=== PATIENT | female | born 1970 | race Caucasian/White ===

== ENCOUNTER 2020-02-05 08:07 | Outpatient (CLI) | payer OTHER, SELFPAY ==
--- NOTE | ~2020-02-05 | XR_ITS ---
EXAMINATION: XR abdomen/kub 1V INDICATION: History of kidney stones TECHNIQUE: Supine views of the abdomen were obtained on 2 radiographs. COMPARISON: 01/12/2019 FINDINGS: There are surgical changes in the left upper quadrant. Cholecystectomy clips are noted in t he right upper quadrant. No definite urinary tract calculi are identified. The previously described E ssure devices have been removed. A tiny retained portion of the device is seen in the right pelvis. T he bowel gas pattern is normal. IMPRESSION: 1. No urinary tract calculi identified. Reviewed, dictated and finalized at location A.
== END 2020-02-05 08:08 | disposition home or self-care (01) ==
PROVIDERS: PCP Internal Medicine; Visit Provider Urology
DX: Z87.442 Personal history of urinary calculi (principal)
CPT/HCPCS: 74018

== ENCOUNTER 2022-01-26 18:35 | Emergency (ER) | payer OTHER, SELFPAY ==
--- NOTE | ~2022-01-26 | NM_ITS ---
NM pulmonary perfusion DATE: 01/27/2022 09:33 INDICATION: Left pleuritic chest pain. Elevated d-dimer. History of deep venous thrombosis TECHNIQUE: 8 standard projections of the lungs were performed after intravenous injection of 5.1 mCi 99m technetium MAA COMPARISON: 01/26/2022 PA and lateral chest FINDINGS: There is normal distribution of radiotracer throughout both lungs without segmental or loba r perfusion defects. IMPRESSION: Negative perfusion scan; no evidence of pulmonary embolism Reviewed, dictated and finalized at Location A. Reviewed, dictated and finalized at location A.
--- NOTE | ~2022-01-26 | XR_ITS ---
EXAMINATION: XR chest 2V DATE: 01/26/2022 18:49 INDICATION: Chest pain. TECHNIQUE: Frontal and lateral views of the chest were obtained. COMPARISON: CT abdomen and pelvis 07/25/2018 FINDINGS: The chest demonstrates clear lungs without pneumonia, pleural effusion, or pneumothorax. Th e heart size is normal. There are surgical clips in the abdomen. IMPRESSION: 1. No acute cardiopulmonary disease. Reviewed, dictated and finalized at location A.
--- NOTE | 2022-01-26 18:35 | ECG_ITS ---
Measurements Intervals [place] Rate: 65 P: 50 NV: 151 QRS: -6 QRSD: 105 T: 39 QT: 385 QTc: 403 Interpretive Statements SINUS RHYTHM POSSIBLE LEFT ATRIAL ENLARGEMENT INCOMPLETE RIGHT BUNDLE BRANCH BLOCK CONSIDER INFERIOR INFARCT, AGE INDETERMINATE ABNORMAL ECG Electronically Signed On 01-26-2022 21:31:23 CDT by Tejinder Farfan D.O.
[2022-01-26 18:49] VITALS: BP 121/65; PULSE 74; RESP 16; TEMP 36.6; O2SAT 100
[2022-01-26 19:04] LABS: Basophils Percent Auto 0.3 % (0.2-1.2); Eosinophils Absolute Auto 0.1 K/mm3 (0-0.3); Hematocrit 30.8 % (37.0-47.0); Hemoglobin 9.9 g/dL (12.0-15.0); Immature Granulocyte Absolute 0.01 K/mm3 (0.00-0.031); Immature Granulocyte Percent A 0.2 % (0-0.5); Lymphocytes Absolute Auto 1.05 K/mm3 (0.9-3.2); Lymphocytes Percent Auto 16.8 % (18.3-44.2); Mean Corpuscular HGB Conc 32.1 g/dl (32-36); Mean Corpuscular Hemoglobin 26.8 pg (26-34); Mean Corpuscular Volume 83.5 fl (80-100); Mean Platelet Volume 8.2 fl (7.4-10.4); Monocytes Absolute Auto 0.4 K/mm3 (0.1-0.6); Monocytes Percent Auto 6.1 % (2.6-8.5); Neutrophils Absolute Auto 4.7 K/mm3 (1.3-6.7); Neutrophils Percent Auto 75.6 % (45.5-73.1); Platelet Count Result 272 k/mm3 (150-375); Red Blood Count 3.69 M/mm3 (4.2-5.4); Red Cell Distribution Width 11.9 % (11.5-14.5); White Blood Count 6.3 K/mm3 (4.5-10.0)
[2022-01-26 19:13] LABS: Alanine Aminotransferase 15 U/L (6-35); Albumin Level 4.4 g/dL (3.5-5.1); Alkaline Phosphatase 117 U/L (38-126); Anion Gap 7 mmol/L (8-16); Aspartate Amino Transferase 34 U/L (14-36); Bilirubin,Total 0.6 mg/dL (0.2-1.3); Blood Urea Nitrogen 45 mg/dL (7-17); Calcium 9.2 mg/dL (8.4-10.2); Carbon Dioxide 34 mmol/L (22-30); Chloride 86 mmol/L (98-107); Estimated CRCL calculation 18 ml/min; Estimated Glomerular Filt Rate 17; Glucose 99 mg/dL (65-110); Lipase 302 U/L (23-300); Sodium 127 mmol/L (137-145)
[2022-01-26 19:16] LABS: Prothrombin Time 12.6 Seconds (11.1-14.7)
[2022-01-26 19:17] LABS: Partial Thromboplastin Time 26.6 SECONDS (22.3-36.8)
[2022-01-26 19:24] LABS: Troponin I < 0.012 ng/mL (0.000-0.034)
[2022-01-26] MEDS: ASPIRIN 81 MG CHEWABLE TABLET 324 MG PO (23:07)
[2022-01-26 23:08] VITALS: BP 119/64; PULSE 74; RESP 17; O2SAT 100
[2022-01-26 23:35] LABS: D Dimer 0.95 ug/mL (<0.48)
[2022-01-26 23:42] LABS: Troponin I < 0.012 ng/mL (0.000-0.034)
[2022-01-27] VITALS (46 sets, daily range): BP systolic 94–114; BP diastolic 50–68; PULSE 59–74; RESP 10–23; O2SAT 94–100
[2022-01-27 01:54] LABS: Troponin I < 0.012 ng/mL (0.000-0.034)
--- NOTE | 2022-01-27 05:16 | ED.CHESTPAIN ---
HPI - Chest Pain General Chief Complaint: Chest Pain Stated Complaint: chest pain Time Seen by Provider: 01/26/22 22:27 History of Present Illness HPI narrative: 51-year-old female presents here stating that she is having left-sided chest pain that is also in her back, states this is never happened in the past, denies any recent cough, pain does not radiate, it is worse when she takes deep breaths. History of DVTs, she is not on any blood thinners. Related Data Allergies Allergy/AdvReac Type Severity Reaction Status Date / Time bacitracin Allergy Severe Hives / Verified 01/31/21 10:49 Red Face ibuprofen Allergy Severe Hives / Verified 01/31/21 10:49 Red Face neomycin Allergy Severe Hives / Verified 01/31/21 10:49 Red Face polymyxin B Allergy Severe Hives / Verified 01/31/21 10:49 Red Face gramicidin D Allergy Verified 01/31/21 10:49 BACITRACIN ZINC Allergy Uncoded 01/31/21 10:49 NEOMYCIN SULFATE Allergy Uncoded 01/31/21 10:49 POLYMYXIN B SULFATE Allergy Uncoded 01/31/21 10:49 Review of Systems Review of Systems: CONST: No fever. HEENT: No sore throat C/V: chest pain RESP: No cough GI: No nausea, vomiting : No dysuria. M/S: No joint pain. SKIN: No rash. NEURO: No headache or focal numbness or weakness PSYCH: No depression PMFSH Past Medical History Medical History (Updated 01/27/22 @ 05:20 by Wendy Vasquez MD) CKD (chronic kidney disease) DVT (deep venous thrombosis) Surgical History Surgical History (Updated 01/27/22 @ 05:20 by Wendy Vasquez MD) History of cholecystectomy Exam Narrative: EXAMINATION OF ORGAN SYSTEMS/BODY AREAS: Constitutional: Vital signs per nursing GENERAL:[No acute distress, non-toxic appearing.] HEAD: Normal with no signs of head trauma. EYES: EOMI, conjunctiva normal ENT: Hearing grossly intact LUNGS: Nonlabored breathing. HEART: [Regular rate and rhythm] ABD: [Soft] nondistended EXT: Normal range of motion, no swelling SKIN: [No rashes or lesions.] NEURO: [Alert and oriented x 3. No gross focal sensory or strength deficits.] PSYCH: Normal affect Course Course Emergency Course: 51-year-old female with history of CKD and prior DVT not on anticoagulation currently presents here with sharp pleuritic chest pain, vital signs stable, exam shows well-appearing patient with clear lungs, differential includes with likely ACS/TN without pain on exertion, possible bronchitis however no recent cough, and PE. EKG nonischemic, labs include normal troponin, but elevated D-dimer. Given her creatinine I am unable to order a CT PE, NM scan was ordered, multiple calls to tech made overnight without response and patient will likely have it in the AM. Signed out to oncoming ER physician. Vital Signs Vital signs: Vital Signs Temperature 97.8 F 01/26/22 18:49 Pulse Rate 74 01/26/22 18:49 Respiratory Rate 16 01/26/22 18:49 Blood Pressure 121/65 01/26/22 18:49 Pulse Oximetry 100 01/26/22 18:49 Temperature 97.8 F 01/26/22 18:49 Pulse Rate 62 01/27/22 02:45 Respiratory Rate 16 01/27/22 02:45 Blood Pressure 99/66 L 01/27/22 02:45 Pulse Oximetry 99 01/27/22 02:45 MDM - Chest Pain Lab Data Result diagrams: 01/26/22 18:54 01/26/22 18:54 Labs: Lab Results 01/26/22 01/26/22 01/26/22 Range/Units 18:54 18:54 18:54 WBC 6.3 (4.5-10.0) K/mm3 RBC 3.69 L (4.2-5.4) M/mm3 Hgb 9.9 L (12.0-15.0) g/dL Hct 30.8 L (37.0-47.0) % MCV 83.5 (80-100) fl MCH 26.8 (26-34) pg MCHC 32.1 (32-36) g/dl RDW 11.9 (11.5-14.5) % Plt Count 272 (150-375) k/mm3 MPV 8.2 (7.4-10.4) fl Immature Gran % (Auto) 0.2 (0-0.5) % Neut % (Auto) 75.6 H (45.5-73.1) % Lymph % (Auto) 16.8 L (18.3-44.2) % Placer % (Auto) 6.1 (2.6-8.5) % Eos % (Auto) 1.0 (0-4.4) % Baso % (Auto) 0.3 (0.2-1.2) % Lymph # (Auto) 1.05 (0.9-3.2) K/mm3 Placer # (Auto) 0.4 (0.1-0.6)
== END 2022-01-27 11:18 | disposition home or self-care (01) ==
PROVIDERS: Emergency Medicine; Emergency Provider Emergency Medicine; PCP Internal Medicine
DX: R07.89 Other chest pain (principal); N18.9 Chronic kidney disease, unspecified; Z86.718 Personal history of other venous thrombosis and embolism; I45.10 Unspecified right bundle-branch block; R94.31 Abnormal electrocardiogram [ECG] [EKG]
CPT/HCPCS: 36415; 71046; 78580; 80053; 83690; 84484; 85025; 85380; 85610; 85730; 93005; 99284; A9270; A9540

== ENCOUNTER 2023-04-25 14:38 | Outpatient (CLI) | payer OTHER, SELFPAY ==
--- NOTE | ~2023-04-25 | US_ITS ---
EXAMINATION: US venous doppler [facility] DATE: 04/25/2023 15:43 INDICATION: Lower limb swelling TECHNIQUE: Grayscale ultrasound images without and with compression and Doppler ultrasound images of the left lower extremity veins were obtained. COMPARISON: 04/29/2014 FINDINGS: The visualized portions of left common femoral vein, profunda (deep) femoral vein, femoral vein and p opliteal vein are partially compressible with peripheral nonocclusive thrombus with linear echogenic margins consistent with chronic thrombosis. The left peroneal veins, posterior tibial veins and great er saphenous vein outflow are patent. IMPRESSION: 1. Persistent chronic nonocclusive deep venous thrombosis in the left common femoral, superficial fe moral, profunda (deep) femoral and popliteal veins. Reviewed, dictated and finalized at location L. IMPRESSION: 1. Persistent chronic nonocclusive deep venous thrombosis in the left common f emoral, superficial femoral, profunda (deep) femoral and popliteal veins.
== END 2023-04-25 14:39 | disposition home or self-care (01) ==
LOC: ANHIMG 14:42
PROVIDERS: PCP Internal Medicine; Visit Provider Nurse Practitioner Family
DX: M79.89 Other specified soft tissue disorders (principal); I82.512 Chronic embolism and thrombosis of left femoral vein; I82.532 Chronic embolism and thrombosis of left popliteal vein
CPT/HCPCS: 93971

== ENCOUNTER 2023-04-25 16:09 | Emergency (ER) | payer OTHER, SELFPAY ==
[2023-04-25 16:20] VITALS: BP 152/79; PULSE 71; RESP 16; TEMP 36.6; O2SAT 100
[2023-04-25 17:05] VITALS: BP 127/108; PULSE 70; RESP 15; O2SAT 100
[2023-04-25 17:16] VITALS: BP 147/74; O2SAT 100
[2023-04-25 17:31] VITALS: BP 133/79; O2SAT 100
[2023-04-25 17:32] VITALS: O2SAT 100
--- NOTE | 2023-04-25 17:34 | ED.GENADULT ---
HPI - General Adult General Chief complaint: Extremity Problem,Nontraumatic Stated complaint: dvt Time Seen by Provider: 04/25/23 16:59 Source: patient Mode of arrival: ambulatory Limitations: no limitations History of Present Illness HPI narrative: This is a 52-year-old female who presents to the ED with chief complaint of left calf swelling and a positive DVT ultrasound done today. She was referred over from the radiology department. She states the left calf has been swollen for the last week or so. There is some pain in the upper calf. Denies redness. States she is able to ambulate. Denies any shortness of breath or chest pain. States she has a history of 2 DVTs in the left calf in the past. She has been on Xarelto in the past but is not currently taking blood thinners. States she has had a workup for this and has not been informed of any known coagulopathies. Denies any further complaint. Related Data Home Medications Medication Instructions Recorded Confirmed hydrochlorothiazide 12.5 mg capsule 12.5 mg PO DAILY 04/30/22 04/30/22 montelukast 10 mg tablet 10 mg PO DAILY 04/30/22 04/30/22 tolvaptan (polycys kidney dis) 90 See Rx Instructions PO PER PKG DIR 04/30/22 04/30/22 mg (AM)/30 mg (PM) tablets (Jynarque) Allergies Allergy/AdvReac Type Severity Reaction Status Date / Time bacitracin Allergy Severe Hives / Verified 04/25/23 16:24 Red Face ibuprofen Allergy Severe Hives / Verified 04/25/23 16:24 Red Face neomycin Allergy Severe Hives / Verified 04/25/23 16:24 Red Face polymyxin B Allergy Severe Hives / Verified 04/25/23 16:24 Red Face gramicidin D Allergy Unknown Verified 04/25/23 16:24 BACITRACIN ZINC Allergy Unknown Uncoded 04/25/23 16:24 NEOMYCIN SULFATE Allergy Unknown Uncoded 04/25/23 16:24 POLYMYXIN B SULFATE Allergy Unknown Uncoded 04/25/23 16:24 Review of Systems Review of Systems: All systems as dictated in HPI PMFSH Past Medical History Medical History (Updated 04/26/23 @ 00:05 by Jammie English) Acid reflux CKD (chronic kidney disease) DVT (deep venous thrombosis) Surgical History Surgical History (Updated 04/30/22 @ 08:08 by Kalie Dodge MA) Gastric bypass status for obesity H/O endoscopy History of cholecystectomy History of tubal ligation Social History Social History (Updated 04/30/22 @ 08:08 by Kalie Dodge MA) Smoking status: Never smoker Alcohol intake: never Substance use: never Substance use type: does not use Living arrangements: with family Occupation/Education: retired Gender identity (if verbalized by the patient): Female Exam Narrative: GENERAL: Well-appearing, well-nourished, and in no acute distress. HEAD: Normocephalic, atraumatic. EYES: PERRLA and EOMI. ENT: Nares clear, no rhinorrhea or epistaxis. Mucous membranes moist. Oropharynx without tonsillar hypertrophy exudate or other lesions. NECK: Supple. No adenopathy or masses. CHEST: No respiratory distress. Clear to auscultation. No wheezes rales or rhonchi HEART: Regular rate and rhythm. No murmur heard. Normal peripheral pulses. ABDOMEN: Soft, nontender, nondistended, normal active bowel sounds. MSK: LLE: Left calf unilateral swelling when compared to right. Minimal redness. Minimal tenderness as well. Cap refill intact. 2+ pulses distally. No skin changes. RLE: Benign. SKIN: Warm, dry, no rash. NEURO: Alert and oriented x3. No focal deficits. PSYCH: Normal mood and affect. Course Vital Signs Vital signs: Vital Signs Temperature 97.9 F 04/25/23 16:20 Pulse Rate 71 04/25/23 16:20 Respiratory Rate 16 04/25/23 16:20 Blood Pressure 152/79 H 04/25/23 16:20 Pulse Oximetry 100 04/25/23 16:20 Oxygen Delivery Room Air 04/25/23 16:20 Temperature 97.9 F 04/25/23 16:20 Pulse Rate 70 04/25/23 17:05 Respiratory Rate 15 04/25/23 17:05 Blood Pressure 133/79 04/25/23 17:31 Pulse Oximetry 100 04/25/23
[2023-04-25 17:56] LABS: Basophils Percent Auto 0.7 % (0.2-1.2); Eosinophils Absolute Auto 0.1 K/mm3 (0-0.3); Eosinophils Percent Auto 1.2 % (0-4.4); Hematocrit 35.4 % (37.0-47.0); Hemoglobin 11.3 g/dL (12.0-15.0); Immature Granulocyte Absolute 0.01 K/mm3 (0.00-0.031); Immature Granulocyte Percent A 0.2 % (0-0.5); Lymphocytes Absolute Auto 1.51 K/mm3 (0.9-3.2); Lymphocytes Percent Auto 25.7 % (18.3-44.2); Mean Corpuscular HGB Conc 31.9 g/dl (32-36); Mean Corpuscular Hemoglobin 26.9 pg (26-34); Mean Corpuscular Volume 84.3 fl (80-100); Mean Platelet Volume 8.2 fl (7.4-10.4); Monocytes Absolute Auto 0.4 K/mm3 (0.1-0.6); Monocytes Percent Auto 6.8 % (2.6-8.5); Neutrophils Absolute Auto 3.8 K/mm3 (1.3-6.7); Neutrophils Percent Auto 65.4 % (45.5-73.1); Platelet Count Result 212 k/mm3 (150-375); Red Cell Distribution Width 19.2 % (11.5-14.5); White Blood Count 5.9 K/mm3 (4.5-10.0)
[2023-04-25 18:05] LABS: Alanine Aminotransferase 19 U/L (6-35); Albumin Level 4.3 g/dL (3.5-5.1); Alkaline Phosphatase 72 U/L (38-126); Anion Gap 9 mmol/L (8-16); Aspartate Amino Transferase 29 U/L (14-36); Bilirubin,Total 0.5 mg/dL (0.2-1.3); Blood Urea Nitrogen 49 mg/dL (7-17); Calcium 9.6 mg/dL (8.4-10.2); Carbon Dioxide 29 mmol/L (22-30); Chloride 102 mmol/L (98-107); Estimated CRCL calculation 21 ml/min; Estimated Glomerular Filt Rate 18; Glucose 100 mg/dL (65-110); Potassium 4.6 mmol/L (3.4-5.0); Sodium 140 mmol/L (137-145)
[2023-04-25 18:07] LABS: INR 0.9
== END 2023-04-25 18:52 | disposition home or self-care (01) ==
PROVIDERS: Emergency Provider Physician Assistant; PCP Internal Medicine
DX: I82.512 Chronic embolism and thrombosis of left femoral vein (principal); I82.532 Chronic embolism and thrombosis of left popliteal vein; N18.9 Chronic kidney disease, unspecified; K21.9 Gastro-esophageal reflux disease without esophagitis; Z98.84 Bariatric surgery status; Z90.49 Acquired absence of other specified parts of digestive tract
CPT/HCPCS: 36415; 80053; 85025; 85610; 99283

== ENCOUNTER 2024-04-30 07:14 | Outpatient (CLI) | payer OTHER, SELFPAY ==
--- NOTE | ~2024-04-30 | DEXA_ITS ---
Bone Density Report Name: ARELIS MORALES Age: 53 Sex: Female Ethnicity: White Date of : 1970 Indication: postmenopausal; screening for osteoporosis; end stage renal disease; Referring Provider: OSMEL, CARA Hall Study: Bone densitometry was performed. Exam Date: April 30, 2024 Accession number: [id number] Bone Density: Region BMD T-score Z-score Classification AP Spine(L2, L3, L4) 0.848 -2.1 -1.0 Osteopenia Femoral Neck (Left) 0.611 -2.1 -1.0 Osteopenia Total Hip (Left) 0.767 -1.4 -0.7 Osteopenia Femoral Neck (Right) 0.543 -2.8 -1.7 Osteoporosis Total Hip (Right) 0.698 -2.0 -1.3 Osteopenia Femoral Neck Mean 0.577 -2.4 -1.4 Osteopenia Total Hip Mean 0.733 -1.7 -1.0 Osteopenia World Health Organization criteria for BMD impression classify patients as: Normal (T-score at or above -1.0), Osteopenia (T-score between -1.0 and -2.5), or Osteoporosis (T-score at or below -2.5). 10-year Fracture Risk: FRAX not reported because: Some T-score for Spine Total or Hip Total or Femoral Neck at or below -2.5 Clinical Information Provided by Patient: Has used the following medications: Vitamin D, Calcium, multi Has the following medical conditions: End stage renal disease Patient maximum height was 64 Menopause Age: 38 Onset of menses at age 9 Number of children 2 Impression: The patient has osteoporosis, based on the Right Femoral Neck T-score. Discussion: INCREASED RISK OF FRACTURE. BONE DENSITY IS UNDESIRABLY LOW AT ONE OR MORE SKELETAL SITES, CONSISTENT WITH POSTMENOPAUSAL OSTEOPOROSIS. This patient's lowest T-score meets the World Health Organization's (WHO) criteria for osteoporosis at one or more sites (T-score -2.5 or below). In untreated patients, the risk of osteoporotic fracture increases approximately two-fold for each 1.0 SD decrease in T-score. Low bone density is not the only risk factor for fracture; also consider factors such as patient's age, frailty or poor health, risk of falling, risk of injury, previous osteoporotic fracture, family history of osteoporosis, cigarette smoking, low body weight, etc. Not everyone with low bone mineral density has osteoporosis; osteomalacia and other metabolic bone disorders should also be considered. Patients who have osteoporosis should be evaluated for specific diseases and conditions (secondary causes) that may cause or contribute to bone loss. The [place] [employer]ocrinologists (AACE) and National Osteoporosis Foundation (NOF) recommend pharmacologic intervention for all postmenopausal women whose T-score is in this range. The patient should follow a healthful lifestyle (good nutrition with adequate calcium and vitamin D, and appropriate weight-bearing exercise). Follow-Up: Consider a repeat BMD and Vertebral Frac
== END 2024-04-30 07:15 | disposition home or self-care (01) ==
LOC: CHSIMG 07:18
PROVIDERS: PCP Internal Medicine; Visit Provider Internal Medicine
DX: Z78.0 Asymptomatic menopausal state (principal); M81.0 Age-related osteoporosis without current pathological fracture; M85.89 Other specified disorders of bone density and structure, multiple sites
CPT/HCPCS: 77080

== ENCOUNTER 2024-10-24 15:39 | Emergency (ER) | payer OTHER, SELFPAY ==
[2024-10-24] VITALS (12 sets, daily range): BP systolic 138–153; BP diastolic 61–83; PULSE 72–77; RESP 12–19; TEMP 36.4–36.7; O2SAT 99–100
--- NOTE | ~2024-10-24 | XR_ITS ---
EXAMINATION: XR chest 2V Exam Date/Time: 10/24/2024 17:08 RN HYPERBARIC HISTORY: sob, pain with inspiration Comparison: 01/26/2022. RESULT: Lines, tubes, and devices: Surgical clips over the GE junction. Lungs and pleura: Clear. Cardiomediastinal silhouette: Stable. Other: No acute osseous or upper abdominal finding. IMPRESSION: No acute cardiopulmonary process. Reviewed, dictated and finalized at location K. HYPERBARIC
--- OUTSIDE RECORDS SUMMARY | 2024-10-24 15:41 | XMS_ITS | Continuity of Care Document ---
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 Post-surgical malabsorption (disorder) Active Condition Blood in Stool Active Diagnosis Morbid Obesity Active Diagnosis Allergies, Adverse Reactions, Alerts Substance Category Reaction Severity Reaction type Status Date Reported Comments Source ibuprofen Assertion Hives Propensity to adverse reactions to substance Active [facility] Neosporin Assertion increase rash Drug allergy Active [facility] Encounters Location Location Details Encounter Type Encounter Number Reason For Visit Attending Provider ADM Date DC Date Status Source [facility] [id number] CLASS: YEARLY RYGB 05/25/13 Odin Sutmargaretoeller Cancel [facility] [id number] CLASS: YEARLY RYGB 05/25/13 Odin Sutmargaretoeller Cancel [facility] [id number] CLASS: YEARLY RYGB 05/25/13 Reji Carrero Cancel [facility] [id number] CLASS: YEARLY RYGB 05/25/13 Odin Suttmoeller Cancel [facility] Procedures Procedure Code Date Perfomer Comments Source Cholecystectomy [id number] [facility] navel mass removed as a child [facility] uterine abalation [facility] Laparoscopic Mynor-en-Y divid ed gastric bypass [facility]
--- OUTSIDE RECORDS SUMMARY | 2024-10-24 15:41 | XMS_ITS | Clinical Summary ---
Author Organization [facility] Address [address] [place] [phone] Phone Care Team Providers Care Operating Room Surgical Technician Name Role Phone Joselito Laws MD Primary Care Provider [phone] Allergies Active Allergy Reactions Criticality Noted Date Comments Ibuprofen 05/21/2019 [id number]-[id number]-[id number] 2018 Medications Medication Sig Dispensed Refills Start Date End Date Status montelukast (SINGULAIR) 10 MG tablet 1 tab daily 0 07/18/2016 Active Multiple Vitamins-Mineral s (DEKAS BARIATRIC PO) DEKAs Bariatric Active calcium carbonate (TUMS) 500 MG chewable tablet Chew 500 mg in the morning and 500 mg in the evening and 500 mg before bedtime. Active sertraline (ZOLOFT) 50 MG tablet Take 50 mg by mouth 1 (one) time each day Active Biotin 100 MG/GM powder Take 10,000 mg by mouth in the morning and 10,000 mg in the evening. Active nortriptyline (PAMELOR) 25 MG capsule Take 25 mg by mouth every night Active sertraline (ZOLOFT) 25 MG tablet Take 25 mg by mouth 1 (one) time each day Active rivaroxaban (Xarelto) 20 MG tablet Take 20 mg by mouth 1 (one) time each day with dinner Take with food. Active potassium citrate (UROCIT-K) 10 MEQ (1080 MG) CR tablet Take 1 tablet (10 mEq total) by mouth 1 (one) time each day Do not crush, chew, or split. 90 tablet 11 08/21/2023 Active atorvastatin (LIPITOR) 10 MG tablet Take 10 mg by mouth 1 (one) time each day Active alendronate (FOSAMAX) 70 MG tablet Take 70 mg by mouth every 7 (seven) days Take in the morning with a full glass of water, on an empty stomach, and do not take anything else by mouth or lie down for the next 30 min. Active cetirizine (ZyrTEC) 10 MG tablet Take 10 mg by mouth 1 (one) time each day Active folic acid (FOLVITE) 800 MCG tablet Take 800 mcg by mouth 1 (one) time each day Active cyanocobalamin (VITAMIN B-12) 1000 MCG tablet Take 5,000 mcg by mouth 1 (one) time each day Active hydroCHLOROthiaz audrey 12.5 MG tablet Take 1 tablet (12.5 mg total) by mouth 1 (one) time each day 90 tablet 1 06/09/2024 Active ferrous sulfate 325 (65 Fe) MG tablet TAKE 1 TABLET (325 MG) BY MOUTH IN THE MORNING AND TAKE 1 TABLET IN THE EVENING 180 tablet 07/30/2024 Active Tolvaptan (Jynarque) 90 & 30 MG tablet therapy packIndications: Autosomal dominant polycystic kidney Take 90 mg by mouth daily AND 30 mg 1 (one) time each day in the evening. Take one 90 mg tablet daily in the morning and one 30 mg tablet 8 hours later. 56 each 2 09/29/2024 Active Tolvaptan (Jynarque) 90 & 30 MG tablet therapy packIndications: Autosomal dominant polycystic kidney Take 90 mg by mouth daily AND 30 mg daily. Take one 90 mg tablet daily in the morning and one 30 mg tablet 8 hours later. 56 each 2 06/25/2024 09/29/2024 Discontinued (Reorder) Hospital, Clinic, or Other Facility Administered Medication Ordered Dose Route Frequency Start Date End Date Status iron sucrose (VENOFER) injection 500 mgIndications:Iron deficiency anemia, not otherwise specified 500 mg IV See admin instructions 08/26/2024 Active Active Problems Problem Noted Date Diagnosed Date Encounter for therapeutic drug monitoring 2023 Iron deficiency anemia 02/20/2023 Essential hypertension 05/21/2019 Adult polycystic kidney 01/11/2017 Chronic kidney disease, stage 4 (severe) 016 Resolved Problems Problem Noted Date Diagnosed Date Resolved Date Secondary hyperparathyroidism 08/18/2020 02/19/2023 Headache, unspecified 08/18/20202020 Back pain 05/20/2020 08/18/2020 Acute kidney failure 11/19/2018 019 Urinary tract infection 11/19/201801/2019 Anemia 07/18/2016 05/13/2024 Encounters Date Type Department Care Team Description 09/29/2024 Refill [facility] [address] [place] [id number] Nany Erickson RN Autosomal dominant polycystic kidney 08/26/2024 3:40 PM KEY ACCOUNT MANAGER Office Visit [facility] [address] [place] [id number] Brayan Aquino MD Chronic kidney disease, stage 4 (severe) ([facility]) (Primary Dx); Adult polycystic kidney; Encounter for therapeutic drug monitoring; Essential hypertension; Iron deficiency anemia, not otherwise specified 08/10/2024 10:00 AM KEY ACCOUNT MANAGER Clinical Support [facility] [address] [place] [id number] Shadia De Oliveira NP Chronic kidney disease, stage 4 (severe) ([facility]) (Primary Dx) 07/30/2024 Refill [facility] [address] [place] [id number] Shadia De Oliveira NP from Last 3 Months Immunizations Name Administration Dates Next Due Influenza TIV (IM) 06/18/2016 Family History Medical History Relation Comments Kidney disease Father Diabetes mellitus Neg Hx Relation Status Comments Father Social History Tobacco Use Types Packs/Day Years Used Date Smoking Tobacco: Never Smokeless Tobacco: Never Tobacco Cessation:Counseling Given: Not Answered Alcohol Use Standard Drinks/Week Comments Never 0 (1 standard drink = 0.6 oz pur e alcohol) AUDIT-C Answer Date Recorded Frequency of Alcohol Consumption Never 11/19/2019 Average Number of Drinks Not on file 020 Frequency of Binge Drinking Not on file 01/2020 Sex and Gender Information Value Date Recorded Sex Assigned at Not on file Gender Identity Not on file Sexual Orientation Not on file Last Filed Vital Signs Vital Sign Reading Time Taken Comments Blood Pressure 155/90 08/26/2024 3:24 PM KEY ACCOUNT MANAGER Pulse 85 08/26/2024 3:24 PM KEY ACCOUNT MANAGER Temperature 37.1 C (98.7 F) 05/03/2021 4:13 PM CDT Respiratory Rate - - Oxygen Saturation 99% 10/24/2022 2:05 PM KEY ACCOUNT MANAGER Inhaled Oxygen Concentration - - Weight 80.3 kg (177 lb) 08/26/2024 3:24 PM KEY ACCOUNT MANAGER Height 160 cm (5' 3 ) 08/26/2024 3:24 PM KEY ACCOUNT MANAGER Body Mass Index 31.35 08/26/2024 3:24 PM KEY ACCOUNT MANAGER Plan of Treatment Upcoming Encounters Date Type Department Care Team (Late st Contact Info) Description 12/16/2024 3:20 PM CDT Office Visit [facility] [address] [facility] [place] [address] Brayan Aquino MD [address] [facility] [address] [place], [place] [id number] Health Maintenance Due Date Last Done Comments Diabetic Foot Exam 1978 Ophthalmology Exam 1978 Pneumococcal PPSV23 Highest Risk Adult (1 of 3 - PCV13) 1987 Influenza Vaccine (#1) 2024 3, 06/15/2022, 06/27/2018, Additional history exists Care Teams Operating Room Surgical Technician Relationship Specialty Start Date End Date Joselito Laws MD [address] [facility] [address] [place] [address] PCP - General 11/25/19
--- OUTSIDE RECORDS SUMMARY | 2024-10-24 15:41 | XMS_ITS | Encounter Summary ---
Author Organization [facility] Suzan utimarcus Address [address] [place] [address] Phone Care Team Providers Care Warehouse Operations Associate Name Role Phone Joselito Laws MD Primary Care Provider Reason for Visit * Reason Comments Med Refill Encounter Details Date Type Department Care Team (Late st Contact Info) Description 07/27/2019 Refill [facility] 2100 [facility] 206 [place] [address] Brayan Aquino MD 5003 [facility] 1 [place], [place] [phone] Social History Tobacco Use Types Packs/Day Years Used Date Smoking Tobacco: Never Assessed Sex and Gender Information Value Date Recorded Sex Assigned at Not on file Gender Identity Not on file Sexual Orientation Not on file documented as of this encounter Plan of Treatment Upcoming Encounters Date Type Department Care Team (Late st Contact Info) Description 12/16/2024 3:20 PM CDT Office Visit [facility] 5003 [facility] 1 [place] [address] Brayan Aquino MD [address] [address] documented as of this encounter Visit Diagnoses Not on filedocumented in this encounter Care Teams Warehouse Operations Associate Relationship Specialty Start Date End Date Joselito Laws MD [address] [facility] 15 [place] [address] PCP - General 11/25/19 documented as of this encounter
--- OUTSIDE RECORDS SUMMARY | 2024-10-24 15:41 | XMS_ITS | Encounter Summary ---
Author Organization Dor[facility] Physician Suzan utimarcus Address [address] [place] [address] Phone Care Team Providers Care Physician Assistant Name Role Phone Joselito Laws MD Primary Care Provider [phone] Reason for Visit * Reason Comments Med Refill Encounter Details Date Type Department Care Team (Late Contact Info) Description 12/28/2020 Refill [facility] [address] [id number] Brayan Aquino MD [address] [address] Social History Tobacco Use Types Packs/Day Years Used Date Smoking Tobacco: Never Smokeless Tobacco: Never Alcohol Use Standard Drinks/Week Comments Never 0 [...] Description 12/16/2024 3:20 PM CDT Office Visit [facility] 5003 [facility] 1 [place] [address] Brayan Aquino MD [address] [phone] documented as of this encounter Visit Diagnoses Not on filedocumented in this encounter Care Teams Physician Assistant Relationship Specialty Start Date End Date Joselito Laws MD [address] [address] PCP - General 11/25/19 documented as of this encounter
--- OUTSIDE RECORDS SUMMARY | 2024-10-24 15:41 | XMS_ITS | Encounter Summary ---
Author Organization Dor[facility] Physician Suzan utimarcus Address [address] [place] [address] Phone Care Team Providers Care Division Manager Name Role Phone Joselito Laws MD Primary Care Provider [phone] Reason for Visit * Reason Comments Med Refill Encounter Details Date Type Department Care Team (Late st Contact Info) Description 2019 Refill [facility] [address] [facility] 206 [place] [address] Brayan Aquino MD 5003 [facility] 1 [place], [place] [phone] Social History Tobacco Use Types Packs/Day Years Used Date Smoking Tobacco: Never Assessed Sex and Gender Information Value Date Recorded Sex Assigned at Not on file Gender Identity Not on file Sexual Orientation Not on file documented as of this encounter Plan of Treatment Upcoming Encounters Date Type Department Care Team (Late st Contact Info) Description 12/16/2024 3:20 PM CDT Office Visit [facility] 5003 [facility] 1 [place] [address] Brayan Aquino MD [address] [address] documented as of this encounter Visit Diagnoses Not on filedocumented in this encounter Care Teams Division Manager Relationship Specialty Start Date End Date Joselito Laws MD [address] [facility] 15 [place] [address] PCP - General 11/25/19 documented as of this encounter
--- OUTSIDE RECORDS SUMMARY | 2024-10-24 15:41 | XMS_ITS | Encounter Summary ---
Author Organization Dor[facility] Physician Suzan utimarcus Address [address] [place] [address] Phone Care Team Providers Care Ui Software Developer Name Role Phone Joselito Laws MD Primary Care Provider [phone] Reason for Visit * Reason Comments Med Refill Encounter Details Date Type Department Care Team (Late Contact Info) Description 11/01/2020 Refill [facility] [address] [phone] Brayan Aquino MD [address] [address] Social History Tobacco Use Types [...] Description 12/16/2024 3:20 PM CDT Office Visit [facility] 5003 [facility] 1 [place] [address] Brayan Aquino MD [address] [phone] documented as of this encounter Visit Diagnoses Not on filedocumented in this encounter Care Teams Ui Software Developer Relationship Specialty Start Date End Date Joselito Laws MD [address] [phone] PCP - General 11/25/19 documented as of this encounter
--- OUTSIDE RECORDS SUMMARY | 2024-10-24 15:41 | XMS_ITS | Encounter Summary ---
Author Organization [facility] Address [address] [place] [address] Phone Care Team Providers Care Supervisor Shuttle Fitting Name Role Phone Joselito Laws MD Primary Care Provider [phone] Reason for Visit * Reason Comments Med Refill Encounter Details Date Type Department Care Team (Late Contact Info) Description 09/14/2020 Refill [facility] [address] [phone] Brayan Aquino MD [address] [address] Social History Tobacco Use Types [...] Description 12/16/2024 3:20 PM CDT Office Visit [facility] 1 [place] [address] Brayan Aquino MD [address] [phone] documented as of this encounter Visit Diagnoses Not on filedocumented in this encounter Care Teams Supervisor Shuttle Fitting Relationship Specialty Start Date End Date Joselito Laws MD [address] [phone] PCP - General 11/25/19 documented as of this encounter
--- OUTSIDE RECORDS SUMMARY | 2024-10-24 15:41 | XMS_ITS | Encounter Summary ---
Author Organization [facility] Address [address] [place] [address] Phone Care Team Providers Care Personal Property Appraiser Name Role Phone Joselito Laws MD Primary Care Provider [phone] Reason for Visit * Reason Comments Med Refill Encounter Details Date Type Department Care Team (Late Contact Info) Description 12/07/2019 Refill [facility] [address] [phone] Brayan Aquino MD [address] [address] Social History Tobacco Use Types [...] Description 12/16/2024 3:20 PM CDT Office Visit [facility]3 [facility] 1 [place] [address] Brayan Aquino MD [address] [phone] documented as of this encounter Visit Diagnoses Not on filedocumented in this encounter Care Teams Personal Property Appraiser Relationship Specialty Start Date End Date Joselito Laws MD [address] [address] PCP - General 11/25/19 documented as of this encounter
--- OUTSIDE RECORDS SUMMARY | 2024-10-24 15:41 | XMS_ITS | Encounter Summary ---
Author Organization Dorinda Physician Suzan utimarcus Address [address] [place] [address] Phone Care Team Providers Care Hops Farmworker Name Role Phone Joselito Laws MD Primary Care Provider [phone] Reason for Visit * Reason Comments Med Refill Encounter Details Date Type Department Care Team (Late Contact Info) Description 07/04/2021 Refill [facility] [address] [place] [phone] Brayan Aquino MD [address] [address] Social History Tobacco Use Types [...] Encounters Date Type Department Care Team (Late Contact Info) Description 12/16/2024 3:20 PM CDT Office Visit [facility] [address] [place] [phone] Brayan Aquino MD [address] [phone] documented as of this encounter Visit Diagnoses Not on filedocumented in this encounter Care Teams Hops Farmworker Relationship Specialty Start Date End Date Joselito Laws MD [address] [address] PCP - General 11/25/19 documented as of this encounter
--- OUTSIDE RECORDS SUMMARY | 2024-10-24 15:41 | XMS_ITS | Encounter Summary ---
Author Organization Dorinda Physician Suzan utimarcus Address [address] [place] [address] Phone Care Team Providers Care Geographic Information System Analyst Name Role Phone Joselito Laws MD Primary Care Provider [phone] Reason for Visit * Reason Comments Med Refill Encounter Details Date Type Department Care Team (Late st Contact Info) Description 10/26/2019 Refill [facility] 2100 [facility] 206 [place] [address] Brayan Aquino MD 5003 [facility] 1 [place], [place] [phone] Social History Tobacco Use Types Packs/Day Years Used Date Smoking Tobacco: Never Assessed Sex and Gender Information Value Date Recorded Sex Assigned at Not on file Gender Identity Not on file Sexual Orientation Not on file documented as of this encounter Plan of Treatment Upcoming Encounters Date Type Department Care Team (Late st Contact Info) Description 12/16/2024 3:20 PM CDT Office Visit [facility] 5003 [facility] 1 [place] [address] Brayan Aquino MD [address] [address] documented as of this encounter Visit Diagnoses Not on filedocumented in this encounter Care Teams Geographic Information System Analyst Relationship Specialty Start Date End Date Joselito Laws MD 2043 [facility] 15 [place] [address] PCP - General 11/25/19 documented as of this encounter
--- OUTSIDE RECORDS SUMMARY | 2024-10-24 15:41 | XMS_ITS | Encounter Summary ---
Author Organization Dorinda Physician Suzan utimarcus Address [address] [place] [address] Phone Care Team Providers Care Front End Technician Name Role Phone Joselito Laws MD Primary Care Provider [phone] Reason for Visit * Reason Comments Med Refill Encounter Details Date Type Department Care Team (Late st Contact Info) Description 06/11/2019 Refill [facility] 2100 [facility] 206 [place] [address] Brayan Aquino MD 5003 [facility] 1 [place], [place] [phone] Social History Tobacco Use Types Packs/Day Years Used Date Smoking Tobacco: Never Assessed Sex and Gender Information Value Date Recorded Sex Assigned at Not on file Gender Identity Not on file Sexual Orientation Not on file documented as of this encounter Plan of Treatment Upcoming Encounters Date Type Department Care Team (Late st Contact Info) Description 12/16/2024 3:20 PM CDT Office Visit [facility] 5003 [facility] 1 [place] [address] Brayan Aquino MD [address] [address] documented as of this encounter Visit Diagnoses Not on filedocumented in this encounter Care Teams Front End Technician Relationship Specialty Start Date End Date Joselito Laws MD 2043 [facility] 15 [place] [address] PCP - General 11/25/19 documented as of this encounter
--- OUTSIDE RECORDS SUMMARY | 2024-10-24 15:41 | XMS_ITS | Encounter Summary ---
Author Organization Dorinda Physician Suzan utimarcus Address [address] [place] [address] Phone Care Team Providers Care Delivery Supervisor Name Role Phone Joselito Laws MD Primary Care Provider [phone] Reason for Visit * Reason Comments Med Refill Encounter Details Date Type Department Care Team (Late st Contact Info) Description 11/05/2019 Refill [facility] 2100 [facility] 206 [place] [address] Brayan Aquino MD [address] [facility] 1 [place], [place] [phone] Social History Tobacco Use Types Packs/Day Years Used Date Smoking Tobacco: Never Assessed Sex and Gender Information Value Date Recorded Sex Assigned at Not on file Gender Identity Not on file Sexual Orientation Not on file documented as of this encounter Plan of Treatment Upcoming Encounters Date Type Department Care Team (Late st Contact Info) Description 12/16/2024 3:20 PM CDT Office Visit [facility] 5003 [facility] 1 [place] [address] Brayan Aquino MD [address] [address] documented as of this encounter Visit Diagnoses Not on filedocumented in this encounter Care Teams Delivery Supervisor Relationship Specialty Start Date End Date Joselito Laws MD 2043 [facility] 15 [place] [address] PCP - General 11/25/19 documented as of this encounter
--- OUTSIDE RECORDS SUMMARY | 2024-10-24 15:41 | XMS_ITS | Clinical Summary ---
Author Organization [facility] Address [facility]6 [place] [address] Care Team Providers Care Forestry Pilot Name Role Phone Joselito Laws MD Primary Care Provider [phone] Social History Tobacco Use Types Packs/Day Years Used Date Smoking Tobacco: Never Assessed Comments Unknown Sex and Gender Information Value Date Recorded Sex Assigned at Not on file Legal Sex Female 3:21 PM CDT Gender Identity Not on file Sexual Orientation Not on file Plan of Treatment Health Maintenance Due Date Last Done Comments Cervical Cancer Screening Pap Smear (Age 30 to 64) Every 3 Years 1968 Colorectal Cancer Screening Colonoscopy (10 Years) 1968 Annual Physical 1971 Hepatitis C 1986 Hepatitis B Vaccines (1 of 3 - 19+ 3-dose series) 1987 Cervical Cancer Screening Pap with HPV Testing (Age 30 to 64) Every 5 Years 1998 Cervical Cancer Screening with HPV 1998 Mammogram Screening 2008 COVID-19 Vaccine ( season) 2024 07/30/2021, 12/03/2020, 11/12/2020 Influenza Adult (#1) 2024 06/06/2021, 05/30/2021, 05/18/2020, Additional history exists DTaP, Tdap and Td Vaccines (2 - Td or Tdap) 04/16/2032 04/16/2022 Zoster Vaccines Completed 10/10/2019, 06/11/2019 Meningococcal B Vaccine Aged Out No l onger eligible based on patient's age to complete this topic Meningococcal Vaccine Aged Out No kaylie oscar eligible based on patient's age to complete this topic Pneumococcal Vaccine: Pediatrics (0 to 5 Years) and At-Risk Patients (6 to 64 Years) Aged Out No longer eligible based on patient's age to complete this topic RSV Immunizations Under 20 Months Aged Out No longer eligible based on patient's age to complete this topic Insurance [place] [facility] [employer] Care Teams Forestry Pilot Relationship Specialty Start Date End Date Joselito Laws MD 2043 [facility] 15 [place] [address] PCP - General INTERNAL MEDICINE 05/10/22
--- OUTSIDE RECORDS SUMMARY | 2024-10-24 15:41 | XMS_ITS | Encounter Summary ---
Author Organization Dorinda Physician Suzan utimarcus Address [address] [place] [address] Phone Care Team Providers Care Eeler Name Role Phone Joselito Laws MD Primary Care Provider [phone] Reason for Visit * Reason Comments Med Refill Encounter Details Date Type Department Care Team (Late Contact Info) Description 08/01/2021 Refill [facility] [address] [place] [phone] Brayan Aquino MD [address] [address] Social History Tobacco Use Types [...] Description 12/16/2024 3:20 PM CDT Office Visit [facility] [address] [place] [phone] Brayan Aquino MD [address] [address] documented as of this encounter Visit Diagnoses Not on filedocumented in this encounter Care Teams Eeler Relationship Specialty Start Date End Date Joselito Laws MD [address] [address] PCP - General 11/25/19 documented as of this encounter
--- OUTSIDE RECORDS SUMMARY | 2024-10-24 15:41 | XMS_ITS | Encounter Summary ---
Author Organization [facility] Address [address] [place] [address] Phone Care Team Providers Care Copy Cutter Name Role Phone Joselito Laws MD Primary Care Provider [phone] Reason for Visit * Reason Comments Med Refill Encounter Details Date Type Department Care Team (Late Contact Info) Description 03/04/2020 Refill [facility] [address] [phone] Brayan Aquino MD [address] [address] Social History Tobacco Use Types [...] Description 12/16/2024 3:20 PM CDT Office Visit [facility]3 [facility] 1 [place] [address] Brayan Aquino MD [address] [phone] documented as of this encounter Visit Diagnoses Not on filedocumented in this encounter Care Teams Copy Cutter Relationship Specialty Start Date End Date Joselito Laws MD [address] [address] PCP - General 11/25/19 documented as of this encounter
--- OUTSIDE RECORDS SUMMARY | 2024-10-24 15:41 | XMS_ITS | Encounter Summary ---
Author Organization Dorinda Physician Suzan utimarcus Address [address] [place] [address] Phone Care Team Providers Care Senior Games Technician Name Role Phone Joselito Laws MD Primary Care Provider [phone] Reason for Visit * Reason Comments Med Refill Encounter Details Date Type Department Care Team (Late st Contact Info) Description 10/05/2019 Refill [facility] 2100 [facility] 206 [place] [address] Brayan Aquino MD 5003 [facility] 1 [place], [place] [phone] Social History Tobacco Use Types Packs/Day Years Used Date Smoking Tobacco: Never Assessed Sex and Gender Information Value Date Recorded Sex Assigned at Not on file Gender Identity Not on file Sexual Orientation Not on file documented as of this encounter Plan of Treatment Upcoming Encounters Date Type Department Care Team (Late st Contact Info) Description 12/16/2024 3:20 PM CDT Office Visit [facility] 5003 [facility] 1 [place] [address] Brayan Aquino MD [address] [address] documented as of this encounter Visit Diagnoses Not on filedocumented in this encounter Care Teams Senior Games Technician Relationship Specialty Start Date End Date Joselito Laws MD 2043 [facility] 15 [place] [address] PCP - General 11/25/19 documented as of this encounter
--- OUTSIDE RECORDS SUMMARY | 2024-10-24 15:42 | XMS_ITS | Encounter Summary ---
Author Organization Dorinda Physician Suzan utimarcus Address [address] [place] [address] Phone Care Team Providers Care Re Dye Hand Name Role Phone Joselito Laws MD Primary Care Provider [phone] Reason for Visit * Reason Comments Med Refill Encounter Details Date Type Department Care Team (Late st Contact Info) Description 05/13/2019 Refill [facility] [address] [place] [address] Brayan Aquino MD [address] [place] [address] Social History Tobacco Use Types Packs/Day Years Used Date Smoking Tobacco: Never Assessed Sex and Gender Information Value Date Recorded Sex Assigned at Not on file Gender Identity Not on file Sexual Orientation Not on file documented as of this encounter Plan of Treatment Upcoming Encounters Date Type Department Care Team (Late st Contact Info) Description 12/16/2024 3:20 PM CDT Office Visit [facility] [address] [place] [address] Brayan Aquino MD [address] [address] documented as of this encounter Visit Diagnoses Not on filedocumented in this encounter Care Teams Re Dye Hand Relationship Specialty Start Date End Date Joselito Laws MD 2043 [facility] 15 [place] [address] PCP - General 11/25/19 documented as of this encounter
--- OUTSIDE RECORDS SUMMARY | 2024-10-24 15:42 | XMS_ITS | Patient Health Summary ---
Author Organization [facility] Address [address] [facility] [place] [address] Care Team Providers Care Tombstone Erector Name Role Phone Unavailable Primary Care Provider Unavailabl e Note from [facility],non-owned Affiliates and Associated Physician Practices is amultiple site organization consisting of ambulatory clinics and hospital sitesin [place], [place], [place] and [place]. This disclosure is being madepursuant to the Care Everywhere program and may not contain all information available regarding this patient. Last updated 18.[facility] Social History Tobacco Use Types Packs/Day Years Used Date Smoking Tobacco: Never Assessed Sex and Gender Information Value Date Recorded Sex Assigned at Not on file Gender Identity Not on file Sexual Orientation Not on file
--- OUTSIDE RECORDS SUMMARY | 2024-10-24 15:42 | XMS_ITS | Data Portability ---
Author Organization [place] - [facility] [employer], Main Office Address [address] [place] [address] Care Team Providers Care Fuse Spooler Name Role Phone SARIKA LAWS Primary Care Provider SARIKA LAWS Referring Provider Assessment Encounter Date Assessment Date Assessment LastModified by Organization Details LastModified Time 11/28/2023 11/28/2023 needling technique utilized w/ phenol akachigian Not available 11/28/2023 10:09:53 Plan of Treatment Reminders Order Date Submit Date Provider Last Modified By Organization Details Last Modified Time Details Appointments Any 15 2024 08:30A M Enmanuel Prince MD Not available Not available Not available Lab lipid panel, serum 2023 024 [facility] (Lab), [address] [place], [address], 11/26/2023 20:03:57 CBC w/ auto diff 2023 024 [facility] (Lab), [address] [place], [address], 11/26/2023 19:31:28 iron + total iron-bind ing capacity (TIBC), serum 2023 024 [facility] (Lab), [address] [place], [address], 11/26/2023 20:03:02 ferritin, serum or plasma 2023 024 [facility] (Lab), [address] [place], [address], 11/26/2023 20:28:17 vitamin B12 + folate, serum or blood 2023 [facility] (Lab), [address] [place], [address], 11/26/2023 21:04:34 glycohemo globin, total, blood 2023 [facility] (Lab), [address] [place], [address], 03/31/2024 21:24:37 CMP, serum or plasma 2023 024 [facility] (Lab), [address] [place], [address], 03/31/2024 20:14:11 microalbu min, urine 2023 [facility] (Lab), [address] [place], [address], 03/31/2024 20:40:50 vitamin D, 25-hydrox y, total, serum 2023 [facility] (Lab), [address] [place], [address], 04/01/2024 15:16:23 urinalysi s, complete [email or web address] [place] [address] (Lab), [address] [place], [address], 04/07/2024 08:13:25 iron + total iron-bind ing capacity (TIBC), serum 2023 [facility] (Lab), [address] [place], [address], 03/31/2024 20:14:26 ferritin, serum or plasma 2023 024 [facility] (Lab), [address] [place], [address], 03/31/2024 20:46:35 CBC w/ auto diff 2023 024 [facility] (Lab), [address] [place], [address], 03/31/2024 20:02:00 Referral podiatris t referral 2023 024 [place] [id number] [place] Urbina DPM, [address] [facility], [facility] [address], [place], [address], 12/24/2023 07:57:08 Procedures None recorded. Surgeries None recorded. Imaging XR, chest, 2 view 2023 024 [facility] (Outpatient Orders), [address] [place], [address], 11/28/2023 10:29:53 bone density [address] (Outpatient Orders), [address] [place], [address], 04/28/2024 08:36:15 Medication Orders fluticaso ne propionat e 50 mcg/actua tion nasal spray,tracy pension 2023 024 A[facility] [id number] [facility], [address] [place], [address], 11/26/2023 10:06:09 nortripty line 10 mg capsule 2023 024 [email or web address] [id number] In [facility], [address] [place], [address], 05/13/2024 12:43:10 atorvasta tin 10 mg tablet 2023 024 [id number], [address] [place], [address], 03/31/2024 10:13:03 Patient TargetsNo targets recorded. Patient Instructions Encounter Date Encounter Id Patient Instructions Last Modified By Organization Details Last Modified Time 11/28/2023 [id number] to soak qd warm soapy water and RTC one wk akachigian Not available 11/28/2023 10:10:09 08/03/2024 [id number] risk assessment* Not availabl e 08/03/2024 15:57:30 INFLUENZA VACCINE TD/TDAP PNEUMONIA VACCINE SHINGLES MAMMOGRAM: Last Mammogram 10/2023 No screening necessary patient is up to date DEXA SCAN No screening necessary patient is up to date CERVICAL SCREENING/PELVIC EXAMINATION Recommended today, but patient declined Ordered No screening necessary patient is up to date COLORECTAL SCREENING: Last Colonoscopy _12/2018 No screening necessary patient is up to date DEPRESSION SCREENING Negative BMI Overweight continue your current weight loss efforts try to lose 5% of your body weight try to lose 10% of your body weight try to lose 15% of your body weight NUTRITION Continue healthy eating & exercise PHYSICAL ACTIVITY Need more exercise/physica l activity minimum of 10-20 minutes of activity that causes mild breathlessness/d ay VISION ALCOHOL USE No alcohol use TOBACCO USE former smoker LUNG CANCER SCREENING Non Smoker-not indicated SEXUALLY ACTIVE Yes, Patient is in monogamous relationship HEPATITIS C SCREENING Not indicated GLUCOSE SCREENING Ordered Not needed LIPID SCREENING Ordered Not needed [email or web address] Not available 08/03/2024 11:49:27 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 Referral for Plan tar wart of left foot Referring Physician: Enmanuel Prince, Internal Medicine, Encounter Date: 11/26/2023 Results Created Date Observation Date Name Description Value Unit Range Abnormal Flag Note LastModifiedBy Organization Detail LastModifiedTime 11/26/19 24 11/26/2023 CBC/C OMPLE TE BLD COUNT W/DIF F white blood cells 5.3 x10'3 /uL 4.2-10 .8 Not Available [facility] (Lab) [address] [place], [address], 11/26/2023 19:31:28 11/26/19 24 11/26/2023 CBC/C OMPLE TE BLD COUNT W/DIF F red blood cells 4.19 x10'6 /uL 3.80-5 .20 Not Available [facility] (Lab) [address] [place], [address], 11/26/2023 19:31:28 11/26/19 24 11/26/2023 CBC/C OMPLE TE BLD COUNT W/DIF F hemoglobin 12.3 g/dL 12.0-1 5.6 Not Available [facility] (Lab) [address] [place], [address], 11/26/2023 19:31:28 11/26/19 24 11/26/2023 CBC/C OMPLE TE BLD COUNT W/DIF F hematocrit 38.8 % 35.7-4 5.7 Not Available [facility] (Lab) [address] [place], [address], 11/26/2023 19:31:28 11/26/19 24 11/26/2023 CBC/C OMPLE TE BLD COUNT W/DIF F mean red cell volume 92.6 fL 82.0-9 9.0 Not Available [facility] (Lab) [address] [place], [address], 11/26/2023 19:31:28 11/26/19 24 11/26/2023 CBC/C OMPLE TE BLD COUNT W/DIF F mean red cell hemoglobin 29.4 pg 27.0-3 3.0 Not Available [facility] (Lab) [address] [place], [address], 11/26/2023 19:31:28 11/26/19 24 11/26/2023 CBC/C OMPLE TE BLD COUNT W/DIF F mean RBC HGB concentratio n 31.7 g/dL 31.0-3 6.0 Not Available [facility] (Lab) [address] [place], [address], 11/26/2023 19:31:28 11/26/19 24 11/26/2023 CBC/C OMPLE TE BLD COUNT W/DIF F red cell distribution width 13.2 % 11.8-1 5.5 Not Available [facility] (Lab) [address] [place], [address], 11/26/2023 19:31:28 11/26/19 24 11/26/2023 CBC/C OMPLE TE BLD COUNT W/DIF F platelets 304 x10'3 /uL 150-40 0 Not Available [facility] (Lab) [address] [place], [address], 11/26/2023 19:31:28 11/26/19 24 11/26/2023 CBC/C OMPLE TE BLD COUNT W/DIF F mean platelet volume 9.4 fL 9.0-12 .4 Not Available [facility] (Lab) [address] [place], [address], 11/26/2023 19:31:28 11/26/19 24 11/26/2023 CBC/C OMPLE TE BLD COUNT W/DIF F neutrophils 65.2 % 39.0-7 2.0 Not Available [facility] (Lab) [address] [place], [address], 11/26/2023 19:31:28 11/26/19 24 11/26/2023 CBC/C OMPLE TE BLD COUNT W/DIF F lymphocytes 23.4 % 16.0-4 7.0 Not Available [facility] (Lab) [address] [place], [address], 11/26/2023 19:31:28 11/26/19 24 11/26/2023 CBC/C OMPLE TE BLD COUNT W/DIF F monocytes 7.9 % 5.0-12 .0 Not Available [facility] (Lab) [address] [place], [address], 11/26/2023 19:31:28 11/26/19 24 11/26/2023 CBC/C OMPLE TE BLD COUNT W/DIF F eosinophils 2.4 % 1.0-7. 0 Not Available [facility] (Lab) [address] [place], [address], 11/26/2023 19:31:28 11/26/19 24 11/26/2023 CBC/C OMPLE TE BLD COUNT W/DIF F basophils 0.9 % 0.0-2. 0 Not Available [facility] (Lab) [address] [place], [address], 11/26/2023 19:31:28 11/26/19 24 11/26/2023 CBC/C OMPLE TE BLD COUNT W/DIF F immature granulocytes 0.2 % 0.00-0 .50 Not Available [facility] (Lab) [address] [place], [address], 11/26/2023 19:31:28 11/26/19 24 11/26/2023 CBC/C OMPLE TE BLD COUNT W/DIF F neutrophils, absolute count 3.48 x10'3 /uL 1.5-8. 0 Not Available [facility] (Lab) [address] [place], [address], 11/26/2023 19:31:28 11/26/19 24 11/26/2023 CBC/C OMPLE TE BLD COUNT W/DIF F lymphocytes, absolute count 1.25 x10'3 /uL 1.07-3 .43 Not Available [facility] (Lab) [address] [place], [address], 11/26/2023 19:31:28 11/26/19 24 11/26/2023 CBC/C OMPLE TE BLD COUNT W/DIF F monocytes, absolute count 0.42 x10'3 /uL 0.29-0 .99 Not Available [facility] (Lab) [address] [place], [address], 11/26/2023 19:31:28 11/26/19 24 11/26/2023 CBC/C OMPLE TE BLD COUNT W/DIF F eosinophils, absolute count 0.13 x10'3 /uL 0.02-0 .53 Not Available [facility] (Lab) [address] [place], [address], 11/26/2023 19:31:28 11/26/19 24 11/26/2023 CBC/C OMPLE TE BLD COUNT W/DIF F basophils, absolute count 0.05 x10'3 /uL 0.01-0 .08 Not Available [facility] (Lab) [address] [place], [address], 11/26/2023 19:31:28 11/26/19 24 11/26/2023 CBC/C OMPLE TE BLD COUNT W/DIF F immature granulocytes ,absolute 0.01 x10'3 /uL 0.00-0 .05 Not Available [facility] (Lab) [address] [place], [address], 11/26/2023 19:31:28 11/26/19 24 11/26/2023 CBC/C OMPLE TE BLD COUNT W/DIF F nucleated red blood cells 0.0 % -0 Not Available [facility] (Lab) [address] [place], [address], 11/26/2023 19:31:28 11/26/19 24 11/26/2023 CBC/C OMPLE TE BLD COUNT W/DIF F NRBC# 0.00 x10'3 /uL Not Available [facility] (Lab) [address] [place], [address], 11/26/2023 19:31:28 11/26/19 24 11/26/2023 IRON/ TIBC PANEL total iron binding capacity 399 mcg/d L 265-47 5 Not Available [facility] (Lab) [address] [place], [address], 11/26/2023 20:05:25 11/26/19 24 11/26/2023 IRON/ TIBC PANEL % transferrin saturation 20 % 20-55 Not Available [facility] (Lab) [address] [place], [address], 11/26/2023 20:05:25 11/26/19 24 11/26/2023 IRON/ TIBC PANEL unsaturated iron bind capacity 318 mcg/d L 126-38 2 Not Available [facility] (Lab) [address] [place], [address], 11/26/2023 20:05:25 11/26/19 24 11/26/2023 IRON/ TIBC PANEL iron 81 mcg/d L 42-175 Not Available [facility] (Lab) [address] [place], [address], 11/26/2023 20:05:25 11/26/19 24 11/26/2023 LIPID PANEL cholesterol 214 mg/dL 140-19 9 high NIH BLOSSOM NSUS RECOM MENDA TION FOR LAVINIA STERO L: ADULT CHILD LOW RISK: <200 <170 BORDE RLINE : <200- 239 ----- HIGH RISK: >240 >200 Not Available [facility] (Lab) [address] [place], [address], 11/26/2023 20:03:57 11/26/19 24 11/26/2023 LIPID PANEL triglyceride s 219 mg/dL 0-150 high NIH [facility] NSUS REPOR T RECOM MENDA TION FOR TRIGL YCERI IVELISSE: ADULT CHILD LOW RISK: <150 ----- BODER LINE: 150-1 99 ----- HIGH RISK: >200 ----- Not Available [facility] (Lab) [address] [place], [address], 11/26/2023 20:03:57 11/26/19 24 11/26/2023 LIPID PANEL HDL cholesterol 71 mg/dL 40- Not Available [facility] (Lab) [address] [place], [address], 11/26/2023 20:03:57 11/26/19 24 11/26/2023 LIPID PANEL LDL cholesterol, calculated 99 mg/dL 0-130 NIH [facility] NSUS REPOR T RECOM MENDA TIONS FOR LDL: ADULT CHILD LOW RISK <130 <110 (OPTI MAL LDL) <100 ----- BORDE RLINE : 130-1 59 ----- HIGH RISK: >160 >130 A TRIGL YCERI DE RESUL T >400 INVAL IDATE S THE CALCU LATIO N FOR LDL FRACT IONAT ION - THE LDL RESUL T WILL NOT BE REPOR ALIX. Not Available [facility] (Lab) [address] [place], [address], 11/26/2023 20:03:57 11/26/19 24 11/26/2023 CHADD TIN ferritin 4 NG/mL 11.1-2 64 low Not Available [facility] (Lab) [address] [place], [address], 11/26/2023 20:28:17 11/26/19 24 11/26/2023 VITAM IN B12 (LILY CLIFFORD ) vb12 >1000 pg/mL 239-93 1 high Not Available [facility] (Lab) [address] [place], [address], 11/26/2023 21:00:40 11/26/19 24 11/26/2023 FOLAT E, SERUM /PLAS MA folate >20.0 NG/mL 2.76-2 0.0 Not Available [facility] (Lab) [address] [place], [address], 11/26/2023 21:00:42 03/31/20 24 03/31/2024 CBC/C OMPLE TE BLD COUNT W/DIF F white blood cells 5.4 x10'3 /uL 4.2-[address] [facility] (Lab) [address] [place], [address], 03/31/2024 20:02:00 03/31/20 24 03/31/2024 CBC/C OMPLE TE BLD COUNT W/DIF F red blood cells 4.10 x10'6 /uL 3.80-[address] [facility] (Lab) [address] [place], [address], 03/31/2024 20:02:00 03/31/20 24 03/31/2024 CBC/C OMPLE TE BLD COUNT W/DIF F hemoglobin 12.0 g/dL 12.0-1 5.6 Not Available [facility] (Lab) [address] [place], [address], 03/31/2024 20:02:00 03/31/20 24 03/31/2024 CBC/C OMPLE TE BLD COUNT W/DIF F hematocrit 36.2 % 35.7-4 5.7 Not Available [facility] (Lab) [address] [place], [address], 03/31/2024 20:02:00 03/31/20 24 03/31/2024 CBC/C OMPLE TE BLD COUNT W/DIF F mean red cell volume 88.3 fL 82.0-9 9.0 Not Available [facility] (Lab) [address] [place], [address], 03/31/2024 20:02:00 03/31/20 24 03/31/2024 CBC/C OMPLE TE BLD COUNT W/DIF F mean red cell hemoglobin 29.3 pg 27.0-3 3.0 Not Available [facility] (Lab) [address] [place], [address], 03/31/2024 20:02:00 03/31/20 24 03/31/2024 CBC/C OMPLE TE BLD COUNT W/DIF F mean RBC HGB concentratio n 33.1 g/dL 31.0-[address] [facility] (Lab) [address] [place], [address], 03/31/2024 20:02:00 03/31/20 24 03/31/2024 CBC/C OMPLE TE BLD COUNT W/DIF F red cell distribution width 13.2 % 11.8-[address] [facility] (Lab) [address] [place], [address], 03/31/2024 20:02:00 03/31/20 24 03/31/2024 CBC/C OMPLE TE BLD COUNT W/DIF F platelets 306 x10'3 /uL 150-40 0 Not Available [facility] (Lab) [address] [place], [address], 03/31/2024 20:02:00 03/31/20 24 03/31/2024 CBC/C OMPLE TE BLD COUNT W/DIF F mean platelet volume 9.0 fL 9.0-12 .4 Not Available [facility] (Lab) [address] [place], [address], 03/31/2024 20:02:00 03/31/20 24 03/31/2024 CBC/C OMPLE TE BLD COUNT W/DIF F neutrophils 69.4 % 39.0-[address] [facility] (Lab) [address] [place], [address], 03/31/2024 20:02:00 03/31/20 24 03/31/2024 CBC/C OMPLE TE BLD COUNT W/DIF F lymphocytes 21.1 % 16.0-4 7.0 Not Available [facility] (Lab) [address] [place], [address], 03/31/2024 20:02:00 03/31/20 24 03/31/2024 CBC/C OMPLE TE BLD COUNT W/DIF F monocytes 7.6 % 5.0-[address] [facility] (Lab) [address] [place], [address], 03/31/2024 20:02:00 03/31/20 24 03/31/2024 CBC/C OMPLE TE BLD COUNT W/DIF F eosinophils 1.1 % 1.0-7. [address] [facility] (Lab) [address] [place], [address], 03/31/2024 20:02:00 03/31/20 24 03/31/2024 CBC/C OMPLE TE BLD COUNT W/DIF F basophils 0.4 % 0.0-2. 0 Not Available [facility] (Lab) [address] [place], [address], 03/31/2024 20:02:00 03/31/20 24 03/31/2024 CBC/C OMPLE TE BLD COUNT W/DIF F immature granulocytes 0.4 % 0.00-0 .50 Not Available [facility] (Lab) [address] [place], [address], 03/31/2024 20:02:00 03/31/20 24 03/31/2024 CBC/C OMPLE TE BLD COUNT W/DIF F neutrophils, absolute count 3.75 x10'3 /uL 1.5-8. 0 Not Available [facility] (Lab) [address] [place], [address], 03/31/2024 20:02:00 03/31/20 24 03/31/2024 CBC/C OMPLE TE BLD COUNT W/DIF F lymphocytes, absolute count 1.14 x10'3 /uL 1.07-3 .43 Not Available [facility] (Lab) [address] [place], [address], 03/31/2024 20:02:00 03/31/20 24 03/31/2024 CBC/C OMPLE TE BLD COUNT W/DIF F monocytes, absolute count 0.41 x10'3 /uL 0.29-0 .99 Not Available [facility] (Lab) [address] [place], [address], 03/31/2024 20:02:00 03/31/20 24 03/31/2024 CBC/C OMPLE TE BLD COUNT W/DIF F eosinophils, absolute count 0.06 x10'3 /uL 0.02-0 .53 Not Available [facility] (Lab) [address] [place], [address], 03/31/2024 20:02:00 03/31/20 24 03/31/2024 CBC/C OMPLE TE BLD COUNT W/DIF F basophils, absolute count 0.02 x10'3 /uL 0.01-0 .08 Not Available [facility] (Lab) [address] [place], [address], 03/31/2024 20:02:00 03/31/20 24 03/31/2024 CBC/C OMPLE TE BLD COUNT W/DIF F immature granulocytes ,absolute 0.02 x10'3 /uL 0.00-0 .05 Not Available [facility] (Lab) [address] [place], [address], 03/31/2024 20:02:00 03/31/20 24 03/31/2024 CBC/C OMPLE TE BLD COUNT W/DIF F nucleated red blood cells 0.0 % -0 Not Available [facility] (Lab) [address] [place], [address], 03/31/2024 20:02:00 03/31/20 24 03/31/2024 CBC/C OMPLE TE BLD COUNT W/DIF F NRBC# 0.00 x10'3 /uL Not Available [facility] (Lab) [address] [place], [address], 03/31/2024 20:02:00 03/31/20 24 03/31/2024 COMPR EHENS ANU METAB OLIC PANEL sodium 130 mmol/ L 137-[address] [facility] (Lab) [address] [place], [address], 03/31/2024 20:14:11 03/31/20 24 03/31/2024 COMPR EHENS ANU METAB OLIC PANEL potassium 4.5 mmol/ L 3.5-5. [address] [facility] (Lab) [address] [place], [address], 03/31/2024 20:14:11 03/31/20 24 03/31/2024 COMPR EHENS ANU METAB OLIC PANEL chloride 97 mmol/ L 98-[address] [facility] (Lab) [address] [place], [address], 03/31/2024 20:14:11 03/31/20 24 03/31/2024 COMPR EHENS ANU METAB OLIC PANEL carbon dioxide 29 mmol/ L 22-[address] [facility] (Lab) [address] [place], [address], 03/31/2024 20:14:11 03/31/20 24 03/31/2024 COMPR EHENS ANU METAB OLIC PANEL anion gap 8.5 mmol/ L 14-[address] [facility] (Lab) [address] [place], [address], 03/31/2024 20:14:11 03/31/20 24 03/31/2024 COMPR EHENS ANU METAB OLIC PANEL glucose 92 mg/dL 70-[address] [facility] (Lab) [address] [place], [address], 03/31/2024 20:14:11 03/31/20 24 03/31/2024 COMPR EHENS ANU METAB OLIC PANEL BUN 39 mg/dL 8-19 high Not Available [facility] (Lab) [address] [place], [address], 03/31/2024 20:14:11 03/31/20 24 03/31/2024 COMPR EHENS ANU METAB OLIC PANEL creatinine 2.48 mg/dL 0.66-1 .25 high Not Available [facility] (Lab) [address] [place], [address], 03/31/2024 20:14:11 03/31/20 24 03/31/2024 COMPR EHENS ANU METAB OLIC PANEL GFR 20 Refer ence Range : [place] ge GFR Healt hy Adult : >60 mL/mi n/1.7 3 m2 Chron ic Kidne y Disea se: 15-60 mL/mi n/1.7 3 m2 Kidne y Failu re: <15/m L/min /1.73 m2 www.n iddk. nih.g ov The MDRD study equat ion has not been valid ated in child erlinda <18 years of age; pregn ant women ; the elder ly >85 years of age; or in some racia l or ethni c subgr oups, such as wi nics. Outsi de the valid ated trinidad eters , estim ated GFR is less accur ate, requi ring clini melissa judgm ent on a case- by-ca se basis . Clini melissa inter preta tion for other races and ages must be made by the clini thalia. The MDRD study equat ion has not been valid ated for the evalu ation of serum creat inine relat ed to nutri angelita l statu s or medic ation usage . For perso ns <18 years of age, a pedia tric GFR calcu lator is avail able on the F websi te: https ://denny schwarz.o preston/pr ofess ional s/kdo qi/gf r_cal culat or Not Available [facility] (Lab) [address] [place], [address], 03/31/2024 20:14:11 03/31/20 24 03/31/2024 COMPR EHENS ANU METAB OLIC PANEL alkaline phosphatase 89 U/L 38-[address] [facility] (Lab) [address] [facility] [place], [address], 03/31/2024 20:14:11 03/31/20 24 03/31/2024 COMPR EHENS ANU METAB OLIC PANEL alanine aminotransfe rase 22 U/L 0-35 Not Available [facility] (Lab) [address] [place], [address], 03/31/2024 20:14:11 03/31/20 24 03/31/2024 COMPR EHENS ANU METAB OLIC PANEL aspartate aminotransfe rase 28 U/L 15-37 Not Available [facility] (Lab) [address] [place], [address], 03/31/2024 20:14:11 03/31/20 24 03/31/2024 COMPR EHENS ANU METAB OLIC PANEL bilirubin, total 0.70 mg/dL 0.20-1 .30 Not Available [facility] (Lab) [address] [place], [address], 03/31/2024 20:14:11 03/31/20 24 03/31/2024 COMPR EHENS ANU METAB OLIC PANEL calcium 9.8 mg/dL 8.4-10 .2 Not Available [facility] (Lab) [address] [place], [address], 03/31/2024 20:14:11 03/31/20 24 03/31/2024 COMPR EHENS ANU METAB OLIC PANEL total protein 7.2 g/dL 6.3-8. 2 Not Available [facility] (Lab) [address] [place], [address], 03/31/2024 20:14:11 03/31/20 24 03/31/2024 COMPR EHENS ANU METAB OLIC PANEL albumin 4.4 g/dL 3.4-5. 0 Not Available [facility] (Lab) [address] [place], [address], 03/31/2024 20:14:11 03/31/20 24 03/31/2024 COMPR EHENS ANU METAB OLIC PANEL globulin 2.8 g/dL 2.6-4. 2 Not Available [facility] (Lab) [address] [place], [address], 03/31/2024 20:14:11 03/31/20 24 03/31/2024 COMPR EHENS ANU METAB OLIC PANEL A/G ratio 1.6 ratio 1.0-2. 0 Not Available [facility] (Lab) [address] [place], [address], 03/31/2024 20:14:11 03/31/20 24 03/31/2024 IRON/ TIBC PANEL total iron binding capacity 386 mcg/d L 265-47 5 Not Available [facility] (Lab) [address] [place], [address], 03/31/2024 20:24:33 03/31/20 24 03/31/2024 IRON/ TIBC PANEL % transferrin saturation 25 % 20-55 Not Available [facility] (Lab) [address] [place], [address], 03/31/2024 20:24:33 03/31/20 24 03/31/2024 IRON/ TIBC PANEL unsaturated iron bind capacity 291 mcg/d L 126-38 2 Not Available [facility] (Lab) [address] [place], [address], 03/31/2024 20:24:33 03/31/20 24 03/31/2024 IRON/ TIBC PANEL iron 95 mcg/d L 42-175 Not Available [facility] (Lab) [address] [place], [address], 03/31/2024 20:24:33 03/31/20 24 03/31/2024 VITAM IN D 25-HY DROXY vd25oh 107.0 NG/mL 30-100 high Vitam in D Statu s: Defic ient: <20 ng/mL Insuf ficie nt: 20-29 ng/mL Suffi cient : 30-10 0 ng/mL Not Available [facility] (Lab) [address] [place], [address], 03/31/2024 20:30:54 03/31/20 24 03/31/2024 MICRO ALBUM IN RANDO M URINE microalbumin , urine 18.5 mg/L 0.0-16 .6 high Not Available [facility] (Lab) [address] [place], [address], 03/31/2024 20:40:49 03/31/20 24 03/31/2024 CHADD TIN ferritin 7 NG/mL 11.1-2 64 low Not Available [facility] (Lab) [address] [place], [address], 03/31/2024 20:46:35 03/31/20 24 03/31/2024 HEMOG LOBIN A1C HA1C 5.5 % 4.0-6. 0 Diabe yoshi Radha morales Crite monet: <5.7% Consi stent with absen ce of diabe yoshi 5.7-6 .4% Consi stent with incre ased risk for diabe yoshi (pred iabet es) >OR=6 .5% Consi stent with diabe yoshi REFER ENCE: Diabe yoshi Care 2016, 39(Krishnamurthy ppl.1 ):s13 -s22 Not Available [facility] (Lab) [address] [place], [address], 03/31/2024 21:24:37 11/06/19 24 11/06/2023 radha russell t mark, bilat [facility] [address] [facility] [place] [address] [phone] [facility] Name: JOHANNA MORALES Access ion #: [id number] Sex: F : 1969 1 Locati on: RAD Attend ing Physic keely: HANY RAY Orderi ng Physic keely: HANY RAY Exam Date: 6:33 AM Exam Name: MG GRANT BREAST AMRK BILAT Admitt ing Diagno sis(es ): MAMMOG AGUILAR REPORT - FINAL EXAM: SCRN BREAST MARK BILAT HISTOR Y: routin e mammog coral 53-yea r-old female with no curren t breast compla ints. COMPAR YESI: 2022, 2021 TECHNI QUE: Bilate ral CC and MLO views of the breast s were perfor med. Digita l Mammog aguilar images were obtain ed. CAD (compu ter assist ed detect ion) was utiliz ed. 3D Digita l breast tomosy nthesi s was perfor med and used in the interp retati on of images . FINDIN GS: The breast s are almost entire ly fatty. No new masses , develo ping asymme tries, suspic ious calcif icatio ns, or Page 1 of 2 [facility] Name: JOHANNA MORALES Access ion #: [id number] Sex: F : 1969 1 Exam Date: 6:33 AM Exam Name: MG GRANT BREAST MARK BILAT Admitt ing Diagno sis(es ): keith ectura l distor tion are seen. IMPRES KATYA: BIRADS 1: Assess ment comple te. Negati ve. Recomm end annual screen ing mammog aguilar. Accord ing to the [employer], yearly mammog eyad are recomm ended starti ng at age 40 and contin uing as long as the woman is in good health . Clinic al Breast Exam should be part of the period health exam-a bout every 3 years for women in their 20s and 30s and every year for women 40 and over. Breast self-e xam is an option for women in their 20s. Any breast change noted on the breast self-e xam she would be report ed prompt ly to the [facility]do an[facility] er. A negati ve mammog aguilar report should not discou rage follow -up or biopsy of a clinic ally signif icant findin g and/or abnorm ality. Dense breast tissue may obscur e small neopla sms. This reginaldo an has been entere d into a mammog aguilar remind er system with a target date for her next mammog coral. Create d and electr onical ly signed by: Rubens bahena MD Signed Date: 9:51 AM (CT) Dictat ed by: Rubens bahena MD DD: 9:51 AM (CT) DT: 9:51 AM (CT) Page 2 of [address] (Imaging) [address] [place], [address], 11/07/2023 11:57:22 11/06/19 24 11/06/2023 MAMMO , scree andrew, digit al, bilat eral No observ ation record ed. [address] [place], [address], 11/07/2023 11:57:22 11/28/19 24 11/28/2023 XR, chest , 2 view [facility] [address] [place] [address] [phone] Reginaldo an Name: JOHANNA MORALES Access ion #: [id number] Sex: F : 1969 9 Dictat ed By: Jean Dumont Attend ing Physic keely: SARAH PRINCE ER Orderi ng Physic keely: SARAH PRINCE ER Exam Date: 2023 07:12 AM Exam Name: XR CHEST 2V Admitt ing Diagno sis(es ): XR CHEST 2V CLINIC AL HISTOR Y: Expos ure to TB COMPAR YESI: None TECHNI QUE: Fronta l and latera l view of the chest was obtain ed FINDIN GS: Lines and Tubes: None Lungs: No focal consol idatio n. Pleura : No effusi on. No pneumo thorax . Cardio medias tinal contou rs: Unrema rkable Bones: No acute osseou s abnorm ality. IMPRES KATYA: no TB No acute cardio pulmon marge diseas e. Electr onical ly Signed by: Jean Dumont at 2023 09:28: 39 AM Page 1 [facility] (Imaging) [address] [place], [address], 03/31/2024 09:55:07 04/01/20 24 01/08/2019 colon oscop y scree andrew (PROC ) No observ ation record ed. Not Available 2023 10:09:13 05/07/20 24 04/30/2024 bone densi ty No observ ation record ed. [facility] (Outpatient Orders) [address] [place], [address], 08/03/2024 10:09:13 Result Notes None recorded. Problems Name Problem SNOMED Code Status Onset Date Resolution Date Notes Provider Name and Address Organization Details Recorded Time Gastroeso phageal reflux disease without esophagit is 517973155 Active 2022 Not Available [facility] 3 22:21:21 Chronic deep venous thrombosi s of lower extremity 42062259230 9106 Active 2022 Not Available [facility] 3 22:21:21 Hiatal hernia 21038217 Active 2022 Not Available [facility] 3 22:21:22 Lower esophagea l ring 222884303 Active 2022 Not Available [facility] 3 22:21:21 Gastroeso phageal reflux disease 669219572 Active 2022 Not Available [facility] 3 22:21:21 Iron deficienc y anemia 92311402 Active 2022 Not Available [facility] 3 22:21:22 Plantar wart of left foot 04858150907 234193 Active 2023 Enmanuel Prince MD [address], [address], [place], [address] , [facility] 4 10:05:30 Diabetes mellitus 92706422 Active 2023 Enmanuel Prince MD [address], [address], [place], [address] , [facility] 4 10:02:35 Pain in left thumb 51716822976 68209 Active 2023 Enmanuel Prince MD [address], [address], [place], [address] , [facility] 4 10:12:32 Osteoporo sis 33492381 Active 2023 VALARIE Hopkins null, [facility] 4 13:56:40 Insomnia 751967253 Active 2023 Lisa Conteh MA null, [facility] 4 11:30:16 Recurrent deep vein thrombosi s 447263597 Active 2023 Enmanuel Prince MD [address], [address], [place], [address] , [facility] 4 10:14:37 Hallux valgus AND bunion 345049137 Active 2019 Not Available [facility] 3 22:21:21 CT of abdomen abnormal 18770589663 728854 Active 2021 Not Available [facility] 3 22:21:21 Mammograp hy abnormal 061575052 Active Not Available [facility] 3 22:21:21 Echocardi ogram abnormal 758354782 Active Not Available [facility] 3 22:21:21 Nausea and vomiting 43557964 Active 2021 Not Available [facility] 3 22:21:21 Abdominal pain 52623683 Active 2021 Not Available [facility] 3 22:21:21 Bursitis of foot region 248795863 Active 2020 Not Available [facility] 3 22:21:21 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 905258186 Completed 06/25/2023 VALARIE Hopkins, [place] - [email or web address] [facility] 3 10:24:45 Mantoux: positive 292572377 Active Not Available [facility] 3 22:21:21 Screening for malignant neoplasm of breast Active 2021 Not Available [facility] 3 22:21:21 Eruption 879811913 Completed Not Available [facility] 3 04:52:02 Low back pain 891861457 Completed Not Available [facility] 3 04:52:03 Mechanica l low back pain 114817426 Active Not Available [facility] 3 22:21:21 Pain in left foot 24992328499 9107 Active 2020 Not Available [facility] 3 22:21:21 Depressiv e disorder 81449150 Active Not Available [facility] 3 22:21:21 Chronic sinusitis 24205797 Completed 201612/05/2017 Not Available [facility] 3 04:52:03 Deep venous thrombosi s of lower extremity 401611884 Active Not Available [facility] 3 22:21:21 Dysphagia 20683058 Active 2021 Not Available [facility] 3 22:21:21 Bunion 246569297 Completed 201906/25/2023 VALARIE Hopkins null, [employer] - [email or web address] [facility] 3 10:22:48 Nausea 971897956 Active 2021 Not Available [facility] 3 22:21:21 Chronic headache disorder 434224313 Active Not Available [facility] 3 22:21:21 Anxiety 45771734 Active 2021 Not Available [facility] 3 22:21:21 Hip pain 91577908 Completed Not Available [facility] 3 04:52:04 Upper respirato ry infection 03005649 Completed Not Available [facility] 3 04:52:04 Hyperlipi demia 40507401 Active 2021 Not Available [facility] 3 22:21:21 Allergic rhinitis 80828249 Active 2017 Not Available [facility] 3 22:21:21 Chronic kidney disease 251047472 Active 2021 Not Available [facility] 3 22:21:22 Acquired polycysti c kidney disease 58851506 Active 2016 Not Available [facility] 3 22:21:22 Fatigue 15163719 Completed 06/25/2023 VALARIE Hopkins, [employer] 3 10:27:32 Problem Notes None recorded. Procedures Surgical History Date Name Laterality Status Provider Name and Address Organization Details Recorded Time 11/28/19 24 Wart Excision Procedure completed Wellington Urbina, DPM [address] [facility] [address], [address], [employer] 11/28/2023 10:09:34 02/24/20 22 Endoscopy completed Not Available [facility] 11/14/2022 04:42:59 10/27/19 21 Most Recent Mammogram completed Not Available [facility] 11/14/2022 04:42:56 02/18/20 19 fallopian tube excision completed Not Available [facility] 11/14/2022 04:42:59 02/18/20 19 diagnostic hysteroscopy completed Not Available [facility] 11/14/2022 04:42:59 01/07/20 19 Date of Last Colonoscopy completed Not Available [facility] 11/14/2022 04:42:56 12/31/19 19 Date of Last Pap Smear completed Not Available [facility] 11/14/2022 04:42:56 12/17/19 19 Most Recent Bone Density completed Not Available [facility] 11/14/2022 04:42:56 07/18/20 18 lithotripsy completed Not Available [facility] 11/14/2022 04:42:59 05/20/20 13 Gastric Bypass completed Not Available [facility] 11/14/2022 04:42:59 cone biopsy completed Not Available [facility] 11/14/2022 04:42:59 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 Not Available [facility] 11/14/2022 04:42:59 Cholecystectomy completed Not Available [facility] 11/14/2022 04:42:59 Imaging Results Imaging Date Name Status LastModified by Organiz ation Details LastModified Time 11/06/2023 screening breast mark, bilat completed [email or web address] [facility] (Imaging) [address] [place], [address], 11/07/2023 11:57:22 11/06/2023 MAMMO, screening, digital, bilateral completed [email or web address] [facility] [address] [place], [address], 11/07/2023 11:57:22 11/28/2023 XR, chest, 2 view completed [facility] (Imaging) [address] [place], [address], 03/31/2024 09:55:07 01/08/2019 colonoscopy screening (PROC) completed [email or web address] Information not available 08/03/2024 10:09:13 04/30/2024 bone density completed [email or web address] [facility] (Outpatient Orders) [address] [place], [address], 08/03/2024 10:09:13 Procedure Notes None recorded. Medical Equipment None Reported. Allergies Allergen ID Allergen Name Allergen Category Reaction Reaction Severity Criticality Documentation Date Start Date Code Code System Note Provider Name and Address Organization Details Recorded Time 7614 bacitraci n / neomycin / polymyxin B medicatio n Not available Not available Not available 11/14/2022 64085 9 RxNorm Not Available [facility] 05:01:50 7615 ibuprofen medicatio n Not available Not available Not available 11/14/2022 5640 RxNorm Not Available [facility] 3 05:01:50 Medications Name Sig Start Date Stop Date Status Note LastModified by Organization Details LastModified Time cyclobenz aprine 10 mg tablet active Not Available Not Available No t Available amoxicill in 500 mg capsule 05/21 completed Not Available Not Available Not Available prednison e 10 mg tablet Take by oral route. active Not Available Not Available No t Available atorvasta tin 10 mg tablet TAKE 1 TABLET BY MOUTH EVERY DAY 2023 active Not Available Not Available Not Avai lable fluconazo le 150 mg tablet TAKE 1 TABLET BY MOUTH EVERY 72 HOURS active Not Available Not Available No t Available fluconazo le 200 mg tablet 03/31 completed Not Available Not Available Not Available alendrona te 70 mg tablet TAKE 1 TABLET BY MOUTH ONE TIME PER WEEK active Not Available Not Available No t Available sertralin e 100 mg tablet TAKE ONE TABLET BY MOUTH ONCE DAILY active Not Available Not Available No t Available clobetaso l 0.05 % topical cream APPLY TOPICALL Y TWICE A DAY 03/31 completed Not Available Not Available Not Available sulfameth oxazole 800 mg-trimet hoprim 160 mg tablet 11/25 completed Not Available Not Available Not Available amoxicill in 500 mg tablet Take 1 tablet 3 times a day by oral route. 03/20 completed Not Available Not Available Not Available Kenalog 40 mg/mL suspensio n for injection active Not Available Not Available No t Available Vitamin B-12 50 mcg tablet Take by oral route. 12/11 completed Not Available Not Available Not Available nortripty line 25 mg capsule TAKE 1 CAPSULE BY MOUTH EVERY EVENING active Not Available Not Available No t Available erythromy lauren 250 mg tablet TAKE ONE TABLET BY MOUTH THREE TIMES DAILY WITH FOOD 04/03 completed Not Available Not Available Not Available metoclopr amide 5 mg tablet TAKE ONE TABLET BY MOUTH BEFORE MEALS TWICE DAILY 10/02 completed Not Available Not Available Not Available diazepam 2 mg tablet Take 1 tablet every day by oral route as needed for 1 day. 04/03 completed Not Available Not Available Not Available potassium citrate ER 10 mEq (1,080 mg) tablet,ex tended release TAKE 1 TABLET BY MOUTH TWICE A DAY active Not Available Not Available No t Available nortripty line 10 mg capsule TAKE 1 CAPSULE BY MOUTH EVERY DAY active Not Available Not Available No t Available ferrous sulfate 325 mg (65 mg iron) tablet TAKE 1 TABLET (325 MG) BY MOUTH IN THE MORNING AND TAKE 1 TABLET IN THE EVENING active Not Available Not Available No t Available lisinopri l 10 mg tablet TAKE ONE TABLET BY MOUTH ONCE DAILY active Not Available Not Available No t Available hydrochlo rothiazid e 12.5 mg capsule Take 1 capsule every day by oral route. 10/13 completed Not Available Not Available Not Available sertralin e 25 mg tablet TAKE 1 TABLET BY MOUTH EVERY DAY active Not Available Not Available No t Available omeprazol e 20 mg capsule,d elayed release OPEN CAPSULE & SPRINKLE GRANULES ON APPLESAU CE/PUDDI NG & TAKE IMMEDIAT CHRIS BEFORE A MEAL ONCE DAILY 03/31 completed Not Available Not Available Not Available monteluka st 10 mg tablet TAKE 1 TABLET BY MOUTH EVERY DAY active Not Available Not Available No t Available Tylenol-C odeine #3 300 mg-30 mg tablet Take 1 tablet 3 times a day by oral route as needed. 12/11 completed Not Available Not Available Not Available estradiol 0.01% (0.1 mg/gram) vaginal cream INSERT 1 APPLICAT ORFUL VAGINALL Y EVERY DAY AT BEDTIME FOR 14 DAYS, THEN TWICE A WEEK THEREAFT ER 02/08 completed Not Available Not Available Not Available methylpre dnisolone 4 mg tablets in a dose pack Take 1 package by oral route as directed . 07/17 completed Not Available Not Available Not Available fluticaso ne propionat e 50 mcg/actua tion nasal spray,tracy pension INSTILL 2 SPRAYS INTO EACH NOSTRIL EVERY DAY active Not Available Not Available No t Available sertralin e 50 mg tablet TAKE 1 TABLET BY MOUTH DAILY active Not Available Not Available No t Available loratadin e 10 mg tablet TAKE ONE TABLET BY MOUTH ONCE DAILY FOR 30 DAYS 05/16 completed Not Available Not Available Not Available Vitamin D3 25 mcg (1,000 unit) capsule Take by oral route. 10/13 completed Not Available Not Available Not Available nitrofura ntoin monohydra te/macroc rystals 100 mg capsule 07/06 completed Not Available Not Available Not Available Vandazole 0.75 % (37.5 mg/5 gram) vaginal gel Insert 1 applicat orful every day by vaginal route at bedtime for 5 days. 05/16 completed Not Available Not Available Not Available magnesium 03/31 completed Not Available Not Available Not Available calcium 2020 active Not Available Not Available Not Avai lable folic acid 2020 active Not Available Not Available Not Avai lable biotin 12/11 completed Not Available Not Available Not Available Super B-50 Complex 11/22 completed Not Available Not Available Not Available Calcium 600 + D(3) 12/30 completed Not Available Not Available Not Available hydrochlo rothiazid e 12.5 mg tablet TAKE 1 TABLET BY MOUTH 1 TIME EACH DAY. active Not Available Not Available No t Available risedrona te 150 mg tablet Take 1 tablet every month by oral route. 08/18 completed Not Available Not Available Not Available Zyrtec 10 mg capsule Take 1 capsule every day by oral route. active Not Available Not Available No t Available Vitamin D3 125 mcg (5,000 unit) tablet Take 1 tablet every day by oral route. 2020 active Not Available Not Available Not Avai lable Xarelto 15 mg tablet TAKE 1 TABLET BY MOUTH TWICE A DAY DIRECTED FOR 21 DAYS 06/14 completed Not Available Not Available Not Available Xarelto 20 mg tablet TAKE 1 TABLET BY MOUTH EVERY DAY active Not Available Not Available No t Available mecobalam in (vitamin B12) 5,000 mcg disintegr ating tablet Take 1 tablet every day by oral route. 02/08 completed Not Available Not Available Not Available biotin 10,000 mcg-kerat in 100 mg tablet Take 1 tablet twice a day by oral route. 2020 active Not Available Not Available Not Avai lable Fluvirin 2553-3561 45 mcg (15 mcg x 3)/0.5 mL intramusc ular suspensio n active Not Available Not Available Not Available Vitamin B12 2020 active Not Available Not Available Not Avai lable Fluvirin 45 mcg (15 mcg x 3)/0.5 mL intramusc ular suspensio n 01/15 completed Not Available Not Available Not Available Fluarix Quad 9678-6025 (PF) 60 mcg (15 mcg x 4)/0.5 mL IM syringe 12/05 completed Not Available Not Available Not Available Jynarque 90 mg (AM)/30 mg (PM) tablets Take 90 mg every day by oral route in the morning. 2020 active Take 30mg tablet in the evening Not Available Not Available Not Available Jynarque 45 mg (AM)/15 mg (PM) tablets Take by oral route. 10/13 completed Not Available Not Available Not Available Bariatric Multivita mins 1Tab daily 2020 active [facility] Not Available Not Available Not Available Fluzone Quad (PF) 60 mcg (15 mcg x 4)/0.5 mL IM syringe [facility]ARMACY ADMINIST TELMA 02/09 completed Not Available Not Available Not Available Vitals Date Recorded Body height Body mass index (BMI) Body weight Body temperature Heart rate Oxygen saturation Oxygen saturation in Arterial blood by Pulse oximetry Systolic blood pressure Diastolic blood pressure Provider Name and Address Organization Details Last Updated DateTime 4 162.56 cm 30.2 kg/m2 67607.2 6 g 97.1 [degF] 99 /min 100 % 100 % 120 mm[Hg] 80 mm[Hg] Alberta fay Tyler [facility] [employer] [facility] 4 09:53:21 Date Recorded Body height Body mass index (BMI) Body weight Oxygen saturation Oxygen saturation in Arterial blood by Pulse oximetry Body temperature Heart rate Systolic blood pressure Diastolic blood pressure Provider Name and Address Organization Details Last Updated DateTime 4 162.56 cm 30.2 kg/m2 17843.2 6 g 96 % 96 % 97.3 [degF] 78 /min 138 mm[Hg] 88 mm[Hg] Jose Landin Tyler [facility] [employer] [facility] 4 09:38:35 Date Recorded Body height Body mass index (BMI) Body weight Oxygen saturation Oxygen saturation in Arterial blood by Pulse oximetry Body temperature Heart rate Provider Name and Address Organization Details Last Updated DateTime 4 162.56 cm 30 kg/m2 97713.6 6 g 97 % 97 % 98.2 [degF] 70 /min Jose Landin [facility] [employer] [facility] 4 09:15:39 Date Recorded Body height Body mass index (BMI) Body weight Body temperature Heart rate Oxygen saturation Oxygen saturation in Arterial blood by Pulse oximetry Systolic blood pressure Diastolic blood pressure Provider Name and Address Organization Details Last Updated DateTime 4 162.56 cm 30.4 kg/m2 90077.8 5 g 97.4 [degF] 71 /min 98 % 98 % 120 mm[Hg] 80 mm[Hg] Alberta fay [facility] [employer] [facility] 4 09:36:18 Date Recorded Body height Body mass index (BMI) Body weight Body temperature Heart rate Oxygen saturation Oxygen saturation in Arterial blood by Pulse oximetry Systolic blood pressure Diastolic blood pressure Provider Name and Address Organization Details Last Updated DateTime 4 162.56 cm 30.2 kg/m2 38127.2 6 g 96.9 [degF] 87 /min 97 % 97 % 142 mm[Hg] 70 mm[Hg] Alberta fay [facility] [employer] [facility] 4 09:46:49 Social History Question Answer Notes LastModified by Organization Details LastModified Time Tobacco Smoking Status Former Smoker quit 22+yrs ago Not Available [facility] 11/14/2022 04:41:14 Do You Have An Advance Directive? No [email or web address] [id number] Information not available 11/14/2022 What Is Your Level Of Alcohol Consumption? None MIGRATION.030 [id number] Information not available 11/14/2022 Are You Blind Or Do You Have Difficulty Seeing? No [email or web address].030 [id number] Information not available 11/14/2022 Is Blood Transfusion Acceptable In An Emergency? Yes [email or web address] Information not available 08/03/2024 What Is Your Level Of Caffeine Consumption? None [email or web address].[id number] [id number] Information not available 11/14/2022 How Much Tobacco Do You Chew? None [email or web address].030 [id number] Information not available 11/14/2022 In The 14 Days Before Symptom Onset, Have You Had Close Contact With A Laboratory-confi rmed COVID-19 While That Case Was Ill? No [id number] [id number] Information not available 11/14/2022 In The 14 Days Before Symptom Onset, Have You Had Close Contact With A Person Who Is Under Investigation For COVID-19 While That Person Was Ill? No [email or web address].030 [id number] Information not available 11/14/2022 Are You Currently Employed? Yes [email or web address] Information not available 08/03/2024 Are You Deaf Or Do You Have Serious Difficulty Hearing? No [email or web address] [id number] Information not available 11/14/2022 What Type Of Diet Are You Following? SPECIFIC Gastric Bypass Diet [email or web address].030 [id number] Information not available 11/14/2022 Which Illicit Or Recreational Drugs Have You Used? None [email or web address].030 [id number] Information not available 11/14/2022 Do You Or Have You Ever Used E-cigarettes Or Vape? Never Used Electronic Cigarettes [email or web address].030 [id number] Information not available 11/14/2022 What Is The Highest Grade Or Level Of School You Have Completed Or The Highest Degree You Have Received? [id number] MIGRATION.030 [id number] Information not available 11/14/2022 What Is Your Occupation? [employer] Home MIGRATION.030 [id number] Information not available 11/14/2022 How Many Days Of Moderate To Strenuous Exercise, Like A Brisk Walk, Did You Do In The Last 7 Days? 0 [email or web address] Information not available 08/03/2024 Have There Been Any Changes To Your Family Or Social Situation? No MIGRATION.0301 [id number] Information not available 11/14/2022 What Is The Fluoride Status Of Your Home? Unknown MIGRATION.030 [id number] Information not available 11/14/2022 When Did You Quit Smoking? 16+yearssincelastc igarette Quit In 1998 [email or web address] Information not available 08/03/2024 Are There Any Guns Present In Your Home? No MIGRATION.0301 [id number] Information not available 11/14/2022 Do You Use Insect Repellent Routinely? No MIGRATION.0301 [id number] Information not available 11/14/2022 Where Do You Live? SingleLevelHouse MIGRATION.0301 [id number] Information not available 11/14/2022 Do You Have A Medical Power Of Regrinder Operator? No MIGRATION.0301 [id number] Information not available 11/14/2022 What Was The Date Of Your Most Recent Tobacco Screening? 08/03/2024 [email or web address] Information not available 08/03/2024 How Many Children Do You Have? 2 [email or web address] Information not available 08/03/2024 Do You Have Any Pets? No MIGRATION.0301 [id number] Information not available 11/14/2022 Do You Use Protection During Sex? No [email or web address] Information not available 08/03/2024 What Is Your Relationship Status? MIGRATION.0301 [id number] Information not available 11/14/2022 Do You Use Your Seat Belt Or Car Seat Routinely? Yes MIGRATION.0301 [id number] Information not available 11/14/2022 Are You Sexually Active? Yes [email or web address] Information not available 08/03/2024 Do You Have Smoke And Carbon Monoxide Detectors In Your Home? Yes MIGRATION.0301 [id number] Information not available 11/14/2022 At What Age Did You Start Smoking Tobacco? 11 MIGRATION.0301 [id number] Information not available 11/14/2022 Are You Passively Exposed To Smoke? No MIGRATION.0301 [id number] Information not available 11/14/2022 Do You Or Have You Ever Used Smokeless Tobacco? Never Used Smokeless Tobacco MIGRATION.0301 [id number] Information not available 11/14/2022 Are There Any Smokers In Your House? No MIGRATION.0301 268156 Information not available 11/14/2022 How Much Tobacco Do You Smoke? No Was 09/19 Ppd MIGRATION.0301 [id number] Information not available 11/14/2022 What Types Of Sporting Activities Do You Participate In? None MIGRATION.0301 [id number] Information not available 11/14/2022 Do You Feel Stressed (tense, Restless, Nervous, Or Anxious, Or Unable To Sleep At Night)? [id number] MIGRATION.0301 119782 Information not available 11/14/2022 Do You Use Any Illicit Or Recreational Drugs? No MIGRATION.0301 [id number] Information not available 11/14/2022 Do You Use Sunscreen Routinely? Yes MIGRATION.0301 [id number] Information not available 11/14/2022 Has Tobacco Cessation Counseling Been Provided? No MIGRATION.0301 986993 Information not available 11/14/2022 Have You Recently Traveled Abroad? No MIGRATION.0301 806884 Information not available 11/14/2022 Do You Have Any Dietary Restrictions? No MIGRATION.0301 358292 Information not available 11/14/2022 Do You Or Have You Ever Used Any Other Forms Of Tobacco Or Nicotine? No [email or web address] Information not available 08/03/2024 Sex: Female Functional Status Question Answer Note LastModified by [employer] [facility] [employer] Details LastModified Time Do you have difficulty walking or climbing stairs? No MIGRATION.[id number] Information not available 11/14/2022 Do you have difficulty doing errands alone? No MIGRATION.[id number] 6 Information not available 11/14/2022 Do you have difficulty dressing or bathing? No MIGRATION.[id number] 6 Information not available 11/14/2022 What is your exercise level? None [email or web address] Information not available 08/03/2024 Mental Status Question Answer Note LastModified by [employer] [facility] [employer] Details LastModified Time Do you have difficulty concentrating, remembering or making decisions? Yes concentrating MIGRATION.882677 [id number] Information not available 11/14/2022 Family History Relationship Description Onset Age of this Age Resolved Age Notes LastModified by Organization Details LastModified Time Father Family history of Polycystic kidney MIGRATION.950 [id number] Not available 11/14/2022 04:43:06 Father Pulmonary emphysema MIGRATION.663 [id number] Not available 11/14/2022 04:43:06 Father Chronic obstructive pulmonary disease MIGRATION.363 [id number] Not available 11/14/2022 04:43:06 Mother Malignant neoplasm of uterus MIGRATION.360 [id number] Not available 11/14/2022 04:43:06 Mother Malignant tumor of cervix MIGRATION.208 [id number] Not available 11/14/2022 04:43:06 Medical History Condition Response NERVE DISEASE N BLINDNESS N RHEUMATIC FEVER N KIDNEY STONES N BLADDER PROBLEMS N MRSA N OTHER # 1 N POLIO N LUNG DISEASE/DISORDER N RADIATION / CHEMOTHERAPY N COPD N Other # 2 N BLOOD DISEASES N EAR OR HEARING PROBLEMS N MUMPS N DEPRESSION (INCLUDING POST ) Y BOWEL PROBLEMS N STROKE/TIA N ULCERS N BENIGN PROSTATIC HYPERPLASIA N MEASLES N MYOCARDIAL INFARCTION N OBESITY N GERD/NAUSEA N ANEURYSM N URINARY/BLADDER/KIDNEY PROBLEMS N CORONARY ARTERY DISEASE (CAD) N ADDICTION CONCERNS N Impotence N ENDOMETRIOSIS N USE OF BLOOD THINNERS N SKIN PROBLEMS N GASTROINTESTINAL DISORDER N PERIPHERAL VASCULAR DISEASE N MUSCLE,JOINT OR BONE PROBLEMS N GASTROINTESTINAL BLEEDING N BLOOD CLOTS Y ASTHMA N CATARACTS N ERECTILE DYSFUNCTION N VARICOSITIES N GI PROBLEMS N Low Testosterone N INFERTILITY N AIDS/HIV N CHEMOTHERAPY / RADIATION N LIVER DISEASE N MALE HYPOGONADISM N HYPERTENSION N Deficiency N TOURETTE'S N ANXIETY DISORDER N BLOOD TRANSFUSION N ANEMIA/BLOOD DISORDER N CHRONIC EAR INFECTIONS N BRONCHITIS N TUBERCULOSIS N GLAUCOMA N FOOT PROBLEM N DIVERTICULITIS N SLEEP APNEA N CHICKENPOX N INFECTIOUS DISEASE N PROSTATE N HEART ARRHYTHMIA N INSOMNIA N HIGH CHOLESTEROL / HYPERLIPIDEMIA N HYPERTHYROIDISM N EYE PROBLEMS N EDEMA N CHRONIC PAIN SYNDROME N HYPOTHYROIDISM N CONSTIPATION N CAROTID BLOCKAGE N BACK / NECK PROBLEMS N ATHEROSCLEROSIS N BREAST PROBLEMS N DIALYSIS N ECZEMA N OSTEOPOROSIS N ARTHRITIS N APPENDICITIS N DIABETES, TYPE N BAD TEETH N ENT N HEARTBURN / REFLUX N AUTISM SPECTRUM DISORDER (ASD) N HEPATITIS / LIVER DISEASE N GOUT N SLEEP DISORDER N ALZHEIMER'S DISEASE N Brain Problems N HERPES N DEMENTIA N SEIZURES/EPILEPSY N HEADACHES/MIGRAINES Y VASCULAR DISEASE N PACEMAKER N Blood Disorder N DIZZINESS N KIDNEY DISEASE Y HEART DISEASE/HEART PROBLEMS N MULTIPLE SCLEROSIS N CARDIAC ARRHYTHMIA N CANCER: SPECIFY N Gall Stones N ATRIAL FIBRILLATION N PULMONARY EMBOLISM N AUTOIMMUNE DISEASE N Gynecological History Statement/Question Response Abnormal Pap Y Date of Last Colonoscopy 01/06/2019 Most Recent Bone Density 12/16/2018 Date of LMP Date of Last Pap Smear 12/30/2018 Current Control Method Menopause Most Recent Mammogram 10/27/2020 Breast Problems no Obstetrics History GPAL:G 5 P 2 0 3 2 Type Value Full Term 2 Spontaneous 3 Living 2 Total 5 Immunizations Vaccine Type Date Status Note Provider Nam e and Address Organization Details Recorded Time influenza, unspecified formulation 3 completed Not Available [facility] 08/06/2023 22:21:23 COVID-19, mRNA, LNP-S, PF, 30 mcg/0.3 mL dose 1 completed Not Available [facility] 08/06/2023 22:21:23 Influenza, split virus, quadrivalent, preservative 1 completed Not Available [facility] 08/06/2023 22:21:23 COVID-19, mRNA, LNP-S, PF, 30 mcg/0.3 mL dose 1 completed Not Available [facility] 08/06/2023 22:21:23 COVID-19, mRNA, LNP-S, PF, 30 mcg/0.3 mL dose 1 completed Not Available [facility] 08/06/2023 22:21:23 Influenza, split virus, quadrivalent, preservative 0 completed Not Available [facility] 08/06/2023 22:21:23 zoster, unspecified formulation 0 completed Not Available [facility] 08/06/2023 22:21:23 zoster recombinant 9 completed Not Available [facility] 08/06/2023 22:21:23 Influenza, split virus, quadrivalent, preservative 9 completed Not Available [facility] 08/06/2023 22:21:23 influenza, unspecified formulation 8 completed Not Available [facility] 08/06/2023 22:21:23 Influenza, split virus, quadrivalent, preservative 7 completed Not Available [facility] 08/06/2023 22:21:23 Influenza, split virus, trivalent, preservative 2 completed Not Available [facility] 08/06/2023 22:21:23 Influenza, high-dose, trivalent, PF 6 completed Not Available [facility] 08/06/2023 22:21:23 Influenza, high-dose, trivalent, PF 5 completed Not Available [facility] 08/06/2023 22:21:23 Influenza, split virus, trivalent, preservative 4 completed Not Available [facility] 08/06/2023 22:21:23 Past Encounters Encounter ID Performer Location Encounter Start Date Encounter Closed Date Diagnosis/Indication Diagnosis SNOMED-CT Code Diagnosis ICD10 Code Diagnosis Note [id number] [facility] Internal Med [facility] [address] [facility], [facility] 15 [place] [address] 02/09/2021 00:00:00 02/13/2021 22:03:34 [id number] [facility] Podiatry [place] [address] [facility] [address] [place] [address] 02/27/2021 00:00:00 02/28/2021 08:50:34 [id number] _ATHENA_M IGRATION_ DEFAULT_1 _1 , 04/10/2021 00:00:00 04/10/2021 11:05:18 [id number] _ATHENA_M IGRATION_ DEFAULT_1 _1 , 07/06/2021 00:00:00 07/06/2021 16:57:56 [id number] _ATHENA_M IGRATION_ DEFAULT_1 _1 , 07/24/2021 00:00:00 07/24/2021 10:14:37 [id number] [facility] Internal Med [facility] [address] [address] 08/14/2021 00:00:00 08/17/2021 22:30:12 [id number] [facility] Internal Med [facility] [address] [address] 02/08/2022 00:00:00 02/08/2022 21:20:41 [id number] [facility] Internal Med [place] [address] [facility] y , [place] [address] 03/15/2022 00:00:00 03/25/2022 12:37:36 [id number] [facility] Internal Med [place] [address] [place] [address] y , [place] [address] 06/05/2022 00:00:00 06/10/2022 15:33:41 [id number] [facility] Internal Med [place] [address] [place] [address] y , [place] [address] 10/02/2022 00:00:00 10/02/2022 22:26:14 [id number] Sarika Laws MD [facility] Internal Med [facility] [address], [address] [address] 04/03/2023 14:26:24 04/03/2023 15:12:21 Hyperlipidemia 77656777 E78.5 Gastroesop hageal reflux disease without esophagitis 791100188 K21.9 [facility] 61984604 F41.9 [id number] Sarika Laws MD [facility] Internal Med [facility] [address] [place] [address] [address] [address] 05/01/2023 11:43:43 05/01/2023 12:40:23 Chronic deep venous thrombosis of lower extremity 4511334553 52236 I82.268 [id number] Enmanuel Prince MD [facility] Internal Med [facility] [address] [facility] [place] [address] 06/25/2023 10:11:54 06/25/2023 11:29:42 Adult health examination 794455430 Z00.00 Colonoscop y- 2016- NL per ptMammogra 2022- NLDEXA- 02/2022FLU 05/2023 ([facility])Pneum ovax-Shing les- Has had bothCOVID- Has had 3 Anxiety 93094801 F41.9 under control Hyperlipidemia 73930344 E78.5 mild, watch diet Acquired p olycystic kidney disease 91127023 N28.[address] Aquino Depressive disorder 3544 9007 F32.A under control Allergic rhinitis 022236 04 J30.9 meds help Deep venou s thrombosis of lower extremity 603057523 I82.409 recurrent, on life long meds Gastroesop hageal reflux disease 544272311 K21.9 meds help Hiatal hernia 82195271 K 44.9 meds help Lower esophageal ring 23 0753611 K22.2 s/p dilatation Iron defic iency anemia 56710789 D50.9 on oral meds [id number] Enmanuel Prince MD [facility] Internal Med [facility] [address] [facility] [place] [address] 11/26/2023 09:40:54 11/26/2023 10:16:24 Adult health examination 312855421 Z00.00 Colonoscop y- 2016- NL per ptMammogra m- 11/09- NLDEXA- 02/2022FLU - 05/2023 ([facility])Pneum ovax-Shing les- Has had bothCOVID- Has had 3 Anxiety 84665267 F41.9 under control Hyperlipidemia 53562502 E78.5 mild, watch diet Acquired p olycystic kidney disease 64362350 N28.[address] Aquino Depressive disorder 3548 9007 F32.A under control Allergic rhinitis 316211 04 J30.9 ADD Flonase Deep venou s thrombosis of lower extremity 496113894 I82.409 recurrent, on life long meds Gastroesop hageal reflux disease 386443834 K21.9 meds help Hiatal hernia 73338467 K 44.9 meds help Lower esophageal ring 23 1793282 K22.2 s/p dilatation Iron defic iency anemia 43152168 D50.9 on oral meds Plantar wa rt of left foot 1639274368 6726418 B07.0 Exposure t o tuberculosis 3511803060 101 Z20.1 [id number] Wellington Urbina DPM [facility] Podiatry [place] [address] [address] 11/28/2023 09:14:30 11/28/2023 10:57:25 Plantar wart of left foot 7188359779 4710741 B07.0 [id number] Wellington Urbina DPM [facility] Podiatry [place] [address] [address] 12/06/2023 09:09:06 12/06/2023 10:53:33 Plantar wart of left foot 0774794984 3692834 B07.0 [id number] Enmanuel Prince MD [facility] Internal Med [address] [facility] [place] [address] 03/31/2024 09:25:50 03/31/2024 10:22:13 Anxiety 16604013 F41.9 under control Hyperlipidemia 87049384 E78.5 start meds Acquired p olycystic kidney disease 14173728 N28.1 TO F/U WITH NEPHROLOGY Depressive disorder 3548 9007 F32.A under control Allergic rhinitis 935060 04 J30.9 ADD Flonase Deep venou s thrombosis of lower extremity 431101469 I82.409 recurrent, on life long meds Gastroesop hageal reflux disease 055393122 K21.9 meds help Hiatal hernia 86205711 K 44.9 meds help Lower esophageal ring 23 0184114 K22.2 s/p dilatation Iron defic iency anemia 15955743 D50.9 on oral meds Adult heal th examination 893283013 Z00.00 Colonoscop y- 2017- NL per ptMammogra 11/09- NLDEXA- 02/2022FLU - 05/2023 ([facility])Pneum ovax-Shing les- Has had bothCOVID- Has had 3 Diabetes mellitus 084760 09 E11.9 UNDER CONTROL Long-term drug therapy 502457736 Z79.899 Postmenopausal state 764 62495 Z78.0 Pain in left thumb 41627 36882 611595 M79.645 tendonitis , to use brace [id number] Enmanuel Prince MD S_[facility] Internal Med [address] [place] [address] 08/03/2024 09:42:39 08/03/2024 10:51:13 Diabetes mellitus 89028997 E11.9 under control Anxiety 78079300 F41.9 under control with mmeds Hyperlipidemia 74179723 E78.5 on ,meds Acquired p olycystic kidney disease 63452198 N28.1 seeing nephrology Depressive disorder 3548 9007 F32.A under control Allergic rhinitis 543776 04 J30.9 better with meds Gastroesop hageal reflux disease 057685990 K21.9 meds help Hiatal hernia 17324541 K 44.9 meds help Lower esophageal ring 23 2446356 K22.2 s/p dilatation Iron defic iency anemia 07034757 D50.9 on oral meds Adult heal th examination 087358719 Z00.00 Colonoscop y- 2016- NL per [facility]11/09- NLDEXA- 04/30/24FL U- 05/2024 ([facility])Pneum ovax- 05/2023 ([facility])Nahid love- Has had bothCOVID- Has had 3, 05/2024 Pain in left thumb 72706 51641 909744 M79.645 tendonitis , to use brace Recurrent deep vein thrombosis 328583185 I82.509 on life long meds Depression screening 171 110296 Z13.31 Normal bod y mass index 71127312 Z68.30 Health Concerns Section Related Observation LastModified by Organization Detai ls LastModified Time None Recorded Concern Status LastModified by Organization Details LastModified Time None Recorded Advance Directives Directive N: Payers Encounter Date Sequence Insurance Name Policy Number Policy Oliveira Covered Member ID Oliveira Member ID Guarantor Name 11/26/2023 1 [facility] [employer] - OPEN ACCESS III (PPO) [id number] Johanna Morales [id number] Johanna Neff Andrea 11/26/2023 2 [employer] [id number] Johanna Morales [id number] Johanna Neff Andrea 11/28/2023 1 [facility] [employer] - OPEN ACCESS III (PPO) [id number] Johanna Neff Morales [id number] Johanna Neff Morales 11/28/2023 2 [employer] [id number] Johanna Morales [id number] Johanna Neff Morales 12/06/2023 1 [facility] [employer] - OPEN ACCESS III (PPO) [id number] Johanna Neff Andrea [id number] Johanna M Andrea 12/06/2023 2 [employer] [id number] Johanna Neff Morales [id number] Johanna Neff Andrea 03/31/2024 1 [facility] [employer] - OPEN ACCESS III (PPO) [id number] Johanna Neff Andrea [id number] Johanna Neff Andrea 03/31/2024 2 [employer] [id number] Johanna Neff Andrea [id number] Johanna Tawanda Andrea 08/03/2024 1 [facility] [employer] - OPEN ACCESS III (PPO) [id number] Johanna Neff Andrea [id number] Johanna Neff Andrea 08/03/2024 2 [employer] [id number] Johanna Neff Andrea [id number] Johanna Neff Andrea Notes Date Note Type Note Provider Name and Address Organization Details Recorded Time 11/26/2023 text/html Pt is here today for follow up 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 Has seen Dr. Ferrari in the past but he no longer is in town Polycystic Kidney disease- Sees Dr. Aquino, GFR 19, had low GFR for yrs and not getting worseMeds- HCTZ 12.5 mg daily and Jynarque 90mg in AM 30mg PM Anxiety/Depression- mood and anxiety under controlMeds- Sertraline 50 mg daily, GERD- Meds helpMeds- Omeprazole 20mg daily prn Hyperlipidemia- mild, watching diet Esophageal ring/ hiatal hernia-- gets EGD and dilatation, mild symptoms, gets regurgitation and nausea, nortriptyline helps, had nl gastric emptying study, Allergic rhinitis- on medsMeds- Montelukast 10mg daily, Zyrtec 10mg daily Headaches- Uses Tylenol as needed DVT- RECURRENT , always in the left leg, never had PE, 2003, 2020 and 2022 on Xarelto 20mg daily. h/o gastric bypass and had lost over 100 lbs, maintaining it, Anemia- iron def, on iron, had infusion in the past Enmanuel Prince MD [address], [place], [address], [facility] [employer] [facility] 11/26/2023 10:07:35 11/28/2023 text/html recurrent planta r wart, [facility] DPM [address], [place], [address], [employer] 11/28/2023 10:10:13 12/06/2023 text/html recurrent planta r wart, [facility] Baileymehrdad, DPM [address], [place], [address], [employer] 12/06/2023 10:51:14 03/31/2024 text/html Pt is here today for follow up Polycystic Kidney disease- Sees Dr. Aquino, GFR 19, had low GFR for yrs and not getting worse, NEEDS NEPHROLOGY F/UMeds- HCTZ 12.5 mg daily and Jynarque 90mg in AM 30mg PM Anxiety/Depression- mood and anxiety under controlMeds- Sertraline 50 mg daily, GERD- Meds helpMeds- Omeprazole 20mg daily prn Hyperlipidemia- mild, watching diet Esophageal ring/ hiatal hernia-- gets EGD and dilatation, mild symptoms, gets regurgitation and nausea, nortriptyline helps, had nl gastric emptying study, has stopped taking nortriptyline and willing to start Allergic rhinitis- on medsMeds- Montelukast 10mg daily, Zyrtec 10mg daily Headaches- Uses Tylenol as needed DVT- RECURRENT , always in the left leg, never had PE, 2003, 2020 and 2022 on Xarelto 20mg daily. 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 ) Polycystic Kidney disease- Sees Dr. Aquino, GFR 18 , was 20,has low GFR for yrs and not getting worse,Meds- HCTZ 12.5 mg daily and Jynarque 90mg in AM 30mg PM Anxiety/Depression- mood and anxiety under control, sleeps fineMeds- Sertraline 50 mg daily, GERD- Meds helpMeds- Omeprazole 20mg daily prn Hyperlipidemia- mild, watching diet, labs good 04/08 Esophageal ring/ hiatal hernia-- gets EGD and dilatation, mild symptoms, gets regurgitation and nausea, nortriptyline helps, had nl gastric emptying study, Allergic rhinitis- on medsMeds- Montelukast 10mg daily, Zyrtec 10mg daily Headaches- Uses Tylenol as needed DVT- RECURRENT , always in the left leg, never had PE, 2003, 2020 and 2022 on Xarelto 20mg daily. h/o gastric bypass and had lost over 100 lbs, maintaining it, DM- she was diabetic before getting gastric bypass and was on metformin, A1c 5.5 Anemia- iron def, on iron, had infusion in the past, cbc was nl 04/08, on iron Enmanuel Prince MD [address], [address], [place], [address], [employer] 08/04/2024 11:09:59 OBGyn Episode No OBEpisode recorded.
--- OUTSIDE RECORDS SUMMARY | 2024-10-24 15:42 | XMS_ITS | Encounter Summary ---
Author Organization [facility] Address [address] [place] [address] Phone Care Team Providers Care Sky Cap Name Role Phone Joselito Laws MD Primary Care Provider [phone] Reason for Visit * Reason Comments Med Refill Encounter Details Date Type Department Care Team (Late Contact Info) Description 10/10/2021 Refill [facility] [address] [place] [address] [phone] Brayan Aquino MD [address] [address] Social History Tobacco Use Types [...] Description 12/16/2024 3:20 PM CDT Office Visit [facility] [address] [place] [address] [phone] Brayan Aquino MD [address] [address] documented as of this encounter Visit Diagnoses Not on filedocumented in this encounter Care Teams Sky Cap Relationship Specialty Start Date End Date Joselito Laws MD [address] [address] PCP - General 11/25/19 documented as of this encounter
--- OUTSIDE RECORDS SUMMARY | 2024-10-24 15:42 | XMS_ITS | Clinical Summary ---
Author Organization [facility] Address [address] [facility] [place] [address] Care Team Providers Care Service Restorer Emergency Name Role Phone Unavailable Primary Care Provider Unavailabl e Source Comments [facility],non-owned Affiliates and Associated Physician Practices is amultiple site organization consisting of ambulatory clinics and hospital sitesin [place], [place], [place] and [place]. This disclosure is being madepursuant to the Care Everywhere program and may not contain all information available regarding this patient. Last updated 18.[facility] [employer] Social History Tobacco Use Types Packs/Day Years Used Date Smoking Tobacco: Never Assessed Sex and Gender Information Value Date Recorded Sex Assigned at Not on file Gender Identity Not on file Sexual Orientation Not on file Plan of Treatment Health Maintenance Due Date Last Done Comments COLOGUARD (AGES 45-75) - COLON CA SCREENING 1968 COLON MONITORING 1968 COLONOSCOPY - COLON CA SCREENING 1968 CT COLONOGRAPHY - COLON CA SCREENING 1968 Colorectal Cancer Screening 1968 FIT - COLON CA SCREENING 1968 FLEX SIG - COLON CA SCREENING 1968 LIPID TESTING 1968 MAMMOGRAM 1968 PAP SMEAR 1968 HIV SCREENING 1983 HEPATITIS C SCREENING 06/19/1986 DTAP/TDAP/TD VACCINES (1 - Tdap) 1987 HEPATITIS B VACCINE (1 of 3 - 19+ 3-dose series) 1987 PNEUMOCOCCAL VACCINE 50+ (1 of 1 - PCV) 2018 ZOSTER VACCINE (1 of 2) 2018 COVID-19 VACCINE ( season) 2024 07/30/2021, 12/03/2020, 11/12/2020 INFLUENZA VACCINE (#1) 2024 3, 06/15/2022, 06/06/2021, Additional history exists DEPRESSION SCREENING 09/16/2024 HIB VACCINE Aged Out No longer eligi ble based on patient's age to complete this topic HPV VACCINE Aged Out No longer eligi ble based on patient's age to complete this topic MENINGOCOCCAL (Group B) VACCINE Aged Out No longer eligible based on patient's age to complete this topic MENINGOCOCCAL VACCINE Aged Out No kaylie oscar eligible based on patient's age to complete this topic PNEUMOCOCCAL VACCINE Aged Out No long er eligible based on patient's age to complete this topic Johanna Mendez Personal/Famil y Self 1970
--- OUTSIDE RECORDS SUMMARY | 2024-10-24 15:42 | XMS_ITS | Encounter Summary ---
Author Organization [facility] Address [address] [place] [phone] Phone Care Team Providers Care Care Professional Name Role Phone Joselito Laws MD Primary Care Provider [phone] Reason for Visit * Reason Comments Med Refill Encounter Details Date Type Department Care Team (Late st Contact Info) Description 03/04/2019 Refill [facility] [address] [place] [address] Brayan Aquino MD [address] [place] [address] Social History Tobacco Use Types Packs/Day Years Used Date Smoking Tobacco: Never Assessed Sex and Gender Information Value Date Recorded Sex Assigned at Not on file Gender Identity Not on file Sexual Orientation Not on file documented as of this encounter Plan of Treatment Upcoming Encounters Date Type Department Care Team (Late st Contact Info) Description 12/16/2024 3:20 PM CDT Office Visit [facility] [address] [place] [phone] Brayan Aquino MD [address] [address] documented as of this encounter Visit Diagnoses Not on filedocumented in this encounter Care Teams Care Professional Relationship Specialty Start Date End Date Joselito Laws MD [address] [facility] 15 [place] [phone] PCP - General 11/25/19 documented as of this encounter
--- OUTSIDE RECORDS SUMMARY | 2024-10-24 15:42 | XMS_ITS | Encounter Summary ---
Author Organization [facility] Address [address] [place] [phone] Phone Care Team Providers Care Stitchdown Toe Former Name Role Phone Joselito Laws MD Primary Care Provider [phone] Reason for Visit * Reason Comments Med Refill Encounter Details Date Type Department Care Team (Late st Contact Info) Description 04/27/2022 Refill [facility] [address] [phone] Shadia De Oliveira NP [address] [address] Autosomal dominant polycystic kidney Social History Tobacco Use Types Packs/Day Years [...] Description 12/16/2024 3:20 PM CDT Office Visit [facility] 5[address] [facility] 1 [place] [address] Brayan Aquino MD [address] [phone] documented as of this encounter Visit Diagnoses Diagnosis Autosomal dominant polycystic kidney documented in this encounter Care Teams Stitchdown Toe Former Relationship Specialty Start Date End Date Joselito Laws MD [address] [place] [phone] PCP - General 11/25/19 documented as of this encounter
--- OUTSIDE RECORDS SUMMARY | 2024-10-24 15:42 | XMS_ITS | Encounter Summary ---
Author Organization [facility] Address [address] [place] [phone] Phone Care Team Providers Care Facilities Planner Name Role Phone Joselito Laws MD Primary Care Provider [phone] Reason for Visit * Reason Comments Med Refill Encounter Details Date Type Department Care Team (Late st Contact Info) Description 01/19/2019 Refill [facility] [address] [place] [address] Brayan Aquino MD [address] [place] [address] Social History Tobacco Use Types Packs/Day Years Used Date Smoking Tobacco: Never Assessed Sex and Gender Information Value Date Recorded Sex Assigned at Not on file Gender Identity Not on file Sexual Orientation Not on file documented as of this encounter Plan of Treatment Upcoming Encounters Date Type Department Care Team (Late st Contact Info) Description 12/16/2024 3:20 PM CDT Office Visit [facility] [address] [place] [address] Brayan Aquino MD [address] [phone] documented as of this encounter Visit Diagnoses Not on filedocumented in this encounter Care Teams Facilities Planner Relationship Specialty Start Date End Date Joselito Laws MD [address] [facility] 15 [place] [phone] PCP - General 11/25/19 documented as of this encounter
--- OUTSIDE RECORDS SUMMARY | 2024-10-24 15:42 | XMS_ITS | Encounter Summary ---
Author Organization [facility] Address [address] [place] [address] Phone Care Team Providers Care Flat Sorter Processor Name Role Phone Joselito Laws MD Primary Care Provider [phone] Reason for Visit * Reason Comments Med Refill Encounter Details Date Type Department Care Team (Late Contact Info) Description 03/15/2022 Refill [facility] [address] [phone] Shadia De Oliveira NP [address] [address] Social History Tobacco Use Types [...] Description 12/16/2024 3:20 PM CDT Office Visit [facility] 5003 [facility] 1 [place] [address] Brayan Aquino MD [address] [phone] documented as of this encounter Visit Diagnoses Not on filedocumented in this encounter Care Teams Flat Sorter Processor Relationship Specialty Start Date End Date Joselito Laws MD [address] [phone] PCP - General 11/25/19 documented as of this encounter
--- OUTSIDE RECORDS SUMMARY | 2024-10-24 15:42 | XMS_ITS | Referral Summary ---
Author Organization [facility] Address [address] [facility] [place] [address] Care Team Providers Care Ink Grinder Name Role Phone Unavailable Primary Care Provider Unavailabl e Source Comments [facility],non-[facility] Affiliates and Associated Physician Practices is amultiple site organization consisting of ambulatory clinics and hospital sitesin [place] and [place]. This disclosure is being madepursuant to the Care Everywhere program and may not contain all information available regarding this patient. Last updated 18.[facility] [place] Social History Tobacco Use Types Packs/Day Years Used Date Smoking Tobacco: Never Assessed Sex and Gender Information Value Date Recorded Sex Assigned at Not on file Gender Identity Not on file Sexual Orientation Not on file Plan of Treatment Not on file Johanna Mendez Personal/Famil y Self 1970
--- OUTSIDE RECORDS SUMMARY | 2024-10-24 15:42 | XMS_ITS | Encounter Summary ---
Author Organization [facility] Address [address] [place] [address] Phone Care Team Providers Care Hand Booked Folder And Stitcher Name Role Phone Joselito Laws MD Primary Care Provider [phone] Reason for Visit * Reason Comments Med Refill Encounter Details Date Type Department Care Team (Late st Contact Info) Description 04/21/2019 Refill [facility] [address] [place] [address] Brayan Aquino MD [address] [place] [address] Social History Tobacco Use Types Packs/Day Years Used Date Smoking Tobacco: Never Assessed Sex and Gender Information Value Date Recorded Sex Assigned at Not on file Gender Identity Not on file Sexual Orientation Not on file documented as of this encounter Plan of Treatment Upcoming Encounters Date Type Department Care Team (Late st Contact Info) Description 12/16/2024 3:20 PM CDT Office Visit [facility] [address] [place] [address] Brayan Aquino MD [address] [phone] documented as of this encounter Visit Diagnoses Not on filedocumented in this encounter Care Teams Hand Booked Folder And Stitcher Relationship Specialty Start Date End Date Joselito Laws MD 2043 [facility] 15 [place] [phone] PCP - General 11/25/19 documented as of this encounter
--- NOTE | 2024-10-24 15:52 | ECG_ITS ---
Test Date: 2024-10-24 15:57:33 Measurements Intervals [place] Rate: 70 P: 38 KS: 166 QRS: -19 QRSD: 88 T: 19 QT: 372 QTc: 402 Interpretive Statements SINUS RHYTHM POSSIBLE ANTERIOR MYOCARDIAL INFARCTION , OF INDETERMINATE AGE CONSIDER INFERIOR INFARCT, AGE INDETERMINATE BASELINE ARTIFACT- I, III, AVL ABNORMAL ECG No previous ECG available for comparison Electronically Signed On 10-24-2024 19:18:48 [employer]REIGHT TRAFFIC CONSULTANT by Tejinder Farfan D.O.
--- NOTE | 2024-10-24 16:01 | ED.SOB ---
HPI - SOB/Dyspnea General Chief Complaint: Shortness of Breath/Dyspnea Stated Complaint: breathing trouble Time Seen by Provider: 10/24/24 15:51 Source: patient Mode of arrival: ambulatory Limitations: no limitations History of Present Illness HPI Narrative: Patient is a 54-year-old female, with PMH of polycystic kidney disease, gastric bypass, GERD, DVT on Xarelto, who presents to the ED with report of shortness of breath. Patient reports having increased shortness of breath since Saturday. Worse with exertion. She reports having pain in her lower chest/ upper abdomen with inspiration. Also reports mild cough, chills, intermittent swelling in lower extremities. Denies significant congestion, known fevers, sick contacts. Denies chest pain at rest. Has taken Tylenol for her symptoms without improvement. Related Data Home Medications ?Medication ?Instructions ?Recorded ?Confirmed ?Last Taken ?Type hydrochlorothiazide 12.5 mg capsule 12.5 mg PO DAILY 04/30/22 05/21/24 Unknown History montelukast 10 mg tablet 10 mg PO DAILY 04/30/22 05/21/24 Unknown History tolvaptan (polycys kidney dis) 90 See Rx Instructions PO PER PKG DIR 04/30/22 05/21/24 Unknown History mg (AM)/30 mg (PM) tablets (Jynarque) rivaroxaban 20 mg tablet (Xarelto) 20 mg PO DAILY 05/16/23 05/21/24 Unknown History alendronate 70 mg tablet mg PO 05/21/24 05/21/24 Unknown History atorvastatin 10 mg tablet mg PO 05/21/24 05/21/24 Unknown History calcium BYMOUTH 05/21/24 05/21/24 Unknown History ferrous sulfate 325 mg (65 mg mg PO 05/21/24 05/21/24 Unknown History iron) tablet nortriptyline 10 mg capsule mg PO 05/21/24 05/21/24 Unknown History potassium citrate 10 mEq (1,080 meq PO 05/21/24 05/21/24 Unknown History mg) tablet,extended release Allergies Allergy/AdvReac Type Severity Reaction Status Date / Time bacitracin Allergy Severe Hives / Verified 10/24/24 15:51 Red Face ibuprofen Allergy Severe Hives / Verified 10/24/24 15:51 Red Face neomycin Allergy Severe Hives / Verified 10/24/24 15:51 Red Face polymyxin B Allergy Severe Hives / Verified 10/24/24 15:51 Red Face gramicidin D Allergy Unknown Verified 10/24/24 15:51 BACITRACIN ZINC Allergy Unknown Uncoded 10/24/24 15:51 NEOMYCIN SULFATE Allergy Unknown Uncoded 10/24/24 15:51 POLYMYXIN B SULFATE Allergy Unknown Uncoded 10/24/24 15:51 Review of Systems Review of Systems: All systems reviewed & are unremarkable except as noted in HPI. All systems reviewed & are unremarkable except as noted in HPI and below PMFSH Past Medical History Medical History Acid reflux CKD (chronic kidney disease) DVT (deep venous thrombosis) Surgical History Surgical History H/O endoscopy Gastric bypass status for obesity History of tubal ligation History of cholecystectomy Social History Social History Smoking status: Never smoker Alcohol intake: never Substance use: never Substance use type: does not use Current Housing: Decline to Answer Concerned About Future Housing: Decline to Answer Difficulty Paying Gas/Electric Bills: Decline to Answer Difficulty Paying for Meds: Decline to Answer Currently Unemployed: Decline to Answer Education: Decline to Answer Difficulty w/ Childcare or Family Care: Decline to Answer Living arrangements: with family Occupation/Education: occupation 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 HEAD: Normocephalic, atraumatic. RESPIRATORY: Airway patent, respirations nonlabored. Clear to auscultation bilaterally, no rales, rhonchi, wheezing. No significant focal lung sounds. CARDIOVASCULAR: Regular rate and rhythm without murmurs, rubs, or gallops. ABDOMINAL: Soft, minimal ttp in epigastric region, nondistended. Normoactive BS. MUSCULOSKELETAL: Moves all extremities. No gross deformities. TTP across anterior chest wall/midsternal region diffusely, reproducing pain. No peripheral edema. No calf tenderness. SKIN: Warm, dry, normal color. NEURO: A&O X3. Speech clear. Cranial nerves II-XII grossly intact. Steady gait. No ataxic movements. PSYCHIATRIC: Appropriate mood and affect. Normal interaction. Course Vital Signs Vital signs: Vital Signs Temperature 97.6 F 10/24/24 15:48 Pulse Rate 76 10/24/24 15:48 Respiratory Rate 18 10/24/24 15:48 Blood Pressure 153/70 H 10/24/24 15:48 Pulse Oximetry 100 10/24/24 15:48 Oxygen Delivery Room Air 10/24/24 15:48 Temperature 98.0 F 10/24/24 19:45 Pulse Rate 76 10/24/24 19:45 Respiratory Rate 17 10/24/24 19:45 Blood Pressure 138/83 10/24/24 19:45 Pulse Oximetry 100 10/24/24 19:45 Oxygen Delivery Room Air 10/24/24 16:30 MDM - SOB/Dyspnea MDM Narrative Medical decision making narrative: Patient presented to ED with several day history of shortness of breath, pleuritic pain. Vital signs are stable upon arrival. Patient is in no acute distress. Oxygen 100% on room air. She has not required supplemental oxygen. EKG is a sinus rhythm, no significant ST changes. Troponin is undetectable. Pain has been ongoing for several days. Patient also with reproducible chest wall tenderness to palpation. Very low suspicion for ACS at this time. BNP is within normal range, minimally elevated to 391. Patient does not appear acutely fluid overloaded. patient is on Xarelto and is compliant with this. Low suspicion for PE. No evidence of DVT on exam. Chest x-ray is clear. Viral swabs are negative. Patient was ambulated throughout the ED and no hypoxia was noted. Oxygen saturation never dropped below 95%. Patient did feel mildly short of breath at the end of the walk, but oxygen remained stable. Remainder of laboratory studies are fairly unremarkable. No leukocytosis. H&H is stable. Kidney function is stable and consistent with previous records. Patient does have history of stage IV polycystic kidney disease. Urine with 6-10 white blood cell count, rare urine bacteria seen. Sent for culture. Discussed this with patient. patient denies recent UTI symptoms, but would prefer to start antibiotics now versus waiting for culture results. States she will follow closely with her primary care doctor for urine culture results. I feel comfortable with this. Patient started on Keflex. Given 1st dose in the ED. discussed overall reassuring workup, discussed possibility of viral URI with subsequent pleurisy/ costochondritis. Feel patient is safe for discharge home at this time. Again recommended close follow-up with PCP for further evaluation. Discussed very strict return precautions should symptoms worsen or continue. She voiced understanding and feels comfortable going home. Discharged in stable condition. Vital signs stable at time of D/C. Medical Records Attestation: I reviewed the patient's medical records. Lab Data Attestation: I reviewed the patient's lab results. 10/24/24 16:26 10/24/24 16: Labs: Lab Results 10/24/24 10/24/24 10/24/24 Range/Units 16:26 16: 16:26 WBC 6.9 (4.5-10.0) K/mm3 RBC 3.93 L (4.2-5.4) M/mm3 Hgb 11.3 L (12.0-15.0) g/dL Hct 34.5 L (37.0-47.0) % MCV 87.8 (80-100) fl MCH 28.8 (26-34) pg MCHC 32.8 (32-36) g/dl RDW 13.3 (11.5-14.5) % Plt Count 243 (150-375) k/mm3 MPV 8.5 (7.4-10.4) fl Immature Gran % (Auto) 0.3 (0-0.5) % Neut % (Auto) 76.8 H (45.5-73.1) % Lymph % (Auto) 16.7 L (18.3-44.2) % [place] % (Auto) 5.1 (2.6-8.5) % Eos % (Auto) 0.7 (0-4.4) % Baso % (Auto) 0.4 (0.2-1.2) % Lymph # (Auto) 1.15 (0.9-3.2) K/mm3 [place] # (Auto) 0.4 (0.1-0.6) K/mm3 Eos # (Auto) 0.1 (0-0.3) K/mm3 Baso # (Auto) 0.0 (0.0-0.1) K/mm3 Abs Immat Gran (auto) 0.02 (0.00-0.031) K/mm3 Absolute Neuts (auto) 5.3 (1.3-6.7) K/mm3 Absolute Nucleated RBC 0.000 (0.0-0.012) K/mm3 Nucleated RBC % 0.0 (0.0-0.2) % Sodium 139 (137-145) mmol/L Potassium 4.2 (3.4-5.0) mmol/L Chloride 103 (98-107) mmol/L Carbon Dioxide 24 (22-30) mmol/L Anion Gap 12 (4-12) mmol/L BUN 44 H (7-17) mg/dL Creatinine 2.66 H (0.7-1.0) mg/dL Estim Creat Clear Calc 22 ml/min Estimated GFR 19 L (59 - ) Glucose 107 (65-110) mg/dL Calcium 9.8 (8.4-10.2) mg/dL Total Bilirubin 0.7 (0.2-1.3) mg/dL AST 22 (14-36) U/L ALT 19 (6-35) U/L Alkaline Phosphatase 87 (38-126) U/L Troponin I < 0.012 Cancelled (0.000-0.034) ng/mL NT-Pro-B Natriuret Pep 391 H Cancelled (19.9-100) pg/mL Total Protein 7.0 (6.3-8.2) g/dL Albumin 4.0 (3.5-5.1) g/dL Urine Color (Yellow) Urine Appearance (Clear) Urine pH (5.0-9.0) Ur Specific [place] (1.001-1.035) Urine Protein (Negative) mg/dL Urine Glucose (UA) (Negative) mg/dL Urine Ketones (Negative) mg/dL Ur Blood (Man) (Negative) Urine Nitrate (Negative) Urine Bilirubin (Negative) Urine Urobilinogen (<2.0) mg/dL Leukocyte Esterase Rfl (Negative) AD/UL Urine RBC (0-2) /hpf Urine WBC (0-3) /hpf Ur Squamous Epith Cells (Few) /hpf Urine Bacteria /hpf Urine Casts Influenza A (RT-PCR) Negative (Negative) Influenza B (RT-PCR) Negative (Negative) RSV (RT-PCR) Negative (Negative) SARS-CoV-2 RNA (RT-PCR) Negative (Negative) 10/24/24 Range/Units 17:34 WBC (4.5-10.0) K/mm3 RBC (4.2-5.4) M/mm3 Hgb (12.0-15.0) g/dL Hct (37.0-47.0) % MCV (80-100) fl MCH (26-34) pg MCHC (32-36) g/dl RDW (11.5-14.5) % Plt Count (150-375) k/mm3 MPV (7.4-10.4) fl Immature Gran % (Auto) (0-0.5) % Neut % (Auto) (45.5-73.1) % Lymph % (Auto) (18.3-44.2) % [place] % (Auto) (2.6-8.5) % Eos % (Auto) (0-4.4) % Baso % (Auto) (0.2-1.2) % Lymph # (Auto) (0.9-3.2) K/mm3 [place] # (Auto) (0.1-0.6) K/mm3 Eos # (Auto) (0-0.3) K/mm3 Baso # (Auto) (0.0-0.1) K/mm3 Abs Immat Gran (auto) (0.00-0.031) K/mm3 Absolute Neuts (auto) (1.3-6.7) K/mm3 Absolute Nucleated RBC (0.0-0.012) K/mm3 Nucleated RBC % (0.0-0.2) % Sodium (137-145) mmol/L Potassium (3.4-5.0) mmol/L Chloride (98-107) mmol/L Carbon Dioxide (22-30) mmol/L Anion Gap (4-12) mmol/L BUN (7-17) mg/dL Creatinine (0.7-1.0) mg/dL Estim Creat Clear Calc ml/min Estimated GFR (59 - ) Glucose (65-110) mg/dL Calcium (8.4-10.2) mg/dL Total Bilirubin (0.2-1.3) mg/dL AST (14-36) U/L ALT (6-35) U/L Alkaline Phosphatase (38-126) U/L Troponin I (0.000-0.034) ng/mL NT-Pro-B Natriuret Pep (19.9-100) pg/mL Total Protein (6.3-8.2) g/dL Albumin (3.5-5.1) g/dL Urine Color Yellow (Yellow) Urine Appearance Clear (Clear) Urine pH 5.5 (5.0-9.0) Ur Specific [place] 1.005 (1.001-1.035) Urine Protein Negative (Negative) mg/dL Urine Glucose (UA) Negative (Negative) mg/dL Urine Ketones Negative (Negative) mg/dL Ur Blood (Man) Negative (Negative) Urine Nitrate Negative (Negative) Urine Bilirubin Negative (Negative) Urine Urobilinogen 0.2 (<2.0) mg/dL Leukocyte Esterase Rfl 1+ H (Negative) AD/UL Urine RBC 0-2 (0-2) /hpf Urine WBC 6-10 H (0-3) /hpf Ur Squamous Epith Cells None seen (Few) /hpf Urine Bacteria Rare /hpf Urine Casts 0-2 Influenza A (RT-PCR) (Negative) Influenza B (RT-PCR) (Negative) RSV (RT-PCR) (Negative) SARS-CoV-2 RNA (RT-PCR) (Negative) Imaging Data Attestation: I personally reviewed and interpreted this imaging study as follows: Radiologist's impression: ITS Impressions Chest X-Ray 10/24/24 17:52 IMPRESSION: No acute cardiopulmonary process. ECG Data EKG #1: Attestation: I personally reviewed and interpreted this ECG as follows: ECG completion date: 10/24/24 ECG completion time: 15:57 EKG Interpretation: normal rate (70), sinus rhythm and no ST changes Discharge Plan Discharge Clinical Impression: Shortness of breath, Chest wall pain, Abnormal finding on urinalysis, Polycystic kidney disease Upper respiratory infection Qualifiers: URI type: unspecified URI Qualified Code(s): J06.9 - Acute upper respiratory infection, unspecified Patient Disposition: Home, Self-Care Condition: Stable Instructions: Antibiotic Form, Pleurisy (ED), Urinary Tract Infection in Women (ED), Costochondritis (ED), Upper Respiratory Infection (ED), Shortness of Breath (ED) Additional Instructions: Your workup here was reassuring. You likely have an upper respiratory infection. Continue Tylenol as needed for chest wall pain. You may use lidocaine patches to areas of pain. Recommend tzcl-[id number] cough and cold medicines as needed for symptom relief. Follow-up with your primary care doctor for further evaluation. Return to the ED if you experience worsening or severe shortness of breath, worsening or severe pain, unable to keep down food or drink, persistent fevers, pain or swelling in legs, or any other symptoms of concern. As we discussed, your urine showed signs of possible infection. It is being sent for culture. Take antibiotics as prescribed. Follow-up with your primary care doctor for urine culture results. Patient Language: Finnish Prescriptions: New lidocaine 5 % adhesive patch,medicated 1 patch topical DAILY Qty: 15 0RF Rx Instructions: leave on most painful area for up to 12 hrs cephalexin 500 mg capsule 500 mg PO Q6H 7 Days Qty: 28 0RF No Action montelukast 10 mg tablet 10 mg PO DAILY hydrochlorothiazide 12.5 mg capsule 12.5 mg PO DAILY Jynarque 90 mg (AM)/ 30 mg (PM) tablets, sequential See Rx Instructions PO PER PKG DIR Rx Instructions: PO PER PKG DIR Xarelto 20 mg tablet 20 mg PO DAILY Rx Instructions: must administer with evening meal calcium 500 mg BYMOUTH atorvastatin 10 mg tablet PO alendronate 70 mg tablet PO ferrous sulfate 325 mg (65 mg iron) tablet PO nortriptyline 10 mg capsule PO potassium citrate 10 mEq (1,080 mg) tablet extended release PO sertraline 50 mg tablet 50 mg PO DAILY Qty: 90 3RF sertraline 25 mg tablet 25 mg PO DAILY Qty: 90 3RF fluconazole 150 mg tablet 150 mg PO Q72H Qty: 2 0RF Follow-up/Referrals: Niki,Enmanuel Hall MD [Primary Care Provider] - Time of Disposition: 19:32
--- OUTSIDE RECORDS SUMMARY | 2024-10-24 16:22 | XMS_ITS | Continuity of Care Document ---
Author Name [facility] Address [address] [place] [address] Organization [facility] Care Team Providers Care Experience Specialist Name Role Phone [facility] Unavailable Unavailable Problems Problem Status Onset Date [...] Provider ADM Date DC Date Status Source [facility] [id number] CLASS: YEARLY RYGB 05/25/13 Odin Sutmargaretoeller Cancel [facility] [id number] CLASS: YEARLY RYGB 05/25/13 Odin Sutmargaretoeller Cancel [facility] [id number] CLASS: YEARLY RYGB 05/25/13 Reji Carrero Cancel [facility] [id number] CLASS: YEARLY RYGB 05/25/13 Odin Suttmoeller Cancel [facility] Procedures Procedure Code Date Perfomer Comments Source Cholecystectomy [id number] [facility] navel mass removed as [facility] child [facility] uterine abalation [facility] Laparoscopic Mynor-en-Y divid ed gastric bypass [facility]
--- OUTSIDE RECORDS SUMMARY | 2024-10-24 16:22 | XMS_ITS | Encounter Summary ---
Author Organization [facility] Address [address] [place] [address] Phone Care Team Providers Care Patent Examiner Name Role Phone Joselito Laws MD Primary Care Provider [phone] Reason for Visit * Reason Comments Med Refill Encounter Details Date Type Department Care Team (Late st Contact Info) Description 10/05/2019 Refill [facility] 2100 [facility] 206 [place] [address] Brayan Aquino MD 5003 [facility] 1 [place], [place] [phone] Social History Tobacco Use Types Packs/Day Years Used Date Smoking Tobacco: Never Assessed Sex and Gender Information Value Date Recorded Sex Assigned at Not on file Gender Identity Not on file Sexual Orientation Not on file documented as of this encounter Plan of Treatment Upcoming Encounters Date Type Department Care Team (Late st Contact Info) Description 12/16/2024 3:20 PM CDT Office Visit [facility] 5003 [facility] 1 [place] [address] Brayan Aquino MD [address] [address] documented as of this encounter Visit Diagnoses Not on filedocumented in this encounter Care Teams Patent Examiner Relationship Specialty Start Date End Date Joselito Laws MD 2043 [facility] 15 [place] [address] PCP - General 11/25/19 documented as of this encounter
--- OUTSIDE RECORDS SUMMARY | 2024-10-24 16:22 | XMS_ITS | Encounter Summary ---
Author Organization [facility] Address [address] [place] [address] Phone Care Team Providers Care Co Founder And Chairman Name Role Phone Joselito Laws MD Primary Care Provider [phone] Reason for Visit * Reason Comments Med Refill Encounter Details Date Type Department Care Team (Late Contact Info) Description 12/07/2019 Refill [facility] [address] [phone] Brayan Aquino MD [address] [address] Social History Tobacco Use Types [...] Description 12/16/2024 3:20 PM CDT Office Visit [facility]3 [facility] 1 [place] [address] Brayan Aquino MD [address] [phone] documented as of this encounter Visit Diagnoses Not on filedocumented in this encounter Care Teams Co Founder And Chairman Relationship Specialty Start Date End Date Joselito Laws MD [address] [address] PCP - General 11/25/19 documented as of this encounter
--- OUTSIDE RECORDS SUMMARY | 2024-10-24 16:22 | XMS_ITS | Encounter Summary ---
Author Organization Dorinda Physician Suzan utimarcus Address [address] [place] [address] Phone Care Team Providers Care Deoiling Machine Operator Name Role Phone Joselito Laws MD Primary Care Provider Reason for Visit * Reason Comments Med Refill Encounter Details Date Type Department Care Team (Late st Contact Info) Description 01/19/2019 Refill [facility] [address] [place] [address] Baryan Aquino MD [address] [place] [address] Social History Tobacco Use Types Packs/Day Years Used Date Smoking Tobacco: Never Assessed Sex and Gender Information Value Date Recorded Sex Assigned at Not on file Gender Identity Not on file Sexual Orientation Not on file documented as of this encounter Plan of Treatment Upcoming Encounters Date Type Department Care Team (Late st Contact Info) Description 12/16/2024 3:20 PM CDT Office Visit [facility] [address] [place] [address] Brayan Aquino MD [address] [address] documented as of this encounter Visit Diagnoses Not on filedocumented in this encounter Care Teams Deoiling Machine Operator Relationship Specialty Start Date End Date Joselito Laws MD 2043 [facility] 15 [place] [address] PCP - General 11/25/19 documented as of this encounter
--- OUTSIDE RECORDS SUMMARY | 2024-10-24 16:22 | XMS_ITS | Encounter Summary ---
Author Organization [facility] Physician Suzan utimarcus Address [address] [place] [address] Phone Care Team Providers Care Cardiovascular Physician Assistant Name Role Phone Joselito Laws MD Primary Care Provider [phone] Reason for Visit * Reason Comments Med Refill Encounter Details Date Type Department Care Team (Late st Contact Info) Description 06/11/2019 Refill [facility] 2100 [facility] 206 [place] [address] Brayan Aquino MD 5003 [facility] 1 [place], [place] [phone] Social History Tobacco Use Types Packs/Day Years Used Date Smoking Tobacco: Never Assessed Sex and Gender Information Value Date Recorded Sex Assigned at Not on file Gender Identity Not on file Sexual Orientation Not on file documented as of this encounter Plan of Treatment Upcoming Encounters Date Type Department Care Team (Late st Contact Info) Description 12/16/2024 3:20 PM CDT Office Visit [facility] 5003 [facility] 1 [place] [address] Brayan Aquino MD [address] [address] documented as of this encounter Visit Diagnoses Not on filedocumented in this encounter Care Teams Cardiovascular Physician Assistant Relationship Specialty Start Date End Date Joselito Laws MD [address] [facility] 15 [place] [address] PCP - General 11/25/19 documented as of this encounter
--- OUTSIDE RECORDS SUMMARY | 2024-10-24 16:22 | XMS_ITS | Encounter Summary ---
Author Organization [facility] Physician Suzan utimarcus Address [address] [place] [address] Phone Care Team Providers Care Home Theater Expert Name Role Phone Joselito Laws MD Primary Care Provider [phone] Reason for Visit * Reason Comments Med Refill Encounter Details Date Type Department Care Team (Late st Contact Info) Description 2019 Refill [facility] 2100 [facility] 206 [place] [address] Brayan Aquino MD 5003 [facility] 1 [place], [place] [phone] Social History Tobacco Use Types Packs/Day Years Used Date Smoking Tobacco: Never Assessed Sex and Gender Information Value Date Recorded Sex Assigned at Not on file Gender Identity Not on file Sexual Orientation Not on file documented as of this encounter Plan of Treatment Upcoming Encounters Date Type Department Care Team (Late st Contact Info) Description 12/16/2024 3:20 PM CDT Office Visit [facility] 5003 [facility] 1 [place] [address] Brayan Aquino MD [address] [address] documented as of this encounter Visit Diagnoses Not on filedocumented in this encounter Care Teams Home Theater Expert Relationship Specialty Start Date End Date Joselito Laws MD 2043 [facility] 15 [place] [address] PCP - General 11/25/19 documented as of this encounter
--- OUTSIDE RECORDS SUMMARY | 2024-10-24 16:22 | XMS_ITS | Encounter Summary ---
Author Organization Dorinda Physician Suzan utimarcus Address [address] [place] [address] Phone Care Team Providers Care Telegraph And Teletype Operator Name Role Phone Joselito Laws MD Primary Care Provider [phone] Reason for Visit * Reason Comments Med Refill Encounter Details Date Type Department Care Team (Late st Contact Info) Description 11/05/2019 Refill [facility] 2100 [facility] 206 [place] [address] Brayan Aquino MD [address] [facility] 1 [place], [place] [phone] Social History Tobacco Use Types Packs/Day Years Used Date Smoking Tobacco: Never Assessed Sex and Gender Information Value Date Recorded Sex Assigned at Not on file Gender Identity Not on file Sexual Orientation Not on file documented as of this encounter Plan of Treatment Upcoming Encounters Date Type Department Care Team (Late st Contact Info) Description 12/16/2024 3:20 PM CDT Office Visit [facility] 5003 [facility] 1 [place] [address] Brayan Aquino MD [address] [address] documented as of this encounter Visit Diagnoses Not on filedocumented in this encounter Care Teams Telegraph And Teletype Operator Relationship Specialty Start Date End Date Joselito Laws MD 2043 [facility] 15 [place] [address] PCP - General 11/25/19 documented as of this encounter
--- OUTSIDE RECORDS SUMMARY | 2024-10-24 16:22 | XMS_ITS | Clinical Summary ---
Author Organization [facility] Address [facility]6 [place] [address] Care Team Providers Care Event Operations Manager Name Role Phone Joselito Laws MD Primary Care Provider [phone] Social History Tobacco Use Types Packs/Day Years [...] patient's age to complete this topic Insurance [employer] [facility] [employer] Care Teams Event Operations Manager Relationship Specialty Start Date End Date Joselito aLws MD 2043 [facility] 15 [place] [address] PCP - General INTERNAL MEDICINE 05/10/22
--- OUTSIDE RECORDS SUMMARY | 2024-10-24 16:22 | XMS_ITS | Encounter Summary ---
Author Organization Dorinda Physician Suzan utimarcus Address [address] [place] [address] Phone Care Team Providers Care Molecular Biology Scientist Name Role Phone Joselito Laws MD Primary Care Provider [phone] Reason for Visit * Reason Comments Med Refill Encounter Details Date Type Department Care Team (Late st Contact Info) Description 04/21/2019 Refill [facility] [address] [place] [address] Brayan Aquino MD [address] [place] [address] Social History Tobacco Use Types Packs/Day Years Used Date Smoking Tobacco: Never Assessed Sex and Gender Information Value Date Recorded Sex Assigned at Not on file Gender Identity Not on file Sexual Orientation Not on file documented as of this encounter Plan of Treatment Upcoming Encounters Date Type Department Care Team (Late st Contact Info) Description 12/16/2024 3:20 PM CDT Office Visit [facility] [address] [place] [address] Brayan Aquino MD [address] [address] documented as of this encounter Visit Diagnoses Not on filedocumented in this encounter Care Teams Molecular Biology Scientist Relationship Specialty Start Date End Date Joselito Laws MD 2043 [facility] 15 [place] [address] PCP - General 11/25/19 documented as of this encounter
--- OUTSIDE RECORDS SUMMARY | 2024-10-24 16:22 | XMS_ITS | Encounter Summary ---
Author Organization Dorinda Physician Suzan utimarcus Address [address] [place] [address] Phone Care Team Providers Care Marine Geologist Name Role Phone Joselito Laws MD Primary Care Provider Reason for Visit * Reason Comments Med Refill Encounter Details Date Type Department Care Team (Late Contact Info) Description 11/01/2020 Refill [facility] [address] [phone] Brayan Aquino MD [address] [address] Social History Tobacco Use Types [...] Description 12/16/2024 3:20 PM CDT Office Visit [facility] 5003 [facility] 1 [place] [address] Brayan Aquino MD [address] [phone] documented as of this encounter Visit Diagnoses Not on filedocumented in this encounter Care Teams Marine Geologist Relationship Specialty Start Date End Date Joselito Laws MD [address] [address] PCP - General 11/25/19 documented as of this encounter
--- OUTSIDE RECORDS SUMMARY | 2024-10-24 16:22 | XMS_ITS | Encounter Summary ---
Author Organization Dorinda Physician Suzan utimarcus Address [address] [place] [address] Phone Care Team Providers Care Manager Internet Name Role Phone Joselito Laws MD Primary Care Provider [phone] Reason for Visit * Reason Comments Med Refill Encounter Details Date Type Department Care Team (Late st Contact Info) Description 10/26/2019 Refill [facility] [address] [facility] 206 [place] [address] Brayan Aquino MD 5003 [facility] 1 [place], [place] [phone] Social History Tobacco Use Types Packs/Day Years Used Date Smoking Tobacco: Never Assessed Sex and Gender Information Value Date Recorded Sex Assigned at Not on file Gender Identity Not on file Sexual Orientation Not on file documented as of this encounter Plan of Treatment Upcoming Encounters Date Type Department Care Team (Late st Contact Info) Description 12/16/2024 3:20 PM CDT Office Visit [facility] 5003 [facility] 1 [place] [address] Brayan Aquino MD [address] [address] documented as of this encounter Visit Diagnoses Not on filedocumented in this encounter Care Teams Manager Internet Relationship Specialty Start Date End Date Joselito Laws MD 2043 [facility] 15 [place] [address] PCP - General 11/25/19 documented as of this encounter
--- OUTSIDE RECORDS SUMMARY | 2024-10-24 16:22 | XMS_ITS | Encounter Summary ---
Author Organization Dorinda Physician Suzan utimarcus Address [address] [place] [address] Phone Care Team Providers Care Sports Nutritionist Name Role Phone Joselito Laws MD Primary Care Provider [phone] Reason for Visit * Reason Comments Med Refill Encounter Details Date Type Department Care Team (Late st Contact Info) Description 05/13/2019 Refill [facility] [address] [place] [address] Brayan Aquino MD [address] [place] [address] Social History Tobacco Use Types Packs/Day Years Used Date Smoking Tobacco: Never Assessed Sex and Gender Information Value Date Recorded Sex Assigned at Not on file Gender Identity Not on file Sexual Orientation Not on file documented as of this encounter Plan of Treatment Upcoming Encounters Date Type Department Care Team (Late st Contact Info) Description 12/16/2024 3:20 PM CDT Office Visit [facility] [address] [place] [address] Brayan Aquino MD [address] [address] documented as of this encounter Visit Diagnoses Not on filedocumented in this encounter Care Teams Sports Nutritionist Relationship Specialty Start Date End Date Joselito Laws MD 2043 [facility] 15 [place] [address] PCP - General 11/25/19 documented as of this encounter
--- OUTSIDE RECORDS SUMMARY | 2024-10-24 16:22 | XMS_ITS | Encounter Summary ---
Author Organization Dorinda Physician Suzan utimarcus Address [address] [place] [address] Phone Care Team Providers Care Shot Peen Operator Name Role Phone Joselito Laws MD Primary Care Provider [phone] Reason for Visit * Reason Comments Med Refill Encounter Details Date Type Department Care Team (Late Contact Info) Description 07/04/2021 Refill [facility] [address] [place] [phone] Brayan Aquino MD [address] [address] Social History Tobacco Use Types [...] Description 12/16/2024 3:20 PM CDT Office Visit [facility] [address] [place] [phone] Brayan Aquino MD [address] [phone] documented as of this encounter Visit Diagnoses Not on filedocumented in this encounter Care Teams Shot Peen Operator Relationship Specialty Start Date End Date Joselito Laws MD [address] [address] PCP - General 11/25/19 documented as of this encounter
--- OUTSIDE RECORDS SUMMARY | 2024-10-24 16:22 | XMS_ITS | Encounter Summary ---
Author Organization Dorinda Physician Suzan utimarcus Address [address] [place] [address] Phone Care Team Providers Care Digital Solutions Architect Name Role Phone Joselito Laws MD Primary Care Provider [phone] Reason for Visit * Reason Comments Med Refill Encounter Details Date Type Department Care Team (Late st Contact Info) Description 07/27/2019 Refill [facility] 2100 [facility] 206 [place] [address] Brayan Aquino MD 5003 [facility] 1 [place], [place] [phone] Social History Tobacco Use Types Packs/Day Years Used Date Smoking Tobacco: Never Assessed Sex and Gender Information Value Date Recorded Sex Assigned at Not on file Gender Identity Not on file Sexual Orientation Not on file documented as of this encounter Plan of Treatment Upcoming Encounters Date Type Department Care Team (Late st Contact Info) Description 12/16/2024 3:20 PM CDT Office Visit [facility] 5003 [facility] 1 [place] [address] Brayan Aquino MD [address] [address] documented as of this encounter Visit Diagnoses Not on filedocumented in this encounter Care Teams Digital Solutions Architect Relationship Specialty Start Date End Date Joselito Laws MD 2043 [facility] 15 [place] [address] PCP - General 11/25/19 documented as of this encounter
--- OUTSIDE RECORDS SUMMARY | 2024-10-24 16:22 | XMS_ITS | Encounter Summary ---
Author Organization Dorinda Physician Suzan utimarcus Address [address] [place] [address] Phone Care Team Providers Care Steward/Stewardess Second Name Role Phone Joselito Laws MD Primary Care Provider [phone] Reason for Visit * Reason Comments Med Refill Encounter Details Date Type Department Care Team (Late Contact Info) Description 08/01/2021 Refill [facility] [address] [place] [phone] Brayan Aquino MD [address] [address] Social History Tobacco Use Types [...] Description 12/16/2024 3:20 PM CDT Office Visit [facility] [address] [place] [phone] Brayan Aquino MD [address] [address] documented as of this encounter Visit Diagnoses Not on filedocumented in this encounter Care Teams Steward/Stewardess Second Relationship Specialty Start Date End Date Joselito Laws MD [address] [address] PCP - General 11/25/19 documented as of this encounter
--- OUTSIDE RECORDS SUMMARY | 2024-10-24 16:22 | XMS_ITS | Encounter Summary ---
Author Organization [facility] Address [address] [place] [address] Phone Care Team Providers Care Medical Charge Entry Specialist Name Role Phone Joseltio Laws MD Primary Care Provider [phone] Reason for Visit * Reason Comments Med Refill Encounter Details Date Type Department Care Team (Late Contact Info) Description 03/04/2020 Refill [facility] [address] [phone] Brayan Aquino MD [address] [address] Social History Tobacco Use Types [...] Description 12/16/2024 3:20 PM CDT Office Visit [facility]3 [facility] 1 [place] [address] Brayan Aquino MD [address] [phone] documented as of this encounter Visit Diagnoses Not on filedocumented in this encounter Care Teams Medical Charge Entry Specialist Relationship Specialty Start Date End Date Joselito Laws MD [address] [address] PCP - General 11/25/19 documented as of this encounter
--- OUTSIDE RECORDS SUMMARY | 2024-10-24 16:22 | XMS_ITS | Encounter Summary ---
Author Organization Dorinda Physician Suzan utimarcus Address [address] [place] [address] Phone Care Team Providers Care Personal Care Home Administrator Name Role Phone Joselito Laws MD Primary Care Provider Reason for Visit * Reason Comments Med Refill Encounter Details Date Type Department Care Team (Late st Contact Info) Description 04/27/2022 Refill [facility] [address] [phone] Shadia De Oliveira NP [address] [address] Autosomal dominant polycystic kidney Social [...] Description 12/16/2024 3:20 PM CDT Office Visit [facility] 5003 [facility] 1 [place] [address] Brayan Aquino MD [address] [phone] documented as of this encounter Visit Diagnoses Diagnosis Autosomal dominant polycystic kidney documented in this encounter Care Teams Personal Care Home Administrator Relationship Specialty Start Date End Date Joselito Laws MD 2044 [place] [phone] PCP - General 11/25/19 documented as of this encounter
--- OUTSIDE RECORDS SUMMARY | 2024-10-24 16:22 | XMS_ITS | Clinical Summary ---
Author Organization Dorinda Physician [facility]an [facility] Address [address] [place] [address] Phone Care Team Providers Care Avionics Mechanic Name Role Phone Joselito Laws MD Primary Care Provider [phone] Allergies Active Allergy Reactions Criticality Noted Date Comments Ibuprofen 05/21/2019 Orscxbew-[id number]-[id number] 2018 Medications Medication Sig Dispensed Refills Start [...] Type Department Care Team Description 09/29/2024 Refill [facility] [address] [place] [address] Nany Erickson RN Autosomal dominant polycystic kidney 08/26/2024 3:40 PM DITCH REPAIRER Office Visit [facility] [address] [place] [address] Brayan Aquino MD Chronic kidney disease, stage 4 (severe) ([facility] [place] [place] (Primary Dx); Adult polycystic kidney; Encounter for therapeutic drug monitoring; Essential hypertension; Iron deficiency anemia, not otherwise specified 08/10/2024 10:00 AM DITCH REPAIRER Clinical Support [facility] [address] [place] [address] Shadia De Oliveira NP Chronic kidney disease, stage 4 (severe) ([facility] [place] (Primary Dx) 07/30/2024 Refill [facility] [address] [place] [address] Shadia De Oliveira NP from Last 3 [...] Comments Blood Pressure 155/90 08/26/2024 3:24 PM DITCH REPAIRER Pulse 85 08/26/2024 3:24 PM DITCH REPAIRER Temperature 37.1 C (98.7 F) 05/03/2021 4:13 PM CDT Respiratory Rate - - Oxygen Saturation 99% 10/24/2022 2:05 PM DITCH REPAIRER Inhaled Oxygen Concentration - - Weight 80.3 kg (177 lb) 08/26/2024 3:24 PM DITCH REPAIRER Height 160 cm (5' 3 ) 08/26/2024 3:24 PM DITCH REPAIRER Body Mass Index 31.35 08/26/2024 3:24 PM DITCH REPAIRER Plan of Treatment Upcoming Encounters Date Type Department Care Team (Late st Contact Info) Description 12/16/2024 3:20 PM CDT Office Visit [facility] 5003 [facility] [address] [place] [address] Brayan Aquino MD 5[address] [facility] 1 [place], [place] [phone] Health Maintenance Due Date Last Done Comments Diabetic Foot Exam 1978 Ophthalmology Exam 1978 Pneumococcal PPSV23 Highest Risk Adult (1 of 3 - PCV13) 1987 Influenza Vaccine (#1) 2024 3, 06/15/2022, 06/27/2018, Additional history exists Care Teams Avionics Mechanic Relationship Specialty Start Date End Date Joselito Laws MD 2043 [facility] 15 [place] [address] PCP - General 11/25/19
--- OUTSIDE RECORDS SUMMARY | 2024-10-24 16:22 | XMS_ITS | Encounter Summary ---
Author Organization [facility] Address [address] [place] [address] Phone Care Team Providers Care Lot Porter Name Role Phone Joselito Laws MD Primary Care Provider [phone] Reason for Visit * Reason Comments Med Refill Encounter Details Date Type Department Care Team (Late Contact Info) Description 12/28/2020 Refill [facility] [address] [phone] Brayan Aquino MD [address] [address] Social History Tobacco Use Types [...] Description 12/16/2024 3:20 PM CDT Office Visit [facility] 5003 [facility] 1 [place] [address] Brayan Aquino MD [address] [phone] documented as of this encounter Visit Diagnoses Not on filedocumented in this encounter Care Teams Lot Porter Relationship Specialty Start Date End Date Joselito Laws MD [address] [phone] PCP - General 11/25/19 documented as of this encounter
--- OUTSIDE RECORDS SUMMARY | 2024-10-24 16:22 | XMS_ITS | Encounter Summary ---
Author Organization [facility] Address [address] [place] [address] Phone Care Team Providers Care District Plant Engineer Name Role Phone Joselito Laws MD Primary Care Provider [phone] Reason for Visit * Reason Comments Med Refill Encounter Details Date Type Department Care Team (Late Contact Info) Description 09/14/2020 Refill [facility] [address] [phone] Brayan Aquino MD [address] [address] Social History Tobacco Use Types [...] Description 12/16/2024 3:20 PM CDT Office Visit [facility] 1 [place] [address] Brayan Aquino MD [address] [phone] documented as of this encounter Visit Diagnoses Not on filedocumented in this encounter Care Teams District Plant Engineer Relationship Specialty Start Date End Date Joselito Laws MD [address] [phone] PCP - General 11/25/19 documented as of this encounter
--- OUTSIDE RECORDS SUMMARY | 2024-10-24 16:22 | XMS_ITS | Encounter Summary ---
Author Organization [facility] Address [address] [place] [address] Phone Care Team Providers Care Edge Bonder Name Role Phone Joselito Laws MD Primary Care Provider [phone] Reason for Visit * Reason Comments Med Refill Encounter Details Date Type Department Care Team (Late st Contact Info) Description 03/04/2019 Refill [facility] [address] [place] [address] Brayan Aquino MD [address] [place] [address] Social History Tobacco Use Types Packs/Day Years Used Date Smoking Tobacco: Never Assessed Sex and Gender Information Value Date Recorded Sex Assigned at Not on file Gender Identity Not on file Sexual Orientation Not on file documented as of this encounter Plan of Treatment Upcoming Encounters Date Type Department Care Team (Late st Contact Info) Description 12/16/2024 3:20 PM CDT Office Visit [facility] [address] [place] [address] Brayan Aquino MD [address] [address] documented as of this encounter Visit Diagnoses Not on filedocumented in this encounter Care Teams Edge Bonder Relationship Specialty Start Date End Date Joselito Laws MD 2043 [facility] 15 [place] [phone] PCP - General 11/25/19 documented as of this encounter
--- OUTSIDE RECORDS SUMMARY | 2024-10-24 16:23 | XMS_ITS | Referral Summary ---
Author Organization [facility] Address [address] [place] [address] Care Team Providers Care Bus Aide Name Role Phone Unavailable Primary Care Provider Unavailabl e Source Comments [facility] Affiliates and Associated Physician Practices is amultiple site organization consisting of ambulatory clinics and hospital sitesin [place], [place], [place] and [place]. This disclosure is being madepursuant to the Care Everywhere program and may not contain all information available regarding this patient. Last updated 18.[facility] [employer] Social History Tobacco Use Types Packs/Day Years Used Date Smoking Tobacco: Never Assessed Sex and Gender Information Value Date Recorded Sex Assigned at Not on file Gender Identity Not on file Sexual Orientation Not on file Plan of Treatment Not on file Johanna Mendez Personal/Famil y Self 1970
--- OUTSIDE RECORDS SUMMARY | 2024-10-24 16:23 | XMS_ITS | Encounter Summary ---
Author Organization [facility] Address [address] [place] [address] Phone Care Team Providers Care Road Driver Name Role Phone Joselito Laws MD Primary Care Provider [phone] Reason for Visit * Reason Comments Med Refill Encounter Details Date Type Department Care Team (Late Contact Info) Description 10/10/2021 Refill [facility] [address] [place] [address] [phone] Brayan Aquino MD [address] [address] Social History Tobacco Use Types [...] Description 12/16/2024 3:20 PM CDT Office Visit [facility] [address] [place] [address] [phone] Brayan Aquino MD [address] [address] documented as of this encounter Visit Diagnoses Not on filedocumented in this encounter Care Teams Road Driver Relationship Specialty Start Date End Date Joselito Laws MD [address] [phone] PCP - General 11/25/19 documented as of this encounter
--- OUTSIDE RECORDS SUMMARY | 2024-10-24 16:23 | XMS_ITS | Clinical Summary ---
Author Organization [facility] Address [address] [place] [address] Care Team Providers Care Safety Person Name Role Phone Unavailable Primary Care Provider Unavailabl e Source Comments [facility],non-owned Affiliates and Associated Physician Practices is amultiple site organization consisting of ambulatory clinics and hospital sitesin [place], [place], [place] and [place]. This disclosure is being madepursuant to the Care Everywhere program and may not contain all information available regarding this patient. Last updated 18.[facility] [employer] Social History Tobacco Use Types Packs/Day Years [...]
--- OUTSIDE RECORDS SUMMARY | 2024-10-24 16:23 | XMS_ITS | Patient Health Summary ---
Author Organization [facility] Address [address] [facility] [place] [address] Care Team Providers Care Ice Platform Supervisor Name Role Phone Unavailable Primary Care Provider Unavailabl e Note from [facility],non-owned Affiliates and Associated Physician Practices is amultiple site organization consisting of ambulatory clinics and hospital sitesin [place], [place], [place] and [place]. This disclosure is being madepursuant to the Care Everywhere program and may not contain all information available regarding this patient. Last updated 18.[facility] Social History Tobacco Use Types Packs/Day Years Used Date Smoking Tobacco: Never Assessed Sex and Gender Information Value Date Recorded Sex Assigned at Not on file Gender Identity Not on file Sexual Orientation Not on file
--- OUTSIDE RECORDS SUMMARY | 2024-10-24 16:23 | XMS_ITS | Encounter Summary ---
Author Organization [facility] Address [address] [place] [address] Phone Care Team Providers Care Ict Educator Name Role Phone Joselito Laws MD Primary Care Provider [phone] Reason for Visit * Reason Comments Med Refill Encounter Details Date Type Department Care Team (Late Contact Info) Description 03/15/2022 Refill [facility] [address] [phone] Shadia De Oliveira NP [address] [address] Social History Tobacco Use Types [...] Description 12/16/2024 3:20 PM CDT Office Visit [facility] 5003 [facility] 1 [place] [address] Brayan Aquino MD [address] [phone] documented as of this encounter Visit Diagnoses Not on filedocumented in this encounter Care Teams Ict Educator Relationship Specialty Start Date End Date Joselito Laws MD [address] [phone] PCP - General 11/25/19 documented as of this encounter
[2024-10-24 16:32] LABS: Basophils Percent Auto 0.4 % (0.2-1.2); Eosinophils Absolute Auto 0.1 K/mm3 (0-0.3); Eosinophils Percent Auto 0.7 % (0-4.4); Hematocrit 34.5 % (37.0-47.0); Hemoglobin 11.3 g/dL (12.0-15.0); Immature Granulocyte Absolute 0.02 K/mm3 (0.00-0.031); Immature Granulocyte Percent A 0.3 % (0-0.5); Lymphocytes Absolute Auto 1.15 K/mm3 (0.9-3.2); Lymphocytes Percent Auto 16.7 % (18.3-44.2); Mean Corpuscular HGB Conc 32.8 g/dl (32-36); Mean Corpuscular Hemoglobin 28.8 pg (26-34); Mean Corpuscular Volume 87.8 fl (80-100); Mean Platelet Volume 8.5 fl (7.4-10.4); Monocytes Absolute Auto 0.4 K/mm3 (0.1-0.6); Monocytes Percent Auto 5.1 % (2.6-8.5); Neutrophils Absolute Auto 5.3 K/mm3 (1.3-6.7); Neutrophils Percent Auto 76.8 % (45.5-73.1); Platelet Count Result 243 k/mm3 (150-375); Red Blood Count 3.93 M/mm3 (4.2-5.4); Red Cell Distribution Width 13.3 % (11.5-14.5); White Blood Count 6.9 K/mm3 (4.5-10.0)
[2024-10-24] MEDS: FAMOTIDINE 20 MG/2 ML VIAL IV PUSH (16:42)
[2024-10-24 16:45] LABS: Alanine Aminotransferase 19 U/L (6-35); Alkaline Phosphatase 87 U/L (38-126); Anion Gap 12 mmol/L (4-12); Aspartate Amino Transferase 22 U/L (14-36); Bilirubin,Total 0.7 mg/dL (0.2-1.3); Blood Urea Nitrogen 44 mg/dL (7-17); Calcium 9.8 mg/dL (8.4-10.2); Carbon Dioxide 24 mmol/L (22-30); Chloride 103 mmol/L (98-107); Estimated CRCL calculation 22 ml/min; Estimated Glomerular Filt Rate 19; Glucose 107 mg/dL (65-110); Potassium 4.2 mmol/L (3.4-5.0); Sodium 139 mmol/L (137-145)
[2024-10-24 17:09] LABS: Influenza A QL RT-PCR Negative (Negative); Influenza B QL RT-PCR Negative (Negative); RSV RNA, RT-PCR Negative (Negative); SARS-CoV-2 RNA PCR Negative (Negative)
[2024-10-24 17:25] LABS: NT Pro B Type Natriuretic Pept 391 pg/mL (19.9-100); Troponin I < 0.012 ng/mL (0.000-0.034)
[2024-10-24 17:46] LABS: Add Urine Microscopic? YES; Appearance Urine Clear (Clear); Bacteria Urine Rare /hpf; Bilirubin Urine Negative (Negative); Blood Urine Negative (Negative); Color Urine Yellow (Yellow); Glucose Urine UA Negative (Negative); Ketones Urine Negative (Negative); Leukocyte Esterase Ur 1+ LEU/UL (Negative); Nitrate Urine Negative (Negative); Non Pathogenic Casts 0-2; Protein Urine Negative (Negative); RBC Urine 0-2 /hpf (0-2); Specific Grav Ur 1.005 (1.001-1.035); Squamous Epithelial Cell Urine None Seen /hpf (Few); Urobilinogen Urine 0.2 mg/dL (<2.0); pH Urine 5.5 (5.0-9.0)
--- NOTE | 2024-10-24 18:26 | PC.NURSE ---
Patient walked without issue around the nurses' station; oxygen saturation fluctuated between 100% and 95%. Ivor slightly short of breath upon returning to her room.
[2024-10-24] MEDS: CEPHALEXIN 500 MG CAPSULE PO (19:48)
== END 2024-10-24 19:45 | disposition home or self-care (01) ==
PROVIDERS: Student in an Organized Health Care Education/Training Program; Emergency Provider Physician Assistant; PCP Internal Medicine
DX: J06.9 Acute upper respiratory infection, unspecified (principal); R06.02 Shortness of breath; R07.89 Other chest pain; R82.998 Other abnormal findings in urine; Q61.3 Polycystic kidney, unspecified; Z20.822 Contact with and (suspected) exposure to COVID-19; N18.9 Chronic kidney disease, unspecified; K21.9 Gastro-esophageal reflux disease without esophagitis; Z98.84 Bariatric surgery status; Z86.718 Personal history of other venous thrombosis and embolism; Z90.49 Acquired absence of other specified parts of digestive tract; Z79.01 Long term (current) use of anticoagulants; Z79.899 Other long term (current) drug therapy; R94.31 Abnormal electrocardiogram [ECG] [EKG]
CPT/HCPCS: 36415; 71046; 80053; 81001; 83880; 84484; 85025; 87086; 87637; 93005; 96374; 99284; A9270

== ENCOUNTER 2025-01-31 08:24 | Outpatient (CLI) | payer OTHER, SELFPAY ==
--- NOTE | ~2025-01-31 | MR_ITS ---
MRI of the right knee Clinical history: Pain Technique: Coronal proton density and proton density-weighted images, sagittal proton-density and T2 fat-sat images, and axial proton-density fat-saturated images were acquired. Findings: Anterior and posterior cruciate ligaments are intact. Medial collateral ligament and the la teral collateral ligament complex are intact. Popliteus tendon is intact. There is extensive complex tearing of the posterior horn and body of the medial meniscus, which are d iminutive. No lateral meniscal tear identified. 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 There is high-grade chondromalacia at the inferior aspect of the femoral trochl ea. Articular cartilage of the patellofemoral and lateral compartment is relatively well-preserved. T here is mild amorphous reactive marrow edema on both sides of the medial compartment. There is focal subchondral cystic change in the medial tibial plateau. Extensor mechanism is intact. Large joint effusion present. No Ernst's cyst. Impression: Complex tearing of the posterior horn and body medial meniscus, which are diminutive. Correlate for a ny possibility of prior partial meniscectomy. Severe degenerative change of the medial compartment, as detailed above. Mild degenerative change of the lateral and patellofemoral compartment. Large joint effusion. Reviewed, dictated and finalized at location M. Impression: Complex tearing of the posterior horn and body medial meniscus, which are dimin utive. Correlate for any possibility of prior partial meniscectomy. Severe degenerative change of the medial compartment, as detailed above. Mild d egenerative change of the lateral and patellofemoral compartment. Large joint effusion.
--- OUTSIDE RECORDS SUMMARY | 2025-01-31 08:28 | XMS_ITS ---
Author Organization [facility] Address [address] [facility] [place] [address] Care Team Providers Care Body Finisher Name Role Phone Unavailable Primary Care Provider Unavailabl e Transplant Episode Kidney Candidate [facility] ([place], [place]) - [facility] Evaluation began on 12/24/2024 Marked as Active on 12/24/2024 Kidney CoordinatorLitzy Moore RN Phone: N/A Fax: N/A Email: N/A Scores Score Value Updated Exceptions/Reas ons CPRA Not available EPTS (Calc) 23 01/31/2025 [place] Organ Diagnosis Organ Primary Contributory Kidney Polycystic Kidneys Care Team Name Role Phone Fax Email Litzy Moore RN Kidney Coordinator N/A N/A N/A Jailene Farooq Fender Finisher N/A N/A N/A Brayan Aquino MD Referring Physician [phone] N/A Events Pre-Transplant Referred: 12/10/2024 Evaluation began: 12/24/2024
--- OUTSIDE RECORDS SUMMARY | 2025-01-31 08:28 | XMS_ITS | Encounter Summary ---
Author Organization [facility] Address [address] [place] [address] Phone Care Team Providers Care Railroad Car Painter Name Role Phone Joselito Laws MD Primary Care Provider [phone] Reason for Visit * Reason Comments Med Refill Encounter Details Date Type Department Care Team ([facility] Contact Info) Description 07/04/2021 Refill [facility] [address] [place] [address] [phone] Brayan Aquino MD [address] [place] [address] Social History Tobacco Use Types Packs/Day Years Used Date Smoking Tobacco: Never Smokeless Tobacco: Never Alcohol Use Standard Drinks/Week Comments Never 0 (1 standard drink = 0.6 oz pur e alcohol) AUDIT-C Answer Date Recorded Frequency of Alcohol Consumption Never 11/19/2019 Average Number of Drinks Not on file 020 Frequency of Binge Drinking Not on file 01/2020 Comments Unknown Sex and Gender Information Value Date Recorded Sex Assigned at Not on file Legal Sex Female 9:36 AM [facility] Gender Identity Not on file Sexual Orientation Not on file documented as of this encounter Plan of Treatment Upcoming Encounters Date Type Department Care Team ([facility] Contact Info) Description 03/17/2025 12:40 PM CDT Office Visit [facility] [address] [place] [address] [phone] Brayan Aquino MD [address] [place] [address] [phone] documented as of this encounter Visit Diagnoses Not on filedocumented in this encounter Care Teams Railroad Car Painter Relationship Specialty Start Date End Date Joselito Laws MD [address] [phone] PCP - General 11/25/19 documented as of this encounter
--- OUTSIDE RECORDS SUMMARY | 2025-01-31 08:28 | XMS_ITS | Encounter Summary ---
Author Organization [facility] Address [address] [place] [address] Phone Care Team Providers Care Gas Utility Worker Name Role Phone Joselito Laws MD Primary Care Provider [phone] Reason for Visit * Reason Comments Med Refill Encounter Details Date Type Department Care Team ([facility] Contact Info) Description 08/01/2021 Refill [facility] [address] [place] [address] [phone] Brayan Aquino MD [address] [place] [address] Social History Tobacco Use Types Packs/Day [...] on file Legal Sex Female 9:36 AM [facility] Gender Identity Not on file Sexual Orientation Not on file documented as of this encounter Plan of Treatment Upcoming Encounters Date Type Department Care Team ([facility] Contact Info) Description 03/17/2025 12:40 PM CDT Office Visit [facility] [address] [place] [address] [phone] Brayan Aquino MD [facility] [address] [phone] documented as of this encounter Visit Diagnoses Not on filedocumented in this encounter Care Teams Gas Utility Worker Relationship Specialty Start Date End Date Joselito Laws MD [address] [phone] PCP - General 11/25/19 documented as of this encounter
--- OUTSIDE RECORDS SUMMARY | 2025-01-31 08:29 | XMS_ITS | Encounter Summary ---
Author Organization [facility] Address [address] [place] [address] Phone Care Team Providers Care Telephoner Name Role Phone Joselito Laws MD Primary Care Provider [phone] Reason for Visit * Reason Comments Med Refill Encounter Details Date Type Department Care Team (Late Contact Info) Description 05/13/2019 Refill [facility] [address] [place] [address] Brayan Aquino MD [address] [place] [address] [phone] Social History Tobacco Use Types Packs/Day Years Used Date Smoking Tobacco: Never Assessed Comments Unknown Sex and Gender Information Value Date Recorded Sex Assigned at Not on file Legal Sex Female 9:36 AM [facility] Gender Identity Not on file Sexual Orientation Not on file documented as of this encounter Plan of Treatment Upcoming Encounters Date Type Department Care Team ([facility] Contact Info) Description 03/17/2025 12:40 PM CDT Office Visit [facility] [address] [place] [address] 1 [place] [address] Brayan Aquino MD [address] [phone] documented as of this encounter Visit Diagnoses Not on filedocumented in this encounter Care Teams Telephoner Relationship Specialty Start Date End Date Joselito Laws MD 2043 [facility] 15 [place] [address] PCP - General 11/25/19 documented as of this encounter
--- OUTSIDE RECORDS SUMMARY | 2025-01-31 08:29 | XMS_ITS | Clinical Summary ---
Author Organization Dorinda Physician Suzan mcbride Address [address] [place] [address] Phone Care Team Providers Care Welding Machine Operator Gas Metal Arc Name Role Phone Joselito Laws MD Primary Care Provider [phone] Allergies Active Allergy Reactions Criticality Noted Date Comments Ibuprofen 05/21/2019 Iwxkbaap-Byhxlnblv-Qlikvnunzh 2018 Medications montelukast (SINGULAIR) 10 MG tablet 1 tab daily 0 016 Active Multiple Vitamins-Minerals (DEKAS BARIATRIC PO) DEKAs Bariatric Active sertraline (ZOLOFT) 50 MG tablet Take [...] day with dinner Take with food. Active atorvastatin (LIPITOR) 10 MG tablet Take [...] mouth 1 (one) time each day Active hydroCHLOROthiazide 12.5 MG tablet Take 1 tablet (12.5 mg total) by mouth 1 (one) time each day 90 tablet 1 024 Active Cholecalciferol 50 MCG (1999 UT) capsuleIndications:Se condary hyperparathyroidism of renal origin ([facility]-HCC) Take 1 capsule by mouth 1 (one) time each day 30 capsule 11 025 Active Tolvaptan (Jynarque) 90 & 30 MG tablet therapy packIndications:Autos omal dominant polycystic kidney Take 90 mg by mouth daily AND 30 mg 1 (one) time each day in the evening. Take one 90 mg tablet daily in the morning and one 30 mg tablet 8 hours later. 56 each 2 025 Active potassium citrate (UROCIT-K) 10 MEQ (1080 MG) CR tablet TAKE 1 TABLET (10 MEQ TOTAL) BY MOUTH 1 (ONE) TIME EACH DAY DO NOT CRUSH, CHEW, OR SPLIT. 90 tablet 3 025 Active potassium citrate (UROCIT-K) 10 MEQ (1080 MG) CR tablet Take 1 tablet (10 mEq total) by mouth 1 (one) time each day Do not crush, chew, or split. 90 tablet 11 023 2024 Discontinued(R eorder) potassium citrate (UROCIT-K) 10 MEQ (1080 MG) CR tablet Take 1 tablet (10 mEq total) by mouth 1 (one) time each day Do not crush, chew, or split. 90 tablet 11 025 2024 Discontinued Hospital, Clinic, or Other Facility Administered Medication Ordered Dose Route Frequency Start Date End Date Status iron sucrose (VENOFER) injection 500 mgIndications:Iron deficiency anemia, not otherwise specified 500 mg IV See admin instructions 08/26/2024 Active Active Problems Problem Noted Date Diagnosed Date Encounter for therapeutic drug monitoring 2023 Iron deficiency anemia 02/20/2023 Secondary hyperparathyroidism of renal origin Essential hypertension 05/21/2019 Adult polycystic kidney 01/11/2017 Chronic kidney disease, stage 4 (severe) 016 Resolved Problems Problem Noted Date Diagnosed Date Resolved Date Headache, unspecified 08/18/20202020 Back pain 05/20/2020 08/18/2020 Acute kidney failure 11/19/2018 019 Urinary tract infection 11/19/201801/2019 Anemia 07/18/2016 05/13/2024 Encounters Date Type Department Care Team Description 01/21/2025 Refill [facility] [address] [place] [address], [address] [place] [address] Shadia De Oliveira NP 01/18/2025 Refill [facility] [address] [place] [address] 1 [place] [address] Roslyn Larson MA 12/29/2024 Refill [facility] [address] [place] [address] Nany Erickson RN Autosomal dominant polycystic kidney 12/16/2024 3:00 PM CDT Office Visit [facility] [address] [place] [address] Brayan Aquino MD Chronic kidney disease, stage 4 (severe) (CMS-HCC) (Primary Dx); Adult polycystic kidney; Secondary hyperparathyroidism of renal origin ([facility]); Essential hypertension 12/07/2024 Orders Only [facility] [address] [place] [address] Brayan Aquino MD from Last 3 Months Immunizations Immunization Administration Dates Next Due Influenza TIV (IM) [...] on file Legal Sex Female 9:36 AM [facility] Gender Identity Not on file Sexual Orientation Not on file Last Filed Vital Signs Vital Sign Reading Time Taken Comments Blood Pressure 133/73 12/16/2024 2:50 PM CDT Pulse 90 12/16/2024 2:50 PM CDT Temperature 37.1 C (98.7 F) 05/03/2021 4:13 PM CDT Respiratory Rate - - Oxygen Saturation 99% 10/24/2022 2:05 PM FUR GLOSSER Inhaled Oxygen Concentration - - Weight 81.6 kg (180 lb) 12/16/2024 2:50 PM CDT Height 160 cm (5' 3 ) 12/16/2024 2:50 PM CDT Body Mass Index 31.89 12/16/2024 2:50 PM CDT Plan of Treatment Upcoming Encounters Date Type Department Care Team (Late st Contact Info) Description 03/17/2025 12:40 PM CDT Office Visit [facility] 5[address] [facility] 1 [place] [address] Brayan Aquino MD 5003 [facility] 1 [place] [address] Health Maintenance Due Date Last Done Comments Diabetic Foot Exam 1978 Ophthalmology Exam 1978 Pneumococcal PPSV23 Highest Risk Adult (1 of 3 - PCV13) 1987 Influenza Vaccine (Season Ended) 2025 05/16/2023, 06/15/2022, 06/27/2018, Additional history exists Procedures Procedure Name Priority Date/Time Associated Diagnosis Comments SPECIMEN STATUS REPORT Routine 12/07/2024 12:40 PM CDT PTH, INTACT Routine 12/07/2024 12:40 PM CDT FERRITIN, SERUM Routine 12/07/2024 12:40 PM CDT ALKALINE PHOSPHATASE, SERUM Routine 12/07/2024 12:40 PM CDT BILIRUBIN TOTAL Routine 12/07/2024 12:40 PM CDT ALT+AST Routine 12/07/2024 12:40 PM CDT [facility] CKD PROGRAM Routine 12/07/2024 12:40 PM CDT IRON AND TIBC, SERUM Routine 12/07/2024 12:40 PM CDT CBC (INCLUDES PLATELETS / NO DIFFERENTIAL) Routine 12/07/2024 12:40 PM CDT RENAL FUNCTION PANEL (RFP) Routine 12/07/2024 12:40 PM CDT from Last 3 Months Results * ALT+AST (12/07/2024 12:40 PM CDT) Aspartate Aminotransferase (AST), Serum/Plasma 26 0 - 40 IU/L [facility] Alanine Aminotransferase (ALT), Serum/Plasma 17 0 - 32 IU/L [facility] 1 12/07/2024 12:4 0 PM CDT 12/06/2024 11:00 PM CDT Narrative [facility] - 12/08/2024 10:10 AM CDT Performed at: [address] [id number] Cnc Router Operator: Landon Benoit PhD, Phone: [phone] Brayan Aquino MD LAB BLOOD ORDERABLES Final Resul t [facility] * (ABNORMAL) PTH, Intact (12/07/2024 12:40 PM CDT) Pathologist [facility] PTH, Intact, Serum/Plasma 272(H) 15 - 65 pg/mL [facility] 1 12/07/2024 12:4 0 PM CDT 12/06/2024 11:00 PM CDT Narrative [facility] - 12/08/2024 10:10 AM CDT Performed at: [address] [place] [id number] Cnc Router Operator: Landon Benoit PhD, Phone: [phone] us Brayan Aquino MD LAB BLOOD ORDERABLES Final Resul t Performing Organization Address [facility]/ZIP Co de Phone Number [facility] 1 * Specimen Status Report (12/07/2024 12:40 PM CDT) Specimen Status Report Comment [facility] 1 Comment: Ambmahnaz Abbrev RP10 Default Ambig Abbrev RP10 Default A hand-written panel/profile was received from your office. In accordance with the [facility] Ambiguous Test Code Policy dated March 2003, we have completed your order by using the closest currently or formerly recognized AMA panel. We have assigned Renal Panel (10), Test Code #019235 to this request. If this is not the testing you wished to receive on this specimen, please contact the [facility] Client [facility]quiry/Technical Services Department to clarify the test order. We appreciate your business. 12/07/2024 12:4 0 PM CDT 12/06/2024 11:00 PM CDT Narrative [facility] - 12/08/2024 10:10 AM CDT Performed at: [address] [id number] Cnc Router Operator: Landon Benoit PhD, Phone: [phone] Result [facility] Brayan Aquino MD LAB BLOOD ORDERABLES Final Resul t Performing Organization Address [facility] de Phone Number [facility] * Alkaline Phosphatasee, Serum (12/07/2024 12:40 PM CDT) Alkaline phosphatase, Serum/Plasma 85 44 - 121 IU/L [facility] 1 12/07/2024 12:4 0 PM CDT 12/06/2024 11:00 PM CDT Narrative [facility] - 12/08/2024 10:10 AM CDT Performed at: [address] [place] [id number] Cnc Router Operator: Landon Benoit PhD, Phone: [phone] Result [facility] Brayan Aquino MD LAB BLOOD ORDERABLES Final Resul t Performing Organization Address [facility]/ZIP Co de Phone Number [facility] * CBC (includes Platelets / NO Differential) (12/07/2024 12:40 PM CDT) Leukocytes, Blood 5.9 3.4 - 10.8 x10E3/uL [facility] 1 Erythrocytes (RBC) 4.01 3.77 - 5.28 x10E6/uL [facility] 1 Hemoglobin (HGB) 11.7 11.1 - 15.9 g/dL [facility] 1 Hematocrit (HCT) 35.2 34.0 - 46.6 % [facility] 1 MCV 88 79 - 97 fL [facility] 1 MCH 29.2 26.6 - 33.0 pg [facility] 1 MCHC 33.2 31.5 - 35.7 g/dL [facility] 1 Erythrocyte Distribution Width (RDW) 13.8 11.7 - 15.4 % [facility] 1 Platelets, Blood 242 150 - 450 x10E3/uL [facility] 1 12/07/2024 12:4 0 PM CDT 12/06/2024 11:00 PM CDT Narrative [facility] - 12/08/2024 10:10 AM CDT Performed at: [address] [place] [id number] Cnc Router Operator: Landon Benoit PhD, Phone: [phone] us Brayan Aquino MD LAB BLOOD ORDERABLES Final Resul t Performing Organization Address City/[facility]/ZIP Co de Phone Number [facility] * LithoLink CKD Program (12/07/2024 12:40 PM CDT) Interpretation Note [facility] Comment: Php Consultant's Note: Michelle Lord RP10 Default: A hand-written panel/profile was received from your office. In accordance with the [facility] Ambiguous Test Code Policy dated March 2003, we have completed your order by using the closest currently or formerly recognized AMA panel. We have assigned Renal Panel (10), Test Code #[id number] to this request. If this is not the testing you wished to receive on this specimen, please contact the [facility] Client Inquiry/Technical Services Department to clarify the test order. We appreciate your business. Supplemental report is available. PDF Image . [facility] 2 12/07/2024 12:4 0 PM CDT 12/06/2024 11:00 PM CDT Narrative [facility] - 12/08/2024 10:10 AM CDT Performed at: [address] [place] [address] Clinical / Digital 10 [place], [place] [id number] Cnc Router Operator: Tammy Dobson MD, Phone: [phone] us Brayan Aquino MD LAB BLOOD ORDERABLES Final Resul t [facility] * (ABNORMAL) Renal Function Panel (RFP) (12/07/2024 12:40 PM CDT) Glucose, Serum/Plasma 96 70 - 99 mg/dL [facility] 1 Urea nitrogen, Serum/Plasma (BUN) 37(H) 6 - 24 mg/dL [facility] 1 Creatinine, Serum/Plasma 3.08(H) 0.57 - 1.00 mg/dL [facility] 1 Estimated Glomerular Filtration Rate (eGFR) 17(L) >59 mL/min/1.7 3 [facility] 1 Urea nitrogen/Creati nine, Serum/Plasma 12 9 - 23 [facility] 1 Sodium, Serum/Plasma 140 134 - 144 mmol/L [facility] 1 Potassium, Serum/Plasma 4.6 3.5 - 5.2 mmol/L [facility] 1 Chloride, Serum/Plasma 100 96 - 106 mmol/L [facility] 1 Carbon dioxide CO2), total, Serum/Plasma 25 20 - 29 mmol/L [facility] 1 Calcium, Serum/Plasma 8.8 8.7 - 10.2 mg/dL [facility] 1 Phosphate, Serum/Plasma 3.7 3.0 - 4.3 mg/dL [facility] 1 Albumin, Serum/Plasma 4.1 3.8 - 4.9 g/dL [facility] 1 12/07/2024 12:4 0 PM CDT 12/06/2024 11:00 PM CDT Narrative [facility] - 12/08/2024 10:10 AM CDT Performed at: [address] [place] [id number] Cnc Router Operator: Landon Benoit PhD, Phone: [phone] Specimen Comment: A courtesy copy of this report has been sent to [phone] Brayan Aquino MD LAB BLOOD ORDERABLES Final Resul t Performing Organization Address [facility] de Phone Number [facility] * (ABNORMAL) Ferritin, Serum (12/07/2024 12:40 PM CDT) Ferritin, Serum/Plasma 863(H) 15 - 150 ng/mL [facility] 1 12/07/2024 12:4 0 PM CDT 12/06/2024 11:00 PM CDT Narrative [facility] - 12/08/2024 10:10 AM CDT Performed at: [address] [id number] Cnc Router Operator: Landon Benoit PhD, Phone: [phone] Brayan Aquino MD LAB BLOOD ORDERABLES Final Resul t Performing Organization Address [facility] de Phone Number [facility] * Bilirubin Total (12/07/2024 12:40 PM CDT) Bilirubin, total, Serum/Plasma 0.4 0.0 - 1.2 mg/dL [facility] 1 12/07/2024 12:4 0 PM CDT 12/06/2024 11:00 PM CDT Narrative [facility] - 12/08/2024 10:10 AM CDT Performed at: [address] [place] [id number] Cnc Router Operator: Landon Benoit PhD, Phone: [phone] Brayan Aquino MD LAB BLOOD ORDERABLES Final Resul t Performing Organization Address [facility] de Phone Number [facility] * Iron and TIBC, Serum (12/07/2024 12:40 PM CDT) Iron binding capacity, Serum/Plasma 296 250 - 450 ug/dL [facility] Iron binding capacity, unsaturated, Serum/Plasma 202 131 - 425 ug/dL [facility] 1 Iron, Serum/Plasma 94 27 - 159 ug/dL [facility] 1 Iron saturation, Serum/Plasma 32 15 - 55 % [facility] 1 12/07/2024 12:4 0 PM CDT 12/06/2024 11:00 PM CDT Narrative [facility] - 12/08/2024 10:10 AM CDT Performed at: 01 - [facility] [id number] Cnc Router Operator: Landon Benoit PhD, Phone: [phone] us Brayan Aquino MD LAB BLOOD ORDERABLES Final Resul t [facility] 1 from Last 3 Months Insurance PM [employer] [address] [place] [address] Care Teams Welding Machine Operator Gas Metal Arc Relationship Specialty Start Date End Date Joselito Laws MD 2043 [facility] 15 [place] [address] PCP - General 11/25/19
--- OUTSIDE RECORDS SUMMARY | 2025-01-31 08:29 | XMS_ITS | Encounter Summary ---
Author Organization Dorinda Physician [facility]an [facility] Address [address] [place] [address] Phone Care Team Providers Care Soft Sugar Supervisor Name Role Phone Joselito Laws MD Primary Care Provider [phone] Reason for Visit * Reason Comments Med Refill Encounter Details Date Type Department Care Team (Late Contact Info) Description 06/11/2019 Refill [facility] [address] [address] Brayan Aquino MD [address] [phone] Social History Tobacco Use Types Packs/Day Years Used Date Smoking Tobacco: Never Assessed Comments Unknown Sex and Gender Information Value Date Recorded Sex Assigned at Not on file Legal Sex Female 9:36 AM [facility] Gender Identity Not on file Sexual Orientation Not on file documented as of this encounter Plan of Treatment Upcoming Encounters Date Type Department Care Team ([facility] Contact Info) Description 03/17/2025 12:40 PM CDT Office Visit [facility] 5003 [facility] 1 [place] [address] Brayan Aquino MD [address] [phone] documented as of this encounter Visit Diagnoses Not on filedocumented in this encounter Care Teams Soft Sugar Supervisor Relationship Specialty Start Date End Date Joselito Laws MD 2043 [facility] 15 [place] [address] PCP - General 11/25/19 documented as of this encounter
--- OUTSIDE RECORDS SUMMARY | 2025-01-31 08:29 | XMS_ITS | Encounter Summary ---
Author Organization Dor[facility] Physician [facility] Address [address] [place] [address] Phone Care Team Providers Care Mechanical Project Manager Name Role Phone Joselito Laws MD Primary Care Provider [phone] Reason for Visit * Reason Comments Med Refill Encounter Details Date Type Department Care Team (Late Contact Info) Description 03/04/2019 Refill [facility] [address] [place] [phone] Brayan Aquino MD [address] [place] [phone] Social History Tobacco Use Types Packs/Day Years Used Date Smoking Tobacco: Never Assessed Comments Unknown Sex and Gender Information Value Date Recorded Sex Assigned at Not on file Legal Sex Female 9:36 AM [facility] Gender Identity Not on file Sexual Orientation Not on file documented as of this encounter Plan of Treatment Upcoming Encounters Date Type Department Care Team ([facility] Contact Info) Description 03/17/2025 12:40 PM CDT Office Visit [facility] [address] [place] [address] 1 [place] [address] Brayan Aquino MD [address] [phone] documented as of this encounter Visit Diagnoses Not on filedocumented in this encounter Care Teams Mechanical Project Manager Relationship Specialty Start Date End Date Joselito Laws MD 2043 [facility] 15 [place] [address] PCP - General 11/25/19 documented as of this encounter
--- OUTSIDE RECORDS SUMMARY | 2025-01-31 08:29 | XMS_ITS | Encounter Summary ---
Author Organization Dorinda Physician [facility]an [facility] Address [address] [place] [address] Phone Care Team Providers Care Toe Pounder Name Role Phone Joselito Laws MD Primary Care Provider [phone] Reason for Visit * Reason Comments Med Refill Encounter Details Date Type Department Care Team ([facility] Contact Info) Description 12/28/2020 Refill [facility] [address] [place] [address] [phone] Brayan Aquino MD [address] [place] [address] Social History Tobacco Use Types Packs/Day [...] on file Legal Sex Female 9:36 AM [facility] Gender Identity Not on file Sexual Orientation Not on file documented as of this encounter Plan of Treatment Upcoming Encounters Date Type Department Care Team (Late Contact Info) Description 03/17/2025 12:40 PM CDT Office Visit [facility]3 [facility] 1 [place], [place] [phone] Brayan Aquino MD [address] [phone] documented as of this encounter Visit Diagnoses Not on filedocumented in this encounter Care Teams Toe Pounder Relationship Specialty Start Date End Date Joselito Laws MD [address] [address] PCP - General 11/25/19 documented as of this encounter
--- OUTSIDE RECORDS SUMMARY | 2025-01-31 08:29 | XMS_ITS | Encounter Summary ---
Author Organization Dorinda Physician Suzan [facility] Address [address] [place] [address] Phone Care Team Providers Care Cross Country Truck Driver Name Role Phone Joselito Laws MD Primary Care Provider [phone] Reason for Visit * Reason Comments Med Refill Encounter Details Date Type Department Care Team ([facility] Contact Info) Description 03/15/2022 Refill [facility] [address] [phone] Shadia De Oliveira NP [address] [address] Social History Tobacco Use Types [...] on file Legal Sex Female 9:36 AM [facility] Gender Identity Not on file Sexual Orientation Not on file documented as of this encounter Plan of Treatment Upcoming Encounters Date Type Department Care Team ([facility] Contact Info) Description 03/17/2025 12:40 PM CDT Office Visit [facility] 5003 [facility] 1 [place], [place] [phone] Brayan Aquino MD [address] [phone] documented as of this encounter Visit Diagnoses Not on filedocumented in this encounter Care Teams Cross Country Truck Driver Relationship Specialty Start Date End Date Joselito Laws MD [address] [address] PCP - General 11/25/19 documented as of this encounter
--- OUTSIDE RECORDS SUMMARY | 2025-01-31 08:29 | XMS_ITS | Encounter Summary ---
Author Organization Dorinda Physician Suzan utimarc[facility] Address [address] [place] [address] Phone Care Team Providers Care Rfid Strategist Name Role Phone Joselito Laws MD Primary Care Provider [phone] Reason for Visit * Reason Comments Med Refill Encounter Details Date Type Department Care Team (Late st Contact Info) Description 04/27/2022 Refill [facility] [address] [place] [address] [phone] Shadia De Oliveira NP [address] [address] Autosomal dominant polycystic kidney Social [...] on file Legal Sex Female 9:36 AM [facility] Gender Identity Not on file Sexual Orientation Not on file documented as of this encounter Plan of Treatment Upcoming Encounters Date Type Department Care Team (Late st Contact Info) Description 03/17/2025 12:40 PM CDT Office Visit [facility] 5003 [facility] 1 [place], [place] [phone] Brayan Aquino MD [address] [phone] documented as of this encounter Visit Diagnoses Diagnosis Autosomal dominant polycystic kidney documented in this encounter Care Teams Rfid Strategist Relationship Specialty Start Date End Date Joselito Laws MD [address] [address] PCP - General 11/25/19 documented as of this encounter
--- OUTSIDE RECORDS SUMMARY | 2025-01-31 08:29 | XMS_ITS | Encounter Summary ---
Author Organization [facility] Physician [facility] Address [address] [place] [phone] Phone Care Team Providers Care Journal Box Inspector Name Role Phone Joselito Laws MD Primary Care Provider [phone] Reason for Visit * Reason Comments Med Refill Encounter Details Date Type Department Care Team (Late Contact Info) Description 01/19/2019 Refill [facility] [address] [place] [address] Brayan Aquino MD [address] [place] [address] [phone] Social History Tobacco Use Types Packs/Day Years Used Date Smoking Tobacco: Never Assessed Comments Unknown Sex and Gender Information Value Date Recorded Sex Assigned at Not on file Legal Sex Female 9:36 AM [facility] Gender Identity Not on file Sexual Orientation Not on file documented as of this encounter Plan of Treatment Upcoming Encounters Date Type Department Care Team ([facility] Contact Info) Description 03/17/2025 12:40 PM CDT Office Visit [facility] [address] [place] [address] 1 [place] [address] Brayan Aquino MD [address] [phone] documented as of this encounter Visit Diagnoses Not on filedocumented in this encounter Care Teams Journal Box Inspector Relationship Specialty Start Date End Date Joselito Laws MD 2043 [facility] 15 [place] [address] PCP - General 11/25/19 documented as of this encounter
--- OUTSIDE RECORDS SUMMARY | 2025-01-31 08:29 | XMS_ITS | Encounter Summary ---
Author Organization [facility] Physician [facility] Address [address] [place] [address] Phone Care Team Providers Care Bellows Charger Assembler Name Role Phone Joselito Laws MD Primary Care Provider [phone] Reason for Visit * Reason Comments Med Refill Encounter Details Date Type Department Care Team (Late Contact Info) Description 10/05/2019 Refill [facility] [address] [address] Brayna Aquino MD [address] [phone] Social History Tobacco Use Types Packs/Day Years Used Date Smoking Tobacco: Never Assessed Comments Unknown Sex and Gender Information Value Date Recorded Sex Assigned at Not on file Legal Sex Female 9:36 AM [facility] Gender Identity Not on file Sexual Orientation Not on file documented as of this encounter Plan of Treatment Upcoming Encounters Date Type Department Care Team ([facility] Contact Info) Description 03/17/2025 12:40 PM CDT Office Visit [facility] 5003 [facility] 1 [place] [address] Brayan Aquino MD [address] [phone] documented as of this encounter Visit Diagnoses Not on filedocumented in this encounter Care Teams Bellows Charger Assembler Relationship Specialty Start Date End Date Joselito Laws MD 2043 [facility] 15 [place] [address] PCP - General 11/25/19 documented as of this encounter
--- OUTSIDE RECORDS SUMMARY | 2025-01-31 08:29 | XMS_ITS | Encounter Summary ---
Author Organization Dorinda Physician [facility] Address [address] [place] [phone] Phone Care Team Providers Care Mid Level Provider Name Role Phone Joselito Laws MD Primary Care Provider [phone] Reason for Visit * Reason Comments Med Refill Encounter Details Date Type Department Care Team (Late Contact Info) Description 10/26/2019 Refill [facility] [address] [address] Brayan Aquino MD [address] [phone] Social History Tobacco Use Types Packs/Day Years Used Date Smoking Tobacco: Never Assessed Comments Unknown Sex and Gender Information Value Date Recorded Sex Assigned at Not on file Legal Sex Female 9:36 AM [facility] Gender Identity Not on file Sexual Orientation Not on file documented as of this encounter Plan of Treatment Upcoming Encounters Date Type Department Care Team ([facility] Contact Info) Description 03/17/2025 12:40 PM CDT Office Visit [facility] 5003 [facility] 1 [place] [address] Brayan Aquino MD [address] [phone] documented as of this encounter Visit Diagnoses Not on filedocumented in this encounter Care Teams Mid Level Provider Relationship Specialty Start Date End Date Joselito Laws MD 2043 [facility] 15 [place] [phone] PCP - General 11/25/19 documented as of this encounter
--- OUTSIDE RECORDS SUMMARY | 2025-01-31 08:29 | XMS_ITS | Encounter Summary ---
Author Organization Dorinda Physician [facility] Address [address] [place] [address] Phone Care Team Providers Care Air Export Logistics Manager Name Role Phone Joselito Laws MD Primary Care Provider [phone] Reason for Visit * Reason Comments Med Refill Encounter Details Date Type Department Care Team ([facility] Contact Info) Description 03/04/2020 Refill [facility] [address] [phone] Brayan Aquino MD [address] [phone] Social History Tobacco Use Types [...] on file Legal Sex Female 9:36 AM [facility] Gender Identity Not on file Sexual Orientation Not on file documented as of this encounter Plan of Treatment Upcoming Encounters Date Type Department Care Team (Late Contact Info) Description 03/17/2025 12:40 PM CDT Office Visit [facility] 1 [place], [place] [phone] Brayan Aquino MD [address] [phone] documented as of this encounter Visit Diagnoses Not on filedocumented in this encounter Care Teams Air Export Logistics Manager Relationship Specialty Start Date End Date Joselito Laws MD [address] [phone] PCP - General 11/25/19 documented as of this encounter
--- OUTSIDE RECORDS SUMMARY | 2025-01-31 08:29 | XMS_ITS | Encounter Summary ---
Author Organization Dorinda Physician [facility] Address [address] [place] [address] Phone Care Team Providers Care Marble Chip Terrazzo Worker Name Role Phone Joselito Laws MD Primary Care Provider Reason for Visit * Reason Comments Med Refill Encounter Details Date Type Department Care Team ([facility] Contact Info) Description 11/01/2020 Refill [facility] [address] [place] [address] [phone] Brayan Aquino MD [address] [place] [address] Social History Tobacco Use Types Packs/Day [...] on file Legal Sex Female 9:36 AM [facility] Gender Identity Not on file Sexual Orientation Not on file documented as of this encounter Plan of Treatment Upcoming Encounters Date Type Department Care Team (Late Contact Info) Description 03/17/2025 12:40 PM CDT Office Visit [facility] 1 [place], [place] [phone] Brayan Aquino MD [address] [phone] documented as of this encounter Visit Diagnoses Not on filedocumented in this encounter Care Teams Marble Chip Terrazzo Worker Relationship Specialty Start Date End Date Joselito Laws MD [address] [phone] PCP - General 11/25/19 documented as of this encounter
--- OUTSIDE RECORDS SUMMARY | 2025-01-31 08:29 | XMS_ITS | Encounter Summary ---
Author Organization Dorinda Physician [facility] Address [address] [place] [address] Phone Care Team Providers Care Water Fitness Instructor Name Role Phone Joselito Laws MD Primary Care Provider [phone] Reason for Visit * Reason Comments Med Refill Encounter Details Date Type Department Care Team ([facility] Contact Info) Description 2019 Refill [facility] [address] [address] Brayan Aquino MD [address] [phone] Social History Tobacco Use Types Packs/Day Years Used Date Smoking Tobacco: Never Assessed Comments Unknown Sex and Gender Information Value Date Recorded Sex Assigned at Not on file Legal Sex Female 9:36 AM [facility] Gender Identity Not on file Sexual Orientation Not on file documented as of this encounter Plan of Treatment Upcoming Encounters Date Type Department Care Team ([facility] Contact Info) Description 03/17/2025 12:40 PM CDT Office Visit [facility] 5003 [facility] 1 [place] [address] Brayan Aquino MD [address] [phone] documented as of this encounter Visit Diagnoses Not on filedocumented in this encounter Care Teams Water Fitness Instructor Relationship Specialty Start Date End Date Joselito Laws MD 2043 [facility] 15 [place] [phone] PCP - General 11/25/19 documented as of this encounter
--- OUTSIDE RECORDS SUMMARY | 2025-01-31 08:29 | XMS_ITS | Encounter Summary ---
Author Organization Dorinda Physician [facility] Address [address] [place] [phone] Phone Care Team Providers Care Solid Waste Truck Driver Name Role Phone Joselito Laws MD Primary Care Provider [phone] Reason for Visit * Reason Comments Med Refill Encounter Details Date Type Department Care Team ([facility] Contact Info) Description 09/14/2020 Refill [facility] [address] [place] [phone] Brayan Aquino MD [address] [phone] Social History Tobacco Use Types [...] on file Legal Sex Female 9:36 AM [facility] Gender Identity Not on file Sexual Orientation Not on file documented as of this encounter Plan of Treatment Upcoming Encounters Date Type Department Care Team (Late Contact Info) Description 03/17/2025 12:40 PM CDT Office Visit [facility] 1 [place], [place] [phone] Brayan Aquino MD [address] [phone] documented as of this encounter Visit Diagnoses Not on filedocumented in this encounter Care Teams Solid Waste Truck Driver Relationship Specialty Start Date End Date Joselito Laws MD [address] [phone] PCP - General 11/25/19 documented as of this encounter
--- OUTSIDE RECORDS SUMMARY | 2025-01-31 08:29 | XMS_ITS | Data Portability ---
Author Organization [employer], Main Office Address [address] [place] [address] Assessment No assessment recorded. Plan of Treatment Reminders Order Date Submit Date Provider Last Modified By Organization Details Last Modified Time Details Appointments Any 15 2024 08:45A Tawanda Prince MD Not available Not available Not available Lab glycohemo globin, total, blood 2023 024 [facility] (Lab), [address] [place], [address], 03/31/2024 21:24:37 CMP, serum or plasma 2023 024 [facility] (Lab), [address] [place], [address], 03/31/2024 20:14:11 microalbu min, urine 2023 024 [facility] (Lab), [address] [place], [address], 03/31/2024 20:40:50 vitamin D, 25-hydrox y, total, serum 2023 024 [facility] (Lab), [address] [place], [address], 04/01/2024 15:16:23 urinalysi s, complete 2023 024 [email or web address] [facility] (Lab), [address] [place], [address], 04/07/2024 08:13:25 iron + total iron-bind ing capacity (TIBC), serum 2023 024 [facility] (Lab), [address] [place], [address], 03/31/2024 20:14:26 ferritin, serum or plasma 2023 024 [facility] (Lab), [address] [place], [address], 03/31/2024 20:46:35 CBC w/ auto diff 2023 024 [facility] (Lab), [address] [place], [address], 03/31/2024 20:02:00 Referral orthopedi c surgeon referral - Please call patient to schedule an appointme nt. Thank you. 2024 025 [facility], [address], [place], [address], 01/11/2025 17:22:35 Procedures None recorded. Surgeries None recorded. Imaging MRI, knee, w/wo contrast - Please call patient to schedule. 2024 025 [facility], [address], [place], [address], 01/14/2025 12:32:26 bone density 2023 024 [email or web address] [facility] (Outpatient Orders), [address] [place], [address], 04/28/2024 08:36:15 Medication Orders nortripty line 10 mg capsule 2023 024 [email or web address] [id number] [facility], [address] [place], [address], 12/01/2024 09:29:11 atorvasta tin 10 mg tablet [address] [facility] [address] In [facility], [address] [place] [address], [address], 03/31/2024 10:13:03 Patient TargetsNo targets recorded. Patient Instructions Encounter Date Encounter Id Patient Instructions Last Modified By Organization Details Last Modified Time 08/03/2024 [id number] risk assessment* Not availabl e 08/03/2024 15:57:30 INFLUENZA VACCIN E TD/TDAP PNEUMONIA VACCINE SHINGLES MAMMOGRAM: Last Mammogram [...] eating & exercise PHYSICAL ACTIVITY Need more exercise/physical activity minimum of 10-20 minutes of activity that causes mild breathlessness/da y VISION ALCOHOL USE No alcohol use TOBACCO USE former smoker LUNG CANCER SCREENING Non Smoker-not indicated SEXUALLY ACTIVE Yes, Patient is in monogamous relationship HEPATITIS C SCREENING Not indicated GLUCOSE SCREENING Ordered Not needed LIPID SCREENING Ordered Not needed [email or web address] Not available 08/03/2024 11:49:27 01/11/2025 [id number] Continue Heat/ICE, OTC tylenol as needed for pain. Continue to use compression and elevation. Referrals sent. Not available 01/11/2025 16:20:52 Reason for Referral Orthopedic Surgeon Referral for Pain of right knee region Please call patient to schedule an appointment. Thank you. Referring Physician: Tatianna Rosales, Internal Medicine, Encounter Date: 01/11/2025 Results Created Date Observation Date Name Description Value Unit Range Abnormal Flag Note LastModifiedBy Organization Detail LastModifiedTime 03/31/20 24 03/31/2024 CBC/C OMPLE TE BLD COUNT W/DIF F white blood cells 5.4 x10'3 /uL 4.2-10 .8 Not Available [facility] (Lab) [address] [place], [address], 03/31/2024 20:02:00 03/31/20 24 03/31/2024 CBC/C OMPLE TE BLD COUNT W/DIF F red blood cells 4.10 x10'6 /uL 3.80-5 .20 Not Available [facility] (Lab) [address] [place], [address], 03/31/2024 20:02:00 03/31/20 24 03/31/2024 CBC/C OMPLE TE BLD COUNT W/DIF F hemoglobin 12.0 g/dL 12.0-1 5.6 Not Available [facility] (Lab) [address] [place], [address], 03/31/2024 20:02:00 03/31/20 24 03/31/2024 CBC/C OMPLE TE BLD COUNT W/DIF F hematocrit 36.2 % 35.7-4 5.7 Not Available [facility] (Lab) [address] [place], [address], 03/31/2024 20:02:00 03/31/20 24 03/31/2024 CBC/C OMPLE TE BLD COUNT W/DIF F mean red cell volume 88.3 fL 82.0-9 9.0 Not Available [facility] (Lab) [address] [place], [address], 03/31/2024 20:02:00 03/31/20 24 03/31/2024 CBC/C OMPLE TE BLD COUNT W/DIF F mean red cell hemoglobin 29.3 pg 27.0-3 3.0 Not Available [facility] (Lab) [address] [place], [address], 03/31/2024 20:02:00 03/31/20 24 03/31/2024 CBC/C OMPLE TE BLD COUNT W/DIF F mean RBC HGB concentratio n 33.1 g/dL 31.0-3 6.0 Not Available [facility] (Lab) [address] [place], [address], 03/31/2024 20:02:00 03/31/20 24 03/31/2024 CBC/C OMPLE TE BLD COUNT W/DIF F red cell distribution width 13.2 % 11.8-1 5.5 Not Available [facility] (Lab) [address] [place], [address], 03/31/2024 20:02:00 03/31/20 24 03/31/2024 CBC/C OMPLE TE BLD COUNT W/DIF F platelets 306 x10'3 /uL 150-40 0 Not Available [facility] (Lab) [address] [place], [address], 03/31/2024 20:02:00 03/31/20 24 03/31/2024 CBC/C OMPLE TE BLD COUNT W/DIF F mean platelet volume 9.0 fL 9.0-12 .4 Not Available [facility] (Lab) [address] [place], [address], 03/31/2024 20:02:00 03/31/20 24 03/31/2024 CBC/C OMPLE TE BLD COUNT W/DIF F neutrophils 69.4 % 39.0-7 2.0 Not Available [facility] (Lab) [address] [place], [address], 03/31/2024 20:02:00 03/31/20 24 03/31/2024 CBC/C OMPLE TE BLD COUNT W/DIF F lymphocytes 21.1 % 16.0-4 7.0 Not Available [facility] (Lab) [address] [place], [address], 03/31/2024 20:02:00 03/31/20 24 03/31/2024 CBC/C OMPLE TE BLD COUNT W/DIF F monocytes 7.6 % 5.0-12 .0 Not Available [facility] (Lab) [address] [place], [address], 03/31/2024 20:02:00 03/31/20 24 03/31/2024 CBC/C OMPLE TE BLD COUNT W/DIF F eosinophils 1.1 % 1.0-7. 0 Not Available [facility] (Lab) [address] [place], [address], 03/31/2024 20:02:00 03/31/20 24 03/31/2024 CBC/C OMPLE TE BLD COUNT W/DIF F basophils 0.4 % 0.0-2. 0 Not Available [facility] (Lab) [address] [place], [address], 03/31/2024 20:02:00 03/31/20 24 03/31/2024 CBC/C OMPLE TE BLD COUNT W/DIF F immature granulocytes 0.4 % 0.00-0 .50 Not Available [facility] (Lab) [address] [place], [address], 03/31/2024 20:02:00 03/31/20 24 03/31/2024 CBC/C OMPLE TE BLD COUNT W/DIF F neutrophils, absolute count 3.75 x10'3 /uL 1.5-8. 0 Not Available [facility] (Lab) [address] [place], [address], 03/31/2024 20:02:00 03/31/20 24 03/31/2024 CBC/C OMPLE TE BLD COUNT W/DIF F lymphocytes, absolute count 1.14 x10'3 /uL 1.07-3 .43 Not Available [facility] (Lab) [address] [place], [address], 03/31/2024 20:02:00 03/31/20 24 03/31/2024 CBC/C OMPLE TE BLD COUNT W/DIF F monocytes, absolute count 0.41 x10'3 /uL 0.29-0 .99 Not Available [facility] (Lab) [address] [place], [address], 03/31/2024 20:02:00 03/31/20 24 03/31/2024 CBC/C OMPLE TE BLD COUNT W/DIF F eosinophils, absolute count 0.06 x10'3 /uL 0.02-0 .53 Not Available [facility] (Lab) [address] [place], [address], 03/31/2024 20:02:00 03/31/20 24 03/31/2024 CBC/C OMPLE TE BLD COUNT W/DIF F basophils, absolute count 0.02 x10'3 /uL 0.01-0 .08 Not Available [facility] (Lab) [address] [place], [address], 03/31/2024 20:02:00 03/31/20 24 03/31/2024 CBC/C OMPLE TE BLD COUNT W/DIF F immature granulocytes ,absolute 0.02 x10'3 /uL 0.00-0 .05 Not Available [facility] (Lab) [address] [place], [address], 03/31/2024 20:02:00 03/31/20 24 03/31/2024 CBC/C OMPLE TE BLD COUNT W/DIF F nucleated red blood cells 0.0 % -0 Not Available [facility] (Lab) [address] [place], [address], 03/31/2024 20:02:00 03/31/20 24 03/31/2024 CBC/C OMPLE TE BLD COUNT W/DIF F NRBC# 0.00 x10'3 /uL Not Available [facility] (Lab) [address] [place], [address], 03/31/2024 20:02:00 03/31/20 24 03/31/2024 COMPR EHENS ANU METAB OLIC PANEL sodium 130 mmol/ L 137-14 5 low Not Available [facility] (Lab) [address] [place], [address], 03/31/2024 20:14:11 03/31/20 24 03/31/2024 COMPR EHENS ANU METAB OLIC PANEL potassium 4.5 mmol/ L 3.5-5. 1 Not Available [facility] (Lab) [address] [place], [address], 03/31/2024 20:14:11 03/31/20 24 03/31/2024 COMPR EHENS ANU METAB OLIC PANEL chloride 97 mmol/ L 98-107 low Not Available [facility] (Lab) [address] [place], [address], 03/31/2024 20:14:11 03/31/20 24 03/31/2024 COMPR EHENS ANU METAB OLIC PANEL carbon dioxide 29 mmol/ L 22-30 Not Available [facility] (Lab) [address] [place], [address], 03/31/2024 20:14:11 03/31/20 24 03/31/2024 COMPR EHENS ANU METAB OLIC PANEL anion gap 8.5 mmol/ L 14-22 low Not Available [facility] (Lab) [address] [place], [address], 03/31/2024 20:14:11 03/31/20 24 03/31/2024 COMPR EHENS ANU METAB OLIC PANEL glucose 92 mg/dL 70-99 Not Available [facility] (Lab) [address] [place], [address], 03/31/2024 20:14:11 03/31/20 24 03/31/2024 COMPR EHENS ANU METAB OLIC PANEL BUN 39 mg/dL 8-19 high Not Available [facility] (Lab) [address] [place], [address], 03/31/2024 20:14:11 03/31/20 24 03/31/2024 COMPR EHENS ANU METAB OLIC PANEL creatinine 2.48 mg/dL 0.66-1 .25 high Not Available [facility] (Lab) [address] [place], [address], 03/31/2024 20:14:11 03/31/20 24 03/31/2024 COMPR EHENS ANU METAB OLIC PANEL GFR 20 Refer ence Range : [place] GFR Healt hy Adult : >60 [...] or ethni c subgr oups, such as oh nics. Outsi de the valid ated [place] [...] s/kdo qi/gf r_cal culat or Not Available [facility] (Lab) [address] [place], [address], 03/31/2024 20:14:11 03/31/20 24 03/31/2024 COMPR EHENS ANU METAB OLIC PANEL alkaline phosphatase 89 U/L 38-126 Not Available [facility] (Lab) [address] [facility] [place], [address], 03/31/2024 20:14:11 03/31/20 24 03/31/2024 COMPR EHENS ANU METAB OLIC PANEL alanine aminotransfe rase 22 U/L 0-35 Not Available [facility] (Lab) [address] [place], [address], 03/31/2024 20:14:11 03/31/20 24 03/31/2024 COMPR EHENS ANU METAB OLIC PANEL aspartate aminotransfe rase 28 U/L 15-37 Not Available [facility] (Lab) [address] [place], [address], 03/31/2024 20:14:11 03/31/20 24 03/31/2024 COMPR EHENS ANU METAB OLIC PANEL bilirubin, total 0.70 mg/dL 0.20-1 .30 Not Available [facility] (Lab) [address] [place], [address], 03/31/2024 20:14:11 03/31/20 24 03/31/2024 COMPR EHENS ANU METAB OLIC PANEL calcium 9.8 mg/dL 8.4-10 .2 Not Available [facility] (Lab) [address] [place], [address], 03/31/2024 20:14:11 03/31/20 24 03/31/2024 COMPR EHENS ANU METAB OLIC PANEL total protein 7.2 g/dL 6.3-8. 2 Not Available [facility] (Lab) [address] [place], [address], 03/31/2024 20:14:11 03/31/20 24 03/31/2024 COMPR EHENS ANU METAB OLIC PANEL albumin 4.4 g/dL 3.4-5. 0 Not Available [facility] (Lab) [address] [place], [address], 03/31/2024 20:14:11 03/31/20 24 03/31/2024 COMPR EHENS ANU METAB OLIC PANEL globulin 2.8 g/dL 2.6-4. 2 Not Available [facility] (Lab) [address] [place], [address], 03/31/2024 20:14:11 03/31/20 24 03/31/2024 COMPR EHENS ANU METAB OLIC PANEL A/G ratio 1.6 ratio 1.0-2. 0 Not Available [facility] (Lab) [address] [place], [address], 03/31/2024 20:14:11 03/31/20 24 03/31/2024 IRON/ TIBC PANEL total iron binding capacity 386 mcg/d L 265-47 5 Not Available [facility] (Lab) [address] [place], [address], 03/31/2024 20:24:33 03/31/20 24 03/31/2024 IRON/ TIBC PANEL % transferrin saturation 25 % 20-55 Not Available [facility] (Lab) [address] [place], [address], 03/31/2024 20:24:33 03/31/20 24 03/31/2024 IRON/ TIBC PANEL unsaturated iron bind capacity 291 mcg/d L 126-38 2 Not Available [facility] (Lab) [address] [place], [address], 03/31/2024 20:24:33 03/31/20 24 03/31/2024 IRON/ TIBC PANEL iron 95 mcg/d L 42-175 Not Available [facility] (Lab) [address] [place], [address], 03/31/2024 20:24:33 03/31/20 24 03/31/2024 VITAM IN D 25-HY DROXY [id number] 107.0 NG/mL 30-100 high Vitam in D Statu s: Defic ient: <20 ng/mL Insuf ficie nt: 20-29 ng/mL Suffi cient : 30-10 0 ng/mL Not Available [facility] (Lab) [address] [place], [address], 03/31/2024 20:30:54 03/31/20 24 03/31/2024 MICRO ALBUM IN RANDO M URINE microalbumin , urine 18.5 mg/L 0.0-16 .6 high Not Available [facility] (Lab) [address] [place], [address], 03/31/2024 20:40:49 03/31/20 24 03/31/2024 CHADD TIN ferritin 7 NG/mL 11.1-2 64 low Not Available [facility] (Lab) [address] [place], [address], 03/31/2024 20:46:35 03/31/20 24 03/31/2024 HEMOG LOBIN A1C HA1C 5.5 % 4.0-6. 0 Diabe yoshi Scree andrew Crite monet: <5.7% Consi stent with absen ce of diabe yoshi 5.7-6 .4% Consi stent with incre ased risk for diabe yoshi (pred iabet es) >OR=6 .5% Consi stent with diabe yoshi REFER ENCE: Diabe yoshi Care 2016, 39(Krishnamurthy ppl.1 ):s13 -s22 Not Available [facility] (Lab) [address] [place], [address], 03/31/2024 21:24:37 04/01/20 24 01/08/2019 colon oscop y scree andrew (PROC ) No observ ation record ed. Not Available 2023 10:09:13 05/07/20 24 04/30/2024 bone densi ty No observ ation record ed. [facility] (Outpatient Orders) [address] [place], [address], 08/03/2024 10:09:13 12/02/19 25 11/06/2024 MAMMO , scree andrew, digit al, bilat eral No observ ation record ed. BARCODE Not Available 2024 18:59:03 01/12/20 25 01/06/2025 XR, knee, 1 or 2 view No observ ation record ed. BARCODE Not Available 2024 10:40:58 Result Notes None recorded. Problems Name Problem SNOMED Code Status Onset Date Resolution Date Notes Provider Name and Address Organization Details Recorded Time Gastroeso phageal reflux disease without esophagit is 246739171 Active 2022 Not Available [employer] 3 22:21:21 Chronic deep venous thrombosi s of lower extremity 88432110790 9106 Active 2022 Not Available [employer] 3 22:21:21 Hiatal hernia 96120019 Active 2022 Not Available [employer] 3 22:21:22 Lower esophagea l ring 418917028 Active 2022 Not Available [employer] 3 22:21:21 Gastroeso phageal reflux disease 927838797 Active 2022 Not Available [facility] 3 22:21:21 Iron deficienc y anemia 98422724 Active 2022 Not Available [facility] 3 22:21:22 Plantar wart of left foot 17183934655 458977 Active 2023 Enmanuel Prince MD [address], [address], [place], [address] , [place] [facility] 4 10:05:30 Diabetes mellitus 72346790 Active 2023 Enmanuel Prince MD [address], [address], [place], [address] , [facility] 4 10:02:35 Pain in left thumb 24817197773 09059 Active 2023 Enmanuel Prince MD [address], [address], [place], [address] , [facility] 4 10:12:32 Osteoporo sis 67294836 Active 2023 VALARIE Hopkins null, [facility] 4 13:56:40 Insomnia 890773912 Active 2023 Lisa Conteh MA null, [facility] 4 11:30:16 Recurrent deep vein thrombosi s 942357149 Active 2023 Enmanuel Prince MD [address], [address], [place], [address] , [facility] 4 10:14:37 Pain of right knee region 03895868150 4105 Active 2024 TALON Carroll [address], [address], [place], [address] , [facility] 5 13:53:28 Esophagea l dysphagia 12716668 Active 2024 Richard Owens MD [address], [address], [place], [address] , [facility] 5 15:11:42 Hallux valgus AND bunion 773467187 Active 2019 Not Available [facility] 3 22:21:21 CT of abdomen abnormal 62204175845 756040 Active 2021 Not Available [facility] 3 22:21:21 Mammograp hy abnormal 188189553 Active Not Available [facility] 3 22:21:21 Echocardi ogram abnormal 155090037 Active Not Available [facility] 3 22:21:21 Nausea and vomiting 28572368 Active 2021 Not Available [facility] 3 22:21:21 Abdominal pain 16612149 Active 2021 Not Available [facility] 3 22:21:21 Bursitis of foot region 923850548 Active 2020 Not Available [facility] 3 22:21:21 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 912684371 Completed 06/25/2023 VALARIE Hopkins, [employer] [facility] 3 10:24:45 Mantoux: positive 866130266 Active Not Available [facility] 3 22:21:21 Screening for malignant neoplasm of breast Active 2021 Not Available [facility] 3 22:21:21 Eruption 198514484 Completed Not Available [facility] 3 04:52:02 Low back pain 402146340 Completed Not Available [facility] 3 04:52:03 Mechanica l low back pain 270899034 Active Not Available [facility] 3 22:21:21 Pain in left foot 72843060684 9107 Active 2020 Not Available [facility] 3 22:21:21 Depressiv e disorder 81177704 Active Not Available [facility] 3 22:21:21 Chronic sinusitis 70537760 Completed 201612/05/2017 Not Available [facility] 3 04:52:03 Deep venous thrombosi s of lower extremity 551650490 Active Not Available [facility] 3 22:21:21 Dysphagia 88918524 Active 2021 Not Available [facility] 3 22:21:21 Bunion 783401685 Completed 201906/25/2023 VALARIE Hopkins null, [employer] [facility] 3 10:22:48 Nausea 541145115 Active 2021 Not Available [facility] 3 22:21:21 Chronic headache disorder 060636854 Active Not Available [facility] 3 22:21:21 Anxiety 95289793 Active 2021 Enmanuel Prince MD [address], [address], [place], [address] , [employer] 5 12:38:19 Pain of hip region 76214755 Completed Not Available [facility] 3 04:52:04 Upper respirato ry infection 57637825 Completed Not Available [facility] 3 04:52:04 Hyperlipi demia 84498107 Active 2021 Not Available [facility] 3 22:21:21 Allergic rhinitis 54191488 Active 2017 Not Available [facility] 3 22:21:21 Chronic kidney disease 227305377 Active 2021 Not Available [facility] 3 22:21:22 Acquired polycysti c kidney disease 31026327 Active 2016 Not Available [facility] 3 22:21:22 Fatigue 09594110 Completed 06/25/2023 VALARIE Hopkins, [employer] 3 10:27:32 Problem Notes None recorded. Procedures Surgical History Date Name Laterality Status Provider Name and Address Organization Details Recorded Time 11/28/19 24 Wart Excision Procedure completed Wellington Urbina DPM [address], [address], [place], [address], [employer] 11/28/2023 10:09:34 02/24/20 22 Endoscopy completed Not Available [facility] 11/14/2022 04:42:59 10/27/19 21 Most Recent Mammogram completed Not Available [facility] 11/14/2022 04:42:56 02/18/20 19 fallopian tube excision completed Not Available [facility] 11/14/2022 04:42:59 02/18/20 19 diagnostic hysteroscopy completed Not Available [facility] 11/14/2022 04:42:59 01/07/20 19 Date of Last Colonoscopy completed Not Available [facility] 11/14/2022 04:42:56 12/31/19 19 Date of Last Pap Smear completed Not Available [facility] 11/14/2022 04:42:56 12/17/19 19 Most Recent Bone Density completed Not Available [facility] 11/14/2022 04:42:56 07/18/20 18 lithotripsy completed Not Available [facility] 11/14/2022 04:42:59 05/20/20 13 Gastric Bypass completed Not Available [facility] 11/14/2022 04:42:59 cone biopsy completed Not Available [facility] 11/14/2022 04:42:59 [employer]CH [employer] Procedure completed Not Available [facility] 11/14/2022 04:42:59 Cholecystectomy completed Not Available [facility] 11/14/2022 04:42:59 Imaging Results Imaging Date Name Status LastModified by Organiz ation Details LastModified Time 01/08/2019 colonoscopy screening (PROC) completed Information not available 08/03/2024 10:09:13 04/30/2024 bone density completed [facility] (Outpatient Orders) [address] [place], [address], 08/03/2024 10:09:13 11/06/2024 MAMMO, screening, digital, bilateral completed [facility] Information not available 12/01/2024 18:59:03 01/06/2025 XR, knee, 1 or 2 view completed BARCODE Information not available 01/11/2025 10:40:58 Procedure Notes None recorded. Medical Equipment None Reported. Allergies Allergen ID Allergen Name Allergen Category Reaction Reaction Severity Criticality Documentation Date Start Date Code Code System Note Provider Name and Address Organization Details Recorded Time 7614 bacitraci n / neomycin / polymyxin B medicatio n Not available Not available Not available 11/14/2022 19043 9 RxNorm Not Available [facility] 3 05:01:50 7615 ibuprofen medicatio n Not available Not available Not available 11/14/2022 5640 RxNorm Not Available [facility] 3 05:01:50 Medications Name Sig Start [...] Not Available No t Available fluconazo le 150 mg tablet TAKE 1 TABLET BY MOUTH EVERY 72 HOURS 12/01 completed Not Available Not Available Not Available fluconazo le 200 mg tablet 03/31 completed Not Available Not Available Not Available alendrona te 70 mg tablet TAKE 1 TABLET BY MOUTH ONE TIME PER WEEK 2024 active SAMREEN 01/11/25 NOV 03/30/25 ok to rf Not Available Not Available Not Available sertralin e 100 mg tablet TAKE ONE TABLET BY MOUTH ONCE DAILY active Not Available Not Available No t Available clobetaso l 0.05 % topical cream APPLY TOPICALL Y TWICE A DAY 03/31 completed Not Available Not Available Not Available sulfameth oxazole 800 mg-trimet hoprim 160 mg tablet [id number]|2025-01-31 08:29:00|2025-01-31 08:29:00|XMS_ITS|BENNETT CRAWFORD|External Medical Summaries|[id number]|" Encounter Summary Created on: January 31, 2025 Johanna Mendez : 1970 Sex: Female Author Organization [facility] Address [address] [place] [address] Phone Care Team Providers Care Commodity Supervisor Name Role Phone Joselito Laws MD Primary Care Provider [phone] Reason for Visit * Reason Comments Med Change Request Encounter Details Date Type Department Care Team ([facility] st Contact Info) Description 01/21/2025 Refill [facility] [address] [facility], [address] [place] [address] Shadia De Oliveira NP [address] [facility] [address] [place] [address] Social History Tobacco Use Types Packs/Day [...] Description 03/17/2025 12:40 PM CDT Office Visit [facility] [address] [facility] [address] [place] [address] [place] [address] [place] [id number] documented as of this encounter Visit Diagnoses Not on filedocumented in this encounter Care Teams Commodity Supervisor Relationship Specialty Start Date End Date Joselito Laws MD [address] [address] PCP - General 11/25/19 documented as of this encounter "
--- OUTSIDE RECORDS SUMMARY | 2025-01-31 08:29 | XMS_ITS | Encounter Summary ---
Author Organization [facility] Physician [facility] Address [address] [place] [address] Phone Care Team Providers Care Pressure Test Operator Name Role Phone Joselito Laws MD Primary Care Provider [phone] Reason for Visit * Reason Comments Med Refill Encounter Details Date Type Department Care Team ([facility] Contact Info) Description 10/10/2021 Refill [facility] [address] [place] [address] [phone] Brayan Aquino MD [address] [place] [address] Social History Tobacco Use Types Packs/Day [...] Upcoming Encounters Date Type Department Care Team ([facility] Contact Info) Description 03/17/2025 12:40 PM CDT Office Visit [facility] [address] [place] [address] [phone] Brayan Aquino MD [address] [place] [address] [phone] documented as of this encounter Visit Diagnoses Not on filedocumented in this encounter Care Teams Pressure Test Operator Relationship Specialty Start Date End Date Joselito Laws MD [address] [address] PCP - General 11/25/19 documented as of this encounter
--- OUTSIDE RECORDS SUMMARY | 2025-01-31 08:29 | XMS_ITS | Clinical Summary ---
Author Organization [facility] Address [facility]ly [facility] [place] [address] Care Team Providers Care Grade School Teacher Name Role Phone Joselito Laws MD Primary Care Provider [phone] Social History Tobacco Use Types Packs/Day Years Used Date Smoking Tobacco: Never Assessed Comments Unknown Sex and Gender Information Value Date Recorded Sex Assigned at Not on file Legal Sex Female 3:21 PM CDT Gender Identity Not on file Sexual Orientation Not on file Plan of Treatment Health Maintenance Due Date Last Done Comments Cervical Cancer Screening Pa p Smear (Age 30 to 64) Every 3 Years 1968 Colorectal Cancer Screening Colonoscopy (10 Years) 1968 Annual Physical 1971 Hepatitis C 1986 Hepatitis B Vaccines (1 of 3 - 19+ 3-dose series) 1987 Cervical Cancer Screening Pa p with HPV Testing (Age 30 to 64) Every 5 Years 1998 Cervical Cancer Screening wi HPV 1998 Mammogram Screening 2008 Pneumococcal Vaccine: 50+ Years (1 of 1 - PCV) 2018 COVID-19 Vaccine (2023-2 5 season) 2024 07/30/2021, 12/03/2020, 11/12/2020 DTaP, Tdap and Td Vaccines ( 2 - Td or Tdap) 04/16/2032 04/16/2022 Zoster Vaccines Completed 10/10/2019, 06/11/2019 Meningococcal B Vaccine Aged Out No l onger eligible based on patient's age to complete this topic Meningococcal Vaccine Aged Out No kaylie oscar eligible based on patient's age to complete this topic RSV Immunizations Under 20 Months Aged Out No longer eligible b ased on patient's age to complete this topic Insurance [employer] OPEN [facility] [employer] Care Teams Grade School Teacher Relationship Specialty Start Date End Date Joselito Laws MD PCP - General INTERNAL MEDICINE 05/10/22
--- OUTSIDE RECORDS SUMMARY | 2025-01-31 08:29 | XMS_ITS | Encounter Summary ---
Author Organization [facility]ician [facility] Address [address] [place] [address] Phone Care Team Providers Care Enrober Tender Name Role Phone Joselito Laws MD Primary Care Provider [phone] Reason for Visit * Reason Comments Med Refill Encounter Details Date Type Department Care Team (Late Contact Info) Description 12/07/2019 Refill [facility] [address] [place] [address] [phone] Brayan Aquino MD [address] [address] Social History Tobacco Use Types [...] on file Legal Sex Female 9:36 AM [facility] Gender Identity Not on file Sexual Orientation Not on file documented as of this encounter Plan of Treatment Upcoming Encounters Date Type Department Care Team (Late Contact Info) Description 03/17/2025 12:40 PM CDT Office Visit [facility] 1 [place], [place] [phone] Brayan Aquino MD [address] [phone] documented as of this encounter Visit Diagnoses Not on filedocumented in this encounter Care Teams Enrober Tender Relationship Specialty Start Date End Date Joselito Laws MD [address] [address] PCP - General 11/25/19 documented as of this encounter
--- OUTSIDE RECORDS SUMMARY | 2025-01-31 08:29 | XMS_ITS | Encounter Summary ---
Author Organization [facility] Address [address] [place] [address] Phone Care Team Providers Care Ppa Teacher Name Role Phone Joselito Laws MD Primary Care Provider [phone] Reason for Visit * Reason Comments Med Refill Encounter Details Date Type Department Care Team (Late Contact Info) Description 11/05/2019 Refill [facility] [address] [address] Brayan Aquino MD [address] [phone] Social History Tobacco Use Types Packs/Day Years Used Date Smoking Tobacco: Never Assessed Comments Unknown Sex and Gender Information Value Date Recorded Sex Assigned at Not on file Legal Sex Female 9:36 AM [facility] Gender Identity Not on file Sexual Orientation Not on file documented as of this encounter Plan of Treatment Upcoming Encounters Date Type Department Care Team ([facility] Contact Info) Description 03/17/2025 12:40 PM CDT Office Visit [facility] 5003 [facility] 1 [place] [address] Brayan Aquino MD [address] [phone] documented as of this encounter Visit Diagnoses Not on filedocumented in this encounter Care Teams Ppa Teacher Relationship Specialty Start Date End Date Joselito Laws MD 2043 [facility] 15 [place] [address] PCP - General 11/25/19 documented as of this encounter
--- OUTSIDE RECORDS SUMMARY | 2025-01-31 08:29 | XMS_ITS | Encounter Summary ---
Author Organization [facility] Address [address] [place] [address] Phone Care Team Providers Care Climatology Teacher Name Role Phone Joselito Laws MD Primary Care Provider [phone] Reason for Visit * Reason Comments Med Refill Encounter Details Date Type Department Care Team (Late Contact Info) Description 04/21/2019 Refill [facility] [address] [place] [address] Brayan Aquino MD [address] [place] [address] [phone] Social History Tobacco Use Types Packs/Day Years Used Date Smoking Tobacco: Never Assessed Comments Unknown Sex and Gender Information Value Date Recorded Sex Assigned at Not on file Legal Sex Female 9:36 AM [facility] Gender Identity Not on file Sexual Orientation Not on file documented as of this encounter Plan of Treatment Upcoming Encounters Date Type Department Care Team ([facility] Contact Info) Description 03/17/2025 12:40 PM CDT Office Visit [facility] [address] [place] [address] 1 [place] [address] Brayan Aquino MD [address] [phone] documented as of this encounter Visit Diagnoses Not on filedocumented in this encounter Care Teams Climatology Teacher Relationship Specialty Start Date End Date Joselito Laws MD 2043 [facility] 15 [place] [address] PCP - General 11/25/19 documented as of this encounter
--- OUTSIDE RECORDS SUMMARY | 2025-01-31 08:29 | XMS_ITS | Encounter Summary ---
Author Organization [facility] Physician [facility] Address [address] [place] [address] Phone Care Team Providers Care Powerbuilder Name Role Phone Joselito Laws MD Primary Care Provider [phone] Reason for Visit * Reason Comments Med Refill Encounter Details Date Type Department Care Team (Late Contact Info) Description 07/27/2019 Refill [facility] [address] [address] Brayan Aquino MD [address] [phone] Social History Tobacco Use Types Packs/Day Years Used Date Smoking Tobacco: Never Assessed Comments Unknown Sex and Gender Information Value Date Recorded Sex Assigned at Not on file Legal Sex Female 9:36 AM [facility] Gender Identity Not on file Sexual Orientation Not on file documented as of this encounter Plan of Treatment Upcoming Encounters Date Type Department Care Team ([facility] Contact Info) Description 03/17/2025 12:40 PM CDT Office Visit [facility] 5003 [facility] 1 [place] [address] Brayan Aquino MD [address] [phone] documented as of this encounter Visit Diagnoses Not on filedocumented in this encounter Care Teams Powerbuilder Relationship Specialty Start Date End Date Joselito Laws MD 2043 [facility] 15 [place] [address] PCP - General 11/25/19 documented as of this encounter
--- OUTSIDE RECORDS SUMMARY | 2025-01-31 08:30 | XMS_ITS | Clinical Summary ---
Author Organization [facility] Address [address] [facility] [place] [address] Care Team Providers Care Pediatric Sports Medicine Specialist Name Role Phone Unavailable Primary Care Provider Unavailabl e Source Comments [facility],non-owned Affiliates and Associated Physician Practices is amultiple site organization consisting of ambulatory clinics and hospital sitesin [place], [place], [place] and [place]. This disclosure is being madepursuant to the Care Everywhere program and may not contain all information available regarding this patient. Last updated 18.[facility] Allergies Active Allergy Reactions Criticality Noted Date Comments Ibuprofen Urticaria Medium 12/25/2024 And also pt shouldn't be taking d/t her kidney failure Ubyftrgq-Vmguaddthi-Hhbfvto in Urticaria Medium 12/25/2024 Encounters Date Type Department Care Team Description 12/30/2024 Telephone [facility] [address] [place] [phone] Scott Ward Kidney Transplant Follow-up 12/30/2024 Travel 12/29/2024 Orders Only [facility] [address] [place] [phone] Litzy Moore RN Pre-transplant evaluation for kidney transplant 12/29/2024 Orders Only [facility] [address] [place] [phone] Litzy Moore RN Pre-transplant evaluation for kidney transplant ; Hypertension, unspecified type; H/O thyroid nodule 12/25/2024 Telephone [facility] [address] [place] [phone] Litzy Moore RN Kidney Transplant Evaluation (Health history /) 12/24/2024 Telephone [facility] [address] [place] [address] Litzy Moore RN Kidney Transplant Evaluation 12/13/2024 Telephone [facility] [address] [place] [phone] Jimena Aden RN Kidney Transplant Evaluation from Last 3 Months Family History Medical History Relation Name Comments None Known Brother 1 1/2 None Known Brother 2 1/2 Other - Cardiac Brother 3 None Known Brother 4 CVA Father Renal Disease Father PKD with txp Cancer - Ovarian Mother None Known Sister 1 1/2 None Known Sister 2 1/2 Hypertension Son 1 Obesity Son 1 Hypertension Son 2 Relation Name Status Comments Brother 1 1/2 Alive Brother 2 1/2 Alive Brother 3 Alive Brother 4 Alive Father Alive Mother Sister 1 1/2 Alive Sister 2 1/2 Alive Son 1 Alive Son 2 Alive Social History Tobacco Use Types Packs/Day Years Used Date Smoking Tobacco: Former Cigarettes Smokeless Tobacco: Never Tobacco Cessation:Counseling Given: Not Answered Comments:1/3 pack per day x 20 years, quit in 1998 Alcohol Use Standard Drinks/Week Comments Not Currently 0 (1 standard drink = 0.6 oz pur e alcohol) Comments Unknown Sex and Gender Information Value Date Recorded Sex Assigned at Not on file Legal Sex Female 3:02 PM CDT Gender Identity Not on file Sexual Orientation Not on file Plan of Treatment Upcoming Encounters Date Type Department Care Team (Late st Contact Info) Description 04/07/2025 10:00 AM CDT Appointment [facility] ECHO [address] [place] [phone] 04/07/2025 11:00 AM CDT Appointment [facility] VASCULAR US [address] [place] [phone] Lea Ross MD [address] [place] [address] OF [place] [address] 04/07/2025 12:00 PM CDT Appointment [facility] CAT SCAN [address] [place] [address] Lea Ross MD [address] [facility] [place] [address] 04/07/2025 12:20 PM CDT Appointment [facility] DIAGNOSTIC RAD OP [address] [place] [address] Lea Ross MD [address] [facility] [place] [address] 04/07/2025 12:30 PM CDT Appointment [facility] US [address] [place] [address] Lea Ross MD [address] [facility] [place] [address] 04/07/2025 1:15 PM CDT Appointment [facility] EKG/HOLTER [address] [place] [phone] Lea Ross MD [address] [facility] [place] [address] 04/07/2025 1:30 PM CDT Appointment [facility] MRI [address] [place] [address] Lea Ross MD [address] [facility] [place] [address] 04/07/2025 2:30 PM CDT Appointment [facility] LAB OP DRAW STATION [address] [place] [address] 04/19/2025 11:30 AM CDT Clinical Support [facility] [address] [place] [phone] 04/19/2025 12:00 PM CDT Clinical Support [facility] [address] [place] [phone] 04/19/2025 1:00 PM CDT Office Visit [facility] TXP JODIE CSM 3L [address] [facility], [place] [address] 04/19/2025 2:00 PM CDT Office Visit [facility] - Nephrology 1225 [place] [address] 04/19/2025 4:20 PM CDT Office Visit [facility] - Cardiology [address] [facility], [place] [address] [place] [address] Chente Buckner MD 1201 [facility] [place] [address] Health Maintenance Due Date Last Done Comments [...] (1 of 2) 2018 COVID-19 VACCINE ( - season) 2024 07/30/2021, 12/03/2020, 11/12/2020 DEPRESSION SCREENING 09/16/2024 INFLUENZA VACCINE (Season Ended) 2025 05/16/2023, 06/15/2022, 06/06/2021, Additional history exists HIB VACCINE Aged Out No longer eligi ble based on patient's age to complete this topic HPV VACCINE Aged Out No longer eligi ble based on patient's age to complete this topic MENINGOCOCCAL (Group B) VACCINE SHARED DECISION-MAKING Aged Out No longer eligible based on patient's age to complete this topic MENINGOCOCCAL GROUPS A/C/Y/W VACCINE Aged Out No longer eligible based on patient's age to complete this topic Insurance
== END 2025-01-31 08:25 | disposition home or self-care (01) ==
LOC: ANHIMG 08:26
PROVIDERS: PCP Internal Medicine
DX: S83.231A Complex tear of medial meniscus, current injury, right knee, initial encounter (principal); X58.XXXA Exposure to other specified factors, initial encounter; M17.11 Unilateral primary osteoarthritis, right knee; M25.461 Effusion, right knee
CPT/HCPCS: 73721

== ENCOUNTER 2025-06-17 11:51 | Outpatient (CLI) | payer OTHER, SELFPAY ==
--- OUTSIDE RECORDS SUMMARY | 2025-06-15 14:33 | XMS_ITS | Encounter Summary ---
Author Organization [facility] Address [address] [place] [address] Care Team Providers Care Digital Account Supervisor Name Role Phone Enmanuel Prince MD Primary Care Provider [phone] Encounter Details Date Type Department Care Team (Latest Contact Info) Description 06/15/2025 2:33 PM CDT - 06/15/2025 11:59 PM CDT Hospital Encounter [facility] DRAWSTATION [address] [facility], [address]nd [place] [address] Discharge Disposition: Home or Self Care Social History Tobacco Use Types Packs/Day Years Used Date Smoking Tobacco: Former Cigarettes Smokeless Tobacco: Never Comments:1/3 pack per day x 20 years, quit in 1998 Alcohol Use Standard Drinks/Week Comments Not Currently 0 (1 standard drink = 0.6 oz pur e alcohol) PHQ-2 Answer Date Recorded Patient Health Questionnaire-2 Score 2 05/31/2025 Comments Unknown Sex and Gender Information Value Date Recorded Sex Assigned at Not on file Legal Sex Female 3:02 PM CDT Gender Identity Not on file Sexual Orientation Not on file documented as of this encounter Medications at Time of Discharge alendronate (Fosamax) 70 MG tablet Take 1 (one) tablet by mouth every 7 days (once a week) before meal Take in morning with full glass of water on empty stomach and remain upright for 30 min atorvastatin (Lipitor) 10 MG tablet Take 1 (one) tablet by mouth at bedtime biotin 2.5 MG tablets Take 2 (two) tablets by mouth 2 times daily folic acid 400 MCG tablet Take 2 (two) tablets by mouth once daily hydroCHLOROthiazi de (Microzide) 12.5 MG capsule Take 1 (one) capsule by mouth once daily montelukast (Singulair) 10 MG tablet Take 1 (one) tablet by mouth at bedtime [id number] ERALS ([facility] Mutliple Vitamin With Minerals) CHEW Take 1 (one) tablet by mouth once daily (chew and swallow) nortriptyline (Pamelor) 25 MG capsule Take 1 (one) capsule by mouth at bedtime Other as needed (for knee) Lanocain patch pantoprazole EC (Protonix) 40 MG tablet Take 1 (one) tablet by mouth once daily POTASSIUM CITRATE PO Take 1,080 mg by mouth once daily rivaroxaban (Xarelto) 20 MG tablet Take 1 (one) tablet by mouth daily with food sertraline (Zoloft) 25 MG tablet Take 3 (three) tablets by mouth once daily Tolvaptan (Jynarque) 90 & 30 MG TBPK Take by mouth once daily 90 in the morning and 30 8 hours later documented as of this encounter Plan of Treatment Upcoming Encounters Date Type Department Care Team (Late st Contact Info) Description 06/25/2025 9:00 AM CDT Office Visit [facility] - Endocrinology [address] [place] [address], [place] [phone] Gerardo Goel MD [address] [place] [address] [place] [address] 07/07/2025 11:[address] [facility] LAB OP DRAW STATION [address] [place] [address] Pending Results Name Type Priority Associated Diagnoses Date /Time CARDIOLIPIN ANTIBODY IGG Lab STAT Positive cardiolipin antibodies 06/15/2025 2:47 PM CDT CARDIOLIPIN ANTIBODY IGM Lab STAT Positive cardiolipin antibodies 06/15/2025 2:47 PM CDT BETA-2 GLYCOPROTEIN 1 ANTIBODY IGG/IGM PANEL Lab Routine Positive cardiolipin antibodies 06/15/2025 2:47 PM CDT BETA-2 GLYCOPROTEIN 1 ANTIBODY IGA Lab Routine Positive cardiolipin antibodies 06/15/2025 2:47 PM CDT LUPUS ANTICOAGULANT PANEL W RFLX Lab STAT Positive cardiolipin antibodies 06/15/2025 2:47 PM CDT Scheduled Orders Name Type Priority Associated Diagnoses Orde r Schedule CARDIOLIPIN ANTIBODY IGG Lab STAT Positive cardiolipin antibodies 1 Occurrences starting 06/15/2025 until 06/10/2026 CARDIOLIPIN ANTIBODY IGM Lab STAT Positive cardiolipin antibodies 1 Occurrences starting 06/15/2025 until 06/10/2026 BETA-2 GLYCOPROTEIN 1 ANTIBODY IGG/IGM PANEL Lab Routine Positive cardiolipin antibodies 1 Occurrences starting 06/15/2025 until 06/10/2026 BETA-2 GLYCOPROTEIN 1 ANTIBODY IGA Lab Routine Positive cardiolipin antibodies 1 Occurrences starting 06/15/2025 until 06/10/2026 LUPUS ANTICOAGULANT PANEL W RFLX Lab STAT Positive cardiolipin antibodies 1 Occurrences starting 06/15/2025 until 06/15/2025 CARDIOLIPIN ANTIBODY IGG Lab STAT Positive cardiolipin antibodies 1 Occurrences starting 06/15/2025 until 06/15/2025 CARDIOLIPIN ANTIBODY IGM Lab STAT Positive cardiolipin antibodies 1 Occurrences starting 06/15/2025 until 06/15/2025 BETA-2 GLYCOPROTEIN 1 ANTIBODY IGG/IGM PANEL Lab Routine Positive cardiolipin antibodies 1 Occurrences starting 06/15/2025 until 06/15/2025 BETA-2 GLYCOPROTEIN 1 ANTIBODY IGA Lab Routine Positive cardiolipin antibodies 1 Occurrences starting 06/15/2025 until 06/15/2025 documented as of this encounter Visit Diagnoses Diagnosis Positive cardiolipin antibodies- Primary Other and unspecified nonspecific immunological findings Pre-transplant evaluation for kidney transplant Deep vein thrombosis (DVT) of upper extremity, unspecified chronicity, unspecified laterality, unspecified vein (HCC) documented in this encounter Care Teams Digital Account Supervisor Relationship Specialty Start Date End Date Enmanuel Prince MD [address] [place], [place] [phone] PCP - General Internal Medicine 04/07/25 documented as of this encounter
--- OUTSIDE RECORDS SUMMARY | 2025-06-17 12:05 | XMS_ITS | Encounter Summary ---
Author Organization [facility] Address [address] [place] [address] Phone Care Team Providers Care Clerk Television Production Name Role Phone Joselito Laws MD Primary Care Provider [phone] Reason for Visit * Reason Comments Med Refill Encounter Details Date Type Department Care Team ([facility] Contact Info) Description 08/01/2021 Refill [facility] [address] [place] [address] Brayan Aquino MD [address] [place] [address] [phone] Social History Tobacco Use Types Packs/Day Years [...] on file Legal Sex Female 9:36 AM [facility] Gender Identity Not on file Sexual Orientation Not on file documented as of this encounter Plan of Treatment Upcoming Encounters Date Type Department Care Team ([facility] Contact Info) Description 07/14/2025 2:00 PM CDT Office Visit [facility] [address] [place] [address] [phone] Brayan Aquino MD [address] [place] [address] 08/04/2025 2:40 PM MATCHING MACHINE OPERATOR Office Visit [facility] [address] [facility] 1 [place] [address] Brayan Aquino MD [address] [phone] documented as of this encounter Visit Diagnoses Not on filedocumented in this encounter Care Teams Clerk Television Production Relationship Specialty Start Date End Date Joselito Laws MD [address] [phone] PCP - General 11/25/19 documented as of this encounter
--- OUTSIDE RECORDS SUMMARY | 2025-06-17 12:05 | XMS_ITS | Encounter Summary ---
Author Organization [facility] Address [address] [place] [address] Phone Care Team Providers Care Clinical Informatics Director Name Role Phone Joselito Laws MD Primary Care Provider [phone] Reason for Visit * Reason Comments Med Refill Encounter Details Date Type Department Care Team ([facility] Contact Info) Description 12/28/2020 Refill [facility] [address] [place] [address] [phone] Brayan Aquino MD [address] [place] [phone] Social History Tobacco Use Types Packs/Day [...] on file Legal Sex Female 9:36 AM [facility] Gender Identity Not on file Sexual Orientation Not on file documented as of this encounter Plan of Treatment Upcoming Encounters Date Type Department Care Team ([facility] Contact Info) Description 07/14/2025 2:00 PM CDT Office Visit [facility]3 [facility] 1 [place], [place] [phone] Brayan Aquino MD [address] [phone] 08/04/2025 2:40 PM DICTATING TRANSCRIBING MACHINE SERVICER Office Visit [facility] 5[address] [facility] 1 [place] [address] Brayan Aquino MD [address] [phone] documented as of this encounter Visit Diagnoses Not on filedocumented in this encounter Care Teams Clinical Informatics Director Relationship Specialty Start Date End Date Joselito Laws MD [address] [facility] 15 [place] [phone] PCP - General 11/25/19 documented as of this encounter
--- OUTSIDE RECORDS SUMMARY | 2025-06-17 12:05 | XMS_ITS | Encounter Summary ---
Author Organization [facility] Address [address] [place] [address] Phone Care Team Providers Care Rn Support Services Name Role Phone Joselito Laws MD Primary Care Provider [phone] Reason for Visit * Reason Comments Med Refill Encounter Details Date Type Department Care Team (Late Contact Info) Description 01/19/2019 Refill [facility] [address] [place] [address] Brayan Aquino MD [address] [place] [phone] Social History Tobacco Use Types Packs/Day Years Used Date Smoking Tobacco: Never Assessed Comments Unknown Sex and Gender Information Value Date Recorded Sex Assigned at Not on file Legal Sex Female 9:36 AM [facility] Gender Identity Not on file Sexual Orientation Not on file documented as of this encounter Plan of Treatment Upcoming Encounters Date Type Department Care Team ([facility] Contact Info) Description 07/14/2025 2:00 PM CDT Office Visit [facility] [address] [place] [address] 1 [place] [address] [place] [address] [place] [address] 08/04/2025 2:40 PM AUTO ELECTRICAL TECHNICIAN Office Visit [facility] [address] [place] [address] 1 [place] [address] [place] [address] [place] [address] documented as of this encounter Visit Diagnoses Not on filedocumented in this encounter Care Teams Rn Support Services Relationship Specialty Start Date End Date Joselito Laws MD [address] [phone] PCP - General 11/25/19 documented as of this encounter
--- OUTSIDE RECORDS SUMMARY | 2025-06-17 12:05 | XMS_ITS | Encounter Summary ---
Author Organization [facility] Address [address] [place] [address] Phone Care Team Providers Care Hot Plate Plywood Press Laborer Name Role Phone Joselito Laws MD Primary Care Provider [phone] Reason for Visit * Reason Comments Med Refill Encounter Details Date Type Department Care Team (Late Contact Info) Description 03/04/2019 Refill [facility] [address] [place] [address] Brayan Aquino MD [address] [place] [address] Social History Tobacco Use Types Packs/Day Years Used Date Smoking Tobacco: Never Assessed Comments Unknown Sex and Gender Information Value Date Recorded Sex Assigned at Not on file Legal Sex Female 9:36 AM [facility] Gender Identity Not on file Sexual Orientation Not on file documented as of this encounter Plan of Treatment Upcoming Encounters Date Type Department Care Team ([facility] Contact Info) Description 07/14/2025 2:00 PM CDT Office Visit [facility] [address] [place] [address] 1 [place] [address] Brayan Aquino MD [address] [place] [address] 08/04/2025 2:40 PM KILN DOOR REPAIRER Office Visit [facility] [address] [place] [address] 1 [place] [address] [place] [address] [place] [address] documented as of this encounter Visit Diagnoses Not on filedocumented in this encounter Care Teams Hot Plate Plywood Press Laborer Relationship Specialty Start Date End Date Joselito Laws MD [address] [phone] PCP - General 11/25/19 documented as of this encounter
--- OUTSIDE RECORDS SUMMARY | 2025-06-17 12:05 | XMS_ITS ---
Author Organization [facility] Address [address] [place] [address] Care Team Providers Care Library Science Instructor Name Role Phone Enmanuel Prince MD Primary Care Provider Transplant Episode Kidney Candidate [facility] ([place], [place]) - [facility] Evaluation began on 12/24/2024 Marked as Active on 12/24/2024 Kidney CoordinatorLitzy Moore RN Phone: N/A Fax: N/A Email: N/A Scores Score Value Updated Exceptions/Reas ons CPRA Not available EPTS (Calc) 24 06/17/2025 [place] Organ Diagnosis Organ Primary Contributory Kidney Polycystic Kidneys Care Team Name Role Phone Fax Email Litzy Moore RN Kidney Coordinator N/A N/A N/A Jailene Farooq Malt Specifications Control Assistant N/A N/A N/A Brayan Aquino MD Referring Physician [phone] N/A Shanell Baeza LMSW [facility] [phone] N/A N/A Events Pre-Transplant Referred: 12/10/2024 Evaluation began: 12/24/2024 Committee: 05/20/2025
--- OUTSIDE RECORDS SUMMARY | 2025-06-17 12:05 | XMS_ITS | Encounter Summary ---
Author Organization [facility] Address [address] [place] [address] Phone Care Team Providers Care Supervisor Shuttle Preparation Name Role Phone Joselito Laws MD Primary Care Provider [phone] Reason for Visit * Reason Comments Med Change Request Encounter Details Date Type Department Care Team ([facility] Contact Info) Description 01/21/2025 Refill [facility] [address] [place] [address] [phone] Shadia De Oliveira NP [address] [phone] Social History Tobacco Use Types [...] Upcoming Encounters Date Type Department Care Team ([facility] Contact Info) Description 07/14/2025 2:00 PM CDT Office Visit [facility] 1 [place], [place] [phone] Brayan Aquino MD [address] [phone] 08/04/2025 2:40 PM 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
--- OUTSIDE RECORDS SUMMARY | 2025-06-17 12:05 | XMS_ITS | Encounter Summary ---
Author Organization [facility] Address [address] [place] [address] Phone Care Team Providers Care Proof Operator Name Role Phone Joselito Laws MD Primary Care Provider [phone] Reason for Visit * Reason Comments Med Refill Encounter Details Date Type Department Care Team ([facility] Contact Info) Description 09/14/2020 Refill [facility] [address] [place] [address] [phone] Brayan Aquino MD [address] [phone] Social History Tobacco Use [...] on file Legal Sex Female 9:36 AM [facility] Gender Identity Not on file Sexual Orientation Not on file documented as of this encounter Plan of Treatment Upcoming Encounters Date Type Department Care Team ([facility] Contact Info) Description 07/14/2025 2:00 PM CDT Office Visit [facility]3 [facility] 1 [place] [address] Brayan Aquino MD [address] [phone] 08/04/2025 2:40 PM 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 1 [place] [address] documented as of this encounter Visit Diagnoses Not on filedocumented in this encounter Care Teams Proof Operator Relationship Specialty Start Date End Date Joselito Laws MD 2043 [facility] 15 [place] [phone] PCP - General 11/25/19 documented as of this encounter
--- OUTSIDE RECORDS SUMMARY | 2025-06-17 12:05 | XMS_ITS | Data Portability ---
Author Organization [place] - [employer], Main Office Address [address] [place] [address] Assessment No assessment recorded. Plan of Treatment Reminders Order Date Submit Date Provider Last Modified By Organization Details Last Modified Time Details Appointments Any 15 2024 02:30P Tawanda Prince MD Not available Not available Not available Lab vitamin D3, 25-hydrox y, serum 2024 025 [facility] (Lab), [address] [place], [address], 03/30/2025 20:00:46 glycohemo globin, total, blood 2024 025 [facility] (Lab), [address] [place], [address], 03/30/2025 20:29:44 CMP, serum or plasma 2024 025 [facility] (Lab), [address] [place], [address], 03/30/2025 20:33:27 microalbu min, urine 2024 025 [facility] (Lab), [address] [place], [address], 03/30/2025 21:18:30 vitamin B12, serum 2024 025 [facility] (Lab), [address] [place], [address], 03/30/2025 20:34:07 lipid panel, serum 2024 025 [facility] (Lab), [address] [place], [address], 03/30/2025 20:33:31 CBC w/ auto diff 2024 025 [facility] (Lab), [address] [place], [address], 03/30/2025 19:47:59 ferritin, serum or plasma 2024 025 [facility] (Lab), [address] [place], [address], 03/30/2025 21:19:23 iron + total iron-bind ing capacity (TIBC), serum 2024 025 [facility] (Lab), [address] [place], [address], 03/30/2025 20:33:02 Referral orthopedi c surgeon referral - Please call patient to schedule an appointme nt. Thank you. 2024 025 [email or web address] [facility], [address], [place], [address], 04/12/2025 17:19:44 Procedures None recorded. Surgeries None recorded. Imaging MRI, knee, w/wo contrast - Please call patient to schedule. 2024 025 [email or web address] [facility], [address], [place], [address], 02/16/2025 10:59:24 Medication Orders pantopraz ole 40 mg tablet,de layed release 2024 025 [facility] [address] In [facility], [address] [place], [address], 03/30/2025 10:05:53 Patient TargetsNo targets recorded. Patient Instructions Encounter Date Encounter Id Patient Instructions Last Modified By Organization Details Last Modified Time 01/11/2025 [id number] Continue Heat/ICE, OTC tylenol as needed for [...] Abnormal Flag Note LastModifiedBy Organization Detail LastModifiedTime 03/30/2003/30/2025 CBC/C OMPLE TE BLD COUNT W/DIF F white blood cells 5.5 x10'3 /uL 4.2-10 .8 Not Available [facility] (Lab) [address] [place], [address], 03/30/2025 19:47:59 03/30/2003/30/2025 CBC/C OMPLE TE BLD COUNT W/DIF F red blood cells 4.25 x10'6 /uL 3.80-5 .20 Not Available [facility] (Lab) [address] [place], [address], 03/30/2025 19:47:59 03/30/2003/30/2025 CBC/C OMPLE TE BLD COUNT W/DIF F hemoglobin 12.9 g/dL 12.0-1 5.6 Not Available [facility] (Lab) [address] [place], [address], 03/30/2025 19:47:59 03/30/2003/30/2025 CBC/C OMPLE TE BLD COUNT W/DIF F hematocrit 39.7 % 35.7-4 5.7 Not Available [facility] (Lab) [address] [place], [address], 03/30/2025 19:47:59 03/30/20 25 03/30/2025 CBC/C OMPLE TE BLD COUNT W/DIF F mean red cell volume 93.4 fL 82.0-9 9.0 Not Available [facility] (Lab) [address] [place], [address], 03/30/2025 19:47:59 03/30/20 25 03/30/2025 CBC/C OMPLE TE BLD COUNT W/DIF F mean red cell hemoglobin 30.4 pg 27.0-3 3.0 Not Available [facility] (Lab) [address] [place], [address], 03/30/2025 19:47:59 03/30/2003/30/2025 CBC/C OMPLE TE BLD COUNT W/DIF F mean RBC HGB concentratio n 32.5 g/dL 31.0-3 6.0 Not Available [facility] (Lab) [address] [place], [address], 03/30/2025 19:47:59 03/30/2003/30/2025 CBC/C OMPLE TE BLD COUNT W/DIF F red cell distribution width 12.9 % 11.8-1 5.5 Not Available [facility] (Lab) [address] [place], [address], 03/30/2025 19:47:59 03/30/2003/30/2025 CBC/C OMPLE TE BLD COUNT W/DIF F platelets 265 x10'3 /uL 150-40 0 Not Available [facility] (Lab) [address] [place], [address], 03/30/2025 19:47:59 03/30/2003/30/2025 CBC/C OMPLE TE BLD COUNT W/DIF F mean platelet volume 9.6 fL 9.0-12 .4 Not Available [facility] (Lab) [address] [place], [address], 03/30/2025 19:47:59 03/30/2003/30/2025 CBC/C OMPLE TE BLD COUNT W/DIF F neutrophils 66.9 % 39.0-7 2.0 Not Available [facility] (Lab) [address] [place], [address], 03/30/2025 19:47:59 03/30/2003/30/2025 CBC/C OMPLE TE BLD COUNT W/DIF F lymphocytes 21.8 % 16.0-4 7.0 Not Available [facility] (Lab) [address] [place], [address], 03/30/2025 19:47:59 03/30/2003/30/2025 CBC/C OMPLE TE BLD COUNT W/DIF F monocytes 6.4 % 5.0-12 .0 Not Available [facility] (Lab) [address] [place], [address], 03/30/2025 19:47:59 03/30/2003/30/2025 CBC/C OMPLE TE BLD COUNT W/DIF F eosinophils 4.0 % 1.0-7. 0 Not Available [facility] (Lab) [address] [place], [address], 03/30/2025 19:47:59 03/30/2003/30/2025 CBC/C OMPLE TE BLD COUNT W/DIF F basophils 0.7 % 0.0-2. 0 Not Available [facility] (Lab) [address] [place], [address], 03/30/2025 19:47:59 03/30/2003/30/2025 CBC/C OMPLE TE BLD COUNT W/DIF F immature granulocytes 0.2 % 0.00-0 .50 Not Available [facility] (Lab) [address] [place], [address], 03/30/2025 19:47:59 03/30/2003/30/2025 CBC/C OMPLE TE BLD COUNT W/DIF F neutrophils, absolute count 3.69 x10'3 /uL 1.5-8. 0 Not Available [facility] (Lab) [address] [place], [address], 03/30/2025 19:47:59 03/30/2003/30/2025 CBC/C OMPLE TE BLD COUNT W/DIF F lymphocytes, absolute count 1.20 x10'3 /uL 1.07-3 .43 Not Available [facility] (Lab) [address] [place], [address], 03/30/2025 19:47:59 03/30/2003/30/2025 CBC/C OMPLE TE BLD COUNT W/DIF F monocytes, absolute count 0.35 x10'3 /uL 0.29-0 .99 Not Available [facility] (Lab) [address] [place], [address], 03/30/2025 19:47:59 03/30/2003/30/2025 CBC/C OMPLE TE BLD COUNT W/DIF F eosinophils, absolute count 0.22 x10'3 /uL 0.02-0 .53 Not Available [facility] (Lab) [address] [place], [address], 03/30/2025 19:47:59 03/30/2003/30/2025 CBC/C OMPLE TE BLD COUNT W/DIF F basophils, absolute count 0.04 x10'3 /uL 0.01-0 .08 Not Available [facility] (Lab) [address] [place], [address], 03/30/2025 19:47:59 03/30/20 25 03/30/2025 CBC/C OMPLE TE BLD COUNT W/DIF F immature granulocytes ,absolute 0.01 x10'3 /uL 0.00-0 .05 Not Available [facility] (Lab) [address] [place], [address], 03/30/2025 19:47:59 03/30/2003/30/2025 CBC/C OMPLE TE BLD COUNT W/DIF F nucleated red blood cells 0.0 % -0 Not Available [facility] (Lab) [address] [place], [address], 03/30/2025 19:47:59 03/30/20 25 03/30/2025 CBC/C OMPLE TE BLD COUNT W/DIF F NRBC# 0.00 x10'3 /uL Not Available [facility] (Lab) [address] [place], [address], 03/30/2025 19:47:59 03/30/2003/30/2025 VITAM IN D 25-HY DROXY vd25oh 107.0 NG/mL 30-100 high Vitam in D Statu s: Defic ient: <20 ng/mL Insuf ficie nt: 20-29 ng/mL Suffi cient : 30-10 0 ng/mL Not Available [facility] (Lab) [address] [place], [address], 03/30/2025 20:00:46 03/30/2003/30/2025 HEMOG LOBIN A1C HA1C 5.7 % 4.0-6. 0 Diabe yoshi Scree andrew Crite monet: <5.7% Consi stent with absen ce of diabe yoshi 5.7-6 .4% Consi stent with incre ased risk for diabe yoshi (pred iabet es) >OR=6 .5% Consi stent with diabe yoshi REFER ENCE: Diabe yoshi Care 2015, 39(Krishnamurthy ppl.1 ):s13 -s22 Not Available [facility] (Lab) [address] [place], [address], 03/30/2025 20:29:44 03/30/20 25 03/30/2025 IRON/ TIBC PANEL total iron binding capacity 276 mcg/d L 265-47 5 Not Available [facility] (Lab) [address] [place], [address], 03/30/2025 20:51:02 03/30/20 25 03/30/2025 IRON/ TIBC PANEL % transferrin saturation 30 % 20-55 Not Available [facility] (Lab) [address] [place], [address], 03/30/2025 20:51:02 03/30/20 25 03/30/2025 IRON/ TIBC PANEL unsaturated iron bind capacity 192 mcg/d L 126-38 2 Not Available [facility] (Lab) [address] [place], [address], 03/30/2025 20:51:02 03/30/20 25 03/30/2025 IRON/ TIBC PANEL iron 84 mcg/d L 42-175 Not Available [facility] (Lab) [address] [place], [address], 03/30/2025 20:51:02 03/30/20 25 03/30/2025 COMPR EHENS ANU METAB OLIC PANEL sodium 140 mmol/ L 137-14 5 Not Available [facility] (Lab) [address] [place], [address], 03/30/2025 20:33:27 03/30/20 25 03/30/2025 COMPR EHENS ANU METAB OLIC PANEL potassium 4.2 mmol/ L 3.5-5. 1 Not Available [facility] (Lab) [address] [place], [address], 03/30/2025 20:33:27 03/30/20 25 03/30/2025 COMPR EHENS ANU METAB OLIC PANEL chloride 100 mmol/ L 98-107 Not Available [facility] (Lab) [address] [place], [address], 03/30/2025 20:33:27 03/30/20 25 03/30/2025 COMPR EHENS ANU METAB OLIC PANEL carbon dioxide 30 mmol/ L 22-30 Not Available [facility] (Lab) [address] [place], [address], 03/30/2025 20:33:27 03/30/20 25 03/30/2025 COMPR EHENS ANU METAB OLIC PANEL anion gap 14.2 mmol/ L 14-22 Not Available [facility] (Lab) [address] [place], [address], 03/30/2025 20:33:27 03/30/20 25 03/30/2025 COMPR EHENS ANU METAB OLIC PANEL glucose 105 mg/dL 70-99 high Not Available [facility] (Lab) [address] [place], [address], 03/30/2025 20:33:27 03/30/20 25 03/30/2025 COMPR EHENS ANU METAB OLIC PANEL BUN 46 mg/dL 8-19 high Not Available [facility] (Lab) [address] [place], [address], 03/30/2025 20:33:27 03/30/20 25 03/30/2025 COMPR EHENS ANU METAB OLIC PANEL creatinine 3.24 mg/dL 0.66-1 .25 high Not Available [facility] (Lab) [address] [place], [address], 03/30/2025 20:33:27 03/30/20 25 03/30/2025 COMPR EHENS ANU METAB OLIC PANEL GFR 15 Refer ence Range : Treynor ge GFR Healt hy Adult : >60 [...] or ethni c subgr oups, such as Hispa nics. Outsi de the valid ated [place] [...] calcu lator is avail able on the [facility] websi te: [email or web address] :[email or web address]/pr ofess ional s/kdo qi/gf r_cal culat or Not Available [facility] (Lab) [address] [place], [address], 03/30/2025 20:33:27 03/30/20 25 03/30/2025 COMPR EHENS ANU METAB OLIC PANEL alkaline phosphatase 92 U/L 38-126 Not Available [facility] (Lab) [address] [place], [address], 03/30/2025 20:33:27 03/30/20 25 03/30/2025 COMPR EHENS ANU METAB OLIC PANEL alanine aminotransfe rase 24 U/L 0-35 Not Available [facility] (Lab) [address] [place], [address], 03/30/2025 20:33:27 03/30/20 25 03/30/2025 COMPR EHENS ANU METAB OLIC PANEL aspartate aminotransfe rase 34 U/L 15-37 Not Available [facility] (Lab) [address] [place], [address], 03/30/2025 20:33:27 03/30/20 25 03/30/2025 COMPR EHENS ANU METAB OLIC PANEL bilirubin, total 0.80 mg/dL 0.20-1 .30 Not Available [facility] (Lab) [address] [place], [address], 03/30/2025 20:33:27 03/30/20 25 03/30/2025 COMPR EHENS ANU METAB OLIC PANEL calcium 9.3 mg/dL 8.4-10 .2 Not Available [facility] (Lab) [address] [place], [address], 03/30/2025 20:33:27 03/30/20 25 03/30/2025 COMPR EHENS ANU METAB OLIC PANEL total protein 6.7 g/dL 6.3-8. 2 Not Available [facility] (Lab) [address] [place], [address], 03/30/2025 20:33:27 03/30/20 25 03/30/2025 COMPR EHENS ANU METAB OLIC PANEL albumin 4.3 g/dL 3.4-5. 0 Not Available [facility] (Lab) [address] [place], [address], 03/30/2025 20:33:27 03/30/20 25 03/30/2025 COMPR EHENS ANU METAB OLIC PANEL globulin 2.4 g/dL 2.6-4. 2 low Not Available [facility] (Lab) [address] [place], [address], 03/30/2025 20:33:27 03/30/20 25 03/30/2025 COMPR EHENS ANU METAB OLIC PANEL A/G ratio 1.8 ratio 1.0-2. 0 Not Available [facility] (Lab) [address] [place], [address], 03/30/2025 20:33:27 03/30/20 25 03/30/2025 LIPID PANEL cholesterol 178 mg/dL 140-19 9 [facility] BLOSSOM NSUS RECOM MENDA TION FOR LAVINIA STERO L: ADULT CHILD LOW RISK: <200 <170 BORDE RLINE : <200- 239 ----- HIGH RISK: >240 >200 Not Available [facility] (Lab) [address] [place], [address], 03/30/2025 20:33:31 03/30/20 25 03/30/2025 LIPID PANEL triglyceride s 152 mg/dL 0-150 high NIH BLOSSOM NSUS REPOR T RECOM MENDA TION FOR TRIGL YCERI IVELISSE: ADULT CHILD LOW RISK: <150 ----- BODER LINE: 150-1 99 ----- HIGH RISK: >200 ----- Not Available [facility] (Lab) [address] [place], [address], 03/30/2025 20:33:31 03/30/20 25 03/30/2025 LIPID PANEL HDL cholesterol 73 mg/dL 40- Not Available [facility] (Lab) [address] [place], [address], 03/30/2025 20:33:31 03/30/20 25 03/30/2025 LIPID PANEL LDL cholesterol, calculated 75 mg/dL 0-130 NIH BLOSSOM NSUS REPOR T [...] WILL NOT BE REPOR ALIX. Not Available [facility] (Lab) [address] [place], [address], 03/30/2025 20:33:31 03/30/20 25 03/30/2025 VITAM IN B12 (LILY CLIFFORD ) vb12 >1000 pg/mL 239-93 1 high Not Available [facility] (Lab) [address] [place], [address], 03/30/2025 20:34:07 03/30/20 25 03/30/2025 MICRO ALBUM IN RANDO M URINE microalbumin , urine 14.0 mg/L 0.0-16 .6 Not Available [facility] (Lab) [address] [place], [address], 03/30/2025 21:18:30 03/30/20 25 03/30/2025 CHADD TIN ferritin 36 NG/mL 11.1-2 64 Not Available [facility] (Lab) [address] [place], [address], 03/30/2025 21:19:23 12/02/19 25 11/06/2024 MAMMO , scree andrew, digit al, bilat eral No observ ation record ed. BARCODE Not Available 2024 18:59:03 01/12/20 25 01/06/2025 XR, knee, 1 or 2 view No observ ation record ed. BARCODE Not Available 2024 10:40:58 02/01/20 25 01/31/2025 MRI, knee, w/ contr ast No observ ation record ed. [email or web address] [facility] [address], [place], [address], 02/03/2025 11:12:34 06/15/20 25 06/11/2025 rhyth m strip , EKG* No observ ation record ed. BARCODE Not Available 2024 10:16:52 Result Notes None recorded. Problems Name Problem SNOMED Code Status Onset Date Resolution Date Notes Provider Name and Address Organization Details Recorded Time Mammograp hy abnormal 652657799 Active Not Available [facility] 3 22:21:21 Echocardi ogram abnormal 931845727 Active Not Available [facility] 3 22:21:21 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 905885280 Completed 06/25/2023 Alberta kang, RMA null, [place] [facility] 3 10:24:45 [place]: positive 601702978 Active Not Available [facility] 3 22:21:21 Eruption 227630854 Completed Not Available [facility] 3 04:52:02 Low back pain 871658517 Completed Not Available [facility] 3 04:52:03 Mechanica l low back pain 762501226 Active Not Available [facility] 3 22:21:21 Depressiv e disorder 70240148 Active Not Available [facility] 3 22:21:21 Deep venous thrombosi s of lower extremity 415277336 Active Not Available [facility] 3 22:21:21 Chronic headache disorder 102071395 Active Not Available [facility] 3 22:21:21 Pain of hip region 33970655 Completed Not Available [facility] 3 04:52:04 Upper respirato ry infection 39756133 Completed Not Available [facility] 3 04:52:04 Fatigue 11469525 Completed 06/25/2023 Alberta kang RMA null, [place] - [employer] [facility] 3 10:27:32 Chronic sinusitis 00161759 Completed 201612/05/2017 Not Available [facility] 3 04:52:03 Acquired polycysti c kidney disease 15972668 Active 2016 Enmanuel Prince MD [address] [place] [address], [address] , [place] [facility] 5 16:56:39 Allergic rhinitis 47410259 Active 2017 Not Available [facility] 3 22:21:21 Hallux valgus AND bunion 329077129 Active 2019 Not Available [facility] 3 22:21:21 Bunion 821600398 Completed 201906/25/2023 Alberta kang RMA null, [place] [facility] 3 10:22:48 Bursitis of foot region 010654488 Active 2020 Not Available [facility] 3 22:21:21 Pain in left foot 00552883488 9107 Active 2020 Not Available [facility] 3 22:21:21 Screening for malignant neoplasm of breast Active 2021 Not Available [facility] 3 22:21:21 Abdominal pain 11449718 Active 2021 Not Available [facility] 3 22:21:21 Dysphagia 96160776 Active 2021 Not Available [facility] 3 22:21:21 CT of abdomen abnormal 70690935013 387210 Active 2021 Not Available [facility] 3 22:21:21 Anxiety 18108050 Active 2021 Enmanuel Prince MD [address], [place], [address] , [employer] [facility] [employer] [facility] 5 12:38:19 Chronic kidney disease 771091469 Active 2021 Not Available [facility] 3 22:21:22 Nausea and vomiting 49216510 Active 2021 Not Available [facility] 3 22:21:21 Nausea 325024206 Active 2021 Not Available [facility] 3 22:21:21 Hyperlipi demia 75415541 Active 2021 Enmanuel Prince MD [address], [place], [address] , [employer] 5 16:55:24 Gastroeso phageal reflux disease without esophagit is 410466425 Active 2022 Lisa Conteh MA null, [employer] 5 11:48:12 Chronic deep venous thrombosi s of lower extremity 16536420091 9106 Active 2022 Not Available [facility] 3 22:21:21 Hiatal hernia 78093569 Active 2022 Not Available [facility] 3 22:21:22 Lower esophagea l ring 605552820 Active 2022 Not Available [facility] 3 22:21:21 Gastroeso phageal reflux disease 357671500 Active 2022 Not Available [facility] 3 22:21:21 Iron deficienc y anemia 95342372 Active 2022 Not Available [facility] 3 22:21:22 Plantar wart of left foot 15665817873 294973 Active 2023 Enmanuel Prince MD [address], [place], [address] , [facility] 4 10:05:30 Diabetes mellitus 98679461 Active 2023 Enmanuel Prince MD [address], [place], [address] , [facility] 5 16:55:41 Pain in left thumb 11734863813 43189 Active 2023 Enmanuel Prince MD [address], [place], [address] , [facility] [employer] [facility] 4 10:12:32 Osteoporo sis 05712713 Active 2023 VALARIE Hopkisn null, [place] [facility] [place] [facility] 4 13:56:40 Insomnia 911768920 Active 2023 Lisa Conteh MA null, [place] [facility] [place] [facility] 4 11:30:16 Recurrent deep vein thrombosi s 908117219 Active 2023 Enmanuel Prince MD [address], [place], [address] , [facility] 5 16:56:19 Pain of right knee region 26456537386 4105 Active 2024 TALON Carroll [address], [place], [address] , [facility] 5 13:53:28 Esophagea l dysphagia 50098777 Active 2024 Richard Owens MD [address], [facility] [address], [place], [address] , [employer] 15:11:42 Problem Notes None recorded. Procedures Surgical History Date Name Laterality Status Provider Name and Address Organization Details Recorded Time 11/28/19 24 Wart Excision Procedure completed Wellington Urbina DPM [address], [facility] [address], [place], [address], [employer] 11/28/2023 10:09:34 02/24/20 22 Endoscopy completed Not Available [facility] 11/14/2022 04:42:59 10/27/19 21 Most Recent Mammogram completed Not Available [facility] 11/14/2022 04:42:56 02/18/20 19 fallopian tube excision completed Not Available [facility] 11/14/2022 04:42:59 02/18/20 19 diagnostic hysteroscopy completed Not Available [facility] 11/14/2022 04:42:59 01/07/20 19 Date of Last Colonoscopy completed Not Available [facility] 11/14/2022 04:42:56 12/31/19 19 Date of Last Pap Smear completed Not Available [facility] 11/14/2022 04:42:56 12/17/19 19 Most Recent Bone Density completed Not Available [facility] 11/14/2022 04:42:56 07/18/20 18 lithotripsy completed Not Available [facility] 11/14/2022 04:42:59 05/20/20 13 Gastric Bypass completed Not Available [facility] 11/14/2022 04:42:59 cone biopsy completed Not Available [facility] 11/14/2022 04:42:59 [employer] Procedure completed Not Available [facility] 11/14/2022 04:42:59 Cholecystectomy completed Not Available [facility] 11/14/2022 04:42:59 Imaging Results None recorded. Procedure Notes None recorded. Medical Equipment None Reported. Allergies Allergen ID Allergen Name Allergen Category Reaction Reaction Severity Criticality Documentation Date Start Date Code Code System Note Provider Name and Address Organization Details Recorded Time 7614 bacitraci n / neomycin / polymyxin B medicatio n Not available Not available Not available 11/14/2022 16535 9 RxNorm Not Available [facility] 3 05:01:50 7615 ibuprofen medicatio n Not available Not available Not available 11/14/2022 5640 RxNorm Not Available [facility] 3 05:01:50 Medications Name Sig Start Date Stop Date Status Note LastModified by Organization Details LastModified Time cyclobenz aprine 10 mg tablet active Not Available Not Available No t Available amoxicill in 500 mg capsule 05/21 completed Not Available Not Available Not Available prednison e 10 mg tablet TAKE 1 TABLET BY MOUTH TWICE A DAY FOR 10 DAYS 06/09 completed Not Available Not Available Not Available atorvasta tin 10 mg tablet TAKE 1 TABLET BY MOUTH EVERY DAY active Not Available Not Available No t Available fluconazo le 150 mg tablet TAKE 1 TABLET BY MOUTH EVERY 72 HOURS 12/01 completed Not Available Not Available Not Available fluconazo le 200 mg tablet 03/31 completed Not Available Not Available Not Available ondansetr on HCl 4 mg tablet TAKE 1 TABLET BY MOUTH EVERY 8 HOURS IF NEEDED FOR NAUSEA OR VOMITING . active Not Available Not Available No t Available alendrona te 70 mg tablet TAKE 1 TABLET BY MOUTH ONE TIME PER WEEK active Not Available Not Available No t Available sertralin e 100 mg tablet TAKE ONE TABLET BY MOUTH ONCE DAILY active Not Available Not Available No t Available clobetaso l 0.05 % topical cream APPLY TOPICALL Y TWICE A DAY 03/31 completed Not Available Not Available Not Available acetamino phen 300 mg-codein e 15 mg tablet TAKE 1 TABLET BY MOUTH EVERY 8 HOURS active Not Available Not Available No t Available sulfameth oxazole 800 mg-trimet hoprim 160 mg tablet 11/25 completed Not Available Not Available Not Available amoxicill in 500 mg tablet TAKE 1 TABLET BY MOUTH EVERY 8 HOURS 03/30 completed Not Available Not Available Not Available Kenalog 40 mg/mL suspensio n for injection active Not Available Not Available No t Available Vitamin B-12 50 mcg tablet Take by oral route. 12/11 completed Not Available Not Available Not Available nortripty line 25 mg capsule TAKE 1 CAPSULE BY MOUTH EVERY EVENING 2024 active SAMREEN: 03/30/25 - NOV: 07/28/25 Not Available Not Available Not Available erythromy lauren 250 mg tablet TAKE ONE TABLET BY MOUTH THREE TIMES DAILY WITH FOOD 04/03 completed Not Available Not Available Not Available alprazola m 0.5 mg tablet TAKE ONE TAB 30 MIN BEFORE THE PROCEDUR E 06/09 completed Not Available Not Available Not Available [...] tended release TAKE 1 TABLET BY MOUTH ONCE DAILY DO NOT CRUSH, CHEW, OR SPLIT active Not Available Not Available No t Available cephalexi n 500 mg capsule TAKE 1 CAPSULE BY MOUTH EVERY 6 HOURS FOR 7 DAYS 12/01 completed Not Available Not Available Not Available pantopraz ole 40 mg tablet,de layed release TAKE 1 TABLET BY MOUTH EVERY DAY NEEDED active Not Available Not Available No t Available nortripty line 10 mg capsule TAKE 1 CAPSULE BY MOUTH EVERY DAY 12/01 completed Not Available Not Available Not Available ferrous sulfate 325 mg (65 mg iron) tablet TAKE 1 TABLET BY MOUTH EVERY DAY IN THE MORNING active Not Available Not Available No t Available lisinopri l 10 mg tablet TAKE ONE TABLET BY MOUTH ONCE DAILY active Not Available Not Available No t Available lidocaine 5 % topical patch APPLY 1 PATCH ONTO SKIN ONCE DAILY active Not Available Not Available No t Available hydrochlo rothiazid e 12.5 mg capsule Take 1 capsule every day by oral route. 10/13 completed Not Available Not Available Not Available sertralin e 25 mg tablet TAKE 1 TABLET BY MOUTH EVERY DAY 06/09 completed Not Available Not Available Not Available omeprazol e 20 mg capsule,d elayed release OPEN CAPSULE & SPRINKLE GRANULES ON APPLESAU CE/PUDDI NG & TAKE IMMEDIAT CHRIS BEFORE A MEAL ONCE DAILY 03/31 completed Not Available Not Available Not Available monteluka st 10 mg tablet TAKE 1 TABLET BY MOUTH EVERY DAY 2024 active SAMREEN 08/03/24 NOV 12/01/24 ok to rf Not Available Not Available Not Available Tylenol-C odeine #3 300 mg-30 mg [...] e 50 mcg/actua tion nasal spray,tracy pension USE 2 SPRAYS IN EACH NOSTRIL EVERY DAY 2024 active Not Available Not Available Not Avai lable sertralin e 50 mg tablet TAKE 1 [...] Not Available Not Available Not Available calcium 12/01 completed Not Available Not Available Not Available folic acid 2020 active Not Available Not [...] completed Not Available Not Available Not Available cholecalc iferol (vitamin D3) 50 mcg (2,000 unit) capsule TAKE 1 CAPSULE BY MOUTH EVERY DAY active Not Available Not Available No t Available Zyrtec 10 mg capsule Take 1 [...] Available Not Available Not Avai lable Fluvirin 3956-0831 45 mcg (15 mcg x 3)/0.5 mL intramusc ular suspensio n active Not Available Not Available Not Available Vitamin B12 2020 active Not Available Not Available Not Avai lable Fluvirin 1590-0483 45 mcg (15 mcg x 3)/0.5 mL intramusc ular suspensio n 01/15 completed Not Available Not Available Not Available Fluarix Quad 0473-1591 (PF) 60 mcg (15 mcg x 4)/0.5 mL IM syringe 12/05 completed Not Available Not Available Not Available Jynarque 90 mg (AM)/30 mg (PM) tablets Take 90 mg every day by oral route in the morning. 2020 active Take 30mg tablet in the eveningK IDNEYS Not Available Not Available Not Available Jynarque 45 mg (AM)/15 mg (PM) tablets Take by oral route. 10/13 completed Not Available Not Available Not Available Bariatric Multivita mins 1Tab daily 2020 active [facility] Not Available Not Available Not Available Fluzone Quad (PF) 60 mcg (15 mcg x 4)/0.5 mL IM syringe PHARMACY ADMINIST ERED 02/09 completed Not Available Not Available Not Available Vitals Date Recorded Body weight Body mass index (BMI) Body height Body temperature Heart rate Oxygen saturation Oxygen saturation in Arterial blood by Pulse oximetry Systolic And Diastolic Provider Name and Address Organization Details Last Updated DateTime 5 90112.2 6 g 30.2 kg/m2 162.56 cm 97 [degF] 54 /min 94 % 94 % 130/80 mm[Hg] VALARIE Flores [employer] 5 09:31:06 Date Recorded Body height Body mass index (BMI) Body weight Heart rate Oxygen saturation Oxygen saturation in Arterial blood by Pulse oximetry Provider Name and Address Organization Details Last Updated DateTime 5 162.56 cm 30 kg/m2 90683.6 6 g 89 /min 98 % 98 % Tonia green [employer] [facility] 5 15:51:04 Date Recorded Body height Body mass index (BMI) Body weight Provider Name and Address Organization Details Last Updated DateTime 01/19/2025 162.56 cm 30 kg/m2 70352.66 g Tammy Bee MA [employer] [facility] [employer] 01/19/2025 14:56:25 Date Recorded Body height Body mass index (BMI) Body weight Body temperature Heart rate Oxygen saturation Oxygen saturation in Arterial blood by Pulse oximetry Systolic And Diastolic Provider Name and Address Organization Details Last Updated DateTime 5 162.56 cm 29.4 kg/m2 97436.3 g 97.6 [degF] 78 /min 98 % 98 % 128/78 mm[Hg] Tonia green [employer] [facility] [employer] 5 09:48:54 Date Recorded Body height Body mass index (BMI) Body weight Body temperature Heart rate Oxygen saturation Oxygen saturation in Arterial blood by Pulse oximetry Systolic And Diastolic Provider Name and Address Organization Details Last Updated DateTime 5 162.56 cm 29.7 kg/m2 84225.4 8 g 97.8 [degF] 78 /min 96 % 96 % 124/86 mm[Hg] Tonia green [employer] [facility] 5 16:27:52 Social History Question Answer Notes LastModified by Organization Details LastModified Time Tobacco Smoking Status Former Smoker quit 22+yrs ago Not Available [facility] 11/14/2022 04:41:14 Do You Have An Advance Directive? No MIGRATION.030 [id number] Information not available 11/14/2022 Are You Blind Or Do You Have Difficulty Seeing? No MIGRATION.030 [id number] Information not available 11/14/2022 Is Blood Transfusion Acceptable In An Emergency? Yes [email or web address] Information not available 08/03/2024 What Is Your Level Of Caffeine Consumption? None MIGRATION.0301 [id number] Information not available 11/14/2022 How Much Tobacco Do You Chew? None MIGRATION.030 100227 Information not available 11/14/2022 In The 14 Days Before Symptom Onset, Have You Had Close Contact With A Laboratory-confi rmed COVID-19 While That Case Was Ill? No MIGRATION.030 [id number] Information not available 11/14/2022 In The 14 Days Before Symptom Onset, Have You Had Close Contact With A Person Who Is Under Investigation For COVID-19 While That Person Was Ill? No MIGRATION.030 [id number] Information not available 11/14/2022 Are You Deaf Or Do You Have Serious Difficulty Hearing? No MIGRATION.030 120719 Information not available 11/14/2022 What Type Of Diet Are You Following? SPECIFIC Gastric Bypass Diet MIGRATION.030 555125 Information not available 11/14/2022 Which Illicit Or Recreational Drugs Have You Used? None MIGRATION.030 744962 Information not available 11/14/2022 What Is The Highest Grade Or Level Of School You Have Completed Or The Highest Degree You Have Received? [id number] MIGRATION.030 [id number] Information not available 11/14/2022 How Many Days Of Moderate To Strenuous Exercise, Like A Brisk Walk, Did You Do In The Last 7 Days? 0 [email or web address] Information not available 08/03/2024 Have There Been Any Changes To Your Family Or Social Situation? No MIGRATION.030 249214 Information not available 11/14/2022 What Is The Fluoride Status Of Your Home? Unknown MIGRATION.030 093078 Information not available 11/14/2022 When Did You Quit Smoking? 16+yearssincelastc igarette Quit In 1998 [email or web address] Information not available 08/03/2024 Are There Any Guns Present In Your Home? No MIGRATION.0301 [id number] Information not available 11/14/2022 Do You Use Insect Repellent Routinely? No MIGRATION.0301 [id number] Information not available 11/14/2022 Where Do You Live? [place]House MIGRATION.0301 [id number] Information not available 11/14/2022 Do You Have A Medical Power Of Director [employer] Analytics? No MIGRATION.0301 [id number] Information not available 11/14/2022 What Was The Date Of Your Most Recent Tobacco Screening? 08/03/2024 [email or web address] Information not available 08/03/2024 How Many Children Do You Have? 2 [email or web address] Information not available 08/03/2024 Do You Have Any Pets? No MIGRATION.0301 [id number] Information not available 11/14/2022 Do You Use Protection During Sex? No [email or web address] Information not available 08/03/2024 What Is Your Relationship Status? MIGRATION.0301 [id number] Information not available 11/14/2022 Do You Use Your Seat Belt Or Car Seat Routinely? Yes MIGRATION.0301 [id number] Information not available 11/14/2022 Are You Sexually Active? Yes [email or web address] Information not available 08/03/2024 Do You Have Smoke And Carbon Monoxide Detectors In Your Home? Yes MIGRATION.0301 [id number] Information not available 11/14/2022 At What Age Did You Start Smoking Tobacco? 11 MIGRATION.0301 156199 Information not available 11/14/2022 Are You Passively Exposed To Smoke? No MIGRATION.0301 338484 Information not available 11/14/2022 Are There Any Smokers In Your House? No MIGRATION.0301 629146 Information not available 11/14/2022 How Much Tobacco Do You Smoke? No Was / Ppd MIGRATION.0301 [id number] Information not available 11/14/2022 What Types Of Sporting Activities Do You Participate In? None MIGRATION.0301 [id number] Information not available 11/14/2022 Do You Use Sunscreen Routinely? Yes MIGRATION.0301 [id number] Information not available 11/14/2022 Has Tobacco Cessation Counseling Been Provided? No MIGRATION.0301 [id number] Information not available 11/14/2022 Have You Recently Traveled Abroad? No MIGRATION.0301 [id number] Information not available 11/14/2022 Do You Have Difficulty Walking Or Climbing Stairs? No MIGRATION.0301 [id number] Information not available 11/14/2022 Do You Have Any Dietary Restrictions? No MIGRATION.0301 315373 Information not available 11/14/2022 Sex: Female Functional Status Question Answer Note LastModified by Organizat ion Details LastModified Time Do you use any illicit or recreational drugs? No MIGRATION.995854 8779 Information not available 11/14/2022 Do you or have you ever used any other forms of tobacco or nicotine? No [email or web address] Information not available 08/03/2024 What is your level of alcohol consumption? None MIGRATION.929336 1319 Information not available 11/14/2022 Do you or have you ever used smokeless tobacco? Never used smokeless tobacco MIGRATION.768365 7648 Information not available 11/14/2022 Are you currently employed? Yes [email or web address] Information not available 08/03/2024 Do you have difficulty doing errands alone? 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 No MIGRATION.147506 0862 Information not available 11/14/2022 Do you or have you ever used e-cigarettes or vape? Never used electronic cigarettes MIGRATION.879170 1733 Information not available 11/14/2022 What is your exercise level? None [email or web address] Information not available 08/03/2024 Mental Status Question Answer Note LastModified by Organizat ion Details LastModified Time Do you feel stressed (tense, restless, nervous, or anxious, or unable to sleep at night)? [id number] MIGRATION.556575 9426 Information not available 11/14/2022 Do you have difficulty concentrating, remembering or making decisions? Yes concentrating MIGRATION.843773 3585 Information not available 11/14/2022 Family History Relationship Description Onset Age of this Age Resolved Age Notes LastModified by Organization Details LastModified Time Father Family history of Polycystic kidney MIGRATION.306 [id number] Not available 11/14/2022 04:43:06 Father Pulmonary emphysema MIGRATION.845 [id number] Not available 11/14/2022 04:43:06 Father Chronic obstructive pulmonary disease MIGRATION.233 [id number] Not available 11/14/2022 04:43:06 Mother Malignant neoplasm of uterus MIGRATION.520 [id number] Not available 11/14/2022 04:43:06 Mother Malignant neoplasm of cervix uteri MIGRATION.376 [id number] Not available 11/14/2022 04:43:06 Medical History Condition [...] influenza, unspecified formulation 3 completed Not Available [facility] 08/06/2023 22:21:23 Tdap 2 completed Not Available [facility] 06/09/2025 16:18:15 COVID-19, mRNA, LNP-S, PF, cristina-sucrose, 30 mcg/0.3 mL 3 completed Not Available [facility] 06/09/2025 16:18:15 pneumococcal polysaccharide PPV23 3 completed Not Available [facility] 06/09/2025 16:18:15 COVID-19, mRNA, LNP-S, PF, cristina-sucrose, 30 mcg/0.3 mL 4 completed Not Available [facility] 06/09/2025 16:18:15 Influenza, MDCK, trivalent, PF 4 completed Not Available [facility] 06/09/2025 16:18:15 Pneumococcal conjugate PCV20, polysaccharide [id number] conjugate, adjuvant, PF 4 completed Not Available [facility] 06/09/2025 16:18:15 HepB-CpG 4 completed Not Available [facility] 06/09/2025 16:18:15 HepB-CpG 5 completed Not Available [facility] 06/09/2025 16:18:15 zoster recombinant 5 completed Not Available [facility] 06/09/2025 16:18:15 Tdap 5 completed Not Available [facility] 06/09/2025 16:18:15 COVID-19, mRNA, LNP-S, PF, cristina-sucrose, 30 mcg/0.3 mL 5 completed Not Available [facility] 06/09/2025 16:18:15 COVID-19, mRNA, LNP-S, PF, 30 mcg/0.3 mL dose 1 completed Not Available [facility] 08/06/2023 22:21:23 Influenza, split virus, quadrivalent, preservative 1 completed Not Available [facility] 08/06/2023 22:21:23 COVID-19, mRNA, LNP-S, PF, 30 mcg/0.3 mL dose 1 completed Not Available [facility] 08/06/2023 22:21:23 COVID-19, mRNA, LNP-S, PF, 30 mcg/0.3 mL dose 1 completed Not Available [facility] 08/06/2023 22:21:23 Influenza, split virus, quadrivalent, preservative 0 completed Not Available [facility] 08/06/2023 22:21:23 zoster, unspecified formulation 0 completed Not Available [facility] 08/06/2023 22:21:23 zoster recombinant 9 completed Not Available [facility] 08/06/2023 22:21:23 Influenza, split virus, quadrivalent, preservative 9 completed Not Available [facility] 08/06/2023 22:21:23 influenza, unspecified formulation 8 completed Not Available [facility] 08/06/2023 22:21:23 Influenza, split virus, quadrivalent, preservative 7 completed Not Available [facility] 08/06/2023 22:21:23 Influenza, split virus, trivalent, preservative 2 completed Not Available [facility] 08/06/2023 22:21:23 Influenza, high-dose, trivalent, PF 6 completed Not Available [facility] 08/06/2023 22:21:23 Influenza, high-dose, trivalent, PF 5 completed Not Available [facility] 08/06/2023 22:21:23 Influenza, split virus, trivalent, preservative 4 completed Not Available [facility] 08/06/2023 22:21:23 Past Encounters Encounter ID Performer Location Encounter Start Date Encounter Closed Date Diagnosis/Indication Diagnosis SNOMED-CT Code Diagnosis ICD10 Code Diagnosis IMO Codes Diagnosis Note [id number] Joselito Laws MD [facility] [place] [address] [place], [place] [address], [address] [place] [address] 02/09/2021 00:00:00 02/13/2021 22:03:34 [id number] [facility] Laurence Mcginnis [address] [place] [address] 02/27/2021 00:00:00 02/28/2021 08:50:34 [id number] [facility] _ATHENA_M IGRATION_ DEFAULT_1 _1 , 04/10/2021 00:00:00 04/10/2021 11:05:18 [id number] [facility] _ATHENA_M IGRATION_ DEFAULT_1 _1 , 07/06/2021 00:00:00 07/06/2021 16:57:56 [id number] [facility] _ATHENA_M IGRATION_ DEFAULT_1 _1 , 07/24/2021 00:00:00 07/24/2021 10:14:37 [id number] Joselito Laws MD [facility] [address] [facility] [address] [address] 08/14/2021 00:00:00 08/17/2021 22:30:12 [id number] Joselito Laws MD [facility] Internal [facility] [address] [address] 02/08/2022 00:00:00 02/08/2022 21:20:41 [id number] Joselito Laws MD [facility] [place] [facility] [address] [place] [address] [address] [address] 03/15/2022 00:00:00 03/25/2022 12:37:36 [id number] Joselito Laws MD [facility] [place] [address] [address] [place] [address] 06/05/2022 00:00:00 06/10/2022 15:33:41 [id number] Joselito Laws MD [facility] [place] [address] [place] [address] [place] [address] [address] 10/02/2022 00:00:00 10/02/2022 22:26:14 [id number] Joselito Laws MD [facility] Internal Med [facility] [address] [facility] 15 [place] [address] 04/03/2023 14:26:24 04/03/2023 15:12:21 Hyperlipidemia 48986961 E78.5 Gastroesop hageal reflux disease without esophagitis 466266162 K21.9 Anxiety 81751996 F41.9 [id number] Joselito Laws MD [facility] Internal Med [facility] [address] [facility] 15 [place] [address] 05/01/2023 11:43:43 05/01/2023 12:40:23 Chronic deep venous thrombosis of lower extremity 8221110157 41220 I82.890 [id number] Enmanuel Prince MD [facility] Internal Med [facility] [address] [facility] [place] [place] [address] 06/25/2023 10:11:54 06/25/2023 11:29:42 Adult health examination 432839284 Z00.00 Colonoscop y- 2016- NL per ptMammogra m2022- NLDEXA- 02/2022FLU - 05/2023 ([facility])Pneum ovax-Shing les- Has had bothCOVID- Has had 3 Anxiety 62358212 F41.9 under control Hyperlipidemia 10479789 E78.5 mild, watch diet Acquired p olycystic kidney disease 16187223 N28.[address] Aquino Depressive disorder 3548 9007 F32.A under control Allergic rhinitis 696479 04 J30.9 meds help Deep venou s thrombosis of lower extremity 084234003 I82.409 recurrent, on life long meds Gastroesop hageal reflux disease 538357443 K21.9 meds help Hiatal hernia 32224336 K 44.9 meds help Lower esophageal ring 23 0677069 K22.2 s/p dilatation Iron defic iency anemia 41343198 D50.9 on oral meds [id number] Enmanuel Prince MD [facility] Internal Med [address] [facility] [place] [address] 11/26/2023 09:40:54 11/26/2023 10:16:24 Adult health examination 916210838 Z00.00 Colonoscop y- 2016- NL per ptMammogra m- 11/09- NLDEXA- 02/2022FLU - 05/2023 ([facility])Pneum ovax-Shing les- Has had bothCOVID- Has had 3 Anxiety 68902110 F41.9 under control Hyperlipidemia 83780229 E78.5 mild, watch diet Acquired p olycystic kidney disease 48313868 N28.[address] Aquino Depressive disorder 3548 9007 F32.A under control Allergic rhinitis 938609 04 J30.9 ADD Flonase Deep venou s thrombosis of lower extremity 525385257 I82.409 recurrent, on life long meds Gastroesop hageal reflux disease 464394239 K21.9 meds help Hiatal hernia 18378307 K 44.9 meds help Lower esophageal ring 23 8875781 K22.2 s/p dilatation Iron defic iency anemia 54763669 D50.9 on oral meds Plantar wa rt of left foot 3719278741 4993935 B07.0 Exposure t o tuberculosis 6794532394 101 Z20.1 [id number] Wellington Urbina DPM [facility] [place] [address] [address] 11/28/2023 09:14:30 11/28/2023 10:57:25 Plantar wart of left foot 8763329955 5241699 B07.0 [id number] Wellington Urbina DPM [facility] [place] [address] [address] 12/06/2023 09:09:06 12/06/2023 10:53:33 Plantar wart of left foot 3078023633 1659524 B07.0 [id number] Enmanuel Prince MD [facility] [address] [facility] [place] [address] 03/31/2024 09:25:50 03/31/2024 10:22:13 Anxiety 75521407 F41.9 under control Hyperlipidemia 23314603 E78.5 start meds Acquired p olycystic kidney disease 48495361 N28.1 TO F/U WITH NEPHROLOGY Depressive disorder 3548 9007 F32.A under control Allergic rhinitis 082109 04 J30.9 ADD Flonase Deep venou s thrombosis of lower extremity 627718953 I82.409 recurrent, on life long meds Gastroesop hageal reflux disease 016469925 K21.9 meds help Hiatal hernia 92699620 K 44.9 meds help Lower esophageal ring 23 8881294 K22.2 s/p dilatation Iron defic iency anemia 87680143 D50.9 on oral meds Adult heal th examination 782049691 Z00.00 Colonoscop y- 2016- NL per ptMEnergatix Studioogra m11/09- NLDEXA- 02/2022FLU - 05/2023 ([facility])Pneum ovax-Shing les- Has had bothCOVID- Has had 3 Diabetes mellitus 251457 09 E11.9 UNDER CONTROL Long-term drug therapy 281709763 Z79.899 Postmenopausal state 764 77213 Z78.0 Pain in left thumb 34858 79329 273134 M79.645 tendonitis , to use brace [id number] Enmnauel Prince MD [facility] [address] [place] [address] 08/03/2024 09:42:39 08/03/2024 10:51:13 Diabetes mellitus 15138851 E11.9 under control Anxiety 63462472 F41.9 under control with mmeds Hyperlipidemia 82819876 E78.5 on ,meds Acquired p olycystic kidney disease 17688016 N28.1 seeing nephrology Depressive disorder 3548 9007 F32.A under control Allergic rhinitis 198997 04 J30.9 better with meds Gastroesop hageal reflux disease 305756927 K21.9 meds help Hiatal hernia 16687471 K 44.9 meds help Lower esophageal ring 23 9424582 K22.2 s/p dilatation Iron defic iency anemia 65748430 D50.9 on oral meds Adult heal th examination 100753519 Z00.00 Colonoscop y- 2016- NL per ptMammogra m- 2/24- NLDEXA- 04/30/24FL U- 05/2024 ([facility])Pneum ovax- 05/2023 ([facility])Nahid love- Has had bothCOVID- Has had 05/2024 Pain in left thumb 78018 22054 396303 M79.645 tendonitis , to use brace Recurrent deep vein thrombosis 121227965 I82.509 on life long meds Depression screening 171 806124 Z13.31 Normal bod y mass index 91936643 Z68.30 [id number] Enmanuel Prince MD [facility] Internal [facility] [address] [facility] [address] 12/01/2024 09:21:07 12/01/2024 09:50:52 Diabetes mellitus 68530234 E11.9 under control, no meds needed Anxiety 22815930 F41.9 under control with meds Hyperlipidemia 19742106 E78.5 under control Acquired p olycystic kidney disease 74244936 N28.1 seeing nephrology Depressive disorder 3548 9007 F32.A under control Allergic rhinitis 254571 04 J30.9 better with meds Gastroesop hageal reflux disease 997192616 K21.9 meds help Hiatal hernia 03307525 K 44.9 meds help Lower esophageal ring 23 4833112 K22.2 s/p dilatation Iron defic iency anemia 09344414 D50.9 on oral meds Adult heal th examination 243912850 Z00.00 Colonoscop y- 2016- NL per Curtis m11/09- 2024 Dr. Medina- per ptDEXA- 04/30/24FL U- 05/2024 ([facility])Pneum ovax- 05/2023 ([facility])Nahid love- Has had bothCOVID- Has had 05/2024 Recurrent deep vein thrombosis 034182580 I82.509 on life long meds [id number] Enmanuel Prince MD [facility] Internal [facility] [address] [place] [address] 01/11/2025 15:39:00 01/11/2025 17:14:33 Pain of right knee region 3312317862 81280 M25.561 Xray completed. [id number] Richard Owens MD [facility] General Surgery [address] [place] [address] 01/19/2025 13:59:01 01/27/2025 18:04:54 Esophageal dysphagia 56426079 R13.19 8211 Explained to pat needs to f/u with bariatric surgeon that performed surgery.Ad d ppi [id number] Enmanuel Prince MD [facility] Internal Med [address] [place] [address] 03/30/2025 09:37:49 03/30/2025 10:12:40 Diabetes mellitus 04735540 E11.9 under control, no meds needed Anxiety 29263412 F41.9 under control with meds Hyperlipidemia 66922045 E78.5 under control Acquired p olycystic kidney disease 69423371 N28.1 seeing nephrology , stable GFR Depressive disorder 3548 9007 F32.A under control Allergic rhinitis 852172 04 J30.9 meds help Gastroesop hageal reflux disease 908902145 K21.9 Hiatal hernia 00743295 K 44.9 needs EGD , she will discuss with a bariatric surgeon, see GI Dr Cruz and was advised by him to see her Bariatric surgeon Lower esophageal ring 23 6078829 K22.2 s/p dilatation Iron defic iency anemia 11065010 D50.9 not on meds any more Adult heal th examination 078987471 Z00.00 Colonoscop y- 2016- NL per Curtis m- 11/09- 2024 Dr. Medina- NL per ptDEXA- 04/30/24FL U- 05/2024 ([facility])Pneum ovax- 05/2023 ([facility])Shing les- Has had bothCOVID- Has had 3, 05/2024 Recurrent deep vein thrombosis [id number] I82.509 on life long meds History of bariatric surgical procedure [id number] Z98.84 [id number] Long-term current use of drug therapy [id number] Z79.824 [id number] Enmanuel Prince MD [facility] [address] [place] [address] 06/09/2025 16:15:51 06/09/2025 17:06:57 Preoperative state [id number] Z01.818 [id number] EKG nllabs reviewed from her phonenl cbc and bmp other than low GFR of 18non smoker Hyperlipidemia 15155830 E78.5 under control Recurrent deep vein thrombosis [id number] I82.509 on life long anticoagul ation Diabetes mellitus 148876 09 E11.9 under control, no meds needed Acquired p olycystic kidney disease 87552340 N28.1 seeing nephrology , low GFR Health Concerns Section Related Observation LastModified by Organization Detai ls LastModified Time None Recorded Concern Status LastModified by Organization Details LastModified Time None Recorded Advance Directives Directive N: Payers Insurance Date Sequence Insurance Name Policy Number Policy Oliveira Covered Member ID Oliveira Member ID Guarantor Name 03/30/2025 1 [employer] [facility]IDE [facility] - OPEN ACCESS III (PPO) [id number] Johanna Mendez [id number] Johanna Mendez 06/09/2025 1 [employer] [id number] Johanna Mendez [id number] Johanna Mendez 06/09/2025 1 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 Aquino, GFR 18 , was 20,has low GFR for yrs and not getting worse,Meds- HCTZ 12.5 mg daily and Jynarque 90mg in AM 30mg PM Anxiety/Depression- mood and anxiety under control,Meds- Sertraline 50 mg daily, GERD- Meds helpMeds- Omeprazole 20mg daily prn Hyperlipidemia- mild, watching diet, labs good 04/08 Esophageal ring/ hiatal hernia-- gets EGD and dilatation, NO symptoms, gets regurgitation and nausea, nortriptyline helps, had nl gastric emptying study, Allergic rhinitis- on medsMeds- Montelukast 10mg daily, Zyrtec 10mg daily, Flonase as needed Headaches- Uses Tylenol as needed DVT- RECURRENT , ON LIFE LONG ANTICOAGULANTS, always in the left leg, never had PE, 2003, 2020 and 2022 on Xarelto 20mg daily. h/o gastric bypass and had lost over 100 lbs, maintaining it,Meds- Bariatric Vitamins DM- she was diabetic before getting gastric bypass and was on metformin, A1c 5.5 Anemia- iron def, on iron, gets iron infusion Enmanuel Prince MD [address] [facility], [place], [address], [employer] 12/01/2024 09:49:16 01/11/2025 text/html Patient is 54y/o female who reports right knee pain. Patient reports having so much pain she went to the ER. Patient states that she was dusting and had kneeled and heard a pop. Patient reports using tylenol and ICE/Heat for pain. Paitent denies shortness of breath, dizziness, or fevers at this time. 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 Aquino, GFR 18 , was 20,has low GFR for yrs and not getting worse,Meds- HCTZ 12.5 mg daily and Jynarque 90mg in AM 30mg PM Anxiety/Depression- mood and anxiety under control,Meds- Sertraline 50 mg daily, GERD- Meds helpMeds-has taken Pantoprazole 40 mg qd prn Hyperlipidemia- mild, watching diet, labs good 04/08 Esophageal ring/ hiatal hernia-- gets EGD and dilatation, gets regurgitation and nausea, had nl gastric emptying study,GETTING MORE SYMPTOMS Allergic rhinitis- on medsMeds- Montelukast 10mg daily, Zyrtec 10mg daily, Flonase as needed Headaches- Uses Tylenol as needed DVT- RECURRENT , ON LIFE LONG ANTICOAGULANTS, always in the left leg, never had PE, 2003, 2020 and 2022 on Xarelto 20mg daily. h/o gastric bypass and had lost over 100 lbs, maintaining it,Meds- Bariatric Vitamins DM- she was diabetic before getting gastric bypass and was on metformin, A1c 5.5 Anemia- iron def, on iron, had iron infusions in the past, labs good 04/08 Enmanuel Prince MD [address], [address], [place], [address], [employer] 03/30/2025 10:09:08 06/09/2025 text/html she is here for medical clearance for right knee replacement by [facility] at [facility]. she has no cp or sob, ex smoker, quit 25 yrs ago Polycystic Kidney disease- Sees Dr. Aquino, GFR 18 ,has low GFR for yrs and not getting worse,Meds- HCTZ 12.5 mg daily and Jynarque 90mg in AM 30mg PM Anxiety/Depression- mood and anxiety under control,Meds- Sertraline 50 mg daily, GERD- Meds helpMeds-has taken Pantoprazole 40 mg qd prn Hyperlipidemia- mild, watching diet, Esophageal ring/ hiatal hernia-- gets EGD and dilatation, gets regurgitation and nausea, had nl gastric emptying study, DVT- RECURRENT , ON LIFE LONG ANTICOAGULANTS, always in the left leg, never had PE, 2003, 2020 and 2022 on Xarelto 20mg daily. h/o gastric bypass and had lost over 100 lbs, maintaining it,Meds- Bariatric Vitamins DM- she was diabetic before getting gastric bypass and was on metformin, A1c 5.4 Anemia- iron def, on iron, had iron infusions in the past, labs good04/08 Autoimmune thyroiditis- seeing endo, no meds, no symptoms Enmanuel Prince MD [address], [address], [place], [address], [employer] 06/09/2025 17:02:59 OBGyn Episode No OBEpisode recorded.
--- OUTSIDE RECORDS SUMMARY | 2025-06-17 12:05 | XMS_ITS | Encounter Summary ---
Author Organization [facility] Address [address] [place] [address] Phone Care Team Providers Care Care Analyst Name Role Phone Joselito Laws MD Primary Care Provider Reason for Visit * Reason Comments Med Refill Encounter Details Date Type Department Care Team (Late Contact Info) Description 05/13/2019 Refill [facility] [address] [place] [address] Brayan Aquino MD [address] [place] [address] Social History Tobacco Use Types Packs/Day Years Used Date Smoking Tobacco: Never Assessed Comments Unknown Sex and Gender Information Value Date Recorded Sex Assigned at Not on file Legal Sex Female 9:36 AM MST Gender Identity Not on file Sexual Orientation Not on file documented as of this encounter Plan of Treatment Upcoming Encounters Date Type Department [facility] Description 07/14/2025 2:00 PM CDT Office Visit [facility] [address] [place] [address] 1 [place] [address] [place] [address] [place] [address] 08/04/2025 2:40 PM HOTBED TRANSFER OPERATOR Office Visit [facility] [address] [place] [address] 1 [place] [address] [place] [address] [place] [address] documented as of this encounter Visit Diagnoses Not on filedocumented in this encounter Care Teams Care Analyst Relationship Specialty Start Date End Date Joselito Laws MD [address] [phone] PCP - General 11/25/19 documented as of this encounter
--- OUTSIDE RECORDS SUMMARY | 2025-06-17 12:05 | XMS_ITS | Encounter Summary ---
Author Organization [facility] Physician [facility]ions Address [address] [place] [address] Phone Care Team Providers Care Nurse Practitioner Hospitalist Name Role Phone Joselito Laws MD Primary Care Provider Reason for Visit * Reason Comments Med Refill Encounter Details Date Type Department Care Team ([facility] Contact Info) Description 03/04/2020 Refill [facility] [address] [place] [address] [phone] Brayan Aquino MD [address] [address] Social History Tobacco Use Types [...] Upcoming Encounters Date Type Department Care Team ([facility] Contact Info) Description 07/14/2025 2:00 PM CDT Office Visit [facility] 1 [place] [address] Brayan Aquino MD [address] [phone] 08/04/2025 2:40 PM SUPERVISOR TREE FRUIT AND NUT FARMING Office Visit [facility] [address] [facility] 1 [place] [address] Brayan Aquino MD [facility] 1 [place] [address] documented as of this encounter Visit Diagnoses Not on filedocumented in this encounter Care Teams Nurse Practitioner Hospitalist Relationship Specialty Start Date End Date Joselito Laws MD 2043 [facility] 15 [place] [phone] PCP - General 11/25/19 documented as of this encounter
--- OUTSIDE RECORDS SUMMARY | 2025-06-17 12:05 | XMS_ITS | Clinical Summary ---
Author Organization Dorinda Physician Suzan [facility] Address [address] [place] [address] Phone Care Team Providers Care Executive Creative Director Name Role Phone Joselito Laws MD Primary Care Provider Allergies Active Allergy Reactions Criticality Noted Date Comments Ibuprofen 05/21/2019 Vhgploao-Yqqedelce-Owhmcnkicr 2018 Medications montelukast (SINGULAIR) 10 MG tablet 1 tab daily 0 016 Active Multiple Vitamins-Minerals (DEKAS BARIATRIC PO) Active sertraline (ZOLOFT) 50 MG tablet Take [...] down for the next 30 min. Active folic acid (FOLVITE) 800 MCG tablet Take 800 mcg by mouth 1 (one) time each day Active cyanocobalamin (VITAMIN B-12) 1000 MCG tablet Take 5,000 mcg by mouth 1 (one) time each day Active hydroCHLOROthiazide 12.5 MG tablet Take 1 tablet (12.5 mg total) by mouth 1 (one) time each day 90 tablet 1 024 Active Cholecalciferol 50 MCG (2000 UT) capsuleIndications:Sec ondary hyperparathyroidism of renal origin Take 1 capsule by mouth 1 (one) time each day 30 capsule 11 025 Active potassium citrate (UROCIT-K) 10 MEQ (1080 MG) CR tablet TAKE 1 TABLET (10 MEQ TOTAL) BY MOUTH 1 (ONE) TIME EACH DAY DO NOT CRUSH, CHEW, OR SPLIT. 90 tablet 3 025 Active lidocaine (LIDODERM) 5 % patch Apply 1 patch topically 1 (one) time each day Remove & discard patch within 12 hours or as directed by . Active ondansetron (Zofran) 4 MG tabletIndications:Watchmaker Apprentice john kidney disease, stage 4 (severe) Take 1 tablet (4 mg total) by mouth every 8 (eight) hours if needed for nausea or vomiting 60 tablet 3 025 2025 Active Tolvaptan 90 & 30 MG tablet therapy packIndications:Autoso mal dominant polycystic kidney Take 90 mg by mouth every morning, and take 30 mg by mouth 8 hours later every day. 56 each 025 Active Tolvaptan (Jynarque) 90 & 30 MG tablet therapy packIndications:Autoso mal dominant polycystic kidney Take 90 mg by mouth daily AND 30 mg 1 (one) time each day in the evening. Take one 90 mg tablet daily in the morning and one 30 mg tablet 8 hours later. 56 each 2 025 2024 Discontinued Hospital, Clinic, or Other Facility Administered Medication Ordered Dose Route Frequency Start Date End Date Status iron sucrose (VENOFER) injection 500 mgIndications:Iron deficiency anemia, not otherwise specified 500 mg IV See admin instructions 08/26/2024 Active Active Problems Problem Noted Date Diagnosed Date Secondary hyperparathyroidism of renal origin Essential hypertension 05/21/2019 Adult polycystic kidney 01/11/2017 Chronic kidney disease, stage 4 (severe) 016 Resolved Problems Problem Noted Date Diagnosed Date Resolved Date Encounter for therapeutic drug monitoring 11/07/2023 03/11/2025 Iron deficiency anemia 02/20/202303/11 Headache, unspecified 08/18/20202020 Back pain 05/20/2020 08/18/2020 Acute kidney failure 11/19/2018 019 Urinary tract infection 11/19/201801/2019 Anemia 07/18/2016 05/13/2024 Encounters Date Type Department Care Team Description 05/31/2025 Refill [facility] [address] [place] [address], [facility] 1 [place] [address] Brayan Aquino MD Autosomal dominant polycystic kidney 03/31/2025 Refill [facility] [address] [place] [address] 1 [place] [address] Nany Erickson RN Autosomal dominant polycystic kidney 03/17/2025 12:40 PM CDT Office Visit [facility] [address] [place] [address] Brayan Aquino MD Chronic kidney disease, stage 4 (severe) (CMS-HCC) (Primary Dx); Essential hypertension; Secondary hyperparathyroidism of renal origin (CMS-HCC); Adult polycystic kidney 03/17/2025 Orders Only [facility] [address] [place] [address] Nany Erickson RN Adult polycystic kidney (Primary Dx); Chronic kidney disease, stage 4 (severe) (CMS-HCC) from Last 3 Months Immunizations Immunization Administration [...] Sign Reading Time Taken Comments Blood Pressure 141/95 03/17/2025 12:36 PM CDT Pulse 83 03/17/2025 12:36 PM CDT Temperature 37.1 C (98.7 F) 05/03/2021 4:13 PM CDT Respiratory Rate - - Oxygen Saturation 99% 10/24/2022 2:05 PM CUSTOMER RELATIONS ADVISOR Inhaled Oxygen Concentration - - Weight 78 kg (172 lb) 03/17/2025 12:36 PM CDT Height 160 cm (5' 3) 03/17/2025 12:36 PM CDT Body Mass Index 30.47 03/17/2025 12:36 PM CDT Plan of Treatment Upcoming Encounters Date Type Department Care Team (Late st Contact Info) Description 07/14/2025 2:00 PM CDT Office Visit [facility] [address] [place] [address] [phone] Brayan Aquino MD [address] [place] [address] [phone] 08/04/2025 2:40 PM CUSTOMER RELATIONS ADVISOR Office Visit [facility] [address] [place] [address] [phone] Brayan Aquino MD [address] [place] [address] Health Maintenance Due Date Last Done Comments Diabetic Foot Exam 1978 Ophthalmology Exam 1978 Pneumococcal PPSV23 Highest Risk Adult (1 of 3 - PCV13) 1987 Influenza Vaccine (#1) 2025 3, 06/15/2022, 06/27/2018, Additional history exists Insurance PM [employer] DR GUY [address] [address] Care Teams Executive Creative Director Relationship Specialty Start Date End Date Joselito Laws MD 2044 [facility] 15 [place] [address] PCP - General 11/25/19
--- OUTSIDE RECORDS SUMMARY | 2025-06-17 12:05 | XMS_ITS | Encounter Summary ---
Author Organization Dorinda Physician Suzan utions Address [address] [place] [phone] Phone Care Team Providers Care Process Design Chemical Engineer Name Role Phone Joselito Laws MD Primary Care Provider [phone] Reason for Visit * Reason Comments Med Refill Encounter Details Date Type Department Care Team ([facility] Contact Info) Description 11/01/2020 Refill [facility] [address] [place] [address] [phone] Brayan Aquino MD [address] [place] [address] Social History Tobacco Use Types Packs/Day [...] on file Legal Sex Female 9:36 AM [facility] Gender Identity Not on file Sexual Orientation Not on file documented as of this encounter Plan of Treatment Upcoming Encounters Date Type Department Care Team ([facility] Contact Info) Description 07/14/2025 2:00 PM CDT Office Visit [facility] 1 [place], [place] [phone] Brayan Aquino MD [address] [phone] 08/04/2025 2:40 PM TELEPHONE OPERATOR RECEPTIONIST Office Visit [facility] [address] [facility] 1 [place] [address] Brayan Aquino MD [address] [phone] documented as of this encounter Visit Diagnoses Not on filedocumented in this encounter Care Teams Process Design Chemical Engineer Relationship Specialty Start Date End Date Joselito Laws MD 2043 [facility] 15 [place] [phone] PCP - General 11/25/19 documented as of this encounter
--- OUTSIDE RECORDS SUMMARY | 2025-06-17 12:05 | XMS_ITS | Encounter Summary ---
Author Organization [facility] Address [address] [place] [address] Phone Care Team Providers Care Mdm Developer Name Role Phone Joselito Laws MD Primary Care Provider [phone] Reason for Visit * Reason Comments Med Refill Encounter Details Date Type Department Care Team ([facility] Contact Info) Description 07/04/2021 Refill [facility] [address] [place] [address] [phone] Brayan Aquino MD [address] [place] [address] [phone] Social History Tobacco Use Types Packs/Day Years [...] on file Legal Sex Female 9:36 AM [facility] Gender Identity Not on file Sexual Orientation Not on file documented as of this encounter Plan of Treatment Upcoming Encounters Date Type Department Care Team ([facility] Contact Info) Description 07/14/2025 2:00 PM CDT Office Visit [facility] [address] [place] [address] [phone] Brayan Aquino MD [address] [place] [address] 08/04/2025 2:40 PM AERONAUTICS TEACHER Office Visit [facility] [address] [facility] 1 [place] [address] Brayan Aquino MD [address] [phone] documented as of this encounter Visit Diagnoses Not on filedocumented in this encounter Care Teams Mdm Developer Relationship Specialty Start Date End Date Joselito Laws MD [address] [phone] PCP - General 11/25/19 documented as of this encounter
--- OUTSIDE RECORDS SUMMARY | 2025-06-17 12:05 | XMS_ITS | Encounter Summary ---
Author Organization [facility] Physician [facility] Address [address] [place] [address] Phone Care Team Providers Care Seed Core Operator Name Role Phone Joselito Laws MD Primary Care Provider [phone] Reason for Visit * Reason Comments Med Refill Encounter Details Date Type Department Care Team (Late Contact Info) Description 04/21/2019 Refill [facility] [address] [place] [address] Brayan Aquino MD [address] [place] [address] Social History Tobacco Use Types Packs/Day Years Used Date Smoking Tobacco: Never Assessed Comments Unknown Sex and Gender Information Value Date Recorded Sex Assigned at Not on file Legal Sex Female 9:36 AM MST Gender Identity Not on file Sexual Orientation Not on file documented as of this encounter Plan of Treatment Upcoming Encounters Date Type Department Care Team ([facility] Contact Info) Description 07/14/2025 2:00 PM CDT Office Visit [facility] [address] [place] [address] 1 [place] [address] [place] [address] [place] [address] 08/04/2025 2:40 PM SALES AND MARKETING INTERN Office Visit [facility] [address] [place] [address] 1 [place] [address] [place] [address] [place] [address] documented as of this encounter Visit Diagnoses Not on filedocumented in this encounter Care Teams Seed Core Operator Relationship Specialty Start Date End Date Joselito Laws MD [address] [phone] PCP - General 11/25/19 documented as of this encounter
--- OUTSIDE RECORDS SUMMARY | 2025-06-17 12:06 | XMS_ITS | Encounter Summary ---
Author Organization Dorinda Physician Suzan utions Address [address] [place] [address] Phone Care Team Providers Care Dump Truck Driver Off Highway Name Role Phone Joselito Laws MD Primary Care Provider [phone] Reason for Visit * Reason Comments Med Refill Encounter Details Date Type Department Care Team (Late st Contact Info) Description 07/27/2019 Refill [facility] [address] [place] [phone] Brayan Aquino MD [address] [place] [address] [phone] Social History Tobacco Use Types Packs/Day Years Used Date Smoking Tobacco: Never Assessed Comments Unknown Sex and Gender Information Value Date Recorded Sex Assigned at Not on file Legal Sex Female 9:36 AM MST Gender Identity Not on file Sexual Orientation Not on file documented as of this encounter Plan of Treatment Upcoming Encounters Date Type Department Care Team (Late Contact Info) Description 07/14/2025 2:00 PM CDT Office Visit [facility] [address] [place] [address] 1 [place] [address] Brayan Aquino MD [address] [address] 08/04/2025 2:40 PM SMASH PIECER Office Visit [facility] [address] [place] [address] 1 [place] [address] Brayan Aquino MD [address] [phone] documented as of this encounter Visit Diagnoses Not on filedocumented in this encounter Care Teams Dump Truck Driver Off Highway Relationship Specialty Start Date End Date Joselito Laws MD [address] [phone] PCP - General 11/25/19 documented as of this encounter
--- OUTSIDE RECORDS SUMMARY | 2025-06-17 12:06 | XMS_ITS | Encounter Summary ---
Author Organization Dorinda Physician Suzan utions Address [address] [place] [phone] Phone Care Team Providers Care Bulk Driver Name Role Phone Joselito Laws MD Primary Care Provider Reason for Visit * Reason Comments Med Refill Encounter Details Date Type Department Care Team ([facility] Contact Info) Description 03/15/2022 Refill [facility] [address] [place] [address] [phone] Shadia De Oliveira NP [address] [address] Social History Tobacco Use Types [...] on file Legal Sex Female 9:36 AM [facility] Gender Identity Not on file Sexual Orientation Not on file documented as of this encounter Plan of Treatment Upcoming Encounters Date Type Department Care Team ([facility] Contact Info) Description 07/14/2025 2:00 PM CDT Office Visit [facility] [address] [facility] 1 [place], [place] [phone] Brayan Aquino MD [address] [phone] 08/04/2025 2:40 PM CULLET WASHER Office Visit [facility] [address] [facility] 1 [place] [address] Brayan Aquino MD [address] [phone] documented as of this encounter Visit Diagnoses Not on filedocumented in this encounter Care Teams Bulk Driver Relationship Specialty Start Date End Date Joselito Laws MD 2043 [facility] 15 [place] [phone] PCP - General 11/25/19 documented as of this encounter
--- OUTSIDE RECORDS SUMMARY | 2025-06-17 12:06 | XMS_ITS | Encounter Summary ---
Author Organization [facility] Address [address] [place] [phone] Phone Care Team Providers Care Neighborhood Coordinator Name Role Phone Joselito Laws MD Primary Care Provider [phone] Reason for Visit * Reason Comments Med Refill Encounter Details Date Type Department Care Team (Late Contact Info) Description 2019 Refill [facility] [address] [place] [address] [phone] Brayan Aquino MD [address] [place] [address] [phone] Social History Tobacco Use Types Packs/Day Years [...] Description 07/14/2025 2:00 PM CDT Office Visit [facility] [address] [place] [address] [address] [place] [address] Brayan Aquino MD [address] [address] 08/04/2025 2:40 PM CUSHION INSTALLER Office Visit [facility] [address] [place] [address] [address] [place] [address] rBayan Aquino MD [address] [address] documented as of this encounter Visit Diagnoses Not on filedocumented in this encounter Care Teams Neighborhood Coordinator Relationship Specialty Start Date End Date Joselito Laws MD [address] [phone] PCP - General 11/25/19 documented as of this encounter
--- OUTSIDE RECORDS SUMMARY | 2025-06-17 12:06 | XMS_ITS | Encounter Summary ---
Author Organization [facility] Address [address] [place] [phone] Phone Care Team Providers Care Hand Nailer Name Role Phone Joselito Laws MD Primary Care Provider [phone] Reason for Visit * Reason Comments Med Refill Encounter Details Date Type Department Care Team (Late st Contact Info) Description 10/26/2019 Refill [facility] [address] [place] [address] [phone] Brayan Aquino MD [address] [place] [address] [phone] Social History Tobacco Use Types Packs/Day Years [...] Description 07/14/2025 2:00 PM CDT Office Visit [facility] [address] [place] [address] 1 [place] [address] Brayan Aquino MD [address] [address] 08/04/2025 2:40 PM CROSSBAND LAYER Office Visit [facility] [address] [place] [address] 1 [place] [address] Brayan Aquino MD [address] [phone] documented as of this encounter Visit Diagnoses Not on filedocumented in this encounter Care Teams Hand Nailer Relationship Specialty Start Date End Date Joselito Laws MD [address] [phone] PCP - General 11/25/19 documented as of this encounter
--- OUTSIDE RECORDS SUMMARY | 2025-06-17 12:06 | XMS_ITS | Clinical Summary ---
Author Organization [facility] Address [address] [place] [address] Care Team Providers Care Bridge Painter Name Role Phone Enmanuel Prince MD Primary Care Provider Source Comments [facility],non-owned Affiliates and Associated Physician Practices is amultiple site organization consisting of ambulatory clinics and hospital sitesin [place], [place], [place] and [place]. This disclosure is being madepursuant to the Care Everywhere program and may not contain all information available regarding this patient. Last updated 18.[facility] Knowable Allergies Active Allergy Reactions Criticality Noted Date Comments Gramicidin Unknown 05/16/2023 Ibuprofen Urticaria High 05/16/2023 And also pt shouldn't be taking d/t her kidney failure Neomycin Urticaria,Unknown High 05/16/2023 Qrkcnbck-Tlzthocalw-Tdo ymyxin Urticaria Medium 12/25/2024 Polymyxin B Urticaria,Unknown High 05/16/2023 Medications * Be aware that medications may not be up to date on this document. Alwaysverify current medications with the patient. pantoprazole EC (Protonix) 40 MG tablet Take 1 (one) tablet by mouth once daily Active montelukast (Singulair) 10 MG tablet Take 1 (one) tablet by mouth at bedtime Active hydroCHLOROthia zide (Microzide) 12.5 MG capsule Take 1 (one) capsule by mouth once daily Active biotin 2.5 MG tablets Take 2 (two) tablets by mouth 2 times daily Active folic acid 400 MCG tablet Take 2 (two) tablets by mouth once daily Active NLZLD-SAGVYBW-O INERALS (Resource Optisource Mutliple Vitamin With Minerals) CHEW Take 1 (one) tablet by mouth once daily (chew and swallow) Active POTASSIUM CITRATE PO Take 1,080 mg by mouth once daily Active Tolvaptan (Jynarque) 90 & 30 MG TBPK Take by mouth once daily 90 in the morning and 30 8 hours later Active nortriptyline (Pamelor) 25 MG capsule Take 1 (one) capsule by mouth at bedtime Active rivaroxaban (Xarelto) 20 MG tablet Take 1 (one) tablet by mouth daily with food Active alendronate (Fosamax) 70 MG tablet Take 1 (one) tablet by mouth every 7 days (once a week) before meal Take in morning with full glass of water on empty stomach and remain upright for 30 min Active sertraline (Zoloft) 25 MG tablet Take 3 (three) tablets by mouth once daily Active atorvastatin (Lipitor) 10 MG tablet Take 1 (one) tablet by mouth at bedtime Active Other as needed (for knee) Lanocain patch Active Active Problems Problem Noted Date Diagnosed Date Antiphospholipid antibody positive 06/15/2025 Astigmatism 05/31/2025 Hyperopia 05/31/2025 Bilateral kidney stones 05/31/2025 Cataract 05/31/2025 Polycystic kidney, adult type 05/31/2025 Coronary artery disease 05/31/2025 Elevated creatine kinase 05/31/2025 Endometriosis of uterus 05/31/2025 Esophageal reflux 05/31/2025 Hypercholesterolemia 05/31/2025 Mantoux: positive 05/31/2025 Nontoxic multinodular goiter 05/31/2025 Presbyopia 05/31/2025 Proteinuria 05/31/2025 Varicose veins of lower extremity 05/31/2025 Pre-transplant evaluation for kidney transplant 04/09/2025 Overview (05/25/2025): Images from the original note were not included. 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, treated at that time, states skin test is always positive, needs CXR Past Surgical History: Procedure Laterality Date Cholecystectomy, Laparoscopic 1987 COLONOSCOPY 2016 at [facility] in [place], [place] ENDOSCOPY, UPPER 2022 at [facility] Gastric Bypass 2012 OTHER SURGERY fna thyroid nodule at [facility] OTHER SURGERY tumor above her naval removed as a child Social History Socioeconomic History Marital status: Spouse name: Not on file Number of children: Not on file Years of education: Not on file Highest education level: Not on file Occupational History Not on file Tobacco Use Smoking status: Former Types: Cigarettes Smokeless tobacco: Never Tobacco comments: 1/3 pack per day x 20 years, quit in 1998 Vaping Use Vaping status: Never Used Substance and Sexual Activity Alcohol use: Not Currently Drug use: Never Sexual activity: Not on file Other Topics Concern Not on file Social History Narrative Not on file Social Drivers of Health Financial Resource Strain: Not on file Food Insecurity: Not on file Transportation Needs: Not on file Stress: Not on file Housing Stability: Not on file Transplant Surgery Clinic Appt w/: Dr. Ross Date: 04/19/2025 A/P: Introductory: is a 54 year old with APKD as a primary cause of kidney disease. Patient here for pre emptive kidney transplant evaluation has had no previous transplants Medically has type 2 DM and HTN, S/P Gastric bypass in 2012. Has history of DVTs and miscarriages She makes large urine output. Hyper coagulable W/U only positive for Anti Cardiolipin IgM antibody 1:16. Assessment: Plan: with discussing the risks and benefits of kidney transplant including the need for lifelong immunotherapy, the need for the patient to be compliant with the immunotherapy, the need for a lifelong relationship with a health care provider and the need to have labs checked frequently. We also talked about the risks of surgery including but not exclusive of , bleeding, infection, prolonged ICU and hospital stay, risks of leaks and thrombosis of any of the hookups of the new kidney. One year survival of 90-95% was given for the graft. I believe is a Good candidate for kidney transplant. Tests or consults pending prior to submission to multidisciplinary transplant committee for final candidacy determination include: 1-LHC once on dialysis 2-Thyroid nodule investigatio 3-hypercoagulable profile most probably Antiphospholipid syndrome, hematology to see Lea Ross MD Nephrology Clinic Appt w/: Dr. Blackwell Date: 04/19/2025 A/P: Chronic Conditions: CKD 4, referred for pre-TXP evaluation. Chief Complaint: Patient is a 54 year old female who is CKD 4, 2/2 ADPKD, referred for pre-TXP evaluation. She was DXed with ADPKD in 1999 with type 2 DM and HTN at the same time, S/P Gastric bypass surgery on 2012 (Billroth 2 Gastrojejunostomy), UGI bleed in 2012, passed a few kidney stones till 2017, H/O 3 unprovoked DVTs in 1.5 yrs ago in Lt leg and Lt groin currently on retirement Xarelto anticoagulation, mild hiatal hernia, thyroid nodule followed by Dr Hidalgo, H/O 3 miscarriages, former smoker quitted in 1998. F. Hx: Father had PKD, S/P Kidney TXP, H/O CVA from HTN. Has 7 siblings, 2 one with AMI, one with over dose. No CKD in other family members. Her sister and grand mother on mother side had DVTs. Soc. Hx: , has 2 children (36 & 27 YO) healthy. Has had [address] Scan: PKD with several stones/calcifications. She is currently on Jynarque, makes large urine output. Hyper coagulable W/U only positive for Anti Cardiolipin IgM antibody 1:16. History is obtained from the patient Assessments and Recommendations: - Renal function: Baseline SCr: 2.9 Latest serum creatinine 2.9: Proteinuria: ; Albuminuria: - Anemia: Hemoglobin Low; Iron studies: WNL ; erythropoietic stimulating agents: No - Bone and mineral disease: Calcium: Normal; phosphorus: Normal; 25-hydroxy Vitamin D: 81 ;intact PTH: Elevated appropriately at 288 - Blood Pressure: Normal - Cardiovascular risk factors: Cholesterol: Normal - Acid-Base balance: 24 - Hyperuricemia: 6.5 - Plans/Medication Changes: Recommend BP control with ACEi or ARB to a BP<120/85. I consider the patient a very good candidate for transplantation. The patient needs two 24 hour Litholink urine collections for stone risk profile, Renasight genetic screen for type of ADPKD, diagnostic Lt Heart Cath for H/O type 2 DM, blood tests for SSA/SSB/KYARA for miscarriages. I had a long discussion with the patient in regards to the advantages of TXP, especially a Live donor TXP over dialysis in regards to life span and quality of life. I also discussed with the patient the risk/benefits of kidney transplantation, and of donation after brain , cardio-circulatory , and CDC high risk donors. I discussed with the patient the types of immunosuppressive medications that the patient will be taking life time and some of their side effects, and the consequences of non/poor compliance in taking those medications. - Discussed health maintenance, including regular aerobic exercise, low fat, low salt diet, and periodic exams. Phoenix Blackwell labs: Latest Reference Range & Units 04/19/25 15:45 KYARA IgG None Detected None Detected SS-A 52 Antibody 0 - 40 AU/mL 1 SS-A 60 Antibody 0 - 40 AU/mL 0 SS-B Antibody 0 - 40 AU/mL 0 Latest Reference Range & Units 04/07/25 12:04 Homocysteine 4.4 - 16.2 umol/L 14.1 Latest Reference Range & Units 04/07/25 12:04 AT III Activity 80.0 - 120.0 % 98.0 Protein C Activity 83 - 168 % 152 Protein C Antigen Total 63 - 153 % >95 Protein S Antigen Total 63 - 126 % 165 (H) Cardiolipin Antibody IgG <=14 GPL <10 Cardiolipin Antibody IgM <=12 MPL 16 (H) Beta-2 Glycoprotein Antibody IgG <=20 SGU <10 Beta-2 Glycoprotein Antibody IgM <=20 SMU <10 Factor V Leiden PCR/FRET Negative Factor V Leiden Source Whole Blood PROTHROMBIN [id number] PANEL Rpt Prothrombin [id number] Negative Source PT [id number] PCR Whole Blood Other Consults: Cardiology: 04/26/2025 - pt seen by Dr. Garcia (pt will need LHC given length of time DM2, pt is NOD yet) 54-year-old female with a past medical history of hypertension, history of DVT on Xarelto, polycystic kidney disease and advanced age history of kidney failure presented for pretransplant workup. Patient denies any chest pain, shortness of breath, dizziness, palpitation or syncope. # Pre kidney transplant workup # History of polycystic kidney disease # CKD stage III [baseline creatinine of 2.89] -Asymptomatic -I personally interpreted echo from March 2025 which shows normal EF without any major valve issues or diastolic dysfunction. [] Will proceed with a low contrast cardiac cath [] Labs prior to that [] Cath instructions given [] Continue with atorvastatin 10 mg daily # Hypertension -Today's blood pressure 114/70 mmHg, controlled [] Management as per nephrology Return to the clinic 1 month postprocedure. HISTORY: It was my pleasure to see Ms. Johanna Mendez in consultation at [facility]. She is a 54 year old female who presents with c/o pretransplant evaluation. 54-year-old female with a past medical history of hypertension, history of DVT on Xarelto, polycystic kidney disease and advanced age history of kidney failure presented for pretransplant workup. Patient denies any chest pain, shortness of breath, dizziness, palpitation or syncope. Impression: Pre-transplant evaluation for kidney transplant (primary encounter diagnosis) Plan: Patient Instructions 54-year-old female with a past medical history of hypertension, history of DVT on Xarelto, polycystic kidney disease and advanced age history of kidney failure presented for pretransplant workup. Patient denies any chest pain, shortness of breath, dizziness, palpitation or syncope. # Pre kidney transplant workup # History of polycystic kidney disease # CKD stage III [baseline creatinine of 2.89] -Asymptomatic -I personally interpreted echo from March 2025 which shows normal EF without any major valve issues or diastolic dysfunction. [] Will proceed with a low contrast cardiac cath [] Labs prior to that [] Cath instructions given [] Continue with atorvastatin 10 mg daily # Hypertension -Today's blood pressure 114/70 mmHg, controlled [] Management as per nephrology Return to the clinic 1 month postprocedure. All questions/concerns were answered to the patient's satisfaction and we are all in agreement with this plan proposed above understanding all the risks and benefits. I spent 30 minutes today. This total amount of time was spent including preparation for the patient's appointment, reviewing and interpreting the medical records/chart review, laboratory data, and imaging data as well. Significant proportion of the time was also spent in [id number] interaction with the patient as well as formulating a plan for management. Thank you for allowing us to participate in the care of your patient and please do not hesitate to reach out to us if any questions or concerns. Ana Garcia MD MPH Endocrinology: 05/31/2025 - pt scheduled with Dr. Goel (for hx of thyroid nodule) Hematology: Pertinent Previous Committee Presentations: [facility] note: 05/20/2025 EPTS: 24 at 05/23/2025 1:17 PM Calculated from: Age: 54 years Has Diabetes: No Prior solid organ transplant: No On dialysis: No Induction Method: Immunosuppression Induction Method/Plan: Antithymocyte globulin (rabbit) (Thymoglobulin) 3 mg/kg Committee Discussion Details: Pt's case presented at [facility] today for approval to list. HH and evaluation testing reviewed but not limited to: - pt with hx of PKD, renasight completed to determine which one, renasight results reviewed - pt is NOD, GFR on evaluation testing was 19 - pt will need LHC once LD approved or pt starts dialysis. Team aware pt has already been seen by cardiology and plan was to do a diagnostic LHC in August, after she has recovered from her knee replacement. - Pt's son was a potential LD - per Shashi, he was r/o d/t insurance - team aware pt is scheduled for a Right knee replacement on 06/28/2025 and pt to start PT on 07/05/2025 - Team aware pt with hx of DVTs, on xarelto, will need to switch to coumadin. Team aware pt also with hx of multiple miscarriages. Hypercoag panel completed along with additional labs Dr. Blackwell requested. All labs reviewed. Pt with a slightly elevated cardiolipin panel, pt to repeat in 3 months. Team aware pt was following with hematology in the past, that doctor had retired. In speaking with them today, they have not scheduled pt with any other provider. Team aware I placed a referral for her to establish here. - Reviewed pt's venous doppler results - ok, nothing to do - team aware pt with hx of DM2, which has been under control since her gastric bypass, no longer on meds, no longer following with endocrinology - team aware pt with hx of kidney stones, oxalate completed. Dr. Blackwell wanted pt to complete litholinks, which were ordered, but somehow our lab tried to complete it, ultimately no results. Team aware I will send off litholink orders via fax. - pt has immunity to hepatitis A and hepatitis B - pt's vit D was 81.5 on eval testing, pt's PCP was aware of elevated levels and already stopped her supplement - ECHO and EKG reviewed - team aware pt with hx of thyroid nodule with benign pathology - reviewed. Updated thyroid US completed. Reviewed USs from 2013 and 2024 with team.Team aware pt has an appt with Dr. Goel on 05/31. - RD not at [facility] today, unable to get input on pt prior to [facility], per team, pt not to gain anymore wt - SW - she spoke to team about pt's education level as pt dropped out in middle school, she spoke to team about pt's support, she still needs to confirm support - FC - will need LMN Per team, ok to list INACTIVE at this time. Shanell to confirm post support. Labs: 04/07/2025 PTH: 288.6 A1c: 5.2 Glucose: 91 GFR: 19 Serologies: +HepAAb, +HepBsAb, some labs still pending CMV Igg: Negative EBV Igg: Positive Varicella: Immune MMR: Immune Toxo: <3.0 Strongyloides: 0.2 Albumin: 3.9 Tox Screen: all negative PRA: Class 1 Class 2: 6,1 Vitamin D: 81.5 (pt has already stopped her vit D supplement) Oxalate: 3.6 Reviewed Hepatitis vaccination: Hepatitis A: pt has immunity Hepatitis B: pt has immunity Recent Labs Component Name 04/07/25 1204 HAVAB Positive* HBVSAB 1,801.6* HEPBCAB Non-reactive HEPBSAG Non-reactive Kidney Biopsy: none Renasight: Karen: orders sent 05/20/2025 EK04/07/2025 Echo: 04/07/2025 Summary * The left ventricular mass is normal with concentric remodeling. * The left ventricle is small in size, with normal systolic function and an estimated ejection fraction of 67 % by biplane method of disks. Left ventricular wall motion is normal. * The left ventricular diastolic function is consistent with grade I diastolic dysfunction and normal left atrial filling pressure. * Right ventricle is normal in size with normal systolic function. * The pulmonary artery systolic pressure is normal, 27 mmHg. * No hemodynamically significant valve disease. Left Ventricle The left ventricle is small in size. There is moderate concentric left ventricular wall thickness. Left ventricular systolic function is normal with an estimated ejection fraction of 67 % by biplane method of disks. The left ventricular mass is normal with concentric remodeling. Left ventricular segmental wall motion is normal. The left ventricular diastolic function is consistent with grade I diastolic dysfunction and normal left atrial filling pressure. Right Ventricle The right ventricle is normal in size. Right ventricular systolic function is normal. A prominent moderator band is noted. Left Atrium The left atrium is normal in size with a left atrial volume index of 22 ml/m2 by BP MOD. Right Atrium The right atrium is normal in size. Atrial Septum Intact interatrial septum visualized by 2D and color Doppler imaging. Aortic Valve The aortic valve is trileaflet. There is no aortic valve stenosis with a peak velocity of 1.7 m/s, mean gradient of 7 mmHg, and aortic valve area of 2.46 cm2. There is trace aortic valve regurgitation. Pulmonic Valve The pulmonic valve is not well visualized. There is no pulmonic valve stenosis. There is no pulmonic regurgitation. Mitral Valve The mitral valve is grossly normal. There is no mitral valve stenosis. There is trace mitral valve regurgitation. Tricuspid Valve The tricuspid valve is not well visualized, but grossly normal. There is no tricuspid valve stenosis. There is trace tricuspid valve regurgitation. The pulmonary artery systolic pressure is normal, 27 mmHg. Inferior Vena Cava The inferior vena cava is not well visualized and therefore the right atrial pressure is assumed to be 8 mmHg. Pericardium/Pleural There is no pericardial effusion. Aorta The aortic root at the sinus of Valsalva is normal in size. The ascending aorta is normal in size. Measurements Left Ventricular Outflow Tract Name Value Normal LVOT 2D LVOT Diameter 2.0 cm LVOT Area 3.0 cm2 LVOT Doppler LVOT Peak Velocity 1.5 m/s LVOT Peak Gradient 9 mmHg LVOT Mean Velocity 90.39 cm/s LVOT Mean Gradient 4 mmHg LVOT VTI 29.7 cm LVOT VTI/AV VTI Ratio 0.8 LVOT Stroke Volume 89 ml LVOT Stroke Volume Index 47 ml/m2 35-58 LVOT CO 5.9 l/min LVOT CI 3.1 l/min/m2 Pulmonic Valve Name Value Normal PV 2D RVOT Diameter (2D) 2.7 cm 1.7-2.7 RVOT Doppler RVOT Peak Velocity 0.6 m/s RVOT Peak Gradient 1 mmHg RVOT Mean Gradient 1 mmHg PV Doppler PV Peak Velocity 0.7 m/s PV Peak Gradient 2 mmHg PV Mean Gradient 1 mmHg PV Area (Cont Eq VTI) 5.05 cm2 PV Area Index (Cont Eq VTI) 2.66 cm2/m2 PV Area (Cont Eq Jose) 4.8 cm2 PV Area Index (Cont Eq Jose) 2.53 cm2/m2 Mitral Valve Name Value Normal MV Diastolic Function MV E Peak Velocity 0.8 m/sec MV A Peak Velocity 0.8 m/sec MV E/A 1.0 MV Decel Time (PW) 201 ms MV A Wave Duration 143 ms MV Annular TDI MV Septal e' Velocity 6 cm/s >=8 MV E/e' (Septal) 12 <=8 MV Lateral e' Velocity 11 cm/s >=10 MV E/e' (Lateral) 7 <=8 MV e' Average 9 cm/s MV E/e' (Average) 10 Tricuspid Valve Name Value Normal TV 2D TV Annulus Diameter (4C) 4.0 cm TV Regurgitation Doppler TR Peak Velocity 2.2 m/s TR Peak Gradient 19 mmHg Estimated PAP/RSVP RA Pressure 8 mmHg <=5 PA Systolic Pressure 27 mmHg <35 RV Systolic Pressure 27 mmHg <36 Pulmonary Vessels Name Value Normal Pulmonary Veins Pulm Vein Peak Systolic Velocity 78.0 cm/s Pulm Vein Peak Diastolic Velocity 46.2 cm/s Pulm Vein S/D Velocity Ratio 2 Pulm Vein Ar Velocity 20.8 cm/s Pulm Vein Ar Dur - MV A Dur -26 ms Aorta Name Value Normal Ascending Aorta Sinus of Valsalva Diameter 2.7 cm 2.4-3.6 Sinus of Valsalva Index 1.4 cm/m2 1.4-2.2 Asc Ao Diameter 2.9 cm 1.9-3.5 Asc Ao Diameter Index 1.5 cm/m2 1.0-2.2 Septae/Shunt/Generic Name Value Normal Qp/Qs Qp/Qs 0.8 Venous Name Value Normal IVC/SVC IVC Diameter 1.1 cm <=2.1 Aortic Valve Name Value Normal AV Doppler AV Peak Velocity 1.72 m/s AV Peak Gradient 12 mmHg AV Mean Gradient 7 mmHg AV VTI 36 cm AV Area (Cont Eq VTI) 2.46 cm2 >=2.00 AV Area (Cont Eq Jose) 2.61 cm2 AV DI (VTI) 0.82 AV DI (Jose) 0.87 AV Regurgitation 2D LVOT Area 3.00 cm2 AV Regurgitation Doppler AR Decel Time 2,322 ms AR PHT 673 ms Ventricles Name Value Normal LV Dimensions 2D/MM IVS Diastolic Thickness (2D) 1.1 cm 0.6-0.9 LVID Diastole (2D) 3.6 cm 3.8-5.2 LVPW Diastolic Thickness (2D) 1.0 cm 0.6-0.9 IVS Systolic Thickness (2D) 1.1 cm LVID Systole (2D) 2.6 cm 2.2-3.5 LVPW Systolic Thickness (2D) 1.1 cm LV Mass (2D Cubed) 87 g 67-162 LV Mass Index (2D Cubed) 46 g/m2 43-95 Relative Wall Thickness (2D) 0.54 <=0.42 LV Fractional Shortening/Ejection Fraction 2D/MM LV Fractional Shortening (2D) 34 % 27-45 LV EF (2D Teicholz) 54 % 54-74 LV Diastolic Volume (4C MOD) 51 ml LV EF (4C MOD) 67 % LV Diastolic Volume (2C MOD) 50 ml LV EF (2C MOD) 66 % LV Diastolic Volume (BP MOD) 51 ml 46-106 LV Diastolic Volume Index (BP MOD) 27 ml/m2 29-61 LV Systolic Volume (BP MOD) 17 ml 14-42 LV Systolic Volume Index (BP MOD) 9 ml/m2 8-24 LV EF (BP MOD) 67 % 54-74 LV Diastolic Length (4C) 4.7 cm LV Systolic Length (4C) 4.9 cm LV Stroke Volume (4C MOD) 34 ml RV Dimensions 2D/MM RVID Diastole (2D) 3.7 cm 2.5-3.5 RVID Systole (2D) 3.2 cm RV Basal Diastolic Dimension 2.6 cm 2.5-4.1 RV Diastolic Length (4C) 5.5 cm 5.9-8.3 Atria Name Value Normal LA Dimensions LA Dimension (2D) 3.9 cm 2.7-3.8 LA Dimen Index (2D) 2.0 cm/m2 LA Volume (BP MOD) 42 ml LA Volume Index (BP MOD) 22 ml/m2 RA Dimensions RA Area (4C) 13 cm2 <=18 RA Area (4C) Index 7 cm2/m2 RA ESV Index (4C MOD) 16 ml/m2 Report Signatures Finalized by Hazel Jain MD on 04/07/2025 11:23 AM Reviewed by Fellow Chivo Lopez on 04/07/2025 11:18 AM Dimensions Left Ventricle LV biplane EF 66.929 % LV A2C EF 66.128 % LV A4C EF 67.182 % LVIDd 3.581 cm LVIDs 2.613 cm LV EDV A2C 49.656 ml LV EDV A4C 51.177 ml LV ESV A2C 16.819 ml LV ESV A4C 16.796 ml LVPWd 0.969 cm IVSd 2D 1.092 cm Left Atrium LA vol BP 42.217 ml LA size 3.897 cm LA vol index 0.022 l/m Aortic Root - End Diastolic Sinus of Valsalva 2.7 cm Ascending aorta 2.876 cm Right Ventricle/Right Atrium RV-lopez basal diam 2.647 cm RVIDd 3.684 cm RA area 13.319 cm Inferior Vena Cava IVC Diam Expiration 1.12 cm Aortic Valve Structure LVOT diam 1.954 cm Regurgitation AV PHT 0.673 s AV pk jose regurg 498.212 cm/s Stenosis AV mn grad 6.64 mmHg AV pk grad 11.878 mmHg AV pk jose 172.321 cm/s AV VTI 36.165 cm LVOT pk grad 9.027 mmHg LVOT VTI 29.671 cm LVOT pk jose 150.229 cm/s AV area index 1.294 cm /m AV area cont VTI 2.461 cm AV area pk jose 2.615 cm Dimensionless Index 0.82 unitless Mitral Valve Stenosis IVSd 2D 1.092 cm MV A pk jose 78.9 cm/s LVOT VTI 29.671 cm Tricuspid Valve Regurgitation TR pk jose 217.549 cm/s Pulmonic Valve Stenosis PV pk jose 67.152 cm/s PV VTI 13.554 cm RVOT VTI 11.697 cm RVOT diam Doppler 2.73 cm RVOT pk jose 55.153 cm/s Diastolic Filling MV E pk jose 76.661 cm/s MV A pk jose 78.9 cm/s MV E' lateral jose 10.767 cm/s LA vol index 0.022 l/m LA vol BP 42.217 ml Output LVOT pk jose 150.229 cm/s DSE: pt will need LHC given length of time DM2 LHC: pt will need LHC given length of time DM2 CXR: 04/07/2025 COMPARISON: None. FINDINGS/IMPRESSION: Surgical clips in the upper quadrant of abdomen. There is no focal consolidation, pleural effusion, or pneumothorax. The cardiomediastinal silhouette is normal. Degenerative changes are noted in the thoracic spine. CT abd/pelvis non-contrast: 04/07/2025 COMPARISON: None. TECHNIQUE: CT of the abdomen and pelvis was performed without oral or intravenous contrast. CT dose reduction technique was used, including Automated Exposure Control. FINDINGS: Lung bases: Clear. Liver: Normal morphology. No focal lesions are seen. Gallbladder: Post cholecystectomy status. Biliary system: No interval extrahepatic biliary dilation seen. Pancreas: Unremarkable. No pancreatic duct dilation. Spleen: Normal. Adrenal glands: Unremarkable. Kidneys: Enlarged kidneys with multiple cysts throughout the kidney causing lobulated outline. The right kidney measures 8.5 x 7.2 x 14.4 cm and approximate volume is 448 cc. Left kidney measures 10 x 9 x 15 cm and approximate volume is 618 cc. Multiple foci of parenchymal calcifications noted of the right kidney. No hydronephrosis seen. Gastrointestinal: Gastrojejunostomy changes are noted. Small bowel loops are normal caliber. No bowel dilation seen. Colon is unremarkable. Appendix: Appendix is normal morphology. Peritoneum: Unremarkable. Retroperitoneum: Unremarkable. Vascular structures: Significant plaque burden or calcification in the aorta and iliac arteries. A linear hypodensity filling defect noted along the posterior wall of the infrarenal segment of the inferior vena cava. Urinary bladder: Urinary bladder was moderately distended and grossly unremarkable. Other pelvic organs: Unremarkable. Calcified nodules noted in the left adnexa. Bones: No acute bony lesions or significant focal lesions identified. Soft tissue: Unremarkable. IMPRESSION: Enlarged kidneys with multiple cysts characteristic of proximal dominant polycystic kidney disease. Correlate clinically. No hydronephrosis seen. MRA brain: 04/07/2025 INDICATION: [id number]: Pre-transplant evaluation for kidney transplant ADDITIONAL CLINICAL INFORMATION: Ordering Provider Reason For Exam: pre-kidney txp evaluation, r/o aneurysm Technologist Note: Additional: EXAMINATION: Magnetic resonance angiography (MRA) of the head without contrast TECHNIQUE: MR arteriography of the head was performed without contrast utilizing time of flight technique. COMPARISON: No prior study is available for comparison at the time of this dictation. FINDINGS: The distal internal carotid arteries are patent. The anterior cerebral arteries are patent. The middle cerebral arteries are patent. The posterior cerebral arteries are patent. The distal vertebral arteries are patent. The basilar artery is patent patent. No aneurysms, vascular occlusions, or intracranial stenoses are identified. IMPRESSION: 1. No evidence of intracranial aneurysm. No hemodynamically significant stenosis or occlusion of the large intracranial arteries. Thyroid US: 04/07/2025 COMPARISON: None. Right Lobe: 3.8 x 1.2 x 1.2 cm, volume 2.6 mL Left Lobe: 4.2 x 1 x 0.9 cm, volume 1.9 mL Isthmus: 0.2 cm Thyroid nodule(s): Nodule #1 *Location: Left thyroid lobe *Size: 2.1 x 1.6 x 1.1 cm *Composition: Solid or almost completely solid composition (2) *Echogenicity: Hyperechoic or isoechoic (1) *Shape: Wider than tall (0) *Margins: Ill-defined margin (0) *Echogenic Foci: Macrocalcifications (1) *Echogenic Foci: Punctate echogenic foci (3) *TOTAL POINTS: 7 Other: No abnormal lymph nodes are present in the neck. IMPRESSION: 1.Nodule #1 TI-RADS 5. FNA recommended. TI-RADS Thyroid Nodule Grading TR 1 (0 points) - Benign - Recommendation: No FNA TR 2 (2 points) - Not suspicious - Recommendation: No FNA TR 3 (3 points) - Mildly suspicious - Recommendation: >1.5 cm follow up; > 2.5 cm FNA TR 4 (4-6 points) - Moderately suspicious - Recommendation: > 1.0 cm follow up; > 1.5 cm FNA TR 5 (> 7 points) - Highly suspicious - Recommendation: > 0.5 cm follow up; > 1.0 cm FNA Thyroid US: 09/29/2013 EXAMINATION: 1. THYROID SONOGRAM 2. THYROID FINE NEEDLE ASPIRATION HISTORY: 43-year-old woman with a left thyroid nodule per outside facility ultrasound, status post biopsy which returned insufficient results. FINDINGS: THYROID SONOGRAM: The thyroid is normal in size. The right lobe of the thyroid measures 4.4 x 1.2 x 1.4 cm. The left lobe of the thyroid measures 4.3 x 0.9 x 1.4 cm. There is a single nodule in the inferior portion of the left thyroid lobe. It measures 1.8 x 0.9 x 1.6 cm. It is of heterogeneous echogenicity and is predominantly solid with scattered cystic spaces. Additionally, there are multiple punctate hyperechoic foci suspicious for microcalcifications; several of these demonstrate posterior shadowing. This nodule has suspicious features and meets biopsy guidelines based on its size and appearance. FINE NEEDLE ASPIRATION: The heterogeneous nodule within the inferior aspect of the left thyroid lobe was identified for biopsy. The procedure for ultrasound-guided FNA and its benefits and risks were explained to the patient. Risks were explained to include, but not be limited to, hemorrhage, infection, injury to adjacent organs, non-diagnostic specimen and adverse reaction to medications administered. The patient voiced understanding and wished to proceed and signed the consent form. A site was localized for fine needle aspiration. The site was prepped and draped in the usual manner. 5 mL of lidocaine 1% was used for local anesthesia. Six passes were made with a 25 gauge needle into the lesion, including 2 passes with aspiration. Appropriate needle localization was documented with continuous sonographic guidance. The fine needle aspirates were handed to the wash box operator present during the procedure. Please refer to the dictated pathology report for final interpretation. The patients skin was cleaned and dressed. The patient tolerated the procedure well without immediate complication. Dr. Nunez, the abdominal imaging fellow, performed the biopsy. IMPRESSION: 1. Suspicious left thyroid nodule as described above. 2. Technically successful fine-needle aspiration of the left thyroid nodule. FNA results: Endocrinology: From: Gerardo Goel MD Sent: 04/10/2025 5:24 PM CDT To: Scott Ward; Litzy Moore RN; French* Needs new patient appt some time in apr or may, 2025 Not urgent Gerardo Goel MD Professor of Internal Medicine Division of Endocrinology Department of Internal Medicine ----- Message ----- From: Litzy Moore RN Sent: 04/09/2025 2:34 PM CDT To: Gerardo Goel MD; Scott Borja Dr. Goel, How are you? Pt is in evaluation with us for renal txp and has a hx of thyroid nodule dating back to 2013. An FNA was completed and it was benign. We completed an TXD thyroid US with her work up, see results below. I have placed a referral for endocrinology so that she can establish care for monitoring and management of this nodule. The recommendation of the recent thyroid bx was to complete an FNA. Can we get pt scheduled with you in clinic? She should be able to do any day of the week. Thank you for your time. Joon Mcghee [facility] [phone] Thyroid US: 2013 THYROID SONOGRAM: The thyroid is normal in size. The right lobe of the thyroid measures 4.4 x 1.2 x 1.4 cm. The left lobe of the thyroid measures 4.3 x 0.9 x 1.4 cm. There is a single nodule in the inferior portion of the left thyroid lobe. It measures 1.8 x 0.9 x 1.6 cm. It is of heterogeneous echogenicity and is predominantly solid with scattered cystic spaces. Additionally, there are multiple punctate hyperechoic foci suspicious for microcalcifications; several of these demonstrate posterior shadowing. This nodule has suspicious features and meets biopsy guidelines based on its size and appearance. Thyroid US: 2024 Nodule #1 *Location: Left thyroid lobe *Size: 2.1 x 1.6 x 1.1 cm *Composition: Solid or almost completely solid composition (2) *Echogenicity: Hyperechoic or isoechoic (1) *Shape: Wider than tall (0) *Margins: Ill-defined margin (0) *Echogenic Foci: Macrocalcifications (1) *Echogenic Foci: Punctate echogenic foci (3) *TOTAL POINTS: 7 Other: No abnormal lymph nodes are present in the neck. IMPRESSION: 1.Nodule #1 TI-RADS 5. FNA recommended. Tanvir - once scheduled, could you please send out a scheduling letter to pt. Thanks Litzy HENAO venous doppler: 04/07/2025 PPD/Quant Gold: 04/07/2025 - quant gold negative Colonoscopy: 01/08/2019 (repeat in 10 years) EGD: 02/23/2022 Mammo: 11/06/2024 Pap: 05/21/2024 Panorex/Dental: SW: 04/19/2025 Clinical Social Work Impression: It is the impression of this neonatal social worker that Johanna Mendez has several positive factors for Kidney from a psychosocial perspective. Patient appears to have appropriate knowledge of illness. Patient has sufficient insurance coverage and stable financial situation for post transplant needs. No concerns regarding substance abuse, legal issues, or mental health needs. Patient has adequate support system and appropriate discharge plan. [employer] forms pending Plan: cooler room worker to provide supportive services as needed. Patient appears to be a reasonable candidate for transplant from a psychosocial perspective. -Post transplant arrangement forms are needed prior to being listed. Psychiatric Consult Recommended: No Transplant Parole Or Probation Officer: Shanell Baeza LMSW Abdominal Transplant Parole Or Probation Officer [phone] [employer] forms: still need RD: 04/19/2025 Transplant Nutrition Evaluation BMI: Body mass index is 30.48 kg/m . BMI Range: Obese Class 1, Pt is considered to be a good candidate for a Kidney Transplant from a Nutrition standpoint. Of note, Pt had a Gastric Bypass. Pt has PKD. Pt has abd pannus. Nutrition Recommendations/Pt instructed to: Wt Loss/Comments: No further wt gain is the goal. Low Sodium diet: Continue to limit eating out, eating no fast foods, limiting processed foods, and no added salt. Renal diet: Continue following low K+ diet Fluid: Drink 3 L of fluid daily for PKD. Continue no high sugary beverages and limited caffeine. 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 BMI Range: Obese Class 1 IBW/lb (Calculated) Female: 89, Comments (Compliance/Labs, etc): None ----- Dx/ Pertinent PMH: [Problem List] [Problem List] Patient Active Problem List Patient Active Problem List: Pre-transplant evaluation for kidney transplant Gastric Bypass Based on pt's food reported recall, pt seems Mostly compliant with Diet Y/N: Y If No, why: NA Unable to tolerate highly acidic foods: no tomatoes, no pineapple, Processed Meals: Very Seldom Eats Out/Drive-thrus/Orders: 1 time per week, no FF Eats low K+ Has to have meats ground Can tolerate raw fruits and veggies except peppers ETOH Intake: None P.O.Intake for the past 48 hrs: Poor Estimated Needs: PRO x .7 = 55 - 60 g/d Pertinent Nutrition Labs: Recent Labs Component Name 04/07/25 1204 BUN 53* CREATININE 2.89* NA 139 POTASSIUM 4.1 CL 104 CO2 24 GLUCOSE 91 CALCIUM 9.4 PROT 6.8 ALB 3.9 TBILI 0.8 ALKPHOS 68 ALT 17 AST 22 ANIONGAP 11 BCR 18 OSMOLALITY 302* AGRATIO 1.3 EGFR 19* Pertinent Nutrition Medications: [Medications] [Medications] No current outpatient medications on file. No current facility-administered medications for this visit. Monitoring: Weight Diet Compliance Re-Evaluation: Annual f/u if listed or per Transplant Team Referral Matilda Ramirez, RD/LD [phone] Items Still Pending: cards appt - [facility], Endocrinology for thyroid nodule - Dr. Goel 05/31, litholinks x2, repeat cardiolipin in 3 months (07/31/2025), re-establish with hematology, switch to coumadin, knee replacement 06/28/25/PT to follow 07/05/2025 Esophageal dysphagia 01/19/2025 Osteoporosis 05/11/2024 Diabetes mellitus 03/31/2024 Hiatal hernia 06/25/2023 Iron deficiency anemia 06/25/2023 Chronic deep vein thrombosis (DVT) of lower extr emity 06/02/2023 Gastroesophageal reflux disease without esophagi tis 04/04/2023 Hyperlipidemia 06/10/2022 Secondary hyperparathyroidism of renal origin Hallux valgus with bunions 12/01/2019 Essential hypertension 05/21/2019 Allergic rhinitis 12/05/2017 Acquired polycystic kidney disease 06/20/2017 Chronic kidney disease, stage 4 (severe) 016 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 Encounters Date Type Department Care Team Description 06/15/2025 2:33 PM CDT - 06/15/2025 11:59 PM CDT Hospital Encounter [facility] DRAW[facility] [address] [facility], 2nd [place] [address] Discharge Disposition: Home or Self Care 06/15/2025 2:00 PM CDT [facility] H[facility]ology/Oncology [address] [place] [phone] Lea Ross MD Rajeh, Mhd Nabeel, MD Positive cardiolipin antibodies (Primary Dx); Pre-transplant evaluation for kidney transplant; Deep vein thrombosis (DVT) of upper extremity, unspecified chronicity, unspecified laterality, unspecified vein (HCC); Antiphospholipid antibody positive 06/15/2025 Travel 06/09/2025 Telephone [facility] TRANSPLANT [address] [place] [address] Litzy Moore, RN Kidney Transplant Evaluation 05/31/2025 11:16 AM CDT - 05/31/2025 11:59 PM CDT Hospital Encounter [facility] LAB OP DRAW STATION [address] [place] [phone] Discharge Disposition: Home or Self Care 05/31/2025 10:00 AM CDT Office Visit [facility] - Endocrinology [address] [place] [phone] Gerardo Goel MD Thyroid nodule (Primary Dx); Hyperparathyroidism (HCC) 05/31/2025 Travel 05/24/2025 Telephone [facility] - Hematology/Oncology [address] [place] [address] Melisa Canas MD Referral (See notes) 05/24/2025 Travel 05/24/2025 Telephone [facility] TRANSPLANT [address] [place] [phone] Scott Ward Kidney Transplant Follow-up 05/23/2025 Telephone [facility] TRANSPLANT [address] [place] [phone] Litzy Moore, RN Kidney Transplant Evaluation 05/19/2025 Orders Only [facility] TRANSPLANT [address] [place] [phone] Litzy Moore, RN Pre-transplant evaluation for kidney transplant ; Deep vein thrombosis (DVT) of upper extremity, unspecified chronicity, unspecified laterality, unspecified vein (HCC); Positive cardiolipin antibodies 05/03/2025 1:00 PM CDT Office Visit [facility] TXP [facility]OD[facility] [address] [place] [phone] Lea Ross MD Pre-transplant evaluation for liver transplant (Primary Dx) 05/03/2025 Travel 04/30/2025 9:20 AM CDT - 04/30/2025 11:59 PM CDT Hospital Encounter [facility] LAB OP DRAW STATION [address] [place] [address] Discharge Disposition: Home or Self Care 04/30/2025 Travel 04/26/2025 2:20 PM CDT Office Visit [facility] - Cardiology [address] [facility] [address] [place] [address] Abdullahi Garcia MD Pre-transplant evaluation for kidney transplant (Primary Dx) 04/26/2025 12:30 PM CDT - 04/26/2025 11:59 PM CDT Hospital Encounter [facility] LAB OP DRAW STATION [address] [place] [address] Discharge Disposition: Home or Self Care 04/26/2025 Travel 04/21/2025 Telephone [facility] TRANSPLANT [address] [place] [address] Litzy Moore RN Kidney Transplant Evaluation 04/19/2025 3:28 PM CDT - 04/19/2025 11:59 PM CDT Hospital Encounter [facility] LAB OP DRAW STATION [address] [place] [address] Discharge Disposition: Home or Self Care 04/19/2025 2:00 PM CDT Office Visit [facility] - Nephrology [address] [place] [address] Phoenix Blackwell MD Pre-transplant evaluation for kidney transplant (Primary Dx) 04/19/2025 1:00 PM CDT Office Visit [facility] TXP JODIE [facility] [address] [place] [address] Lea Ross MD Pre-transplant evaluation for kidney transplant (Primary Dx) 04/19/2025 Orders Only [facility] TRANSPLANT [address] [place] [address] Litzy Moore, RN Pre-transplant evaluation for kidney transplant ; Kidney stone; Miscarriage (HCC) 04/19/2025 Travel 04/16/2025 Telephone [facility] TRANSPLANT [address] [place] [address] Anitra Orellana [facility] Kidney Transplant Evaluation 04/12/2025 Telephone [facility] - Endocrinology [address] [place] [address] Gerardo Goel MD Appointment 04/12/2025 Telephone [facility] - Endocrinology [address] [place] [address] Gerardo Goel MD Appointment 04/09/2025 Orders Only [facility] TRANSPLANT [address] [place] [address] Litzy Moore, RN Thyroid nodule 04/07/2025 12:30 PM CDT - 04/07/2025 11:59 PM CDT Hospital Encounter [facility] US [address] [place] [address] Lea Ross MD Discharge Disposition: Home or Self Care 04/07/2025 11:28 AM CDT - 04/07/2025 12:29 PM CDT Hospital Encounter [facility] EKG/HOLTER [address] [place] [address] Lea Ross MD Discharge Disposition: Home or Self Care 04/07/2025 11:12 AM CDT - 04/07/2025 11:27 AM CDT Hospital Encounter [facility] DIAGNOSTIC RAD OP [address] [place] [address] Lea Ross MD Discharge Disposition: Home or Self Care 04/07/2025 11:06 AM CDT - 04/07/2025 11:11 AM CDT Hospital Encounter [facility] LAB OP DRAW STATION [address] [place] [address] Lea Ross MD Discharge Disposition: Home or Self Care 04/07/2025 11:01 AM CDT - 04/07/2025 11:05 AM CDT Hospital Encounter [facility] CAT SCAN [address] [place] [address] Lea Ross MD Discharge Disposition: Home or Self Care 04/07/2025 10:50 AM CDT - 04/07/2025 11:00 AM CDT Hospital Encounter [facility] VASCULAR US [address] [place] [address] Lea Ross MD Discharge Disposition: Home or Self Care 04/07/2025 10:12 AM CDT - 04/07/2025 10:49 AM CDT Hospital Encounter [facility] MRI [address] [place] [address] Lea Ross MD Discharge Disposition: Home or Self Care 04/07/2025 10:00 AM CDT - 04/07/2025 10:11 AM CDT Hospital Encounter [facility] ECHO [address] [place] [address] Lea Ross MD Discharge Disposition: Home or Self Care from Last 3 Months Family History Medical History Relation Name Comments None Known Brother 1 1/2 None Known Brother 2 1/2 Other - Cardiac Brother 3 None Known Brother 4 CVA Father Renal Disease Father PKD with txp Cancer - Ovarian Mother None Known Sister 1 1/2 None Known Sister 2 1/2 Hypertension Son 1 Obesity Son 1 Hypertension Son 2 Thyroid Disease Neg Hx Relation Name Status Comments Brother 1 1/2 [...] Sign Reading Time Taken Comments Blood Pressure 111/64 06/15/2025 1:38 PM CDT Pulse 88 06/15/2025 1:38 PM CDT Temperature 36.8 C (98.2 F) 06/15/2025 1:38 PM CDT Respiratory Rate 20 06/15/2025 1:38 PM CDT Oxygen Saturation 98% 06/15/2025 1:38 PM CDT Inhaled Oxygen Concentration - - Weight 78.9 kg (174 lb) 05/31/2025 9:41 AM CDT Height 160 cm (5' 3) 05/31/2025 9:41 AM CDT Body Mass Index 30.82 05/31/2025 9:41 AM CDT Plan of Treatment Upcoming Encounters Date Type Department Care Team (Late st Contact Info) Description 06/25/2025 9:00 AM CDT Office Visit [facility] - Endocrinology [address] [place] [address], [place] [phone] Gerardo Goel MD [address] [place] [address] [place] [address] 07/07/2025 11:00 AM CDT Appointment [facility] OP DRAW STATION [address] [place] [address] Health Maintenance Due Date Last Done Comments COLOGUARD (AGES 45-75) - COLON CA SCREENING 1968 COLON MONITORING 1968 COLONOSCOPY - COLON CA SCREENING 1968 CT COLONOGRAPHY - COLON CA SCREENING 1968 Colorectal Cancer Screening 1968 FIT - COLON CA SCREENING 1968 FLEX SIG - COLON CA SCREENING 1968 MAMMOGRAM 1968 DTAP/TDAP/TD VACCINES (1 - Tdap) 1987 HEPATITIS B VACCINE (1 of 3 - 19+ 3-dose series) 1987 PNEUMOCOCCAL VACCINE 50+ (1 of 2 - PCV) 1987 PAP SMEAR 1989 ZOSTER VACCINE (1 of 2) 2018 DIABETES - URINE PROTEIN SCREENING 09/16/2024 INFLUENZA VACCINE (#1) 2025 4, 05/16/2023, 06/15/2022, Additional history exists DIABETES RETINOPATHY SCREENING 05/31/2025 01/13/2013, 11/20/2010 DIABETES-FOOT EXAM WITH MONOFILAMENT 05/31/2025 DIABETES-HGB A1C 10/08/2025 04/07/2025 DIABETES-SERUM CREATININE 04/30/2026 04/30/2025, COVID-19 VACCINE Completed 06/03/2024, , 07/30/2021, Additional history exists HEPATITIS C SCREENING Completed 04/07/2025 HIV SCREENING Completed 04/07/2025 DEPRESSION SCREENING Completed 05/31/2025 HIB VACCINE Aged Out No longer eligi [...] on patient's age to complete this topic Procedures Procedure Name Priority Date/Time Associated Diagnosis Comments LITHOLINK 24HR URINE PANEL QUANT (LC DIRECT SHIP) Routine 06/12/2025 8:30 AM CDT LITHOLINK 24HR URINE PANEL QUANT (LC DIRECT SHIP) Routine 06/08/2025 6:18 AM CDT PTH INTACT W/O CALCIUM Routine 11:27 AM CDT Hyperparathyroidism (HCC) THYROID AB PANEL (TPO AB+THYROGLOB AB) Routine 05/31/2025 11:27 AM CDT Thyroid nodule T4 FREE Routine 05/31/2025 11:27 AM CDT Thyroid nodule TSH Routine 05/31/2025 11:27 AM CDT Thyroid nodule BASIC METABOLIC PANEL (CALCIUM TOTAL) Routine 04/30/2025 9:44 AM CDT Pre-transplant evaluation for kidney transplant CBC W AUTO DIFFERENTIAL Routine 04/30/20 9:44 AM CDT Pre-transplant evaluation for kidney transplant SS-B (SJOGREN'S) ANTIBODY Routine 04/19/2025 3:45 PM CDT Pre-transplant evaluation for kidney transplant SS-A (SJOGREN'S) 52+60 ANTIBODIES Routine 04/19/2025 3:45 PM CDT Pre-transplant evaluation for kidney transplant KYARA BLOOD SCREEN W/REFLEX TITER Routine 04/19/2025 3:45 PM CDT Pre-transplant evaluation for kidney transplant Miscarriage (HCC) MRI ANGIO BRAIN ARTERIAL WO CONT Routine 04/07/2025 1:29 PM CDT Pre-transplant evaluation for kidney transplant CREATININE URINE RANDOM Routine 04/07/20 1:10 PM CDT Pre-transplant evaluation for kidney transplant PROTEIN URINE RANDOM QUANTITATIVE Routine 04/07/2025 1:10 PM CDT Pre-transplant evaluation for kidney transplant URINALYSIS REFLEX MICROSCOPIC REFLEX CULTURE Routine 04/07/2025 1:10 PM CDT Pre-transplant evaluation for kidney transplant US THYROID Routine 04/07/2025 1:07 PM CDT Pre-transplant evaluation for kidney transplant H/O thyroid nodule BLOOD TYPE ABO+ RH PANEL Routine 04/07/2025 12:05 PM CDT Pre-transplant evaluation for kidney transplant HLA ANTIBODY SCREEN LUM CLASS 2 SAB Routine 04/07/2025 12:04 PM CDT Pre-transplant evaluation for kidney transplant HLA ANTIBODY SCREEN LUM CLASS 1 SAB Routine 04/07/2025 12:04 PM CDT Pre-transplant evaluation for kidney transplant HLA TYPING DNA LOW RESOLUTION DR,DQ Routine 04/07/2025 12:04 PM CDT Pre-transplant evaluation for kidney transplant HLA TYPING DNA LOW RESOLUTION A,B,C Routine 04/07/2025 12:04 PM CDT Pre-transplant evaluation for kidney transplant TYPE + SCREEN PANEL Routine 04/07/2025 1 2:04 PM CDT Pre-transplant evaluation for kidney transplant LAB MISC TEST Routine 04/07/2025 12:04 PM CDT Pre-transplant evaluation for chronic kidney disease BETA-2 GLYCOPROTEIN 1 ANTIBODY IGG/IGM PANEL Routine 04/07/2025 12:04 PM CDT Pre-transplant evaluation for kidney transplant FACTOR V LEIDEN MUTATION PANEL Routine 04/07/2025 12:04 PM CDT Pre-transplant evaluation for kidney transplant PROTEIN C ANTIGEN Routine 04/07/2025 12: 04 PM CDT Pre-transplant evaluation for kidney transplant PROTEIN C ACTIVITY Routine 04/07/2025 12 :04 PM CDT Pre-transplant evaluation for kidney transplant PROTEIN S ANTIGEN TOTAL Routine 04/07/20 25 12:04 PM CDT Pre-transplant evaluation for kidney transplant ANTITHROMBIN III ACTIVITY Routine 04/07/2025 12:04 PM CDT Pre-transplant evaluation for kidney transplant CARDIOLIPIN ANTIBODY IGM Routine 04/07/2025 12:04 PM CDT Pre-transplant evaluation for kidney transplant CARDIOLIPIN ANTIBODY IGG Routine 04/07/2025 12:04 PM CDT Pre-transplant evaluation for kidney transplant PROTHROMBIN [id number] PANEL Routine 04/07/2025 12:04 PM CDT Pre-transplant evaluation for kidney transplant HOMOCYSTEINE BLOOD QUANTITATIVE Routine 04/07/2025 12:04 PM CDT Pre-transplant evaluation for kidney transplant OXALATE BLOOD Routine 04/07/2025 12:04 PM CDT Pre-transplant evaluation for kidney transplant C-PEPTIDE Routine 04/07/2025 12:04 PM CDT Pre-transplant evaluation for kidney transplant STRONGYLOIDES ANTIBODY IGG Routine 04/07/2025 12:04 PM CDT Pre-transplant evaluation for kidney transplant TOXOPLASMA GONDII ANTIBODY IGG Routine 04/07/2025 12:04 PM CDT Pre-transplant evaluation for kidney transplant HIV-1 HIV-2 ANTIBODY + HIV P24 AG PANEL Routine 04/07/2025 12:04 PM CDT Pre-transplant evaluation for kidney transplant QUANTIFERON-TB GOLD PLUS 4-TUBE Routine 04/07/2025 12:04 PM CDT Pre-transplant evaluation for kidney transplant VARICELLA ZOSTER ANTIBODY IGG Routine 04/07/2025 12:04 PM CDT Pre-transplant evaluation for kidney transplant RUBELLA ANTIBODY IGG TITER Routine 04/07/2025 12:04 PM CDT Pre-transplant evaluation for kidney transplant MUMPS ANTIBODY IGG Routine 04/07/2025 12 :04 PM CDT Pre-transplant evaluation for kidney transplant RUBEOLA ANTIBODY IGG Routine 04/07/2025 12:04 PM CDT Pre-transplant evaluation for kidney transplant OPIATES BLOOD Routine 04/07/2025 12:04 PM CDT Pre-transplant evaluation for kidney transplant COCAINE METABOLITE BLOOD QUANT Routine 04/07/2025 12:04 PM CDT Pre-transplant evaluation for kidney transplant AMPHETAMINE BLOOD CONFIRMATION Routine 04/07/2025 12:04 PM CDT Pre-transplant evaluation for kidney transplant NICOTINE + METABOLITES BLOOD Routine 04/07/2025 12:04 PM CDT Pre-transplant evaluation for kidney transplant ALCOHOL ETHYL BLOOD Routine 04/07/2025 1 2:04 PM CDT Pre-transplant evaluation for kidney transplant SYPHILIS ANTIBODY CASCADING REFLEX Routine 04/07/2025 12:04 PM CDT Pre-transplant evaluation for kidney transplant HEMOGLOBIN A1C Routine 04/07/2025 12:04 PM CDT Pre-transplant evaluation for kidney transplant PATRICIO-ARCHIBALD VIRUS ANTIBODY TO VCA IGG Routine 04/07/2025 12:04 PM CDT Pre-transplant evaluation for kidney transplant CYTOMEGALOVIRUS ANTIBODY IGG BLOOD Routine 04/07/2025 12:04 PM CDT Pre-transplant evaluation for kidney transplant HEPATITIS A ANTIBODY Routine 04/07/2025 12:04 PM CDT Pre-transplant evaluation for kidney transplant HEPATITIS C ANTIBODY Routine 04/07/2025 12:04 PM CDT Pre-transplant evaluation for kidney transplant HEPATITIS B SURFACE ANTIBODY QUANT Routine 04/07/2025 12:04 PM CDT Pre-transplant evaluation for kidney transplant HEPATITIS B CORE ANTIBODY TOTAL Routine 04/07/2025 12:04 PM CDT Pre-transplant evaluation for kidney transplant HEPATITIS B SURFACE ANTIGEN W RFLX CONFIRMATION Routine 04/07/2025 12:04 PM CDT Pre-transplant evaluation for kidney transplant LIPID PROFILE Routine 04/07/2025 12:04 PM CDT Pre-transplant evaluation for kidney transplant PTH INTACT W/O CALCIUM Routine 12:04 PM CDT Pre-transplant evaluation for kidney transplant PHOSPHORUS BLOOD Routine 04/07/2025 12:0 4 PM CDT Pre-transplant evaluation for kidney transplant IRON BLOOD Routine 04/07/2025 12:04 PM CDT Pre-transplant evaluation for kidney transplant FERRITIN Routine 04/07/2025 12:04 PM CDT Pre-transplant evaluation for kidney transplant TRANSFERRIN Routine 04/07/2025 12:04 PM CDT Pre-transplant evaluation for kidney transplant VITAMIN D 25-HYDROXY Routine 04/07/2025 12:04 PM CDT Pre-transplant evaluation for kidney transplant URIC ACID BLOOD Routine 04/07/2025 12:04 PM CDT Pre-transplant evaluation for kidney transplant COMPREHENSIVE METABOLIC PANEL Routine 04/07/2025 12:04 PM CDT Pre-transplant evaluation for kidney transplant CBC W AUTO DIFFERENTIAL Routine 04/07/20 12:04 PM CDT Pre-transplant evaluation for kidney transplant VAS BILATERAL VENOUS DUPLEX LE Routine 04/07/2025 11:24 AM CDT Pre-transplant evaluation for kidney transplant XR CHEST 2VW Routine 04/07/2025 11:16 AM CDT Pre-transplant evaluation for kidney transplant CT ABDOMEN PELVIS WO CONTRAST Routine 04/07/2025 11:16 AM CDT Pre-transplant evaluation for kidney transplant ECHO COMPLETE Routine 04/07/2025 10:47 AM CDT Pre-transplant evaluation for kidney transplant Hypertension, unspecified type EKG 12-LEAD Routine 04/07/2025 10:39 AM CDT Pre-transplant evaluation for kidney transplant Hypertension, unspecified type from Last 3 Months Results * (ABNORMAL) LITHOLINK 24HR URINE PANEL QUANT (LC DIRECT SHIP) (06/12/2025 8:30 AM CDT) Only the most recent of2 resultswithin the time period is included. Cystine Urine Qualitative CANCELED [facility] INSURANCE BILL Comment: Test not performed. Previous test results on file. Result canceled by the ancillary. Volume Urine (Preservative) 2,570 500 - 4,000 mL/24 hr [facility] INSURANCE BILL Calcium Oxalate Saturation 0.27(L) 6.00 - 10.00 [facility] INSURANCE BILL Calcium Urine 8 <200 mg/24 hr [facility] INSURANCE BILL Oxalate Urine 28 20 - 40 mg/24 hr [facility] INSURANCE BILL Citrate Urine <39(L) >550 mg/24 hr [facility] INSURANCE BILL Calcium Phosphate Saturation 0.04(L) 0.50 - 2.00 [facility] INSURANCE BILL pH Urine 24 Hour 6.615(H) 5.800 - 6.200 [facility] INSURANCE BILL Uric Acid Saturation 0.03 <1.00 [facility] INSURANCE BILL Uric Acid Urine 120 <750 mg/24 hr [facility] INSURANCE BILL Sodium Urine 64 50 - 150 mmol/24 hr [facility] INSURANCE BILL Potassium 24 Hour Urine 61 20 - 100 mmol/24 hr [facility] INSURANCE BILL Magnesium Urine 94 30 - 120 mg/24 hr [facility] INSURANCE BILL Phosphorus Urine 411(L) 600 - 1,200 mg/24 hr [facility] INSURANCE BILL Ammonium Urine 4(L) 15 - 60 mmol/24 hr [facility] INSURANCE BILL Comment:The urine Nh4 result was verified by repeat analysis. Chloride mmol/24 Hour Urine 65(L) 70 - 250 mmol/24 hr [facility] INSURANCE BILL Sulfate Urine 21 20 - 80 meq/24 hr [facility] INSURANCE BILL Urea Nitrogen 24 Hour Urine 5.19(L) 6.00 - 14.00 g/24 hr [facility] INSURANCE BILL Protein Catabolic Rate 0.6(L) 0.8 - 1.4 g/kg/24 hr [facility] INSURANCE BILL Creatinine Urine 880 Not Applic. mg/24 hr [facility] INSURANCE BILL Creatinine/Kg Body Weight 11.3 8.7 - 20.3 mg/24 hr/kg [facility] INSURANCE BILL Calcium/Kg Body Weight 0.1 <4.0 mg/24 hr/kg [facility] INSURANCE BILL Calcium/Creatinine Ratio Urine 9(L) 51 - 262 mg/g creat [facility] INSURANCE BILL Comment [employer]ink Note [facility] INSURANCE BILL Comment: At least one urine analyte was below the lower limit of the assay. In calculation of supersaturation values, the lower limit for that analyte was used. 06/12/2025 8:30 AM CDT 06/14/2025 Narrative [facility] INSURANCE BILL - 06/17/2025 1:35 AM CDT Test(s) 274102-[id number], Urine, Qualitative; [id number]-Qczpbtj, Urine; 357964-cB, 24 hr, Urine; 539884-Ltnvwezr, Urine; 475779- Sulfate, Urine was developed and its performance characteristics determined by [facility]. It has not been cleared or approved by the Food and Drug Administration. Performed at: - [address] [id number] [employer] Mail Driver: Fernando Méndez PhD, Phone: [phone] Phoenix Blackwell MD LAB - URINE CHEMISTRY ORDERABLE S Edited Result - Final Performing Organization Address City/[facility]/ZIP Co de Phone Number [facility] INSURANCE BILL [address] [place] [address] * (ABNORMAL) PTH INTACT W/O CALCIUM (05/31/2025 11:27 AM CDT) Only the most recent of2 resultswithin the time period is included. PTH Intact 378.7(H) 8.0 - 77.0 pg/mL 05/31/2025 12:36 PM CDT [facility] Blood BLOOD SPECIMEN / Unknown Lab Venipuncture / Unknown 05/31/2025 11:27 AM CDT 05/31/2025 12:02 PM CDT Gerardo Goel MD LAB - CHEMISTRY ORDERABLES Final Result [facility] [address] [address], [facility] [phone] * (ABNORMAL) THYROID AB PANEL (TPO AB+THYROGLOB AB) (05/31/2025 11:27 AM CDT) Thyroid Peroxidase TPO Antibody 38(H) 0 - 34 IU/mL 06/02/2025 3:10 PM CDT [facility] ([facility]) Thyroglobulin Antibody TNP IU/mL 06/02/2025 3:10 PM CDT [facility] ([facility]) Comment: Test not performed. Insufficient specimen to perform or complete analysis. Contacted Ronda Mena at your facility 06/02/2025. Thyroglobulin Antibody measured by [facility] [place] [employer] It should be noted that the presence of thyroglobulin antibodies may not be pathogenic nor diagnostic, especially at very low levels. The assay bench jeweler has found that four percent of individuals without evidence of thyroid disease or autoimmunity will have positive TgAb levels up to 4 IU/mL. Blood BLOOD SPECIMEN / Unknown Lab Venipuncture / Unknown 05/31/2025 11:27 AM CDT 05/31/2025 12:15 PM CDT Narrative [facility] ([facility]) - 06/02/2025 3:10 PM CDT Performed at: [address] [place], [place] [id number] [place], [place] [id number] [employer] Mail Driver: Landon Benoit PhD, Phone: [phone] Gerardo Goel MD LAB - CHEMISTRY ORDERABLES Final Result Performing Organization Address City/[facility]/ZIP Co de Phone Number [facility] ([facility]) [address] [place] [address] * TSH (05/31/2025 11:27 AM CDT) TSH 1.077 0.350 - 4.940 uIU/mL 05/31/2025 12:51 PM CDT [facility] Blood BLOOD SPECIMEN / Unknown Lab Venipuncture / Unknown 05/31/2025 11:27 AM CDT 05/31/2025 12:02 PM CDT Gerardo Goel MD LAB - CHEMISTRY ORDERABLES Final Result [facility] [address] [place] [address], [facility] [phone] * T4 FREE (05/31/2025 11:27 AM CDT) T4 Free 0.8 0.7 - 1.5 ng/dL 05/31/2025 12:51 PM CDT [facility] Blood BLOOD SPECIMEN / Unknown Lab Venipuncture / Unknown 05/31/2025 11:27 AM CDT 05/31/2025 12:02 PM CDT us Gerardo Goel MD LAB - CHEMISTRY ORDERABLES Final Result [facility] [address] [place] [address], [facility] [phone] * CBC W/ DIFFERENTIAL (04/30/2025 9:44 AM T) Only the most recent of2 resultswithin the time period is included. [facility] WBC 5.5 4.0 - 10.7 x10E9/L 04/30/2025 10:44 AM [facility] RBC Count 4.11 3.90 - 5.20 x10E12/L 04/30/2025 10:44 AM [facility] Hemoglobin 12.2 11.9 - 15.8 g/dL 04/30/2025 10:44 AM [facility] Hematocrit 36.0 34.8 - 46.1 % 04/30/2025 10:44 AM [facility] MCV 87.6 80.0 - 98.0 fL 04/30/2025 10:44 AM [facility] MCH 29.7 26.7 - 33.6 pg 04/30/2025 10:44 AM [facility] MCHC 33.9 31.7 - 36.3 g/dL 04/30/2025 10:44 AM [facility] RDW-CV 12.2 11.3 - 14.8 % 04/30/2025 10:44 AM [facility] Platelet Count 262 150 - 420 x10E9/L 04/30/2025 10:44 AM [facility] MPV 8.9 7.8 - 11.4 fL 04/30/2025 10:44 AM [facility] Neutrophil % 67.3 41.0 - 74.0 % 04/30/2025 10:44 AM [facility] Lymphocyte % 24.2 17.0 - 47.0 % 04/30/2025 10:44 AM [facility] Monocyte % 5.9 3.0 - 11.0 % 04/30/2025 10:44 AM [facility] Eosinophil % 2.0 0.0 - 7.0 % 04/30/2025 10:44 AM [facility] Basophil % 0.4 0.0 - 1.6 % 04/30/2025 10:44 AM [facility] Immature Granulocytes % 0.2 0.0 - 1.0 % 04/30/2025 10:44 AM [facility] Neutrophil Absolute 3.67 1.60 - 7.50 x10E9/L 04/30/2025 10:44 AM [facility] Lymphocyte Absolute 1.32 1.00 - 4.40 x10E9/L 04/30/2025 10:44 AM [facility] Monocyte Absolute 0.32 0.15 - 1.00 x10E9/L 04/30/2025 10:44 AM [facility] Eosinophil Absolute 0.11 0.00 - 0.60 x10E9/L 04/30/2025 10:44 AM [facility] Basophil Absolute 0.02 0.00 - 0.13 x10E9/L 04/30/2025 10:44 AM [facility] Blood BLOOD SPECIMEN / Unknown Lab Venipuncture / Unknown 04/30/2025 9:44 AM CDT 04/30/2025 10:32 AM CDT Abdullahi Garcia MD LAB - HEMATOLOGY ORDERABLES Final Result [facility] [address] [place] [address], [facility] [phone] * (ABNORMAL) BASIC METABOLIC PANEL (CALCIUM TOTAL) (04/30/2025 9:44 AM CDT) BUN 48(H) 7 - 26 mg/dL 04/30/2025 11:02 AM [facility] Creatinine 2.81(H) 0.56 - 0.96 mg/dL 04/30/2025 11:02 AM [facility] Sodium 134(L) 136 - 145 mmol/L 04/30/2025 11:02 AM [facility] Potassium 4.4 3.5 - 4.5 mmol/L 04/30/2025 11:02 AM [facility] Chloride 101 98 - 107 mmol/L 04/30/2025 11:02 AM [facility] CO2 26 22 - 29 mmol/L 04/30/2025 11:02 AM [facility] Glucose 105(H) 70 - 99 mg/dL 04/30/2025 11:02 AM [facility] Calcium 9.3 8.4 - 10.2 mg/dL 04/30/2025 11:02 AM [facility] Anion Gap 7 6 - 16 04/30/2025 11:02 AM [facility] BUN/Creatinine Ratio 17 7 - 23 04/30/2025 11:02 AM [facility] Osmolality Calculated 291 275 - 295 mOsm/kg 04/30/2025 11:02 AM [facility] eGFR by CKD-EPI 19(L) >=90 mL/min/1.7 3 m2 04/30/2025 11:02 AM [facility] Comment:Estimated Glomerular Filtration Rate (eGFR) calculated using the CKD-EPI Creatinine Equation (2020), per the National Kidney Foundation and [place] [employer] Neph[employer] recommendations. Blood BLOOD SPECIMEN / Unknown Lab Venipuncture / Unknown 04/30/2025 9:44 AM CDT 04/30/2025 10:28 AM CDT us Abdullahi Garcia MD LAB - CHEMISTRY ORDERABLES F inal Result [facility] [address] [place] [address], [facility] [phone] * SS-A (SJOGREN'S) 52+60 ANTIBODIES (04/19/2025 3:45 PM CDT) SS-A 52 Antibody 1 0 - 40 AU/mL 04/20/2025 10:47 PM CDT [facility] ([facility]) Comment: INTERPRETIVE INFORMATION: SSA-52 (Ro52) (MARYLU) Antibody, IgG 29 AU/mL or Less ............. Negative 30 - 40 AU/mL ................ Equivocal 41 AU/mL or Greater .......... Positive SSA-52 (Ro52) and/or SSA-60 (Ro60) antibodies are associated with a diagnosis of Sjogren syndrome, systemic lupus erythematosus (SLE), and systemic sclerosis. SSA-52 antibody overlaps significantly with the major SSc-related antibodies. SSA-52 (Ro52) antibody occurs frequently in patients with inflammatory myopathies, often in the presence of interstitial lung disease. SS-A 60 Antibody 0 0 - 40 AU/mL 04/20/2025 10:47 PM CDT [facility] ([facility]) Comment: REFERENCE INTERVAL: SSA-60 (Ro60) (MARYLU) Antibody, IgG 29 AU/mL or Less ............. Negative 30 - 40 AU/mL ................ Equivocal 41 AU/mL or Greater .......... Positive Performed By: [facility] [address] [place] [address] Slip Mixer: Irvin Chambers MD, PhD CLIA Number: [id number] Blood BLOOD SPECIMEN / Unknown Lab Venipuncture / Unknown 04/19/2025 3:45 PM CDT 04/19/2025 4:31 PM CDT Phoenix Blackwell MD LAB - CHEMISTRY ORDERABLES Odette l Result [facility]) [address] [place], [place] [address] * KYARA BLOOD SCREEN W/REFLEX TITER (04/19/2025 3:45 PM CDT) KYARA IgG None Detected None Detected 04/21/2025 7:47 AM CDT [facility] ([facility]) Comment: No Anti-Nuclear Antibodies (KYARA) detected by NOLAN. No further testing will be performed. If suspicion of connective tissue disease is strong and KYARA NOLAN is negative, consider testing for KYARA by IFA ([id number]). INTERPRETIVE INFORMATION: Anti-Nuclear Antibodies (KYARA), IgG by NOLAN Antinuclear Antibodies (KYARA), IgG by NOLAN: KYARA specimens are screened using enzyme-linked immunosorbent assay (NOLAN) methodology. All NOLAN results reported as Detected are further tested by indirect fluorescent assay (IFA) using HEp-2 substrate with an IgG-specific conjugate. The KYARA NOLAN screen is designed to detect antibodies against dsDNA, histones, SS-A (Ro), SS-B (La), Baeza, Baeza/[employer], Scl-70, Kristen-1, centromeric proteins, other antigens extracted from the HEp-2 cell nucleus. KYARA NOLAN assays have been reported to have lower sensitivities than KYARA IFA for systemic autoimmune rheumatic diseases (SARD). Negative results do not necessarily rule out SARD. Performed By: [facility] [employer] [address] [place] [address] Slip Mixer: Irvin Chambers MD, PhD CLIA Number: [id number] Blood BLOOD SPECIMEN / Unknown Lab Venipuncture / Unknown 04/19/2025 3:45 PM CDT 04/19/2025 4:31 PM CDT Phoenix Blackwell MD LAB - CHEMISTRY ORDERABLES Odette l Result [facility]) [address] [place] [address] * SS-B (SJOGREN'S) ANTIBODY (04/19/2025 3:45 PM CDT) Pathologist [facility] SS-B Antibody 0 0 - 40 AU/mL 04/20/2025 10:47 PM CDT [facility] ([facility]) Comment: INTERPRETIVE INFORMATION: SSB (La) (MARYLU) Ab, IgG 29 AU/mL or Less ............. Negative 30 - 40 AU/mL ................ Equivocal 41 AU/mL or Greater .......... Positive SSB (La) antibody is seen in 50-60% of Sjogren syndrome cases and is specific if it is the only MARYLU antibody present. 15-25% of patients with systemic lupus erythematosus (SLE) and 5-10% of patients with progressive systemic sclerosis (PSS) also have this antibody. Performed By: [facility] [address] [place] [address] Slip Mixer: Irvin Chambers MD, PhD CLIA Number: [id number] Blood BLOOD SPECIMEN / Unknown Lab Venipuncture / Unknown 04/19/2025 3:45 PM CDT 04/19/2025 4:31 PM CDT Phoenix Blackwell MD LAB - CHEMISTRY ORDERABLES Odette hidalgo Result [facility] ([facility]) [address] [place] [address], [facility] * MRA ANGIO HEAD NON CONTRAST (04/07/2025 1:29 PM CDT) Anatomical Region Laterality Modality Head Magnetic Resonan ce 04/18/2025 2:44 PM CDT Impressions 04/18/2025 2:47 PM CDT IMPRESSION: 1. No evidence of intracranial aneurysm. No hemodynamically significant stenosis or occlusion of the large intracranial arteries. > Interpreting Provider: Anthony Puentes MD on 04/18/2025 2:47 PM Narrative 04/18/2025 2:47 PM CDT PROCEDURE: MRI ANGIO BRAIN ARTERIAL WO CONT, DATE/TIME OF EXAM: 04/07/2025 1:29 PM, LOCATION [facility] INDICATION: Z01.818: Pre-transplant evaluation for kidney transplant ADDITIONAL CLINICAL INFORMATION: Ordering Provider Reason For Exam: pre-kidney txp evaluation, r/o aneurysm Technologist Note: Additional: EXAMINATION: Magnetic resonance angiography (MRA) of the head without contrast TECHNIQUE: MR arteriography of the head was performed without contrast utilizing time of flight technique. COMPARISON: No prior study is available for comparison at the time of this dictation. FINDINGS: The distal internal carotid arteries are patent. The anterior cerebral arteries are patent. The middle cerebral arteries are patent. The posterior cerebral arteries are patent. The distal vertebral arteries are patent. The basilar artery is patent patent. No aneurysms, vascular occlusions, or intracranial stenoses are identified. Procedure Note Anthony Puentes MD - 04/18/2025 PROCEDURE: MRI ANGIO BRAIN ARTERIAL WO CONT, DATE/TIME OF EXAM:04/07/2025 1:29 PM, LOCATION [facility] INDICATION: Z01.818: Pre-transplant evaluation for kidney transplant ADDITIONAL CLINICAL INFORMATION: Ordering Provider Reason For Exam: pre-kidney txp evaluation, r/oaneurysm Technologist Note: Additional: EXAMINATION: Magnetic resonance angiography (MRA) of the head without contrast TECHNIQUE: MR arteriography of the head was performed without contrast utilizing time of flight technique. COMPARISON: No prior study is available for comparison at the time ofthis dictation. FINDINGS: The distal internal carotid arteries are patent. The anterior cerebral arteries are patent. The middle cerebral arteries are patent. The posterior cerebral arteries are patent. The distal vertebral arteriesare patent. The basilar artery is patent patent. No aneurysms, vascular occlusions, or intracranial stenoses are identified. IMPRESSION: 1. No evidence of intracranial aneurysm. No hemodynamically significant stenosis or occlusion of the large intracranial arteries. > Interpreting Provider: Anthony Puentes MD on 04/18/2025 2:47 PM Lea Ross MD MR ORDERABLES Final Result * URINALYSIS REFLEX MICROSCOPIC REFLEX CULTURE (04/07/2025 1:10 PM CDT) Color UA Yellow Yellow, Straw 04/07/2025 2:00 PM [facility] Clarity UA Clear Clear 04/07/2025 2:00 PM [facility] Glucose UA Normal Normal 04/07/2025 2:00 PM [facility] Bilirubin UA Negative Negative 04/07/2025 2:00 PM [facility] Ketone UA Negative Negative 04/07/2025 2:00 PM [facility] Specific [place] UA 1.005 1.005 - 1.030 04/07/2025 2:00 PM [facility] Blood UA Negative Negative 04/07/2025 2:00 PM [facility] pH UA 6.0 5.0 - 8.0 04/07/2025 2:00 PM [facility] Protein UA Negative Negative 04/07/2025 2:00 PM [facility] Urobilinogen UA Normal Normal mg/dL 04/07/2025 2:00 PM CDT [facility] Nitrite UA Negative Negative 04/07/2025 2:00 PM CDT [facility] Leukocyte Esterase UA Negative Negative 04/07/2025 2:00 PM CDT [facility] Reflex Status Culture not indicated 04/07/2025 2:00 PM CDT [facility] Urine Microscopy Urine microscopy not indicated 04/07/2025 2:00 PM CDT [facility] Urine URINE SPECIMEN OBTAINED BY CLEAN CATCH PROCEDURE / Unknown Collection / Unknown 04/07/2025 1:10 PM CDT 04/07/2025 1:38 PM CDT Narrative [facility] - 04/07/2025 2:00 PM CDT us Lea Ross MD LAB - URINALYSIS ORDERABLES Final Result [address] [address], [place] [phone] * PROTEIN URINE RANDOM QUANTITATIVE (04/07/2025 1:10 PM CDT) Protein Urine <7 Not Established mg/dL 04/07/2025 2:50 PM CDT [facility] Urine URINE SPECIMEN OBTAINED BY CLEAN CATCH PROCEDURE / Unknown Collection / Unknown 04/07/2025 1:10 PM CDT 04/07/2025 1:38 PM CDT us Lea Ross MD LAB - URINE CHEMISTRY ORDERA BLES Final Result [address] [address], [place] [phone] * CREATININE URINE RANDOM (04/07/2025 1:10 PM CDT) Creatinine Urine 34.07 Not Established mg/dL 04/07/2025 2:50 PM CDT [facility] Urine URINE SPECIMEN OBTAINED BY CLEAN CATCH PROCEDURE / Unknown Collection / Unknown 04/07/2025 1:10 PM CDT 04/07/2025 1:38 PM CDT us Lea Ross MD LAB - URINE CHEMISTRY ORDERA BLES Final Result [facility] [address] [place] [address], [facility] [phone] * US Thyroid (04/07/2025 1:07 PM CDT) Anatomical Region Laterality Modality Chest Ultrasound 04/07/2025 1:20 PM CDT Impressions 04/07/2025 5:01 PM CDT IMPRESSION: 1.Nodule #1 TI-RADS 5. FNA recommended. TI-RADS Thyroid Nodule Grading TR 1 (0 points) - Benign - Recommendation: No FNA TR 2 (2 points) - Not suspicious - Recommendation: No FNA TR 3 (3 points) - Mildly suspicious - Recommendation: >1.5 cm follow up; > 2.5 cm FNA TR 4 (4-6 points) - Moderately suspicious - Recommendation: > 1.0 cm follow up; > 1.5 cm FNA TR 5 (> 7 points) - Highly suspicious - Recommendation: > 0.5 cm follow up; > 1.0 cm FNA Report dictated by Natalio Valerio MD (Truck Repair Supervisor) I, Nina Woodward have personally reviewed and interpreted this examination/study. > Interpreting Provider: Nina Woodward on 04/07/2025 5:01 PM Narrative 04/07/2025 5:01 PM CDT PROCEDURE: PROCEDURE: US THYROID, DATE/TIME OF EXAM: 04/07/2025 1:07 PM, LOCATION [facility] INDICATION: Z01.818: Pre-transplant evaluation for kidney transplant Z86.39: H/O thyroid nodule ADDITIONAL CLINICAL INFORMATION: Ordering Provider Reason For Exam: pre-kidney txp evaluation, pt with hx of thyroid nodule COMPARISON: None. Right Lobe: 3.8 x 1.2 x 1.2 cm, volume 2.6 mL Left Lobe: 4.2 x 1 x 0.9 cm, volume 1.9 mL Isthmus: 0.2 cm Thyroid nodule(s): Nodule #1 *Location: Left thyroid lobe *Size: 2.1 x 1.6 x 1.1 cm *Composition: Solid or almost completely solid composition (2) *Echogenicity: Hyperechoic or isoechoic (1) *Shape: Wider than tall (0) *Margins: Ill-defined margin (0) *Echogenic Foci: Macrocalcifications (1) *Echogenic Foci: Punctate echogenic foci (3) *TOTAL POINTS: 7 Other: No abnormal lymph nodes are present in the neck. Procedure Note Nina Donahue MD - 04/07/2025 PROCEDURE: PROCEDURE: US THYROID, DATE/TIME OF EXAM: 04/07/2025 1:07PM, LOCATION [facility] INDICATION: Z01.818: Pre-transplant evaluation for kidney transplant Z86.39: H/O thyroid nodule ADDITIONAL CLINICAL INFORMATION: Ordering Provider Reason For Exam: pre-kidney txp evaluation, pt withhx of thyroid nodule COMPARISON: None. Right Lobe: 3.8 x 1.2 x 1.2 cm, volume 2.6 mL Left Lobe: 4.2 x 1 x 0.9 cm, volume 1.9 mL Isthmus: 0.2 cm Thyroid nodule(s): Nodule #1 *Location: Left thyroid lobe *Size: 2.1 x 1.6 x 1.1 cm *Composition: Solid or almost completely solid composition (2) *Echogenicity: Hyperechoic or isoechoic (1) *Shape: Wider than tall (0) *Margins: Ill-defined margin (0) *Echogenic Foci: Macrocalcifications (1) *Echogenic Foci: Punctate echogenic foci (3) *TOTAL POINTS: 7 Other: No abnormal lymph nodes are present in the neck. IMPRESSION: 1.Nodule #1 TI-RADS 5. FNA recommended. TI-RADS Thyroid Nodule Grading TR 1 (0 points) - Benign - Recommendation: No FNA TR 2 (2 points) - Not suspicious - Recommendation: No FNA TR 3 (3 points) - Mildly suspicious - Recommendation: >1.5 cm follow up;> 2.5 cm FNA TR 4 (4-6 points) - Moderately suspicious - Recommendation: > 1.0 cmfollow up; > 1.5 cm FNA TR 5 (> 7 points) - Highly suspicious - Recommendation: > 0.5 cm followup; > 1.0 cm FNA Report dictated by Natalio Valerio MD (Truck Repair Supervisor) I, Nina Woodward have personally reviewed and interpreted this examination/study. > Interpreting Provider: Nina Woodward on 04/07/2025 5:01 PM us Lea Ross MD US ORDERABLES Final Result * BLOOD TYPE ABO+ RH PANEL (04/07/2025 12:05 PM CDT) ABO Rh A POS 04/07/2025 1:3 3 PM CDT [facility] Blood BLOOD SPECIMEN / Unknown Lab Venipuncture / Unknown 04/07/2025 12:05 PM CDT 04/07/2025 12:49 PM CDT Lea Ross MD LAB - BLOOD BANK ORDERABLES Final Result Performing Organization Address City/State/[facility] de Phone Number [facility] [address] [place] [address], [facility] [phone] * HLA TYPING DNA LOW RESOLUTION DR,DQ (04/07/2025 12:04 PM CDT) DR DQ Low Resolution DRB1-1 *01 04/12/2025 2:01 PM CDT [facility] ([facility]) DR DQ Low Resolution DRB1-2 *03(DR17) 04/12/2025 2:01 PM CDT [facility] ([facility]) DR DQ Low Resolution DQB1-1 *02 04/12/2025 2:01 PM CDT [facility] ([facility]) DR DQ Low Resolution DQB1-2 *05 04/12/2025 2:01 PM CDT [facility] ([facility]) DR DQ Low Resolution DRB3-1 *01 04/12/2025 2:01 PM CDT [facility] ([facility]) DR DQ Low Resolution DRB3-2 Negative 04/12/2025 2:01 PM CDT [facility] ([facility]) DR DQ Low Resolution DRB4-1 Negative 04/12/2025 2:01 PM CDT [facility] ([facility]) DR DQ Low Resolution DRB4-2 Negative 04/12/2025 2:01 PM CDT [facility] ([facility]) DR DQ Low Resolution DRB5-1 Negative 04/12/2025 2:01 PM CDT [facility] ([facility]) DR DQ Low Resolution DRB5-2 Negative 04/12/2025 2:01 PM CDT [facility] ([facility]) DR DQ Low Resolution Methodology Real Time PCR 04/12/2025 2:01 PM CDT [facility] ([facility]) DR DQ Low Resolution test date [id number] 04/12/2025 2:01 PM CDT [facility] ([facility]) Comment: Methodology - Real-Time PCR This test was developed and its performance characteristics determined by the [facility]. It has not been cleared or approved by the U.S. Food and Drug Administration. The FDA has determined that such clearance or approval is not necessary. This test is used for clinical purposes. It should not be regarded as investigational or for research. This laboratory is certified under the Clinical Laboratory Improvement Amendments of 1988 (CLIA-88) as qualified to perform high complexity clinical laboratory testing. CLIA ID# [id number] Performed at: [facility], [address] [place] [address] [address] Mail Driver: Emery Palm, Ph.D., D([facility]), Blood BLOOD SPECIMEN / Unknown Lab Venipuncture / Unknown 04/07/2025 12:04 PM CDT 04/07/2025 12:31 PM CDT Lea Ross MD LAB - BLOOD BANK ORDERABLES Final Result [facility] ([facility]) [address] [place], [place] [address] * HLA TYPING DNA LOW RESOLUTION A,B,C (04/07/2025 12:04 PM CDT) ABC DNA A1 *01 04/12/2025 2:01 PM CDT [facility] ([facility]) ABC DNA B1 *08 04/12/2025 2:01 PM CDT [facility] ([facility]) ABC DNA B2 *51 04/12/2025 2:01 PM CDT [facility] ([facility]) ABC DNA BW1 6 04/12/2025 2:01 PM CDT [facility] ([facility]) ABC DNA BW2 4 04/12/2025 2:01 PM CDT [facility] ([facility]) ABC DNA C1 *01 04/12/2025 2:01 PM CDT [facility] ([facility]) ABC DNA C2 *07 04/12/2025 2:01 PM CDT [facility] ([facility]) ABC DNA Methodology Real Time PCR 04/12/2025 2:01 PM CDT [facility] ([facility]) ABC DNA Test Date [id number] 2:01 PM CDT [facility] ([facility]) Comment: Methodology - Real-Time PCR This test was developed and its performance characteristics determined by the [facility]. It has not been cleared or approved by the U.S. Food and Drug Administration. The FDA has determined that such clearance or approval is not necessary. This test is used for clinical purposes. It should not be regarded as investigational or for research. This laboratory is certified under the Clinical Laboratory Improvement Amendments of 1988 (CLIA-88) as qualified to perform high complexity clinical laboratory testing. CLIA ID# [id number] Performed at: [facility], [address] [place] [phone] [address] Mail Driver: Emery Palm, Ph.D., D([facility]), Blood BLOOD SPECIMEN / Unknown Lab Venipuncture / Unknown 04/07/2025 12:04 PM CDT 04/07/2025 12:31 PM CDT Lea Ross MD LAB - BLOOD BANK ORDERABLES Final Result [facility] ([facility]) [address] [place] [id number] [place] [address] * HLA ANTIBODY SCREEN LUM CLASS 2 SAB (04/07/2025 12:04 PM CDT) % PRA 1 04/12/2025 2:01 PM CDT [facility] ([facility]) Class 2 LUM SAB Specificity DPB PRESENT 04/12/2025 2:01 PM CDT [facility] ([facility]) Class 2 SAB Test Date [id number] 04/12/2025 2:01 PM CDT [facility] ([facility]) Comment: Methodology - Luminex Bead-Based Immunoassay. This test was developed and its performance characteristics determined by the [facility]. It has not been cleared or approved by the U.S. Food and Drug Administration. The FDA has determined that such clearance or approval is not necessary. This test is used for clinical purposes. It should not be regarded as investigational or for research. This laboratory is certified under the Clinical Laboratory Improvement Amendments of 1988 (CLIA-88) as qualified to perform high complexity clinical laboratory testing. CLIA ID# [id number] Performed at: [facility], [address] [place] [phone] [address] Mail Driver: Emery Palm, Ph.D., D([facility]), Blood BLOOD SPECIMEN / Unknown Lab Venipuncture / Unknown 04/07/2025 12:04 PM CDT 04/07/2025 12:31 PM CDT Lea Ross MD LAB - BLOOD BANK ORDERABLES Final Result [facility] ([facility]) [address] [place], [place] [address] * HLA ANTIBODY SCREEN LUM CLASS 1 SAB (04/07/2025 12:04 PM CDT) % PRA 6 04/12/2025 2:01 PM CDT [facility] ([facility]) Class 1 LUM SAB Specificity Specificities: A2 B57, 58 04/12/2025 2:01 PM CDT [facility] ([facility]) Class 1 SAB Test Date [id number] 04/12/2025 2:01 PM CDT [facility] ([facility]) Comment: Methodology - Luminex Bead-Based Immunoassay. This test was developed and its performance characteristics determined by the [facility]. It has not been cleared or approved by the U.S. Food and Drug Administration. The FDA has determined that such clearance or approval is not necessary. This test is used for clinical purposes. It should not be regarded as investigational or for research. This laboratory is certified under the Clinical Laboratory Improvement Amendments of 1988 (CLIA-88) as qualified to perform high complexity clinical laboratory testing. CLIA ID# [id number] Performed at: [facility], [address] [place] [phone] [address] Mail Driver: Emery Palm, Ph.D., D([facility]), Blood BLOOD SPECIMEN / Unknown Lab Venipuncture / Unknown 04/07/2025 12:04 PM CDT 04/07/2025 12:31 PM CDT Lea Ross MD LAB - BLOOD BANK ORDERABLES Final Result Performing Organization Address City/State/[facility] Co de Phone Number [facility] ([facility]) [address] [place] [address] * COCAINE METABOLITE QUANT (04/07/2025 12:04 PM CDT) [facility] Cocaine and Metabolite Blood <20 ng/mL 04/11/2025 2:14 AM CDT [facility] ([facility]) Comment: INTERPRETIVE INFORMATION: Cocaine Metabolite, Serum or Plasma, Quantitative Methodology: Quantitative Liquid Chromatography-Tandem Mass Spectrometry Positive cutoff: 20 ng/mL For medical purposes only; not valid for forensic use. The concentration value must be greater than or equal to the cutoff to be reported as positive. Interpretive questions should be directed to the laboratory. This test was developed and its performance characteristics determined by [employer]. It has not been cleared or approved by the US Food and Drug Administration. This test was performed in a CLIA certified laboratory and is intended for clinical purposes. Performed By: [employer] [address] [place] [id number] Slip Mixer: Irvin Chambers MD, PhD CLIA Number: [id number] Blood BLOOD SPECIMEN / Unknown Lab Venipuncture / Unknown 04/07/2025 12:04 PM CDT 04/07/2025 12:30 PM CDT us Lea Ross MD LAB - CHEMISTRY ORDERABLES F inal Result [facility] [employer] ([facility]) [address] [place], [place] [address] * SYPHILIS ANTIBODY CASCADING REFLEX (04/07/2025 12:04 PM CDT) Treponema pallidum Antibody Non-react emmanuel Non-react emmanuel 04/07/2025 2:00 PM CDT [facility] Comment: No Laboratory evidence of syphilis infection. Note: Circulating antibodies may be low or undetectable in early infection. If recent exposure is suspected, re-draw sample in 2-4 weeks and repeat testing. Blood BLOOD SPECIMEN / Unknown Lab Venipuncture / Unknown 04/07/2025 12:04 PM CDT 04/07/2025 12:31 PM CDT Lea Ross MD LAB - SEROLOGY ORDERABLES Fi nal Result Performing Organization Address City/[facility]/ZIP Co de Phone Number [facility] [address] [place] [address], [facility] [phone] * AMPHETAMINE BLOOD CONFIRMATION (04/07/2025 12:04 PM CDT) Amphetamines Confirmation <20 ng/mL 04/11/2025 3:04 AM CDT [facility] ([facility]) Comment: INTERPRETIVE INFORMATION: Amphetamines, Serum or Plasma, Quantitative Methodology: Quantitative Liquid Chromatography-Tandem Mass Spectrometry Positive cutoff: 20 ng/mL For medical purposes only; not valid for forensic use. The absence of expected drug(s) and/or drug metabolite(s) may indicate non-compliance, inappropriate timing of specimen collection relative to drug administration, poor drug absorption, or limitations of testing. The concentration value must be greater than or equal to the cutoff to be reported as positive. Interpretive questions should be directed to the laboratory. This test was developed and its performance characteristics determined by [employer]. It has not been cleared or approved by the US Food and Drug Administration. This test was performed in a CLIA certified laboratory and is intended for clinical purposes. Methamphetamine Confirmation <20 ng/mL 04/11/2025 3:04 AM CDT [facility] ([facility]) MDA Confirmation <20 ng/mL 04/11/20 3:04 AM CDT [facility] ([facility]) MDMA Confirm <20 ng/mL 04/11/2025 3:04 AM CDT [facility] ([facility]) MDEA Confirmation <20 ng/mL 3:04 AM CDT [facility] ([facility]) Comment: Performed By: [facility] [employer] [address] [place] [address] Slip Mixer: Irvin Chambers MD, PhD CLIA Number: [id number] Blood BLOOD SPECIMEN / Unknown Lab Venipuncture / Unknown 04/07/2025 12:04 PM CDT 04/07/2025 12:32 PM CDT Lea Ross MD LAB - CHEMISTRY ORDERABLES F inal Result [facility]) [address] [place] [address] * QUANTIFERON-TB GOLD PLUS 4-TUBE (04/07/2025 12:04 PM CDT) Pathologist [facility] QuantiFERON Mitogen Minus NIL 9.97 IU/mL 04/09/2025 11:39 PM CDT [facility]) QuantiFERON Nil Value 0.03 IU/mL 04/09/2025 11:39 PM CDT [facility]) QuantiFERON Plus TB1 Minus NIL 0.14 <=0.34 IU/mL 04/09/2025 11:39 PM CDT [facility]) QuantiFERON Plus TB2 Minus NIL 0.18 <=0.34 IU/mL 04/09/2025 11:39 PM CDT [facility] ([facility]) QuantiFERON-TB Gold Plus Negative Negative 04/09/2025 11:39 PM CDT [facility] ([facility]) Comment: INTERPRETIVE INFORMATION:Quantiferon TB Gold Plus Interferon gamma release is measured for specimens from each of the four collection tubes. A qualitative result (Negative, Positive, or Indeterminate) is based on interpretation of the four values: NIL, MITOGEN minus NIL (MITOGEN-NIL), TB1 minus NIL (TB1-NIL), and TB2 minus NIL (TB2-NIL). The NIL value represents nonspecific reactivity produced by the patient specimen. The MITOGEN-NIL value serves as the positive control for the patient specimen, demonstrating successful lymphocyte activity. The TB1-NIL tube specifically detects CD4+ lymphocyte reactivity, specifically stimulated by the TB1 antigens. The TB2-NIL tube detects both CD4+ and CD8+ lymphocyte reactivity, stimulated by TB2 antigens. An overall Negative result does not completely rule out TB infection. A false-positive result in the absence of other clinical evidence of TB infection is not uncommon. Refer to: Updated Guidelines for Using Interferon Gamma Release Assays to Detect Mycobacterium tuberculosis Infection -- [place], 2010 (http://www.cdc.gov/mmwr/preview/mmwrhtml/fq6781v6.htm), for more information concerning test performance in low-prevalence populations and use in occupational screening. Performed By: [employer] [address] [place] [address] Slip Mixer: Irvin Chambers MD, PhD CLIA Number: [id number] Blood BLOOD SPECIMEN / Unknown Lab Venipuncture / Unknown 04/07/2025 12:04 PM CDT 04/07/2025 12:33 PM CDT Lea Ross MD LAB - CHEMISTRY ORDERABLES F inal Result [facility] [employer] [facility]) [address] [place] [address] * (ABNORMAL) OXALATE BLOOD (04/07/2025 12:04 PM CDT) Oxalate 3.6(H) <=2.0 umol/L 04/09/2025 4:51 PM CDT [facility] [employer] ([facility]) Comment: INTERPRETIVE INFORMATION: Oxalate, Plasma This test was developed and its performance characteristics determined by [employer]. It has not been cleared or approved by the US Food and Drug Administration. This test was performed in a CLIA certified laboratory and is intended for clinical purposes. Performed By: [employer] [address] [place] [address] Slip Mixer: Irvin Chambers MD, PhD CLIA Number: [id number] Blood BLOOD SPECIMEN / Unknown Lab Venipuncture / Unknown 04/07/2025 12:04 PM CDT 04/07/2025 12:29 PM CDT Lea Ross MD LAB - CHEMISTRY ORDERABLES F inal Result [employer] ([facility]) [address] [place] [address], [facility] * HIV-1 HIV-2 ANTIBODY + HIV P24 AG PANEL (04/07/2025 12:04 PM CDT) Pathologist [facility] HIV Antigen/Antibod y 1 & 2 Non-reacti ve Non-react emmanuel 04/07/2025 2:00 PM CDT [facility] Comment:No Laboratory eviden ce of HIV infection. Blood BLOOD SPECIMEN / Unknown Lab Venipuncture / Unknown 04/07/2025 12:04 PM CDT 04/07/2025 12:31 PM CDT Lea Ross MD LAB - CHEMISTRY ORDERABLES F inal Result Performing Organization Address City/[facility]/ZIP Co de Phone Number [facility] [address] [place] [address], [facility] [phone] * LAB MISC TEST (04/07/2025 12:04 PM CDT) Test Name REBECCA VIPER VENOM DILUTE 04/10/2025 7:09 AM CDT [employer] Test Result See Scanned Report 04/10/2025 7:09 AM CDT [facility] Comment Ref Lab [place] 04/10/2025 7:09 AM CDT [employer] Blood BLOOD SPECIMEN / Unknown Lab Venipuncture / Unknown 04/07/2025 12:04 PM CDT 04/07/2025 12:32 PM CDT Lea Ross MD LAB SEND OUT Final Result Performing Organization Address City/[facility]/ZIP Co de Phone Number [address] [address] * (ABNORMAL) HEPATITIS B SURFACE ANTIBODY QUANT (04/07/2025 12:04 PM CDT) Pathologist [facility] Hepatitis B Virus Surface Antibody Reactive( A) Non-react emmanuel 04/07/2025 2:20 PM CDT [facility] Comment: > 12 mIU/mL Hepatitis B surface Antibody (HBsAb). Reactive for HBsAb - individual is considered immune to Hepatitis B Virus infection. Hepatitis B Surface Antibody Quantitative 1,801.6(H ) <8.0 mIU/mL 04/07/2025 2:20 PM CDT [facility] Comment: Hepatitis B Surface Antibody Numeric Result Interpretation: Nonreactive: <8.0 mIU/mL Indeterminate: 8.0 - 12.0 mIU/mL Reactive: >12.0 mIU/mL Blood BLOOD SPECIMEN / Unknown Lab Venipuncture / Unknown 04/07/2025 12:04 PM CDT 04/07/2025 12:31 PM CDT Narrative [facility] - 04/07/2025 2:20 PM CDT This assay should not be used for blood, plasma, or tissue donor screening. This assay is not recommended for neonates born to HBV-infected or suspected HBV-infected mothers. Lea Ross MD LAB - SEROLOGY ORDERABLES Fi nal Result Performing Organization Address City/[facility]/ZIP Co de Phone Number [facility] [address] [place] [address], [facility] [phone] * OPIATES BLOOD (04/07/2025 12:04 PM CDT) Pathologist [facility] Opiates Screen Negative 04/12/2025 6:09 PM CDT [facility] ([facility]) Comment:REFERENCE RANGE: thr shold: 10 ng/mL Oxycodone Screen Negative 04/12/20 6:09 PM CDT [facility] ([facility]) Comment:REFERENCE RANGE: thr shold: 10 ng/mL Specimen Type Comment 04/12/2025 6:09 PM CDT [facility] ([facility]) Comment: WHOLE BLOOD This specimen was screened by immunoassay at the thresholds listed above. Presumptive positive results have not been confirmed by an alternate method; results are intended for clinical medical purposes. Please contact the laboratory if confirmatory testing is desired. This test was developed and its performance characteristics determined by [facility]. It has not been cleared or approved by the Food and Drug Administration. Blood BLOOD SPECIMEN / Unknown Lab Venipuncture / Unknown 04/07/2025 12:04 PM CDT 04/07/2025 12:45 PM CDT Narrative [facility] ([facility]) - 04/12/2025 6:09 PM CDT Performed at: [facility] [employer] [address] [id number] [employer] Mail Driver: Tammy Castillo [facility], Phone: [phone] Lea Ross MD LAB - CHEMISTRY ORDERABLES F inal Result Performing Organization Address City/[facility]/ZIP Co de Phone Number [facility] ([facility]) [address] [place] [address] * (ABNORMAL) URIC ACID BLOOD (04/07/2025 12:04 PM CDT) Pathologist [facility] Uric Acid 6.5(H) 2.6 - 6.0 mg/dL 04/07/2025 1:35 PM CDT [facility] Blood BLOOD SPECIMEN / Unknown Lab Venipuncture / Unknown 04/07/2025 12:04 PM CDT 04/07/2025 12:55 PM CDT Lea Ross MD LAB - CHEMISTRY ORDERABLES F inal Result [address] [address], [facility] [phone] * PROTHROMBIN [id number] PANEL (04/07/2025 12:04 PM CDT) Pathologist [facility] Prothrombin [id number] Negative 04/12/2025 1:29 PM CDT [employer] ([facility]) Comment: Indication for testing: Assess genetic risk for thrombosis. NEGATIVE: The Factor II, prothrombin [id number] mutation, was not detected. Other causes of elevated prothrombin levels and hereditary forms of venous thrombosis have not been excluded. Recommendations: If clinically indicated, testing for other inherited or acquired thrombophilic disorders is recommended including DNA testing for the factor V Leiden mutation, measurement of total plasma homocysteine concentration, serological assays for anticardiolipin antibodies, multiple phospholipid-dependent coagulation assays for lupus inhibitor, protein C activity, protein S activity or free protein S antigen, and antithrombin activity. This result has been reviewed and approved by Kaye Armstrong M.D. 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 The expression of Factor II thrombophilia is impacted by coexisting genetic thrombophilic disorders, acquired thrombophilic disorders (eg, malignancy, hyperhomocysteinemia, high factor VIII levels), and circumstances including: , oral contraceptive use, hormone replacement therapy, selective estrogen receptor modulators, travel, central venous catheters, surgery, and organ transplantation. INCIDENCE: Approximately 2 percent of Caucasians and 0.3 percent of Americans are heterozygous; homozygosity occurs in 1 in 10,000 individuals. INHERITANCE: Incomplete autosomal dominant. PENETRANCE: The risk of thrombosis is increased 2-4 fold for heterozygotes and further increased for homozygotes. CAUSE: Homozygosity or heterozygosity for F2 c.*97G>A (L95996F). PATHOGENIC VARIANT TESTED: F2 c.*97G>A (B15799F). CLINICAL SENSITIVITY FOR VENOUS THROMBOSIS: Approximately 10 percent. METHODOLOGY: Polymerase chain reaction and fluorescence monitoring. ANALYTICAL SENSITIVITY AND SPECIFICITY: 99 percent. LIMITATIONS: Diagnostic errors can occur due to rare sequence variations. F2 gene variants, other than c.*97G>A (Z61770I), will not be detected. This test was developed and its performance characteristics determined by [employer]. It has not been cleared or approved by the [place] Food and Drug Administration. This test was performed in a CLIA certified laboratory and is intended for clinical purposes. Counseling and informed consent are recommended for genetic testing. Consent forms are available online. Performed By: [facility] [address] [place] [address] Slip Mixer: Irvin Chambers MD, PhD CLIA Number: [id number] Source PT [id number] PCR Whole Blood 04/12/2025 1:29 PM CDT [facility] [employer] [facility]) Blood BLOOD SPECIMEN / Unknown Lab Venipuncture / Unknown 04/07/2025 12:04 PM CDT 04/07/2025 12:55 PM CDT Lea Ross MD LAB - COAGULATION ORDERABLES Final Result [facility]) [address] [place] [address] * STRONGYLOIDES ANTIBODY IGG (04/07/2025 12:04 PM CDT) Strongyloides Antibody IgG 0.2 <=0.9 IV 04/09/2025 8:17 PM CDT [facility] [employer] ([facility]) Comment: INTERPRETIVE INFORMATION: Strongyloides Ab, IgG by NOLAN 0.9 IV or less....... Negative - No significant level of Strongyloides IgG antibody detected. 1.0 IV................Equivocal - The Strongyloides IgG antibody result is borderline and therefore inconclusive. Recommend retesting the patient in 2-4 weeks, if clinically indicated. 1.1 IV or greater ... Positive - IgG antibodies to Strongyloides detected, which may suggest current or past infection. False-positive results may occur with prior exposure to other helminth infections. Testing low-prevalence populations may also result in false-positive results. Performed By: [employer] [facility] [facility] [address] [place] [address] Slip Mixer: Irvin Chambers MD, PhD CLIA Number: [id number] Blood BLOOD SPECIMEN / Unknown Lab Venipuncture / Unknown 04/07/2025 12:04 PM CDT 04/07/2025 12:30 PM CDT Lea Ross MD LAB - SEROLOGY ORDERABLES Fi nal Result [facility] [employer] [facility]) [address] [place] [address], [facility] * FACTOR V LEIDEN MUTATION PANEL (04/07/2025 12:04 PM CDT) [facility] Factor V Leiden Source Whole Blood 04/12/2025 12:19 PM CDT [facility] ([facility]) Factor V Leiden PCR/FRET Negative 04/12/2025 12:19 PM CDT [facility] [employer] ([facility]) Comment: Indication for testing: Assess genetic risk for thrombosis. NEGATIVE: The factor V Leiden variant, c.1601G>A; p.[id number], was not detected. This does not exclude a genetic cause for thrombophilia. If this individual has had a previous venous thromboembolism, this negative result is unlikely to significantly reduce the risk for recurrence; thus, future clinical management to reduce recurrence should not be altered. This result has been reviewed and approved by Kaye Armstrong M.D. BACKGROUND INFORMATION: Factor V Leiden (F5) R506Q Mutation CHARACTERISTICS: Venous thromboembolism (VTE) is multifactorial caused by a combination of genetic and environmental factors. The Factor V Leiden (FVL) variant is the most common cause of inherited VTEs, accounting for over 90 percent of activated protein C (APC) resistance. Because the FVL variant eliminates the APC cleavage site, factor V is inactivated slower, thus persisting longer in blood circulation, leading to more thrombin production. Other genetic risk factors for VTE include, male sex and variants in antithrombin, protein C, protein S, or factor XIII. Non-genetic risk factors include, age, smoking, prolonged immobilization, malignant neoplasms, surgery, , oral contraceptives, estrogen replacement therapy, tamoxifen and raloxifene therapy. INCIDENCE OF FACTOR V LEIDEN VARIANT: Approximately 5 percent of Caucasians, 2 percent of Hispanics, 1 percent of Americans and 0.5 percent of Asians are heterozygous; homozygosity occurs in 1 in 1500 Caucasians. INHERITANCE: Semi-dominant; both heterozygotes and homozygotes are at increased risk for VTE. PENETRANCE: Lifetime risk of VTE is 10 percent for heterozygotes and 80 percent of homozygotes. CAUSE: The pathogenic gain of function in the F5 gene variant c.1601G>A (p.[id number]). Legacy nomenclature: R506Q (1691G>A) CLINICAL SENSITIVITY: 20-50 percent of individuals with an isolated VTE have the FVL variant. METHODOLOGY: Polymerase chain reaction and fluorescence monitoring. ANALYTICAL SENSITIVITY AND SPECIFICITY: 99 percent. LIMITATIONS: Diagnostic errors can occur due to rare sequence variations. F5 gene mutations, other than p.[id number], will not be detected. This test was developed and its performance characteristics determined by [employer]. It has not been cleared or approved by the [place] Food and Drug Administration. This test was performed in a CLIA certified laboratory and is intended for clinical purposes. Counseling and informed consent are recommended for genetic testing. Consent forms are available online. Performed By: [place] [address] Slip Mixer: Irvin Chambers MD, PhD CLIA Number: [id number] Blood BLOOD SPECIMEN / Unknown Lab Venipuncture / Unknown 04/07/2025 12:04 PM CDT 04/07/2025 12:56 PM CDT Lea Ross MD LAB - COAGULATION ORDERABLES Final Result [facility]) [address] [place] [address], [facility] * (ABNORMAL) CARDIOLIPIN ANTIBODY IGM (04/07/2025 12:04 PM CDT) Pathologist [facility] Cardiolipin Antibody IgM 16(H) <=12 MPL 04/09/2025 1:58 PM CDT [facility] ([facility]) Comment: INTERPRETIVE INFORMATION: Anti-Cardiolipin IgM <=12 MPL: Negative 13-19 MPL: Indeterminate 20-80 MPL: Low to Moderately Positive 81 MPL or above: High Positive The persistent presence of IgG and/or IgM cardiolipin (CL) antibodies in moderate or high levels (greater than 40 GPL and/or greater than 40 MPL units) is a laboratory criterion for the diagnosis of antiphospholipid syndrome (APS). Persistence is defined as moderate or high levels of IgG and/or IgM CL antibodies detected in two or more specimens drawn at least 12 weeks apart (J Throm Haemost. 2006;4:295-306). Lower positive levels of IgG and/or IgM CL antibodies (above cutoff but less than 40 GPL and/or less than 40 MPL units) may occur in patients with the clinical symptoms of APS; therefore, the actual significance of these levels is undefined. Results should not be used alone for diagnosis and must be interpreted in light of APS-specific clinical manifestations and/or other criteria phospholipid antibody tests. Performed By: [facility] [employer] [address] [place] [address] Slip Mixer: Irvin Chambers MD, PhD CLIA Number: [id number] Blood BLOOD SPECIMEN / Unknown Lab Venipuncture / Unknown 04/07/2025 12:04 PM CDT 04/07/2025 12:30 PM CDT Lea Ross MD LAB - SEROLOGY ORDERABLES Fi nal Result [facility]) [address] [place] [address] * CARDIOLIPIN ANTIBODY IGG (04/07/2025 12:04 PM CDT) [facility] Cardiolipin Antibody IgG <10 <=14 GPL 04/09/2025 1:58 PM CDT [facility] ([facility]) Comment: INTERPRETIVE INFORMATION: Anti-Cardiolipin IgG Ab <=14 GPL: Negative 15-19 GPL: Indeterminate 20-80 GPL: Low to Moderately Positive 81 GPL or above: High Positive The persistent presence of IgG and/or IgM cardiolipin (CL) antibodies in moderate or high levels (greater than 40 GPL and/or greater than 40 MPL units) is a laboratory criterion for the diagnosis of antiphospholipid syndrome (APS). Persistence is defined as moderate or high levels of IgG and/or IgM CL antibodies detected in two or more specimens drawn at least 12 weeks apart (J Throm Haemost. 2006;4:295-306). Lower positive levels of IgG and/or IgM CL antibodies (above cutoff but less than 40 GPL and/or less than 40 MPL units) may occur in patients with the clinical symptoms of APS; therefore, the actual significance of these levels is undefined. Results should not be used alone for diagnosis and must be interpreted in light of APS-specific clinical manifestations and/or other criteria phospholipid antibody tests. Performed By: [employer] [facility] [address] [place] [address] Slip Mixer: Irvin hCambers MD, PhD CLIA Number: [id number] Blood BLOOD SPECIMEN / Unknown Lab Venipuncture / Unknown 04/07/2025 12:04 PM CDT 04/07/2025 12:30 PM CDT Lea Ross MD LAB - SEROLOGY ORDERABLES Fi nal Result [facility] [employer] [facility]) [address] [place] [address] * CYTOMEGALOVIRUS ANTIBODY IGG BLOOD (04/07/2025 12:04 PM CDT) Cytomegalovirus Antibody IgG <0.20 <=0.59 U/mL 04/09/2025 11:24 AM CDT [facility] [employer] ([facility]) Comment: INTERPRETIVE INFORMATION: Cytomegalovirus Antibody, IgG 0.59 U/mL or less......... Not Detected 0.6 - 0.69 U/mL........... Indeterminate-Repeat testing in 10-14 days may be helpful. 0.70 U/mL or greater...... Detected In immunocompromised patients, CMV serology (IgG or IgM antibody titers) may not be reliable and may be misleading in the diagnosis of acute or reactivation CMV disease. The preferred method for diagnosis is culture of virus and/or demonstration of viral antigen in peripheral white cells (buffy coat), bronchoalveolar lavage (BAL) cells, or tissue biopsies. This test should not be used for blood donor screening, associated re-entry protocols, or for screening Human Cell, Tissues and Cellular and Tissue-Based Products (HCT/P). The best evidence for current infection is a significant change on two appropriately timed specimens, where both tests are done in the same laboratory at the same time. Performed By: [employer] [facility] [address] [place] [address] Slip Mixer: Irvin Chambers MD, PhD CLIA Number: [id number] Blood BLOOD SPECIMEN / Unknown Lab Venipuncture / Unknown 04/07/2025 12:04 PM CDT 04/07/2025 12:30 PM CDT Lea Ross MD LAB - CHEMISTRY ORDERABLES F inal Result Performing Organization Address [facility] Co de Phone Number [facility] [employer] [facility]) [address] * (ABNORMAL) RUBELLA ANTIBODY IGG TITER (04/07/2025 12:04 PM CDT) Rubella Antibody IgG 10.8(H) <=8.9 IU/mL 04/09/2025 10:39 AM CDT [employer] ([facility]) Comment: INTERPRETIVE INFORMATION: Rubella Antibody, IgG Less than 9 IU/mL ........ Not Detected 9 - 9.9 IU/mL ............ Indeterminate-Repeat testing in 10-14 days may be helpful. 10 IU/mL or Greater ...... Detected The best evidence for current infection is a significant change on two appropriately timed specimens, where both tests are done in the same laboratory at the same time. The magnitude of the measured result is not indicative of the amount of antibody present. Performed By: [employer] [facility] [address] [place] [address] Slip Mixer: Irvin Chambers MD, PhD CLIA Number: [id number] Blood BLOOD SPECIMEN / Unknown Lab Venipuncture / Unknown 04/07/2025 12:04 PM CDT 04/07/2025 12:30 PM CDT Lea Ross MD LAB - SEROLOGY ORDERABLES Fi nal Result Performing Organization Address [facility] Co de Phone Number [facility]) [address] * RUBEOLA ANTIBODY IGG (04/07/2025 12:04 PM CDT) Measles (Rubeola) Antibody IgG 70.9 AU/mL 04/09/2025 11:46 AM CDT [facility] [employer] ([facility]) Comment: INTERPRETIVE INFORMATION: Measles (Rubeola) Antibody, IgG 13.4 AU/mL or less........ Negative - No significant level of detectable measles (rubeola) IgG antibody. 13.5-16.4 AU/mL .......... Equivocal - Repeat testing in 10-14 days may be helpful. 16.5 AU/mL or greater .... Positive - IgG antibody to measles (rubeola) detected which may indicate a current or past exposure/immunization to measles (rubeola). The best evidence for current infection is a significant change on two appropriately timed specimens, where both tests are done in the same laboratory at the same time. Performed By: [employer] [facility] [address] [place] [address] Slip Mixer: Irvin Chambers MD, PhD CLIA Number: [id number] Blood BLOOD SPECIMEN / Unknown Lab Venipuncture / Unknown 04/07/2025 12:04 PM CDT 04/07/2025 12:31 PM CDT Lea Ross MD LAB - CHEMISTRY ORDERABLES F inal Result [facility]) [address] [place] [address] * MUMPS ANTIBODY IGG (04/07/2025 12:04 PM CDT) [facility] Mumps Virus Antibody IgG 57.1 AU/mL 04/09/2025 12:25 PM CDT [facility] ([facility]) Comment: INTERPRETIVE INFORMATION: Mumps Ab, IgG by [facility] 8.9 AU/mL or less .... Negative - No significant level of detectable IgG mumps virus antibody 9.0-10.9 AU/mL ....... Equivocal - Repeat testing in 10-14 days may be helpful 11.0 AU/mL or greater: Positive - IgG antibody to mumps virus detected, which may indicate a current or past exposure/ immunization to mumps virus. The best evidence for current infection is a significant change on two appropriately timed specimens, where both tests are done in the same laboratory at the same time. Performed By: [employer] [facility] [address] [place] [address] Slip Mixer: Irvin Chambers MD, PhD CLIA Number: [id number] Blood BLOOD SPECIMEN / Unknown Lab Venipuncture / Unknown 04/07/2025 12:04 PM CDT 04/07/2025 12:30 PM CDT Lea Ross MD LAB - CHEMISTRY ORDERABLES F inal Result Performing Organization Address [facility] Co de Phone Number [facility] [employer] [facility]) [address] [place] [address] * (ABNORMAL) VARICELLA ZOSTER ANTIBODY IGG (04/07/2025 12:04 PM CDT) Varicella zoster Virus Antibody IgG 35.70(H) <=0.99 S/CO 04/09/2025 11:28 AM CDT [facility] [employer] ([facility]) Comment: INTERPRETIVE INFORMATION: VZV Ab, IgG <=0.99 S/CO: Negative - No significant level of detectable varicella-zoster IgG antibody. >=1.00 S/CO: Positive - IgG antibody to varicella-zoster detected, which may indicate a current or past varicella-zoster infection. The best evidence for current infection is a significant change on two appropriately timed specimens, where both tests are done in the same laboratory at the same time. Performed By: [employer] [facility] [address] [place] [address] Slip Mixer: Irvin Chambers MD, PhD CLIA Number: [id number] Blood BLOOD SPECIMEN / Unknown Lab Venipuncture / Unknown 04/07/2025 12:04 PM CDT 04/07/2025 12:30 PM CDT Lea Ross MD LAB - CHEMISTRY ORDERABLES F inal Result Performing Organization Address City/[facility] Co de Phone Number [facility]) [address] [place] [address] * (ABNORMAL) PROTEIN S ANTIGEN TOTAL (04/07/2025 12:04 PM CDT) Pathologist [facility] Protein S Antigen Total 165(H) 63 - 126 % 04/10/2025 2:16 PM CDT [facility] [employer] ([facility]) Comment: INTERPRETIVE INFORMATION: Protein S, Total Antigen Patients on warfarin may have decreased protein S values. Patients should be off warfarin therapy for two weeks for accurate measurement of protein S. Access complete set of age- and/or gender-specific reference intervals for this test in the [facility] Test Directory ([employer]). Performed By: [employer] [address] [place] [address] Slip Mixer: Irvin Chambers MD, PhD CLIA Number: [id number] Blood BLOOD SPECIMEN / Unknown Lab Venipuncture / Unknown 04/07/2025 12:04 PM CDT 04/07/2025 12:30 PM CDT Lea Ross MD LAB - COAGULATION ORDERABLES Final Result Performing Organization Address [facility] Co de Phone Number [address] * PROTEIN C ACTIVITY (04/07/2025 12:04 PM CDT) [facility] Protein C Activity 152 83 - 168 % 04/09/2025 2:30 PM CDT [facility] ([facility]) Comment: INTERPRETIVE INFORMATION: Protein C, Functional Access complete set of age- and/or gender-specific reference intervals for this test in the [facility] Test [facility] ([employer]). Protein C may be artifactually overestimated in the presence of heparin, direct thrombin inhibitors, or direct factor Xa inhibitors. If clinically indicated, consider repeat testing on a new specimen for confirmation after the presence of anticoagulant medications has been excluded. (J Thromb Haemost. 2020; 18(2):271-277). Performed By: [employer] [facility] [address] [place] [address] Slip Mixer: Irvin Chambers MD, PhD CLIA Number: [id number] Blood BLOOD SPECIMEN / Unknown Lab Venipuncture / Unknown 04/07/2025 12:04 PM CDT 04/07/2025 12:30 PM CDT us Lea Ross MD LAB - COAGULATION ORDERABLES Final Result Performing Organization Address City/[facility]/ZIP Co de Phone Number [facility] [employer] [facility]) [address] * PROTEIN C ANTIGEN (04/07/2025 12:04 PM CDT) Pathologist [facility] Protein C Antigen Total >95 63 - 153 % 04/10/2025 6:20 PM CDT [facility] [employer] ([facility]) Comment: INTERPRETIVE INFORMATION: Protein C, Total Antigen Patients on warfarin may have decreased protein C values. Patients should be off warfarin therapy for two weeks for accurate measurement of protein C. Access complete set of age- and/or gender-specific reference intervals for this test in the [facility] Laboratory Test Directory ([employer]). Performed By: [employer] [address] [place] [address] Slip Mixer: Irvin Chambers MD, PhD CLIA Number: [id number] Blood BLOOD SPECIMEN / Unknown Lab Venipuncture / Unknown 04/07/2025 12:04 PM CDT 04/07/2025 12:30 PM CDT Lea Ross MD LAB - COAGULATION ORDERABLES Final Result [facility]) [address] [place] [address] * C-PEPTIDE (04/07/2025 12:04 PM CDT) Pathologist [facility] C-Peptide 3.3 0.5 - 3.3 ng/mL 04/09/2025 8:40 PM CDT [facility] ([facility]) Comment: INTERPRETIVE INFORMATION: Serum, C-Peptide Reference Interval applies to fasting specimens. To convert to nmol/L, multiply by 0.33 Performed By: [employer] [facility] [address] [place] [address] Slip Mixer: Irvin Chambers MD, PhD CLIA Number: [id number] Blood BLOOD SPECIMEN / Unknown Lab Venipuncture / Unknown 04/07/2025 12:04 PM CDT 04/07/2025 12:30 PM CDT Lea Ross MD LAB - CHEMISTRY ORDERABLES F inal Result Performing Organization Address City/[facility]/ZIP Co de Phone Number [facility]) [address] * TRANSFERRIN (04/07/2025 12:04 PM CDT) [facility] Transferrin 256 174 - 382 mg/dL 04/07/2025 1:25 PM CDT [facility] Blood BLOOD SPECIMEN / Unknown Lab Venipuncture / Unknown 04/07/2025 12:04 PM CDT 04/07/2025 12:31 PM CDT Lea Joseph Vandana WARNER LAB - CHEMISTRY ORDERABLES F inal Result Performing Organization Address City/[facility]/ZIP Co de Phone Number [facility] [address] [place] [address], [facility] [phone] * TOXOPLASMA GONDII ANTIBODY IGG (04/07/2025 12:04 PM CDT) [facility] Toxoplasma Antibody IgG <3.0 <=7.1 IU/mL 04/09/2025 1:49 PM CDT [facility] ([facility]) Comment: INTERPRETIVE INFORMATION: Toxoplasma Ab, IgG 7.1 IU/mL or less....... Not Detected 7.2-8.7 IU/mL .......... Indeterminate-Repeat testing in 10-14 days may be helpful. 8.8 IU/mL or greater ... Detected The best evidence for current infection is a significant change on two appropriately timed specimens, where both tests are done in the same laboratory at the same time. This test should not be used for blood donor screening, associated re-entry protocols, or for screening Human Cell, Tissues and Cellular and Tissue-Based Products (HCT/P). The magnitude of the measured result is not indicative of the amount of antibody present. Performed By: [employer] [facility] [address] [place] [address] Slip Mixer: Irvin Chambers MD, PhD CLIA Number: [id number] Blood BLOOD SPECIMEN / Unknown Lab Venipuncture / Unknown 04/07/2025 12:04 PM CDT 04/07/2025 12:30 PM CDT Lea Ross MD LAB - CHEMISTRY ORDERABLES F inal Result Performing Organization Address [facility] Co de Phone Number [facility]) [address] [place] [address] * (ABNORMAL) PATRICIO-ARCHIBALD VIRUS ANTIBODY TO VCA IGG (04/07/2025 12:04 PM CDT) Pathologist [facility] Patricio-Archibald Virus Antibody IgG Viral Capsid Antigen 692.0(H) <=17.9 U/mL 04/09/2025 12:32 PM CDT [facility] ([facility]) Comment: INTERPRETIVE INFORMATION: Patricio-Archibald Virus Antibody to Viral Capsid Antigen, IgG 17.9 U/mL or less.......Not Detected 18.0-21.9 U/mL..........Indeterminate - Repeat testing in 10-14 days may be helpful. 22.0 U/mL or greater....Detected Performed By: [employer] [facility] [address] [place] [address] Slip Mixer: Irvin Chambers MD, PhD CLIA Number: [id number] Blood BLOOD SPECIMEN / Unknown Lab Venipuncture / Unknown 04/07/2025 12:04 PM CDT 04/07/2025 12:31 PM CDT Lea Ross MD LAB - CHEMISTRY ORDERABLES F inal Result Performing Organization Address City/[facility] [facility] Co de Phone Number [facility]) [address] [place] [address] * HEMOGLOBIN A1C (04/07/2025 12:04 PM CDT) Pathologist [facility] Hemoglobin A1c 5.2 <=5.6 % 04/07/2025 1:18 PM CDT [facility] Estimated Average Glucose 103 mg/dL 04/07/2025 1:18 PM CDT [facility] Comment: HbA1c Interpretation: Normal : < 5.7% Pre-diabetes: 5.7-6.4% Diabetes: Equal to or greater than 6.5% Test results diagnostic of diabetes should be repeated for confirmation. Treatment target values recommended by ADA and other clinical organizations should be used to evaluate metabolic control in patients. Reference: [place] Diabetes Association, Standards of Care in Diabetes -2020 In patients 70 years and older consider HbA1c target range of 7.0-7.5% (Reference: Kannan Scott et al. JAMDA. 2012) The Sebia assay for the measurement of HbA1c is a National Glycohemoglobin Standardization Program (NGSP) certified method. Blood BLOOD SPECIMEN / Unknown Lab Venipuncture / Unknown 04/07/2025 12:04 PM CDT 04/07/2025 12:56 PM CDT us Lea Ross MD LAB - CHEMISTRY ORDERABLES F inal Result [address] [address], [facility] [phone] * BETA-2 GLYCOPROTEIN 1 ANTIBODY IGG/IGM PANEL (04/07/2025 12:04 PM CDT) [facility] Beta-2 Glycoprotein Antibody IgG <10 <=20 SGU 04/09/2025 5:44 AM CDT [facility] ([facility]) Beta-2 Glycoprotein Antibody IgM <10 <=20 SMU 04/09/2025 5:44 AM CDT [facility] ([facility]) Comment: INTERPRETIVE INFORMATION: [id number] I, IgG and IgM Antibody The persistent presence of IgG and/or IgM beta 2 glycoprotein I (B2GPI) antibodies is a laboratory criterion for the diagnosis of antiphospholipid syndrome (APS). Persistence is defined as moderate or high levels of IgG and/or IgM B2GPI antibodies detected in two or more specimens drawn at least 12 weeks apart (J Throm Haemost. 2006;4:295-306). B2GPI results greater than 20 SGU (IgG) and/or SMU (IgM) are considered positive based on the cutoff values established for this test. International reference materials and consensus units for anti-B2GPI antibodies have not been established (Clin Sraah Acta. 2012;413(1-2):358-60; Arthritis Rheum. 2012;64(1):1-10.); results can be variable between different commercial immunoassays and cannot be compared. Strong clinical correlation is recommended for a diagnosis of APS. Low positive IgG and IgM B2GPI antibody levels should be interpreted in light of APS-specific clinical manifestations and/or other criteria phospholipid antibody tests. Performed By: [place] [address] Slip Mixer: Irvin Chambers MD, PhD CLIA Number: [id number] Blood BLOOD SPECIMEN / Unknown Lab Venipuncture / Unknown 04/07/2025 12:04 PM CDT 04/07/2025 12:30 PM CDT us Lea Ross MD LAB - CHEMISTRY ORDERABLES F inal Result Performing Organization Address City/[facility]/ZIP Co de Phone Number [facility] ([facility]) [address] [place] [address] * HOMOCYSTEINE BLOOD QUANTITATIVE (04/07/2025 12:04 PM CDT) Pathologist [facility] Homocysteine 14.1 4.4 - 16.2 umol/L 04/07/2025 1:20 PM CDT [facility] Blood BLOOD SPECIMEN / Unknown Lab Venipuncture / Unknown 04/07/2025 12:04 PM CDT 04/07/2025 12:30 PM CDT us Lea Ross MD LAB - CHEMISTRY ORDERABLES F inal Result [address] [address], [facility] [phone] * ANTITHROMBIN III ACTIVITY (04/07/2025 12:04 PM CDT) Antithrombin III Activity 98.0 80.0 - 120.0 % 04/07/2025 1:14 PM CDT [facility] Blood BLOOD SPECIMEN / Unknown Lab Venipuncture / Unknown 04/07/2025 12:04 PM CDT 04/07/2025 12:32 PM CDT Narrative [facility] - 04/07/2025 1:14 PM CDT Thrombin inhibitors (i.e., hirudin, argatroban...) present in the sample to be tested may lead to an over-estimation of the AT level. us Lea Ross MD LAB - COAGULATION ORDERABLES Final Result Performing Organization Address [facility] Co de Phone Number [address] [address], [facility] [phone] * (ABNORMAL) VITAMIN D 25-HYDROXY (04/07/2025 12:04 PM CDT) Vitamin D, 25 Hydroxy 81.5(H) 30.0 - 80.0 ng/mL 04/07/2025 1:46 PM CDT [facility] Comment: The recommendations for 25-Hydroxy Vitamin D clinical decision points are as follows: Deficient: <20.0 ng/mL Insufficient: 20.0 - 29.9 ng/mL Sufficient: 30.0 - 100.0 ng/mL Potential Toxicity: >100 ng/mL Reference: The Endocrine Society Clinical Practice Guidelines. 2011 If the 25-Hydroxy Vitamin D results are inconsitent with clinical evidence, it is recommended that follow-up testing using a method such as LC/MS/MS be performed to confirm the result. Blood BLOOD SPECIMEN / Unknown Lab Venipuncture / Unknown 04/07/2025 12:04 PM CDT 04/07/2025 12:55 PM CDT us Lea Ross MD LAB - CHEMISTRY ORDERABLES F inal Result Performing Organization Address [facility]/ZIP Co de Phone Number [address] [address], [facility] [phone] * TYPE + SCREEN PANEL (04/07/2025 12:04 PM CDT) Antibody Screen NEG 1:33 PM CDT [facility] ABO Rh A POS 04/07/2025 1:33 PM CDT [facility] Blood Bank BLOOD SPECIMEN / Unknown Lab Venipuncture / Unknown 04/07/2025 12:04 PM CDT 04/07/2025 12:48 PM CDT Lea Rsos MD LAB - BLOOD BANK ORDERABLES Final Result [facility] [address] [place] [address], [facility] [phone] * NICOTINE + METABOLITES BLOOD (04/07/2025 12:04 PM CDT) Nicotine <5 ng/mL 04/11/2025 11:39 PM CDT [facility] ([facility]) Comment: INTERPRETIVE INFORMATION: Nicotine and Metabolites, Serum or Plasma, Quantitative Methodology: Quantitative Liquid Chromatography-Tandem Mass Spectrometry Positive cutoff: 5 ng/mL For medical purposes only; not valid for forensic use. This test is designed to evaluate recent use of nicotine-containing products. Passive and active exposure cannot be discriminated definitively, although a cutoff of 10 ng/mL cotinine is frequently used for surgery qualification purposes. For smoking cessation programs or compliance testing, the absence of expected drug(s) and/or drug metabolite(s) may indicate non-compliance, inappropriate timing of specimen collection relative to drug administration, poor drug absorption, or limitations of testing. This test cannot distinguish between use of tobacco and purified nicotine products. The concentration value must be greater than or equal to the cutoff to be reported as positive. This test was developed and its performance characteristics determined by [employer]. It has not been cleared or approved by the [place] Food and Drug Administration. This test was performed in a CLIA certified laboratory and is intended for clinical purposes. Performed By: [employer] [address] [place] [id number] Slip Mixer: Irvin Chambers MD, PhD CLIA Number: [id number] Cotinine <5 ng/mL 04/11/2025 11:39 PM CDT [facility]) Blood BLOOD SPECIMEN / Unknown Lab Venipuncture / Unknown 04/07/2025 12:04 PM CDT 04/07/2025 12:31 PM CDT Lea Ross MD LAB - CHEMISTRY ORDERABLES F inal Result [facility] ([facility]) [address] [place] [address], [facility] * (ABNORMAL) COMPREHENSIVE METABOLIC PANEL (04/07/2025 12:04 PM [facility]) BUN 53(H) 7 - 26 mg/dL 04/07/2025 1:35 PM [facility] Creatinine 2.89(H) 0.56 - 0.96 mg/dL 04/07/2025 1:35 PM [facility] Sodium 139 136 - 145 mmol/L 04/07/2025 1:35 PM [facility] Potassium 4.1 3.5 - 4.5 mmol/L 04/07/2025 1:35 PM [facility] Chloride 104 98 - 107 mmol/L 04/07/2025 1:35 PM [facility] CO2 24 22 - 29 mmol/L 04/07/2025 1:35 PM [facility] Glucose 91 70 - 99 mg/dL 04/07/2025 1:35 PM [facility] Calcium 9.4 8.4 - 10.2 mg/dL 04/07/2025 1:35 PM [facility] Protein Total 6.8 6.0 - 8.3 g/dL 04/07/2025 1:35 PM [facility] Albumin 3.9 3.4 - 5.0 g/dL 04/07/2025 1:35 PM [facility] Bilirubin Total 0.8 0.2 - 1.2 mg/dL 04/07/2025 1:35 PM [facility] Alkaline Phosphatase 68 40 - 150 U/L 04/07/2025 1:35 PM [facility] ALT 17 5 - 55 U/L 04/07/2025 1:35 PM [facility] AST 22 5 - 34 U/L 04/07/2025 1:35 PM [facility] Anion Gap 11 6 - 16 04/07/2025 1:35 PM [facility] BUN/Creatinine Ratio 18 7 - 23 04/07/2025 1:35 PM [facility] Osmolality Calculated 302(H) 275 - 295 mOsm/kg 04/07/2025 1:35 PM CDT [facility] Albumin/Globulin Ratio 1.3 1.1 - 2.3 04/07/2025 1:35 PM CDT [facility] eGFR by CKD-EPI 19(L) >=90 mL/min/1.7 3 m2 04/07/2025 1:35 PM CDT [facility] Comment:Estimated Glomerular Filtration Rate (eGFR) calculated using the CKD-EPI Creatinine Equation (2020), per the National Kidney Foundation and [place] Society of Nephrology recommendations. Blood BLOOD SPECIMEN / Unknown Lab Venipuncture / Unknown 04/07/2025 12:04 PM CDT 04/07/2025 12:55 PM CDT us Lea Ross MD LAB - CHEMISTRY ORDERABLES F inal Result Performing Organization Address City/[facility]/ZIP Co de Phone Number [address] [address], [facility] [phone] * PHOSPHORUS BLOOD (04/07/2025 12:04 PM CDT) Phosphorus 4.4 2.9 - 5.1 mg/dL 04/07/2025 1:35 PM CDT [facility] Blood BLOOD SPECIMEN / Unknown Lab Venipuncture / Unknown 04/07/2025 12:04 PM CDT 04/07/2025 12:55 PM CDT us Lea Ross MD LAB - CHEMISTRY ORDERABLES F inal Result [address] [address], [place] [phone] * IRON BLOOD (04/07/2025 12:04 PM CDT) Iron 107 40 - 150 ug/dL 04/07/2025 1:25 PM CDT [facility] Blood BLOOD SPECIMEN / Unknown Lab Venipuncture / Unknown 04/07/2025 12:04 PM CDT 04/07/2025 12:31 PM CDT us Lea Ross MD LAB - CHEMISTRY ORDERABLES F inal Result [address] [address], [facility] [phone] * HEPATITIS B CORE ANTIBODY (04/07/2025 12:04 PM CDT) Pathologist [facility] HBc Antibody Total Non-reacti ve Non-reacti ve 04/07/2025 2:00 PM CDT [facility] Blood BLOOD SPECIMEN / Unknown Lab Venipuncture / Unknown 04/07/2025 12:04 PM CDT 04/07/2025 12:31 PM CDT us Lea Ross MD LAB - CHEMISTRY ORDERABLES F inal Result Performing Organization Address [facility]/ZIP Co de Phone Number [address] [address], [facility] [phone] * HEPATITIS B SURFACE ANTIGEN W RFLX CONFIRMATION (04/07/2025 12:04 PM CDT) [facility] Hepatitis B Virus Surface Antigen Non-reacti ve Non-reacti ve 04/07/2025 2:00 PM CDT [facility] Blood BLOOD SPECIMEN / Unknown Lab Venipuncture / Unknown 04/07/2025 12:04 PM CDT 04/07/2025 12:31 PM CDT us Lea Ross MD LAB - CHEMISTRY ORDERABLES F inal Result [address] [address], [facility] [phone] * ALCOHOL ETHYL BLOOD (04/07/2025 12:04 PM CDT) Pathologist [facility] Ethanol (mg/dL) <10 <=10 mg/dL 1:35 PM CDT [facility] Ethanol Calculated (g/dL) <0.010 <0.010 g/dL 04/07/2025 1:35 PM CDT [facility] Blood BLOOD SPECIMEN / Unknown Lab Venipuncture / Unknown 04/07/2025 12:04 PM CDT 04/07/2025 12:55 PM CDT Narrative [facility] - 04/07/2025 1:35 PM CDT Ethanol Interp <10: None Detected. Depression of WICKER MOLDED CANDLES: >100 mg/dl Potentially Critical: >250 mg/dl Potentially Fatal >400 mg/dl Ethanol in the patient's blood will contribute to the osmolar gap. Ethanol's contribution to the osmolar gap can be estimated by dividing the concentration of ethanol in mg/dL by 4.6. This test is for clinical use only and does not equal a PAUL for legal purposes. Lea Ross MD LAB - CHEMISTRY ORDERABLES F inal Result Performing Organization Address City/[facility]/ZIP Co de Phone Number [address] [address], [place] [phone] * HEPATITIS C ANTIBODY (04/07/2025 12:04 PM CDT) Hepatitis C Antibody Non-react emmanuel conteh 04/07/2025 2:00 PM CDT [facility] Comment:Hepatitis C Antibody screen indicates no serologic evidence of past or current infection with Hepatitis C Virus. Patients with unexplained liver disease who are immunocompromised or suspected of having acute Hepatitis C infection may benefit from Nucleic Acid Test (KRISTIE) for Hepatitis C Viral RNA to confirm Hepatitis C status. Blood BLOOD SPECIMEN / Unknown Lab Venipuncture / Unknown 04/07/2025 12:04 PM CDT 04/07/2025 12:31 PM CDT us Lea Ross MD LAB - CHEMISTRY ORDERABLES F inal Result [address] [address], [place] [phone] * (ABNORMAL) HEPATITIS A ANTIBODY (04/07/2025 12:04 PM CDT) [facility] Hepatitis A Virus Antibody Total Positive( A) Negative 04/09/2025 11:47 AM CDT [facility] ([facility]) Comment: The positive anti-HAV is consistent with recent or remote Hepatitis A infection or antibody response to HAV vaccination. False positive anti-HAV can occur. Performed By: [facility] [address] [place] [address] Slip Mixer: Irvin Chambers MD, PhD CLIA Number: [id number] Blood BLOOD SPECIMEN / Unknown Lab Venipuncture / Unknown 04/07/2025 12:04 PM CDT 04/07/2025 12:31 PM CDT Lea Ross MD LAB - CHEMISTRY ORDERABLES F inal Result [facility]) [address] [place] [address] * (ABNORMAL) FERRITIN (04/07/2025 12:04 PM CDT) [facility] Ferritin 308(H) 13 - 204 ng/mL 04/07/2025 2:00 PM CDT [facility] Blood BLOOD SPECIMEN / Unknown Lab Venipuncture / Unknown 04/07/2025 12:04 PM CDT 04/07/2025 12:31 PM CDT us Lea Ross MD LAB - CHEMISTRY ORDERABLES F inal Result [address] [address], [facility] [phone] * LIPID PROFILE (04/07/2025 12:04 PM CDT) [facility] Cholesterol Total 173 <200 mg/dL 04/07/2025 1:35 PM CDT [facility] HDL 55 >40 mg/dL 04/07/2025 1:35 PM CDT [facility] Comment: ATP III Classification of HDL Cholesterol: <40 mg/dL: Considered a major risk factor. >60 mg/dL: Considered a negative risk factor. LDL Calculated 92 <100 mg/dL 04/07/2025 1:35 PM CDT [facility] Comment: ATP III Classification of LDL Cholesterol: <100 mg/dL: Optimal 100 - 129 mg/dL: Near Optimal/Above Optimal 130 - 159 mg/dL: Borderline High 160 - 189 mg/dL: High >190 mg/dL: Very High LDL is calculated using the Friedewald equation. Triglycerides 128 <150 mg/dL 04/07/2025 1:35 PM CDT [facility] Comment: ATP III Classification of Triglycerides: <150 mg/dL: Normal 150 - 199 mg/dL: Borderline High 200 - 400 mg/dL: High >500 mg/dL: Very High Blood BLOOD SPECIMEN / Unknown Lab Venipuncture / Unknown 04/07/2025 12:04 PM CDT 04/07/2025 12:55 PM CDT us Lea Ross MD LAB - CHEMISTRY ORDERABLES F inal Result [address] [address], [facility] [phone] * VAS BILATERAL VENOUS DUPLEX LE (04/07/2025 11:24 AM CDT) Anatomical Region Laterality Modality Lower Extremity Intravascular Ul trasound 04/07/2025 10:5 7 AM CDT Narrative Procedure Note Joselito Adam MD - 04/08/2025 us Lea Ross MD VASCULAR LAB ORDERABLES Edit ed Result - Final * XR CHEST PA AND LATERAL (04/07/2025 11:16 AM CDT) Anatomical Region Laterality Modality Chest Digital Radiogra phy 04/07/2025 11:3 1 AM CDT Narrative 04/07/2025 3:51 PM CDT PROCEDURE: XR CHEST 2VW, DATE/TIME OF EXAM: 04/07/2025 11:16 AM, LOCATION [facility] INDICATION: Z01.818: Pre-transplant evaluation for kidney transplant ADDITIONAL CLINICAL INFORMATION: Ordering Provider Reason For Exam: pre-kidney txp evaluation COMPARISON: None. FINDINGS/IMPRESSION: Surgical clips in the upper quadrant of abdomen. There is no focal consolidation, pleural effusion, or pneumothorax. The cardiomediastinal silhouette is normal. Degenerative changes are noted in the thoracic spine. The report was drafted by Martha Cardoso MD (residential caregiver) 04/07/2025 11:31 AM. Nile Keen MD have personally reviewed and interpreted this examination/study. > Interpreting Provider: Nile Souza MD on 04/07/2025 3:51 PM Procedure Note Nile Souza MD - 04/07/2025 PROCEDURE: XR CHEST 2VW, DATE/TIME OF EXAM: 04/07/2025 11:16 AM, LOCATION [facility] INDICATION: Z01.818: Pre-transplant evaluation for kidney transplant ADDITIONAL CLINICAL INFORMATION: Ordering Provider Reason For Exam: pre-kidney txp evaluation COMPARISON: None. FINDINGS/IMPRESSION: Surgical clips in the upper quadrant of abdomen. There is no focal consolidation, pleural effusion, or pneumothorax. The cardiomediastinal silhouette is normal. Degenerative changes are notedin the thoracic spine. The report was drafted by Martha Cardoso MD (residential caregiver) 04/07/2025 11:31 AM. Nile Keen MD have personally reviewed and interpreted this examination/study. > Interpreting Provider: Nile Souza MD on 04/07/2025 3:51 PM Lea Ross MD DIAGNOSTIC IMAGING ORDERABLE S Final Result * CT ABDOMEN AND PELVIS NON IV CONTRAST (04/07/2025 11:16 AM CDT) Anatomical Region Laterality Modality Abdomen, Pelvis Computed Tomogra phy 04/07/2025 1:59 PM CDT Impressions 04/07/2025 2:08 PM CDT IMPRESSION: Enlarged kidneys with multiple cysts characteristic of proximal dominant polycystic kidney disease. Correlate clinically. No hydronephrosis seen. > Interpreting Provider: Herrera Armstrong MD on 04/07/2025 2:08 PM Narrative 04/07/2025 2:08 PM CDT PROCEDURE: CT ABDOMEN PELVIS WO CONTRAST DATE/TIME OF EXAM: 04/07/2025 11:16 AM CLINICAL INFORMATION: None relevant/not provided if blank. Indication: Z01.818: Pre-transplant evaluation for kidney transplant Additional History: COMPARISON: None. TECHNIQUE: CT of the abdomen and pelvis was performed without oral or intravenous contrast. CT dose reduction technique was used, including Automated Exposure Control. FINDINGS: Lung bases: Clear. Liver: Normal morphology. No focal lesions are seen. Gallbladder: Post cholecystectomy status. Biliary system: No interval extrahepatic biliary dilation seen. Pancreas: Unremarkable. No pancreatic duct dilation. Spleen: Normal. Adrenal glands: Unremarkable. Kidneys: Enlarged kidneys with multiple cysts throughout the kidney causing lobulated outline. The right kidney measures 8.5 x 7.2 x 14.4 cm and approximate volume is 448 cc. Left kidney measures 10 x 9 x 15 cm and approximate volume is 618 cc. Multiple foci of parenchymal calcifications noted of the right kidney. No hydronephrosis seen. Gastrointestinal: Gastrojejunostomy changes are noted. Small bowel loops are normal caliber. No bowel dilation seen. Colon is unremarkable. Appendix: Appendix is normal morphology. Peritoneum: Unremarkable. Retroperitoneum: Unremarkable. Vascular structures: Significant plaque burden or calcification in the aorta and iliac arteries. A linear hypodensity filling defect noted along the posterior wall of the infrarenal segment of the inferior vena cava. Urinary bladder: Urinary bladder was moderately distended and grossly unremarkable. Other pelvic organs: Unremarkable. Calcified nodules noted in the left adnexa. Bones: No acute bony lesions or significant focal lesions identified. Soft tissue: Unremarkable. Procedure Note Herrera Armstrong MD - 04/07/2025 PROCEDURE: CT ABDOMEN PELVIS WO CONTRAST DATE/TIME OF EXAM: 04/07/2025 11:16 AM CLINICAL INFORMATION: None relevant/not provided if blank. Indication: Z01.818: Pre-transplant evaluation for kidney transplant Additional History: COMPARISON: None. TECHNIQUE: CT of the abdomen and pelvis was performed without oral or intravenous contrast. CT dose reduction technique was used, including Automated ExposureControl. FINDINGS: Lung bases: Clear. Liver: Normal morphology. No focal lesions are seen. Gallbladder: Post cholecystectomy status. Biliary system: No interval extrahepatic biliary dilation seen. Pancreas: Unremarkable. No pancreatic duct dilation. Spleen: Normal. Adrenal glands: Unremarkable. Kidneys: Enlarged kidneys with multiple cysts throughout the kidneycausing lobulated outline. The right kidney measures 8.5 x 7.2 x 14.4 cm and approximate volume is 448 cc. Left kidney measures 10 x 9 x 15 cm and approximate volume is 618 cc. Multiple foci of parenchymalcalcifications noted of the right kidney. No hydronephrosis seen. Gastrointestinal: Gastrojejunostomy changes are noted. Small bowel loops are normal caliber. No bowel dilation seen. Colon is unremarkable. Appendix: Appendix is normal morphology. Peritoneum: Unremarkable. Retroperitoneum: Unremarkable. Vascular structures: Significant plaque burden or calcification in the aorta and iliac arteries. A linear hypodensity filling defect notedalong the posterior wall of the infrarenal segment of the inferior vena cava. Urinary bladder: Urinary bladder was moderately distended and grossly unremarkable. Other pelvic organs: Unremarkable. Calcified nodules noted in the left adnexa. Bones: No acute bony lesions or significant focal lesions identified. Soft tissue: Unremarkable. IMPRESSION: Enlarged kidneys with multiple cysts characteristic of proximal dominant polycystic kidney disease. Correlate clinically. No hydronephrosis seen. > Interpreting Provider: Herrera Armstrong MD on 52:[address] MD [address] ORDERABLES Final Result * ECHO COMPLETE (04/07/2025 10:47 AM CDT) AV PHT 0.673 s SSM CV FUJ I PACS AR DECEL TIME 2.322 s SSM CV FUJI PACS Sinus of Valsalva 2.7 cm SS M CV FUJI PACS IVSd 2D 1.092 cm SSM CV FUJ I PACS LVIDd 3.581 cm SSM CV FUJ I PACS LVIDs 2.613 cm SSM CV FUJ I PACS LVOT diam 1.954 cm SSM CV FUJ I PACS LVPWd 0.969 cm SSM CV FUJ I PACS LV biplane EF 66.929 % SSM CV FUJI PACS LV A2C EF 66.128 % SSM CV FUJ I PACS LV A4C EF 67.182 % SSM CV FUJ I PACS LV EDV A2C 49.656 ml SSM CV FU JI PACS LV EDV A4C 51.177 ml SSM CV FU JI PACS LV ESV A2C 16.819 ml SSM CV FU JI PACS LV ESV A4C 16.796 ml SSM CV FU JI PACS LVOT pk grad 9.027 mmHg SSM CV [facility] PACS LVOT pk jose 150.229 cm/s SSM CV F U PACS LVOT VTI 29.671 cm SSM CV [facility] PACS RV-lopez basal diam 2.647 cm SSM CV [facility] PACS RVIDd 3.684 cm SSM CV [facility] PACS RVOT diam Doppler 2.73 cm SS M CV [facility] PACS RVOT pk jose 55.153 cm/s SSM CV F [facility] PACS RVOT VTI 11.697 cm SSM CV [facility] PACS LA size 3.897 cm SSM CV [facility] PACS LA vol BP 42.217 ml SSM CV [facility] PACS RA area 13.319 cm SSM CV [facility] PACS AV area pk jose 2.615 cm SSM CV [facility] PACS AV area cont VTI 2.461 cm SSM CV [facility] PACS AV pk jose regurg 498.212 cm/s SSM CV [facility] PACS AR VTI 250.842 cm SSM CV [facility] PACS AV pk grad 11.878 mmHg SSM CV FU PACS AV mn grad 6.64 mmHg SSM CV FU PACS AV pk jose 172.321 cm/s SSM CV [facility] PACS AV VTI 36.165 cm SSM CV [facility] PACS MV A pk jose 78.9 cm/s SSM CV F [facility] PACS MV E pk jose 76.661 cm/s SSM CV F [facility] PACS MV E' lateral jose 10.767 cm/s SS M CV [facility] PACS PV pk jose 67.152 cm/s SSM CV [facility] PACS PV VTI 13.554 cm SSM CV [facility] PACS TR pk jose 217.549 cm/s SSM CV [facility] I PACS Ascending aorta 2.876 cm SSM CV [facility] PACS IVC Diam Expiration 1.12 cm SSM CV FUJI PACS AV area index 1.294 cm /m SSM CV [facility] PACS LA vol index 0.022 l/m SSM CV [facility] PACS Dimensionless Index 0.82 unitless [facility] CV [facility]I PACS Myocardial strain charge 2 unitless [facility] PACS Anatomical Region Laterality Modality Ultrasound 04/07/2025 10:2 8 AM CDT Narrative 04/07/2025 11:23 AM CDT Summary * The left ventricular mass is normal with concentric remodeling. * The left ventricle is small in size, with normal systolic function and an estimated ejection fraction of 67 % by biplane method of disks. Left ventricular wall motion is normal. * The left ventricular diastolic function is consistent with grade I diastolic dysfunction and normal left atrial filling pressure. * Right ventricle is normal in size with normal systolic function. * The pulmonary artery systolic pressure is normal, 27 mmHg. * No hemodynamically significant valve disease. Patient Info Name: Johanna Mendez Age: 54 years : 1970 Gender: Female Ht: 63 in Wt: 174 lb BSA: 1.90 m2 HR: 66 bpm BP: 130 / 70 mmHg Heart Rhythm: Sinus Rhythm Exam Date: 04/07/2025 10:28 AM Patient Status: O/P Study Site: [facility] Technical Quality: Adequate Exam Type: ECHO COMPLETE Indications Z01.818 - Pre-transplant evaluation for kidney transplant I10 - Hypertension, unspecified type Procedure(s) * A complete 2D, color Doppler, spectral Doppler, and M-Mode transthoracic echocardiogram was performed. Staff Referring Physician: Lea Ross Ordering Provider: Lea Ross Attending Physician: Lea Ross Fellow: Chivo Lopez Clothes Shaker: Chula Edward Left Ventricle The left ventricle is small in size. There is moderate concentric left ventricular wall thickness. Left ventricular systolic function is normal with an estimated ejection fraction of 67 % by biplane method of disks. The left ventricular mass is normal with concentric remodeling. Left ventricular segmental wall motion is normal. The left ventricular diastolic function is consistent with grade I diastolic dysfunction and normal left atrial filling pressure. Right Ventricle The right ventricle is normal in size. Right ventricular systolic function is normal. A prominent moderator band is noted. Left Atrium The left atrium is normal in size with a left atrial volume index of 22 ml/m2 by BP MOD. Right Atrium The right atrium is normal in size. Atrial Septum Intact interatrial septum visualized by 2D and color Doppler imaging. Aortic Valve The aortic valve is trileaflet. There is no aortic valve stenosis with a peak velocity of 1.7 m/s, mean gradient of 7 mmHg, and aortic valve area of 2.46 cm2. There is trace aortic valve regurgitation. Pulmonic Valve The pulmonic valve is not well visualized. There is no pulmonic valve stenosis. There is no pulmonic regurgitation. Mitral Valve The mitral valve is grossly normal. There is no mitral valve stenosis. There is trace mitral valve regurgitation. Tricuspid Valve The tricuspid valve is not well visualized, but grossly normal. There is no tricuspid valve stenosis. There is trace tricuspid valve regurgitation. The pulmonary artery systolic pressure is normal, 27 mmHg. Inferior Vena Cava The inferior vena cava is not well visualized and therefore the right atrial pressure is assumed to be 8 mmHg. Pericardium/Pleural There is no pericardial effusion. Aorta The aortic root at the sinus of Valsalva is normal in size. The ascending aorta is normal in size. Measurements Left Ventricular Outflow Tract Name Value Normal LVOT 2D LVOT Diameter 2.0 cm LVOT Area 3.0 cm2 LVOT Doppler LVOT Peak Velocity 1.5 m/s LVOT Peak Gradient 9 mmHg LVOT Mean Velocity 90.39 cm/s LVOT Mean Gradient 4 mmHg LVOT VTI 29.7 cm LVOT VTI/AV VTI Ratio 0.8 LVOT Stroke Volume 89 ml LVOT Stroke Volume Index 47 ml/m2 35-58 LVOT CO 5.9 l/min LVOT CI 3.1 l/min/m2 Pulmonic Valve Name Value Normal PV 2D RVOT Diameter (2D) 2.7 cm 1.7-2.7 RVOT Doppler RVOT Peak Velocity 0.6 m/s RVOT Peak Gradient 1 mmHg RVOT Mean Gradient 1 mmHg PV Doppler PV Peak Velocity 0.7 m/s PV Peak Gradient 2 mmHg PV Mean Gradient 1 mmHg PV Area (Cont Eq VTI) 5.05 cm2 PV Area Index (Cont Eq VTI) 2.66 cm2/m2 PV Area (Cont Eq Jose) 4.8 cm2 PV Area Index (Cont Eq Jose) 2.53 cm2/m2 Mitral Valve Name Value Normal MV Diastolic Function MV E Peak Velocity 0.8 m/sec MV A Peak Velocity 0.8 m/sec MV E/A 1.0 MV Decel Time (PW) 201 ms MV A Wave Duration 143 ms MV Annular TDI MV Septal e' Velocity 6 cm/s >=8 MV E/e' (Septal) 12 <=8 MV Lateral e' Velocity 11 cm/s >=10 MV E/e' (Lateral) 7 <=8 MV e' Average 9 cm/s MV E/e' (Average) 10 Tricuspid Valve Name Value Normal TV 2D TV Annulus Diameter (4C) 4.0 cm TV Regurgitation Doppler TR Peak Velocity 2.2 m/s TR Peak Gradient 19 mmHg Estimated PAP/RSVP RA Pressure 8 mmHg <=5 PA Systolic Pressure 27 mmHg <35 RV Systolic Pressure 27 mmHg <36 Pulmonary Vessels Name Value Normal Pulmonary Veins Pulm Vein Peak Systolic Velocity 78.0 cm/s Pulm Vein Peak Diastolic Velocity 46.2 cm/s Pulm Vein S/D Velocity Ratio 2 Pulm Vein Ar Velocity 20.8 cm/s Pulm Vein Ar Dur - MV A Dur -26 ms Aorta Name Value Normal Ascending Aorta Sinus of Valsalva Diameter 2.7 cm 2.4-3.6 Sinus of Valsalva Index 1.4 cm/m2 1.4-2.2 Asc Ao Diameter 2.9 cm 1.9-3.5 Asc Ao Diameter Index 1.5 cm/m2 1.0-2.2 Septae/Shunt/Generic Name Value Normal Qp/Qs Qp/Qs 0.8 Venous Name Value Normal IVC/SVC IVC Diameter 1.1 cm <=2.1 Aortic Valve Name Value Normal AV Doppler AV Peak Velocity 1.72 m/s AV Peak Gradient 12 mmHg AV Mean Gradient 7 mmHg AV VTI 36 cm AV Area (Cont Eq VTI) 2.46 cm2 >=2.00 AV Area (Cont Eq Jose) 2.61 cm2 AV DI (VTI) 0.82 AV DI (Jose) 0.87 AV Regurgitation 2D LVOT Area 3.00 cm2 AV Regurgitation Doppler AR Decel Time 2,322 ms AR PHT 673 ms Ventricles Name Value Normal LV Dimensions 2D/MM IVS Diastolic Thickness (2D) 1.1 cm 0.6-0.9 LVID Diastole (2D) 3.6 cm 3.8-5.2 LVPW Diastolic Thickness (2D) 1.0 cm 0.6-0.9 IVS Systolic Thickness (2D) 1.1 cm LVID Systole (2D) 2.6 cm 2.2-3.5 LVPW Systolic Thickness (2D) 1.1 cm LV Mass (2D Cubed) 87 g 67-162 LV Mass Index (2D Cubed) 46 g/m2 43-95 Relative Wall Thickness (2D) 0.54 <=0.42 LV Fractional Shortening/Ejection Fraction 2D/MM LV Fractional Shortening (2D) 34 % 27-45 LV EF (2D Teicholz) 54 % 54-74 LV Diastolic Volume (4C MOD) 51 ml LV EF (4C MOD) 67 % LV Diastolic Volume (2C MOD) 50 ml LV EF (2C MOD) 66 % LV Diastolic Volume (BP MOD) 51 ml 46-106 LV Diastolic Volume Index (BP MOD) 27 ml/m2 29-61 LV Systolic Volume (BP MOD) 17 ml 14-42 LV Systolic Volume Index (BP MOD) 9 ml/m2 8-24 LV EF (BP MOD) 67 % 54-74 LV Diastolic Length (4C) 4.7 cm LV Systolic Length (4C) 4.9 cm LV Stroke Volume (4C MOD) 34 ml RV Dimensions 2D/MM RVID Diastole (2D) 3.7 cm 2.5-3.5 RVID Systole (2D) 3.2 cm RV Basal Diastolic Dimension 2.6 cm 2.5-4.1 RV Diastolic Length (4C) 5.5 cm 5.9-8.3 Atria Name Value Normal LA Dimensions LA Dimension (2D) 3.9 cm 2.7-3.8 LA Dimen Index (2D) 2.0 cm/m2 LA Volume (BP MOD) 42 ml LA Volume Index (BP MOD) 22 ml/m2 16-34 RA Dimensions RA Area (4C) 13 cm2 <=18 RA Area (4C) Index 7 cm2/m2 RA ESV Index (4C MOD) 16 ml/m2 16-34 Report Signatures Finalized by Hazel Jain MD on 04/07/2025 11:23 AM Reviewed by Fellow Chivo Lopez on 04/07/2025 11:18 AM Procedure Note Hazel Jain MD - 04/07/2025 Summary * The left ventricular mass is normal with concentric remodeling. * The left ventricle is small in size, with normal systolic function andan estimated ejection fraction of 67 % by biplane method of disks. Left ventricular wall motion is normal. * The left ventricular diastolic function is consistent with grade I diastolic dysfunction and normal left atrial filling pressure. * Right ventricle is normal in size with normal systolic function. * The pulmonary artery systolic pressure is normal, 27 mmHg. * No hemodynamically significant valve disease. Patient Info Name: Johanna Mendez Age: 54 years : 1970 Gender: Female Ht: 63 in Wt: 174 lb BSA: 1.90 m2 HR: 66 bpm BP: 130 / 70 mmHg Heart Rhythm: Sinus Rhythm Exam Date: 04/07/2025 10:28 AM Patient Status: O/P Study Site: [facility] Primary Location: [facility] Info Technical Quality: Adequate Exam Type: ECHO COMPLETE Indications Z01.818 - Pre-transplant evaluation for kidney transplant I10 - Hypertension, unspecified type Procedure(s) * A complete 2D, color Doppler, spectral Doppler, and M-Modetransthoracic echocardiogram was performed. Staff Referring Physician: Lea Ross Ordering Provider: Lea Ross Attending Physician: Lea Ross Fellow: Chivo Lopez Clothes Shaker: Chula Edward Left Ventricle The left ventricle is small in size. There is moderate concentric left ventricular wall thickness. Left ventricular systolic function is normalwith an estimated ejection fraction of 67 % by biplane method of disks. Theleft ventricular mass is normal with concentric remodeling. Left ventricular segmental wall motion is normal. The left ventricular diastolic functionis consistent with grade I diastolic dysfunction and normal left atrialfilling pressure. Right Ventricle The right ventricle is normal in size. Right ventricular systolicfunction is normal. A prominent moderator band is noted. Left Atrium The left atrium is normal in size with a left atrial volume index of22 ml/m2 by BP MOD. Right Atrium The right atrium is normal in size. Atrial Septum Intact interatrial septum visualized by 2D and color Doppler imaging. Aortic Valve The aortic valve is trileaflet. There is no aortic valve stenosis witha peak velocity of 1.7 m/s, mean gradient of 7 mmHg, and aortic valve areaof 2.46 cm2. There is trace aortic valve regurgitation. Pulmonic Valve The pulmonic valve is not well visualized. There is no pulmonic valve stenosis. There is no pulmonic regurgitation. Mitral Valve The mitral valve is grossly normal. There is no mitral valve stenosis.There is trace mitral valve regurgitation. Tricuspid Valve The tricuspid valve is not well visualized, but grossly normal. There isno tricuspid valve stenosis. There is trace tricuspid valve regurgitation.The pulmonary artery systolic pressure is normal, 27 mmHg. Inferior Vena Cava The inferior vena cava is not well visualized and therefore the rightatrial pressure is assumed to be 8 mmHg. Pericardium/Pleural There is no pericardial effusion. Aorta The aortic root at the sinus of Valsalva is normal in size. Theascending aorta is normal in size. Measurements Left Ventricular Outflow Tract Name Value Normal LVOT 2D LVOT Diameter 2.0 cm LVOT Area 3.0 cm2 LVOT Doppler LVOT Peak Velocity 1.5 m/s LVOT Peak Gradient 9 mmHg LVOT Mean Velocity 90.39 cm/s LVOT Mean Gradient 4 mmHg LVOT VTI 29.7 cm LVOT VTI/AV VTI Ratio 0.8 LVOT Stroke Volume 89 ml LVOT Stroke Volume Index 47 ml/m2 35-58 LVOT CO 5.9 l/min LVOT CI 3.1 l/min/m2 Pulmonic Valve Name Value Normal PV 2D RVOT Diameter (2D) 2.7 cm 1.7-2.7 RVOT Doppler RVOT Peak Velocity 0.6 m/s RVOT Peak Gradient 1 mmHg RVOT Mean Gradient 1 mmHg PV Doppler PV Peak Velocity 0.7 m/s PV Peak Gradient 2 mmHg PV Mean Gradient 1 mmHg PV Area (Cont Eq VTI) 5.05 cm2 PV Area Index (Cont Eq VTI) 2.66 cm2/m2 PV Area (Cont Eq Jose) 4.8 cm2 PV Area Index (Cont Eq Jose) 2.53 cm2/m2 Mitral Valve Name Value Normal MV Diastolic Function MV E Peak Velocity 0.8 m/sec MV A Peak Velocity 0.8 m/sec MV E/A 1.0 MV Decel Time (PW) 201 ms MV A Wave Duration 143 ms MV Annular TDI MV Septal e' Velocity 6 cm/s >=8 MV E/e' (Septal) 12 <=8 MV Lateral e' Velocity 11 cm/s >=10 MV E/e' (Lateral) 7 <=8 MV e' Average 9 cm/s MV E/e' (Average) 10 Tricuspid Valve Name Value Normal TV 2D TV Annulus Diameter (4C) 4.0 cm TV Regurgitation Doppler TR Peak Velocity 2.2 m/s TR Peak Gradient 19 mmHg Estimated PAP/RSVP RA Pressure 8 mmHg <=5 PA Systolic Pressure 27 mmHg <35 RV Systolic Pressure 27 mmHg <36 Pulmonary Vessels Name Value Normal Pulmonary Veins Pulm Vein Peak Systolic Velocity 78.0 cm/s Pulm Vein Peak Diastolic Velocity 46.2 cm/s Pulm Vein S/D Velocity Ratio 2 Pulm Vein Ar Velocity 20.8 cm/s Pulm Vein Ar Dur - MV A Dur -26 ms Aorta Name Value Normal Ascending Aorta Sinus of Valsalva Diameter 2.7 cm 2.4-3.6 Sinus of Valsalva Index 1.4 cm/m2 1.4-2.2 Asc Ao Diameter 2.9 cm 1.9-3.5 Asc Ao Diameter Index 1.5 cm/m2 1.0-2.2 Septae/Shunt/Generic Name Value Normal Qp/Qs Qp/Qs 0.8 Venous Name Value Normal IVC/SVC IVC Diameter 1.1 cm <=2.1 Aortic Valve Name Value Normal AV Doppler AV Peak Velocity 1.72 m/s AV Peak Gradient 12 mmHg AV Mean Gradient 7 mmHg AV VTI 36 cm AV Area (Cont Eq VTI) 2.46 cm2 >=2.00 AV Area (Cont Eq Jose) 2.61 cm2 AV DI (VTI) 0.82 AV DI (Jose) 0.87 AV Regurgitation 2D LVOT Area 3.00 cm2 AV Regurgitation Doppler AR Decel Time 2,322 ms AR PHT 673 ms Ventricles Name Value Normal LV Dimensions 2D/MM IVS Diastolic Thickness (2D) 1.1 cm 0.6-0.9 LVID Diastole (2D) 3.6 cm 3.8-5.2 LVPW Diastolic Thickness (2D) 1.0 cm 0.6-0.9 IVS Systolic Thickness (2D) 1.1 cm LVID Systole (2D) 2.6 cm 2.2-3.5 LVPW Systolic Thickness (2D) 1.1 cm LV Mass (2D Cubed) 87 g 67-162 LV Mass Index (2D Cubed) 46 g/m2 43-95 Relative Wall Thickness (2D) 0.54 <=0.42 LV Fractional Shortening/Ejection Fraction 2D/MM LV Fractional Shortening (2D) 34 % 27-45 LV EF (2D Teichprisca) 54 % 54-74 LV Diastolic Volume (4C MOD) 51 ml LV EF (4C MOD) 67 % LV Diastolic Volume (2C MOD) 50 ml LV EF (2C MOD) 66 % LV Diastolic Volume (BP MOD) 51 ml 46-106 LV Diastolic Volume Index (BP MOD) 27 ml/m2 29-61 LV Systolic Volume (BP MOD) 17 ml 14-42 LV Systolic Volume Index (BP MOD) 9 ml/m2 8-24 LV EF (BP MOD) 67 % 54-74 LV Diastolic Length (4C) 4.7 cm LV Systolic Length (4C) 4.9 cm LV Stroke Volume (4C MOD) 34 ml RV Dimensions 2D/MM RVID Diastole (2D) 3.7 cm 2.5-3.5 RVID Systole (2D) 3.2 cm RV Basal Diastolic Dimension 2.6 cm 2.5-4.1 RV Diastolic Length (4C) 5.5 cm 5.9-8.3 Atria Name Value Normal LA Dimensions LA Dimension (2D) 3.9 cm 2.7-3.8 LA Dimen Index (2D) 2.0 cm/m2 LA Volume (BP MOD) 42 ml LA Volume Index (BP MOD) 22 ml/m2 16-34 RA Dimensions RA Area (4C) 13 cm2 <=18 RA Area (4C) Index 7 cm2/m2 RA ESV Index (4C MOD) 16 ml/m2 16-34 Report Signatures Finalized by Hazel Jain MD on 04/07/2025 11:23 AM Reviewed by Fellow Chivo Lopez on 04/07/2025 11:18 AM Lea Ross MD ECHO CUPID Final Result * EKG 12-LEAD (04/07/2025 10:39 AM CDT) Ventricular Rate 68 BPM [facility] Atrial Rate 68 BPM [facility] P-R Interval 148 ms [facility] QRS Duration ms 92 ms [facility] Q-T Interval ms 370 ms [facility] MUSE QTC Calculation (Bezet) 393 ms [facility] Calculated P [place] 55 degrees [facility] Calculated T [place] 46 degrees [facility] Interpretation EKG NORMAL SINUS RHYTHM NORMAL ECG NO PREVIOUS ECGS AVAILABLE Confirmed by ABDULLAHI GARCIA MD ([id number]) on 04/26/2025 8:46:36 AM [facility] MUSE 04/07/2025 10:3 9 AM CDT 04/26/2025 8:46 AM CDT us Lea Ross MD ECG ORDERABLES Edited Resul t - Final [facility] MUSE from Last 3 Months Insurance [facility] Care Teams Bridge Painter Relationship Specialty Start Date End Date Enmanuel Prince MD [address] [place] [address] PCP - General Internal Medicine 04/07/25
--- OUTSIDE RECORDS SUMMARY | 2025-06-17 12:06 | XMS_ITS | Encounter Summary ---
Author Organization [facility] Address [address] [place] [address] Phone Care Team Providers Care Administration Dean Name Role Phone Joselito Laws MD Primary Care Provider [phone] Reason for Visit * Reason Comments Med Refill Encounter Details Date Type Department Care Team (Late st Contact Info) Description 04/27/2022 Refill [facility] [address] [place] [address] [phone] Shadia De Oliveira NP [address] [phone] Autosomal dominant polycystic kidney Social History Tobacco [...] Description 07/14/2025 2:00 PM CDT Office Visit [facility] [address] [facility] 1 [place], [place] [phone] Brayan Aquino MD [address] [address] 08/04/2025 2:40 PM AIDS SOCIAL WORKER Office Visit [facility] [address] [facility] 1 [place] [address] Brayan Aquino MD [address] [place] [phone] documented as of this encounter Visit Diagnoses Diagnosis Autosomal dominant polycystic kidney documented in this encounter Care Teams Administration Dean Relationship Specialty Start Date End Date Joselito Laws MD [address] [facility] 15 [place] [phone] PCP - General 11/25/19 documented as of this encounter
--- OUTSIDE RECORDS SUMMARY | 2025-06-17 12:06 | XMS_ITS | Clinical Summary ---
Author Organization [facility] Address [facility] [place] [address] Care Team Providers Care First Responder Name Role Phone Joselito Laws MD Primary Care Provider [phone] Social History Tobacco Use Types Packs/Day Years [...] Screening with HPV 1998 Mammogram Screening 2008 Pneumococcal Vaccine: 50+ Years (1 of 1 - PCV) 2018 COVID-19 Vaccine ( - season) 2025 07/30/2021, 12/03/2020, 11/12/2020 Influenza Adult (#1) 2025 06/06/2021, 05/30/2021, 05/18/2020, Additional history exists DTaP, [...] patient's age to complete this topic Insurance [employer] [facility] [employer] Care Teams First Responder Relationship Specialty Start Date End Date Joselito Laws MD PCP - General INTERNAL MEDICINE 05/10/22
--- OUTSIDE RECORDS SUMMARY | 2025-06-17 12:06 | XMS_ITS | Encounter Summary ---
Author Organization [facility] Address [address] [place] [address] Phone Care Team Providers Care Relocation Services Specialist Name Role Phone Joselito Laws MD Primary Care Provider [phone] Reason for Visit * Reason Comments Med Refill Encounter Details Date Type Department Care Team (Late st Contact Info) Description 10/05/2019 Refill [facility] [address] [place] [address] [phone] Brayan Aquino MD [address] [place] [address] [phone] Social History Tobacco Use Types Packs/Day Years [...] Description 07/14/2025 2:00 PM CDT Office Visit [facility] [address] [place] [address] 1 [place] [address] Brayan Aquino MD [address] [address] 08/04/2025 2:40 PM RABBLE FURNACE TENDER Office Visit [facility] [address] [place] [address] 1 [place] [address] Brayan Aquino MD [address] [address] documented as of this encounter Visit Diagnoses Not on filedocumented in this encounter Care Teams Relocation Services Specialist Relationship Specialty Start Date End Date Joselito Laws MD [address] [phone] PCP - General 11/25/19 documented as of this encounter
--- OUTSIDE RECORDS SUMMARY | 2025-06-17 12:06 | XMS_ITS | Encounter Summary ---
Author Organization [facility] Address [address] [place] [address] Phone Care Team Providers Care Scientific Publications Editor Name Role Phone Joselito Laws MD Primary Care Provider [phone] Reason for Visit * Reason Comments Med Refill Encounter Details Date Type Department Care Team (Late st Contact Info) Description 11/05/2019 Refill [facility] [address] [place] [address] [phone] Brayan Aquino MD [address] [place] [address] [phone] Social History Tobacco Use Types Packs/Day Years [...] Description 07/14/2025 2:00 PM CDT Office Visit [facility] [address] [place] [address] 1 [place] [address] Brayan Aquino MD [address] [address] 08/04/2025 2:40 PM RECEPTION SPECIALIST Office Visit [facility] [address] [place] [address] 1 [place] [address] Brayan Aquino MD [address] [address] documented as of this encounter Visit Diagnoses Not on filedocumented in this encounter Care Teams Scientific Publications Editor Relationship Specialty Start Date End Date Joselito Laws MD [address] [phone] PCP - General 11/25/19 documented as of this encounter
--- OUTSIDE RECORDS SUMMARY | 2025-06-17 12:06 | XMS_ITS | Encounter Summary ---
Author Organization [facility] Address [address] [place] [phone] Phone Care Team Providers Care Form Grader Name Role Phone Joselito Laws MD Primary Care Provider [phone] Reason for Visit * Reason Comments Med Refill Encounter Details Date Type Department Care Team ([facility] Contact Info) Description 10/10/2021 Refill [facility] [address] [place] [address] Brayan Aquino MD [address] [place] [address] [phone] Social History Tobacco Use Types Packs/Day Years [...] ([facility] Contact Info) Description 07/14/2025 2:00 PM CDT Office Visit [facility] [address] [place] [address] [phone] Brayan Aquino MD [address] [place] [address] 08/04/2025 2:40 PM BRANCH EMPLOYMENT COORDINATOR Office Visit [facility] [address] [facility] 1 [place] [address] Brayan Aquino MD [address] [phone] documented as of this encounter Visit Diagnoses Not on filedocumented in this encounter Care Teams Form Grader Relationship Specialty Start Date End Date Joselito Laws MD [address] [phone] PCP - General 11/25/19 documented as of this encounter
--- OUTSIDE RECORDS SUMMARY | 2025-06-17 12:06 | XMS_ITS | Encounter Summary ---
Author Organization [facility] Address [address] [place] [address] Phone Care Team Providers Care Patch Press Operator Name Role Phone Joselito Laws MD Primary Care Provider [phone] Reason for Visit * Reason Comments Med Refill Encounter Details Date Type Department Care Team ([facility] Contact Info) Description 12/07/2019 Refill [facility] [address] [place] [address] [phone] Brayan Aquino MD [address] [address] Social History Tobacco Use Types [...] on file Legal Sex Female 9:36 AM [facility] Gender Identity Not on file Sexual Orientation Not on file documented as of this encounter Plan of Treatment Upcoming Encounters Date Type Department Care Team ([facility] Contact Info) Description 07/14/2025 2:00 PM CDT Office Visit [facility] 1 [place], [place] [phone] Brayan Aquino MD [address] [phone] 08/04/2025 2:40 PM OPTICAL MANUFACTURING TECHNICIAN Office Visit [facility] [address] [facility] 1 [place] [address] Brayan Aquino MD [facility] 1 [place] [address] documented as of this encounter Visit Diagnoses Not on filedocumented in this encounter Care Teams Patch Press Operator Relationship Specialty Start Date End Date Joselito Laws MD 2043 [facility] 15 [place] [phone] PCP - General 11/25/19 documented as of this encounter
--- OUTSIDE RECORDS SUMMARY | 2025-06-17 12:06 | XMS_ITS | Encounter Summary ---
Author Organization [facility] Address [address] [place] [id number] Phone Care Team Providers Care Voice Professor Name Role Phone Joselito Laws MD Primary Care Provider [phone] Reason for Visit * Reason Comments Med Refill Encounter Details Date Type Department Care Team (Late Contact Info) Description 06/11/2019 Refill [facility] [address] [place] [address] [phone] Brayan Aquino MD [address] [place] [address] [phone] Social History Tobacco Use Types Packs/Day Years [...] Description 07/14/2025 2:00 PM CDT Office Visit [facility] [address] [place] [address] [address] [place] [address] Brayan Aquino MD [phone] [address] 08/04/2025 2:40 PM [employer] TECHNICIAN Office Visit [facility] [address] [place] [address] 1 [place] [address] Bryaan Aquino MD [address] [address] documented as of this encounter Visit Diagnoses Not on filedocumented in this encounter Care Teams Voice Professor Relationship Specialty Start Date End Date Joselito Laws MD [address] [phone] PCP - General 11/25/19 documented as of this encounter
[2025-06-17 14:01] LABS: Hematocrit 36.1 % (37.0-47.0); Hemoglobin 11.7 g/dL (12.0-15.0); Immature Granulocyte Percent A 0.3 % (0-0.5); Lymphocytes Absolute Auto 1.45 K/mm3 (0.9-3.2); Mean Corpuscular HGB Conc 32.4 g/dl (32-36); Mean Corpuscular Hemoglobin 29.3 pg (26-34); Mean Corpuscular Volume 90.3 fl (80-100); Nucleated Red Blood Cells Absolute Auto 0.000 K/mm3 (0.0-0.012); Nucleated Red Blood Cells Perc 0.0 % (0.0-0.2); Platelet Count Result 255 k/mm3 (150-375); Red Blood Count 4.00 M/mm3 (4.2-5.4); White Blood Count 6.3 K/mm3 (4.5-10.0)
[2025-06-17 14:12] LABS: INR 1.2; Prothrombin Time 14.8 Seconds (11.1-14.7)
[2025-06-17 14:13] LABS: Partial Thromboplastin Time 28.5 Seconds (22.3-36.8)
[2025-06-17 14:23] LABS: Albumin Level 4.5 g/dL (3.5-5.1)
[2025-06-17 14:25] LABS: Anion Gap 10 mmol/L (4-12); Blood Urea Nitrogen 50 mg/dL (7-17); Calcium 9.4 mg/dL (8.4-10.2); Carbon Dioxide 27 mmol/L (22-30); Chloride 97 mmol/L (98-107); Estimated Glomerular Filt Rate 16; Glucose 98 mg/dL (65-110); Potassium 4.5 mmol/L (3.4-5.0); Sodium 134 mmol/L (137-145)
[2025-06-17 17:57] LABS: Hemoglobin A1C 5.3 % (<5.7)
== END 2025-06-17 11:52 | disposition home or self-care (01) ==
LOC: ANHSURGERY 11:56
PROVIDERS: Anesthesiology; PCP Internal Medicine; Visit Provider Orthopaedic Surgery
DX: Z01.812 Encounter for preprocedural laboratory examination (principal); M17.11 Unilateral primary osteoarthritis, right knee; N18.5 Chronic kidney disease, stage 5
CPT/HCPCS: 36415; 80048; 80307; 82040; 83036; 85025; 85610; 85730; 86850; 86900; 86901